=== PATIENT | male | born 1945 | race Caucasian/White ===

== ENCOUNTER 2018-09-22 01:24 | Outpatient (CLI) | payer MEDICARE, MEDICAID, SELFPAY ==
--- NOTE | 2018-09-22 15:00 | DI.US_ITS ---
SYMPTOMS/DIAGNOSIS: ACUTE DVT, I82.401, SWELLING, ON BLOOD THINNERS RIGHT LOWER EXTREMITY ULTRASOUND: Comparison is made with March,. Exam is limited by the patient's body habitus and subcutaneous edema. The posterior tibial veins could not be identified. There is good color flow demonstrated, as well as compressibility in the popliteal vein. Clot was seen on the previous exam. Color flow was demonstrated from the common femoral vein through the popliteal vein. IMPRESSION: Calf edema. No thrombus is identified from the common femoral vein through the popliteal vein. The posterior tibial veins could not be visualized.
== END 2018-09-22 01:44 ==
PROVIDERS: PCP Family Medicine; Visit Provider Family Medicine
DX: I82.401 Acute embolism and thrombosis of unspecified deep veins of right lower extremity (principal); R22.41 Localized swelling, mass and lump, right lower limb; R60.9 Edema, unspecified; Z79.01 Long term (current) use of anticoagulants
CPT/HCPCS: 93971

== ENCOUNTER 2019-03-08 15:29 | Outpatient (REF) | payer MEDICARE, MEDICAID, SELFPAY ==
[2019-03-08 21:36] LABS: ALT 32 U/L (12-78); AST 23 U/L (15-37); Albumin 4.1 g/dL (3.4-5.0); Alkaline Phosphatase 117 U/L (46-116); Anion Gap 11.5 mmol/L (3-11); BUN 18 mg/dL (7-18); Bilirubin, Total 0.4 mg/dL (0.2-1.0); CO2 29.5 mmol/L (21.0-32.0); CREATININE 1.23 mg/dL (0.70-1.30); Calcium 9.4 mg/dL (8.5-10.1); Chloride 101 mmol/L (98-107); Cholesterol 152 mg/dL (50-200); Estimated GFR 57.84 (mL/min/1.73m2); Glucose 95 mg/dL (70-100); HDL Cholesterol 42 mg/dL (40-60); LDL CHOLESTEROL 88 mg/dL (<100); Potassium 3.8 mmol/L (3.5-5.1); Sodium 142 mmol/L (136-145); Total Protein 7.8 g/dL (6.4-8.2); Triglyceride 114 mg/dL (30-150)
== END 2019-03-08 15:49 ==
LOC: NCHCN 15:29
PROVIDERS: PCP Family Medicine; Visit Provider Family Medicine
DX: I10 Essential (primary) hypertension (principal); R74.8 Abnormal levels of other serum enzymes; N28.9 Disorder of kidney and ureter, unspecified; E78.5 Hyperlipidemia, unspecified
CPT/HCPCS: 80053; 80061; 83721

== ENCOUNTER 2019-08-23 15:34 | Outpatient (REF) | payer MEDICARE, MEDICAID, SELFPAY ==
[2019-08-23 21:44] LABS: HCT 46.3 % (40.0-50.0); HGB 15.3 g/dL (13.5-17.5); Mean Corpuscular Hemoglobin 28.9 pg (27.0-33.0); Mean Corpuscular Volume 87.4 fL (80-95); Mean Platelet Volume 10.2 fL (8.0-11.0); Platelet Count 194 x1000/uL (130-400); RBC Distribution Width 15.3 % (11.8-14.1); White Blood Cell Count 8.07 k/cumm (4.4-10.8)
[2019-08-23 22:03] LABS: ALT 79 U/L (16-63); AST 39 U/L (15-37); Alkaline Phosphatase 105 U/L (46-116); Anion Gap 12.3 mmol/L (3-11); BUN 22 mg/dL (7-18); Bilirubin, Total 0.3 mg/dL (0.2-1.0); CO2 26.7 mmol/L (21.0-32.0); CREATININE 1.29 mg/dL (0.70-1.30); Calcium 9.3 mg/dL (8.5-10.1); Chloride 99 mmol/L (98-107); Estimated GFR 54.75 (mL/min/1.73m2); Glucose 102 mg/dL (70-100); Magnesium 1.5 mg/dL (1.8-2.4); Sodium 138 mmol/L (136-145); Total Protein 7.3 g/dL (6.4-8.2)
== END 2019-08-23 15:54 ==
LOC: NCHCN 15:34
PROVIDERS: PCP Family Medicine; Visit Provider Family Medicine
DX: R74.8 Abnormal levels of other serum enzymes (principal); N28.9 Disorder of kidney and ureter, unspecified; F31.9 Bipolar disorder, unspecified; I10 Essential (primary) hypertension; E78.5 Hyperlipidemia, unspecified
CPT/HCPCS: 80053; 85027; 83735

== ENCOUNTER 2019-09-21 14:36 | Inpatient (IN) | payer MEDICARE, MEDICAID, SELFPAY ==
[2019-09-21] VITALS (86 sets, daily range): BP systolic 109–170; BP diastolic 55–90; PULSE 66–96; RESP 11–27; TEMP 36.6; O2SAT 89–100
--- NOTE | 2019-09-21 14:55 | DI.CT_ITS ---
EXAM: CT CHEST/ABD/PEL W CLINICAL HISTORY: anterior CP, backpain, on floor 3 days. TECHNIQUE: The study was carried out according to the usual protocol with an intravenous administrat ion of 100 cc of Omnipaque 350. COMPARISON: No exams were available for comparison FINDINGS: CHEST : The lungs are normal. There is no evidence of a pleural effusion or pneumothorax. The heart is not enlarged. Coronary artery calcification is seen. The aorta is unremarkable. There is no evide nce of lymphadenopathy. Note is made of multilevel degenerative changes involving the spine. No acu te bony abnormality is identified. ABDOMEN/PELVIS: The liver is normal. The gallbladder is normal. There are no gallstones or ductal dil atation. The pancreas, spleen and adrenals are normal . A 1 cm cyst is noted in the right kidney. Th ere is no evidence of nephrolithiasis or hydronephrosis. A very small hiatus hernia is noted. There is no evidence of bowel obstruction. Scattered diverticula are noted in the distal descending and r ecto sigmoid segments of the colon. There is no evidence of diverticulitis. No small bowel abnormali ty is apparent. There is no evidence of an acute appendix. There is no evidence of free fluid or ai r in the intraperitoneal space. Bladder wall thickening is likely on the basis of nondistention. Pr ostatic enlargement is demonstrated. There are small fat containing inguinal hernias. There are ath erosclerotic changes involving the aorta without evidence of an aneurysm.. Degenerative changes invol ving the spine are apparent. IMPRESSION: CHEST: No acute abnormality is demonstrated in the thorax. ABDOMEN AND PELVIS: No acute abnormalities identified in the abdomen or pelvis.
--- NOTE | 2019-09-21 14:55 | DI.CT_ITS ---
EXAM: CT HEAD CERVICAL SPINE WO CLINICAL HISTORY: syncope, on floor 3 days, JOYNER. TECHNIQUE: A noncontrast enhanced cranial and cervical spine CT was performed. COMPARISON: No exams were available for comparison FINDINGS: HEAD: Age-appropriate atrophic changes are demonstrated. There is evidence of small-vessel disease. There is no evidence of an intra or extra-axial hemorrhage. There is no evidence of a mass effect o r midline shift. The cordero-white matter differentiation is preserved. The ventricles are intact. Th ere is no evidence of a skull fracture. Note is made of chronic mildly displaced bilateral nasal bon e fractures. Retention cysts are noted in the paranasal sinuses. There is partial opacification of the right mastoid air cells. The soft tissues are unremarkable. C SPINE: The vertebral bodies are intact. There is no evidence of a fracture or subluxation. Degene rative changes at C5-6 and C6-C7 are noted where there is disc space narrowing. The posterior elemen ts are intact. The neural canal is widely patent throughout. The odontoid is intact and is closely ap plied to the anterior arch of C1. The prevertebral soft tissues are unremarkable. IMPRESSION: HEAD: No acute intracranial abnormality is demonstrated. There is partial opacification of the right mastoid air cells. C spine: No evidence of a fracture or subluxation.
--- NOTE | 2019-09-21 14:57 | ED.GENADUL_ITS ---
Discharge Plan Disposition Patient Disposition: [facility] INPATIENT Condition: Stable Discharge Details Chief Complaint: Trauma Clinical Impression: Urinary tract infection, Rhabdomyolysis Primary Care Provider: Rosa Bartlett V ED Provider: José Ayoub Home Meds and New Rx's Prescriptions: No Action Refresh Tears 15 ML drops 15 ml Ophthalmic PRN PRNRF: 0 Restasis 1 EACH dropperette 1 ea Ophthalmic DAILY RF: 0 clonazepam 1 MG tablet 1 mg PO HS RF: 0 nitroglycerin [Nitrostat] 0.4 MG tablet, sublingual 0.4 mg Sublingual PRN PRNRF: 0 docusate sodium [Colace] 100 MG capsule 100 mg PO BID PRNRF: 0 furosemide [Lasix] 20 MG tablet 20 mg PO DAILY RF: 0 ezetimibe [Zetia] 10 MG tablet 10 mg PO DAILY RF: 0 trazodone 50 MG tablet 100 mg PO HS RF: 0 diphenhydramine HCl [Benadryl] 25 MG capsule 50 mg PO Q8H PRN RF: 0 aspirin 325 MG tablet 325 mg PO DAILY RF: 0 Cardizem LA 120 MG tablet extended release 24 hr 120 mg PO DAILY RF: 0 ziprasidone HCl [Geodon] 60 mg Capsule 60 mg PO BID RF: 0 lamotrigine [Lamictal] 100 mg Tablet 100 mg PO DAILY RF: 0 pantoprazole 40 mg Tablet,Delayed Release (Dr/Ec) 40 mg PO DAILY AM RF: 0 sertraline [Zoloft] 100 mg Tablet 100 mg PO TID RF: 0 propranolol 40 mg Tablet 40 mg PO BID RF: 0 rosuvastatin [Crestor] 10 mg Tablet 10 mg PO HS RF: 0 Eliquis 5 mg Tablet 5 mg PO BID RF: 0 magnesium oxide [MagOx] 400 mg (241.3 mg magnesium) Tablet 400 mg PO DAILY RF: 0 Medical Decision Making 73-year-old male brought by EMS. He states that he developed a diarrheal illness with general malaise, mild headache and weakness approximately 6 days ago. He states that on Thursday he felt lightheaded, same to the floor and then was unable to get up. He believes he did have a loss of consciousness at that time. Finally able to drag himself to the phone today and called EMS who transported the patient to the ED. He arrives with normal vital signs, he is not hypothermic. He has evidence of contusion and abrasions on anterior chest, anterior patella bilaterally, left elbow. He is at risk for dehydration, concomitant infection, rhabdomyolysis. Patient given maintenance fluids, small amount of analgesia, tetanus status updated, and he is referred for CT images and laboratory tests.. White blood cell elevated at 12.9. CBC otherwise unremarkable. Chemistries: Sodium 136, potassium 3.3, chloride 97, bicarb 21, BUN 28, creatinine 1.29, anion gap 18. AST 145, ALT 60, creatinine kinase 3869, troponin negative. Urinalysis with positive leuk esterase, positive nitrites, greater than 50 white blood cells. Imaging: X-ray of left elbow, bilateral knees are without acute finding. CT sc an of head, cervical spine, chest abdomen pelvis without acute finding. Consistent with urinary tract infection, dehydration, rhabdomyolysis. Fluids infusing, patient given ceftriaxone for urinary tract infection. Ahn catheter ordered to track urine output which the patient refused. Lab Data Lab results reviewed: Yes I reviewed the patient's lab results. Labs: Laboratory Results - last 24 hr 09/21/19 09/21/19 09/21/19 15:20 15:20 15:34 WBC 12.96 H RBC 4.94 Hgb 14.2 Hct 41.6 MCV 84.2 MCH 28.7 MCHC 34.1 RDW 14.7 H Plt Count 225 MPV 10.4 Immature Gran % 0.0 Neutrophils % 78.0 Band Neutrophils % 0.0 Lymphocytes % 14.0 Atypical Lymphs % 0 Monocytes % 8.0 Eosinophils % 0.0 Basophils % 0.0 Absolute Neutrophils 10.11 H Absolute Lymphocytes 1.81 Absolute Monocytes 1.04 H Absolute Eosinophils 0.00 Absolute Basophils 0.00 Differential Comment Manual differential RBC Morphology Normal Sodium 136 Potassium 3.3 L Chloride 97 L Carbon Dioxide 21.0 Anion Gap 18.0 H BUN 28 H Creatinine 1.29 Estimated GFR/1.73 m2 54.75 Glucose 109 H Calcium 9.2 Magnesium 1.9 Total Bilirubin 1.0 AST 145 H ALT 60 Alkaline Phosphatase 111 Creatine Kinase 3869 H Troponin I < 0.05 Total Protein 7.6 Albumin 3.0 L Urine Color Yellow Urine Clarity Sl cloudy Urine pH 6.0 Ur Specific Renwick 1.020 Urine Protein 100 H Urine Ketones >=160 H Urine Blood Large H Urine Nitrite Positive H Urine Bilirubin Small H Urine Urobilinogen 0.2 Ur Leukocyte Esterase Moderate H Urine RBC Negative Urine WBC >50 Ur Epithelial Cells Negative Urine Crystals Negative Urine Bacteria Many Urine Casts Negative Urine Mucus Negative Urine Other Negative Ur Culture Indicated? Yes Urine Glucose Negative ECG Data Attestation: I personally reviewed and interpreted this ECG (s) as follows: Interpretation: Normal sinus rhythm, first-degree AV block, rate of 80, QRS is narrow, there is no ST segment elevation. HPI General Mode of arrival: EMS . Date/Time Provider Initiated Documentation: 09/21/19 14:47 . Information obtained by: patient and EMS . History of Present Illness 73 year old M presents to the emergency department with the chief complaint of Antecedent illness followed by fall and unable to get up Thursday, described as moderate, Quality is described as dull and constant, and is localized to the chest and back. Patient reports no radiation. Patient started experiencing this day(s) and it has been constant. No relieving factors improve symptom(s), No exacerbating factors reported . Patient notes headaches and syncope. Patient did receive the following treatments prior to arrival, none Related Data Home Medications Medication Instructions Recorded Confirmed clonazepam 1 mg PO HS 06/13/13 09/21/19 docusate sodium [Colace] 100 mg PO BID PRN 06/13/13 09/21/19 ezetimibe [Zetia] 10 mg PO DAILY 06/13/13 09/21/19 furosemide [Lasix] 20 mg PO DAILY 06/13/13 09/21/19 nitroglycerin [Nitrostat] 0.4 mg SUBLINGUAL PRN PRN 06/13/13 09/21/19 trazodone 100 mg PO HS 06/13/13 09/21/19 diphenhydramine HCl [Benadryl] 50 mg PO Q8H PRN 07/15/14 09/21/19 Refresh Tears 15 ml OPHTHALMIC PRN PRN script 07/28/14 09/21/19 Restasis 1 ea OPHTHALMIC DAILY script 07/28/14 09/21/19 Cardizem LA 120 mg PO DAILY 05/09/16 09/21/19 aspirin 325 mg PO DAILY 05/09/16 09/21/19 apixaban [Eliquis] 5 mg PO BID 09/21/19 09/21/19 lamotrigine [Lamictal] 100 mg PO DAILY 09/21/19 09/21/19 magnesium oxide [MagOx] 400 mg PO DAILY 09/21/19 09/21/19 pantoprazole 40 mg PO DAILY AM 09/21/19 09/21/19 propranolol 40 mg PO BID 09/21/19 09/21/19 rosuvastatin [Crestor] 10 mg PO HS 09/21/19 09/21/19 sertraline [Zoloft] 100 mg PO TID 09/21/19 09/21/19 ziprasidone HCl [Geodon] 60 mg PO BID 09/21/19 09/21/19 Allergies Allergy/AdvReac Type Severity Reaction Status Date / Time No Known Allergies Allergy Unverified 04/20/17 11:20 General Stated Complaint: Trauma SADIA: 2 Review of Systems Review of Systems Narrative: States he had a diarrheal illness, weakness, headache. Fell to the ground and was unable to get up. Now with left hip pain, back and chest pain. Left elbow pain. 8 systems reviewed and otherwise negative [facility] Medical History Atherosclerosis of coronary artery Holloway's esophagus Essential hypertension Hypercholesterolemia Left ventricular hypertrophy Panic disorder personality affective Schizoaffective disorder tubular adenomas Surgical History Appendectomy (~2006) Colonoscopy - MAC (~2010) Colonoscopy - MAC (04/20/17) EGD - MAC (~2010) EGD - MAC (04/20/17) Hernia Repair, Incisional (~2007) Family History Mother No problems noted. Father Acute myocardial infarction Brother Parkinson's disease Social History Smoking/Tobacco Use Status: Former Tobacco Use Alcohol Intake: never Drug use: Never Exam Narrative Exam Narrative: GEN: awake, alert, oriented 3. Pleasant, poorly groomed, interactive. HEAD: Normocephalic, atraumatic ENT: Mucous membranes dry, oropharynx unremarkable, External ear exam unremarkable EYES: PERRL, EOMI NECK: Full ROM, no CADEN, no menigismus, nontender no step-off or deformity CHEST/RESP: Anterior chest wall bruising and bilateral tenderness, clear to auscultation bilateral, no wheeze/rhonchi/rales CARDIOVASCULAR: RRR, no murmur, rub alley. 2+ Rad pulse bilateral ABDOMEN: Soft, nontender, no mass. +Bowel sounds EXT: Full ROM, no edema, no rash. Bilateral anterior patellar abrasions. Left elbow mild abrasion, range of motion intact, no significant tenderness. Left hip tenderness to palpation, no tenderness with internal or external rotation. Neuro: Grossly normal neurologic exam, conversant, interactive. Psych: Speech fluent, thoughts congruent, affect normal Course Vital Signs Vital signs: Vital Signs Temperature 36.6 C 09/21/19 14:48 Pulse 66 09/21/19 14:48 Respiratory Rate 16 09/21/19 14:48 Blood Pressure 136/90 09/21/19 14:48 Pulse Oximetry 98 09/21/19 14:48 Temperature 36.6 C 09/21/19 14:48 Temperature Source Temporal Artery Scan 09/21/19 14:48 Pulse 66 09/21/19 14:48 Respiratory Rate 16 09/21/19 14:48 Blood Pressure 136/90 09/21/19 14:48 Blood Pressure Position Supine 09/21/19 14:48 Pulse Oximetry 98 09/21/19 14:48 Oxygen Delivery Method Room Air 09/21/19 14:48 Oxygen Flow Rate 0 09/21/19 14:48 Pain Level 7 09/21/19 14:48
--- NOTE | 2019-09-21 15:26 | DI.RAD_ITS ---
EXAM: XR ELBOW LT COMPLETE INDICATION: L pain after on floor. COMPARISON: XR KNEE RT 2V AP,LAT from 09/21/2019 TECHNIQUE: 2D digital imaging was performed. FINDINGS: There is no evidence of a fracture or dislocation. A prominent olecranon spur is demonstrated.
[2019-09-21 15:27] LABS: Abs Immature Grans 0.08 k/cumm (0.0-0.09); HCT 41.6 % (40.0-50.0); HGB 14.2 g/dL (13.5-17.5); Mean Corp. HGB Concentration 34.1 g/dL (32.0-36.0); Mean Corpuscular Hemoglobin 28.7 pg (27.0-33.0); Mean Corpuscular Volume 84.2 fL (80-95); Mean Platelet Volume 10.4 fL (8.0-11.0); Platelet Count 225 x1000/uL (130-400); RBC 4.94 m/cumm (4.50-6.00); RBC Distribution Width 14.7 % (11.8-14.1); White Blood Cell Count 12.96 k/cumm (4.4-10.8)
[2019-09-21] MEDS: Normal Saline 1,000 ML 125 ML IV (15:30)
[2019-09-21 15:46] LABS: Bilirubin Small (Negative); Blood Large (Negative); Clarity Sl Cloudy (Clear); Glucose Negative (Negative); Ketones >=160 mg/dL (Negative); Leukocyte Esterase Moderate (Negative); Nitrite Positive (Negative); Urobilinogen 0.2 EU/dL (Up TO 0.2)
[2019-09-21 15:46] LABS: ALT 60 U/L (16-63); AST 145 U/L (15-37); Alkaline Phosphatase 111 U/L (46-116); BUN 28 mg/dL (7-18); CREATININE 1.29 mg/dL (0.70-1.30); Calcium 9.2 mg/dL (8.5-10.1); Chloride 97 mmol/L (98-107); Estimated GFR 54.75 (mL/min/1.73m2); Glucose 109 mg/dL (70-100); Magnesium 1.9 mg/dL (1.8-2.4); Potassium 3.3 mmol/L (3.5-5.1); Sodium 136 mmol/L (136-145); Total Protein 7.6 g/dL (6.4-8.2)
[2019-09-21 15:49] LABS: Absolute Lymphocyte Count 1.81 k/cumm (1.2-3.4); Absolute Monocyte Count 1.04 k/cumm (0.11-0.7); Absolute Neutrophil Count 10.11 k/cumm (1.2-6.7); Atypical Lymphocytes % 0
[2019-09-21 15:50] LABS: Diff Comment Manual Differential; RBC Morphology Normal
[2019-09-21 15:51] LABS: Creatine Kinase 3869 U/L (39-308); Troponin I < 0.05 ng/mL (0.00-0.06)
[2019-09-21 16:00] LABS: Bacteria Many HPF (Negative); C & S Indicated? Yes; Casts Negative LPF (Negative); Crystals Negative HPF (Negative); Epithelial Cells Negative HPF (Negative); Mucus Negative (Negative); Other Cells Negative (Negative); RBC Negative (0-2); WBC >50 HPF (0-5)
[2019-09-21] MEDS: cefTRIAXone 1 GM/50 ML BAG IVPB ×2 (16:00→21:42)
--- NOTE | 2019-09-21 16:07 | DI.RAD_ITS ---
EXAM: XR KNEE LT 2V AP,LAT INDICATION: fall, anterior pain and contusion. COMPARISON: XR KNEE RT 2V AP,LAT from 09/21/2019 TECHNIQUE: 2D digital imaging was performed. FINDINGS: There is no evidence of a fracture or dislocation. Mild degenerative changes are noted.
--- NOTE | 2019-09-21 16:07 | DI.RAD_ITS ---
EXAM: XR KNEE RT 2V AP,LAT INDICATION: fall, anterior pain and contusion. COMPARISON: KNEES BILAT AP STANDING from 07/26/2014 TECHNIQUE: 2D digital imaging was performed. FINDINGS: There is no evidence of a fracture or dislocation. Moderate degenerative changes are noted.
--- NOTE | 2019-09-21 16:58 | DI.VRAD_ITS ---
PROCEDURE INFORMATION: Exam: CT Head Without Contrast Exam date and time: 09/21/2019 2:57 PM Clinical history: 73 years old, male; Injury or trauma; Fall; Initial encounter; Blunt trauma (contusions or hematomas); Consciousness not specified; Concussion /head injury TECHNIQUE: Imaging protocol: Computed tomography of the head without contrast. COMPARISON: CT HEAD WITHOUT CONTRAST 09/05/2014 3:49 PM FINDINGS: Brain: Nonspecific hypodensities of the periventricular and deep subcortical white matter, most likely secondary to chronic small vessel ischemic change. No intracranial hemorrhage or extra-axial fluid collection. No evidence of mass effect or midline shift. López-white matter differentiation is normal. Ventricles: Prominence of the ventricles and sulci, most likely attributed to parenchymal volume loss. Bones/joints: Chronic mildly displaced bilateral nasal bone fractures. No acute fracture. Sinuses: Chronic retention cysts versus polyps in the paranasal sinuses. Mastoid air cells: Partial opacification of right mastoid air cells. Soft tissues: Unremarkable. IMPRESSION: 1. No acute intracranial pathology. 2. Partial opacification of right mastoid air cells. 3. Other chronic findings, as above. PROCEDURE INFORMATION: Exam: CT Cervical Spine Without Contrast Exam date and time: 09/21/2019 2:57 PM Clinical history: 73 years old, male; Injury or trauma; Fall; Initial encounter; Blunt trauma (contusions or hematomas); Consciousness not specified; Concussion /head injury TECHNIQUE: Imaging protocol: Computed tomography images of the cervical spine without contrast. COMPARISON: CT HEAD WITHOUT CONTRAST 09/05/2014 3:49 PM FINDINGS: Vertebrae: Vertebral body heights are maintained. No locked or perched facets. Multilevel facet arthropathy. No acute cervical spine fracture. The dens is intact. Atlanto-axial intervals are normal. Discs/Spinal canal/Neural foramina: Multilevel degenerative changes with intervertebral disc height loss and osteophyte formation, with multilevel areas of mild canal stenosis. Soft tissues: Unremarkable. Lungs: Lung apices are clear. IMPRESSION: No acute cervical spine fracture. Dictated and Authenticated by: Leonid Monae MD. Ordering:JAZMÍN Kumar MD
--- NOTE | 2019-09-21 17:03 | DI.VRAD_ITS ---
PROCEDURE INFORMATION: Exam: XR Right Knee Exam date and time: 09/21/2019 4:50 PM Clinical history: 73 years old, male; Pain; Knee; Right TECHNIQUE: Imaging protocol: XR Right knee. Views: 3 views. COMPARISON: CR KNEES BILAT AP STANDING 07/26/2014 11:30 AM FINDINGS: Bones/joints: Moderate degenerative narrowing of the medial joint space. Mild degenerative narrowing of the lateral joint space. No acute fracture. No dislocation. Soft tissues: Unremarkable. IMPRESSION: No acute findings. Dictated and Authenticated by: Leonid Monae MD. Ordering:JAZMÍN Kumar MD
--- NOTE | 2019-09-21 17:03 | DI.VRAD_ITS ---
PROCEDURE INFORMATION: Exam: XR Left Knee Exam date and time: 09/21/2019 4:50 PM Clinical history: 73 years old, male; Pain; Knee; Left TECHNIQUE: Imaging protocol: XR Left knee. Views: 1 or 2 views. COMPARISON: CR KNEES BILAT AP STANDING 07/26/2014 11:30 AM FINDINGS: Bones/joints: Mild degenerative narrowing of the medial joint space. No acute fracture. No dislocation. Soft tissues: Unremarkable. IMPRESSION: No acute findings. Dictated and Authenticated by: Leonid Monae MD. Ordering:JAZMÍN Kumar MD
--- NOTE | 2019-09-21 17:04 | DI.VRAD_ITS ---
PROCEDURE INFORMATION: Exam: XR Left Elbow Exam date and time: 09/21/2019 4:55 PM Clinical history: 73 years old, male; Pain; Elbow; Left TECHNIQUE: Imaging protocol: XR Left elbow. Views: 3 or more views. COMPARISON: No relevant prior studies available. FINDINGS: Bones/joints: No acute fracture or dislocation. Degenerative spurring of the olecranon. Soft tissues: Unremarkable. IMPRESSION: No acute findings. Dictated and Authenticated by: Leonid Monae MD. Ordering:JAZMÍN Kumar MD
--- NOTE | 2019-09-21 17:07 | DI.VRAD_ITS ---
PROCEDURE INFORMATION: Exam: CT Chest With Contrast Exam date and time: 09/21/2019 4:36 PM Clinical history: 73 years old, male; Injury or trauma; Fall; Initial encounter; Sprain or strain; Injury date: 09/17/19 TECHNIQUE: Imaging protocol: Computed tomography of the chest with intravenous contrast. Contrast material: OMNI 350; Contrast volume: 100 ml; Contrast route: R AC; COMPARISON: No relevant prior studies available. FINDINGS: Lungs: No focal areas of consolidation. No masses. Pleural space: No pleural effusion or pneumothorax. Heart: Mild calcifications of the coronary arteries. Aorta: Unremarkable. Lymph nodes: No enlarged lymph nodes. Bones/joints: Multilevel degenerative changes of the visualized spine. No acute osseous lesion or fracture. Soft tissues: Unremarkable. IMPRESSION: 1. No acute findings in the thorax. 2. Other chronic findings, as above. PROCEDURE INFORMATION: Exam: CT Abdomen And Pelvis With Contrast Exam date and time: 09/21/2019 4:36 PM Clinical history: 73 years old, male; Injury or trauma; Fall; Initial encounter; Sprain or strain; Injury date: 09/17/19 TECHNIQUE: Imaging protocol: Computed tomography of the abdomen and pelvis with intravenous contrast. Contrast material: OMNI 350; Contrast volume: 100 ml; Contrast route: R AC; COMPARISON: No relevant prior studies available. FINDINGS: Liver: Unremarkable. Gallbladder and bile ducts: Unremarkable. No ductal dilation. Pancreas: Unremarkable. No ductal dilation. Spleen: Unremarkable. Adrenals: Unremarkable. Kidneys and ureters: 1 cm fluid density cyst in the right kidney. No hydronephrosis or stones. Stomach and bowel: Small hiatal hernia. Scattered colonic diverticulosis without evidence of diverticulitis. Small bowel loops are unremarkable. Appendix: No evidence of appendicitis. Intraperitoneal space: No pneumoperitoneum. No significant fluid collection. Vasculature: Atherosclerotic calcifications of the aorta and major branches. Lymph nodes: No enlarged lymph nodes. Bladder: The bladder is decompressed and unremarkable. Reproductive: Enlargement of the prostate gland. Bones/joints: Multilevel degenerative changes of the visualized spine. No acute osseous lesion or fracture. Soft tissues: Unremarkable. IMPRESSION: 1. No acute intra-abdominal findings. 2. Other chronic findings, as above. Dictated and Authenticated by: Leonid Monae MD. Ordering:JAZMÍN Kumar MD
[2019-09-21] MEDS: Omnipaque 350 MG/ML 100 ML BTL IJ (17:21)
[2019-09-21] MEDS: Normal Saline 1,000 ML 300 ML IV (18:55)
--- NOTE | 2019-09-21 19:16 | W.PM.HP.N ---
Date of service: 09/21/19 Time of Service: 19:16 Assessment and Plan Assessment and plan (1) Complicated UTI (urinary tract infection): Status: Acute Assessment and plan: continue iv Rocephin at increased dosing of 2 gm daily; check results of urine culture; check renal/bladder US in the a.m. (2) Rhabdomyolysis: Status: Acute Assessment and plan: secondary to pressure sores/lying on floor for 3 days. continue aggressive iv fluids overnight to prevent AGNES (particularly in light of his CT chest/abdome/pelvis taken w/ iv contrast. monitor urinary output and repeat BMP now and again in the a.m. Repeat CK levels in the a.m. I do not feel there is a need for alkalinization w/ sodium bicarbonate as long as he can maintain reasonable urinary output w/ aggressive iv fluids. Qualifiers: Rhabdomyolysis type: non-traumatic Qualified Code(s): M62.82 - Rhabdomyolysis (3) Syncope: Status: Chronic Assessment and plan: probably secondary to dehydration from vomiting and diarrhea and low bp from infection and volume loss. Will monitor rhythm overnight. Qualifiers: Syncope type: unspecified Qualified Code(s): R55 - Syncope and collapse (4) Dehydration: Status: Acute Assessment and plan: As above. continue aggressive iv fluids overnight. Will continue at 500 mL/hr for another couple of liters before decreasing to 250 mL/hr. 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 He says that he was ill all weekend beginning on Thursday evening w/ fever, chills, nausea and vomiting and diarrhea and headache. Upon evaluation in the ER he was found to have a UTI w/ CBC w/ leukocytosis of 12,960 and UA w/ large amount of blood and positive for nitrites, and moderate leukocyte esterase, and >50 WBC/HPF and many bacteria and ketonuria >160, and proteinuria 100 mg/dL. He also has a rhabdomyolysis w/ CK of 3896 and fairly normal renal function w/ BUN 28 and creatinine of 1.29 and low potassium of 3.3. He underwent xrays of his L. & R. knees and L. elbow d/t skin abrasions and c/o of bilateral knee pains. CT of his head w/o contrast was negative for acute intracranial pathology. CT of his neck did not show any fractures. CT of his chest, abdomen and pelvis w/ iv contrast did not show any acute pathology. Treatment in the ER consisted of iv fluids N.S. @ 150 mL/hr, Tylenol and morphine for his pain and Rocephin for the UTI. Per my discussion w/ Dr. Ayoub, I requested iv fluids to be increased to 300 to 500 mL/hr and for pennington to be placed. The patient refused a pennington catheter but bladder scan done at 2200 demonstrated 200 mL urine in the bladder and he voided 180 mL. After bedside POCUS exam in which his LV function was found to be low normal and his RV function appeared to be normal and his IVC demonstrated greater than 50% collapse w/ inspiration and his lung cooper were found to be clear, I had ER nursing increase his rate to 1000 mL/hr to prevent acute kidney injury from both the iv contrast and from rhabdomyolysis. Patient will be admitted to ICU for close monitoring of his volume status and urine outputs. I ordered and additional 1 gm of Rocephin for his UTI. A renal and bladder US will be performed in the a.m. to evaluate for complicated UTI. Bladder scanning will be done through the night to evaluate his response to iv fluids. Review of Systems Review of Systems Narrative: 10 systems reviewed and all negative except as noted in HPI Constitutional Constitutional: Reports headache(s) ENT Ears, Nose, Mouth, and Throat: Reports dizziness and Reports headache(s) Cardiovascular Cardiovascular: Reports system reviewed and no additional complaints, except as docu and Reports syncope Gastrointestinal Gastrointestinal: Denies abdominal pain, Denies melena, Denies hematochezia, Reports diarrhea, Reports nausea, Reports vomiting and Denies hematemesis Genitourinary Genitourinary: Reports oliguria and Reports difficulty urinating Musculoskeletal Musculoskeletal: Reports back pain, Reports myalgias, Reports arthralgias and Reports muscle weakness Integumentary/Breasts Skin/Breast: Reports skin ulcer and Reports unusual bruising Neurologic Neurologic: Reports dizziness, Reports syncope and Reports headache(s) Psychiatric Psychiatric: Reports system reviewed and no additional complaints, except as docu Hematologic/Lymphatic Hematologic/Lymphatic: Reports as per HPI and Reports easy bruising Allergic/Immunologic Allergic/Immunologic: Reports system reviewed and no additional complaints, except as docu PFSH Medical History Atherosclerosis of coronary artery Holloway's esophagus Essential hypertension Hypercholesterolemia Left ventricular hypertrophy Panic disorder personality affective Schizoaffective disorder tubular adenomas Surgical History Appendectomy (~2006) Colonoscopy - MAC (~2010) Colonoscopy - MAC (04/20/17) EGD - MAC (~2010) EGD - MAC (04/20/17) Hernia Repair, Incisional (~2007) Family History Mother No problems noted. Father Acute myocardial infarction Brother Parkinson's disease Social History Smoking/Tobacco Use Status: Former Tobacco Use Alcohol Intake: never Drug use: Never Meds Home Medications and Allergies Home Medications Medication Instructions Recorded Confirmed Type clonazepam 1 mg PO HS 06/13/13 09/21/19 History docusate sodium [Colace] 100 mg PO BID PRN 06/13/13 09/21/19 History ezetimibe [Zetia] 10 mg PO DAILY 06/13/13 09/21/19 History furosemide [Lasix] 20 mg PO DAILY 06/13/13 09/21/19 History nitroglycerin [Nitrostat] 0.4 mg SUBLINGUAL PRN PRN 06/13/13 09/21/19 History trazodone 100 mg PO HS 06/13/13 09/21/19 History diphenhydramine HCl [Benadryl] 50 mg PO Q8H PRN 07/15/14 09/21/19 History Refresh Tears 15 ml OPHTHALMIC PRN PRN script 07/28/14 09/21/19 History Restasis 1 ea OPHTHALMIC DAILY script 07/28/14 09/21/19 History Cardizem LA 120 mg PO DAILY 05/09/16 09/21/19 History aspirin 325 mg PO DAILY 05/09/16 09/21/19 History apixaban [Eliquis] 5 mg PO BID 09/21/19 09/21/19 History lamotrigine [Lamictal] 100 mg PO DAILY 09/21/19 09/21/19 History magnesium oxide [MagOx] 400 mg PO DAILY 09/21/19 09/21/19 History pantoprazole 40 mg PO DAILY AM 09/21/19 09/21/19 History propranolol 40 mg PO BID 09/21/19 09/21/19 History rosuvastatin [Crestor] 10 mg PO HS 09/21/19 09/21/19 History sertraline [Zoloft] 100 mg PO TID 09/21/19 09/21/19 History ziprasidone HCl [Geodon] 60 mg PO BID 09/21/19 09/21/19 History Allergies Allergy/AdvReac Type Severity Reaction Status Date / Time No Known Allergies Allergy Unverified 04/20/17 11:20 Exam Const General: cooperative, disheveled and ill appearing acutely Nutritional Appearance: obese Orientation: alert, awake and oriented x3 HENMT Head: normal to inspection, no palpable skull fracture, normocephalic and atraumatic Ears: hearing grossly normal bilaterally and EAC abnormal excessive cerumen bilaterally General nose exam: external nose normal and mucous membranes and turbinates abnormal other (dry) Face and sinus: normal facial exam Mouth: other (dry mucous membranes; no exudates) Teeth and gingiva: poor dentition Throat: posterior oropharynx normal Neck Neck: normal visual inspection, full ROM, no lymphadenopathy, no meningeal signs, trachea midline, supple and no JVD Thyroid: thyroid normal Carotids: normal carotid upstroke Lymphatic: no lymphadenopathy noted Resp Effort & Inspection: normal respiratory effort and able to speak in complete sentences Auscultation: clear to auscultation bilaterally Percussion: percussion normal Cardio Jugular venous pressure: no JVD Palpation: normal PMI Rate: regular rate Rhythm: regular rhythm Heart Sounds: S1 normal, S2 normal, normal, physiologic split S2, no gallops, no murmurs and no rubs Bruits: no abdominal aortic bruits, no carotid bruits and no renal bruits Pulses: normal peripheral pulses GI Inspection: obesity Palpation: soft and no hepatosplenomegaly Percussion: normal to percussion Auscultation: normal bowel sounds Rectal Exam: deferred Back/Spine/Pelvis Back: back tenderness Cervical Spine: cervical ROM normal Thoracic/Lumbar Spine: thoracic and lumbar spine normal to inspection Skin General skin exam: ecchymosis Trauma: abrasion (over both knees) Wounds: wounds noted (over both knees c/w skin abrasions superficial ulcerations) Neuro General: alert, awake, oriented x3, moves all extremities, no meningeal signs and no focal motor deficits Cranial Nerves: EOM intact bilaterally, no nystagmus, facial strength normal, tongue midline, hearing normal, able to rotate head bilaterally and able to elevate shoulders bilaterally Cognition: normal cognition Speech: speech normal Motor: muscle tone normal throughout and no movement abnormalities noted Extrem Right lower extremity: knee Details: abrasion Left lower extremity: knee Details: abrasion Psych Appearance: disheveled Mental Status: mental status grossly normal Speech and Movement: speech and movement normal Mood: congruent mood Affect: normal affect Attitude: cooperative Thought Process: normal Thought Content: normal Insight: insight good Judgment: judgment good Results Labs Result diagrams: 09/22/19 06:45 09/22/19 06:45 Labs: Laboratory Results - last 24 hr 09/21/19 09/21/19 09/21/19 15:20 15:20 15:34 WBC 12.96 H RBC 4.94 Hgb 14.2 Hct 41.6 MCV 84.2 MCH 28.7 MCHC 34.1 RDW 14.7 H Plt Count 225 MPV 10.4 Immature Gran % 0.0 Neutrophils % 78.0 Band Neutrophils % 0.0 Lymphocytes % 14.0 Atypical Lymphs % 0 Monocytes % 8.0 Eosinophils % 0.0 Basophils % 0.0 Absolute Neutrophils 10.11 H Absolute Lymphocytes 1.81 Absolute Monocytes 1.04 H Absolute Eosinophils 0.00 Absolute Basophils 0.00 Differential Comment Manual differential RBC Morphology Normal Sodium 136 Potassium 3.3 L Chloride 97 L Carbon Dioxide 21.0 Anion Gap 18.0 H BUN 28 H Creatinine 1.29 Estimated GFR/1.73 m2 54.75 Glucose 109 H Calcium 9.2 Magnesium 1.9 Total Bilirubin 1.0 AST 145 H ALT 60 Alkaline Phosphatase 111 Creatine Kinase 3869 H Troponin I < 0.05 Total Protein 7.6 Albumin 3.0 L Urine Color Yellow Urine Clarity Sl cloudy Urine pH 6.0 Ur Specific [place] 1.020 Urine Protein 100 H Urine Ketones >=160 H Urine Blood Large H Urine Nitrite Positive H Urine Bilirubin Small H Urine Urobilinogen 0.2 Ur Leukocyte Esterase Moderate H Urine RBC Negative Urine WBC >50 Ur Epithelial Cells Negative Urine Crystals Negative Urine Bacteria Many Urine Casts Negative Urine Mucus Negative Urine Other Negative Ur Culture Indicated? Yes Urine Glucose Negative Last Vital Signs Temp 36.6 C 09/21/19 14:48 Pulse 96 H 09/21/19 18:46 Resp 13 09/21/19 18:46 BP 170/69 H 09/21/19 18:46 Pulse Ox 99 09/21/19 17:20
--- NOTE | 2019-09-21 19:22 | NUR.NOTE ---
Refuses pennington cath. states he has had a bad experience with it in the past. Nursing Note:
[2019-09-21 19:46] LABS: Anion Gap 14.7 mmol/L (3-11); BUN 27 mg/dL (7-18); CO2 21.3 mmol/L (21.0-32.0); CREATININE 1.22 mg/dL (0.70-1.30); Calcium 8.3 mg/dL (8.5-10.1); Chloride 100 mmol/L (98-107); Estimated GFR 58.39 (mL/min/1.73m2); Glucose 152 mg/dL (70-100); Potassium 3.1 mmol/L (3.5-5.1); Sodium 136 mmol/L (136-145)
[2019-09-21 19:50] LABS: Procalcitonin 0.4 ng/mL
[2019-09-21] MEDS: Hydrogen Peroxide 3% 480 ML BTL (22:37)
[2019-09-21] MEDS: Normal Saline 1,000 ML 500 ML IV (23:00)
[2019-09-21] MEDS: Acetaminophen 325 MG TAB 650 MG PO (23:15)
[2019-09-22] VITALS (91 sets, daily range): BP systolic 92–142; BP diastolic 42–77; PULSE 49–80; RESP 10–21; TEMP 36.3–36.8; O2SAT 78–100
--- NOTE | 2019-09-22 01:00 | DI.RAD_ITS ---
EXAM: XR HIP PELVIS ADULT BL INDICATION: s/p fall; bilateral hip pain. COMPARISON: No exams were available for comparison TECHNIQUE: 2D digital imaging was performed. FINDINGS: There is no evidence of an acute fracture or dislocation. The joint spaces are intact.
[2019-09-22] MEDS: Normal Saline 1,000 ML 500 ML IV (01:01)
--- NOTE | 2019-09-22 01:02 | DI.VRAD_ITS ---
PROCEDURE INFORMATION: Exam: XR Bilateral Hips with Pelvis when Performed Exam date and time: 09/22/2019 12:48 AM Clinical history: 73 years old, male; Hip pain; Bilateral; Additional info: S/P fall, bilateral hip pain TECHNIQUE: Imaging protocol: XR bilateral hips with pelvis when performed. Views: 2 views. COMPARISON: CT CHEST/ABD/PEL W 09/21/2019 4:37 PM FINDINGS: Bones/joints: No acute fracture or dislocation. Joint spaces are unremarkable. Soft tissues: Unremarkable. IMPRESSION: No acute fracture or dislocation. Dictated and Authenticated by: Leonid Monae MD. Ordering:[facility] Davida Aggarwal MD
[2019-09-22] MEDS: traZODone 50 MG TAB 100 MG PO ×2 (02:00→21:33)
[2019-09-22] MEDS: clonazePAM 1 MG TAB PO ×2 (02:00→21:33)
[2019-09-22] MEDS: Rosuvastatin 10 MG TAB PO (02:00)
[2019-09-22] MEDS: Apixaban 5 MG TAB PO ×3 (02:16→20:06)
[2019-09-22] MEDS: Propranolol 40 MG TAB PO (02:22)
--- NOTE | 2019-09-22 03:42 | NUR.NOTE ---
09/21/19 @ 2300 pericare provided to pt, noted dry stool to bilat LE/coccyx and posterior torso. complete bed bath provided with out incident. complete bed change provided with out incident. pt tolerated well. noted abrasions to bilat knees that were cleansed with hydrogen peroxide/NS, CHIARA applied and covered with bandaids without incident. Nursing Note:
[2019-09-22] MEDS: POTASSIUM CHLORIDE/0.9% NACL 1,000 ML 250 MEQ IV ×4 (04:31→18:31)
[2019-09-22] MEDS: Pantoprazole 40 MG TABCR PO (04:56)
--- NOTE | 2019-09-22 07:00 | DI.US_ITS ---
EXAM: US RENAL CLINICAL HISTORY: complicated UTI, rhabdomyolysis TECHNIQUE: Ultrasound performed using standard protocol. COMPARISON: US lower extremity venous RT from 09/22/2018 FINDINGS: Renal ultrasound was performed according to the usual protocol. Kidneys are normal in size and shape . There is an incidental 21 millimeter in diameter simple cyst of the midpole of the right kidney. No hydronephrosis nephrolithiasis or renal mass as visualized. Urinary bladder grossly unremarkable with pre and postvoid urinary bladder volume measurements 182 cc and 32 cc respectively. Ureteral je ts were noted bilaterally. Prostate enlarged at 37 cc. IMPRESSION: Essentially normal renal ultrasound, prostatic hypertrophy noted.
[2019-09-22 07:01] LABS: Abs Immature Grans 0.09 k/cumm (0.0-0.09); Absolute Basophil Count 0.04 k/cumm (0.0-0.2); Absolute Eosinophil Count 0.29 k/cumm (0.0-0.7); Absolute Lymphocyte Count 1.85 k/cumm (1.2-3.4); Absolute Monocyte Count 1.25 k/cumm (0.11-0.7); Basophils % 0.5; Eosinophils % 3.5; HCT 36.6 % (40.0-50.0); HGB 12.2 g/dL (13.5-17.5); Immature Grans % 1.1; Mean Corp. HGB Concentration 33.3 g/dL (32.0-36.0); Mean Corpuscular Hemoglobin 28.6 pg (27.0-33.0); Mean Corpuscular Volume 85.7 fL (80-95); Mean Platelet Volume 10.4 fL (8.0-11.0); Monocytes % 14.9; Platelet Count 204 x1000/uL (130-400); RBC 4.27 m/cumm (4.50-6.00); RBC Distribution Width 14.9 % (11.8-14.1)
[2019-09-22 07:10] LABS: Absolute Neutrophil Count 4.87 k/cumm (1.2-6.7)
[2019-09-22 07:22] LABS: ALT 58 U/L (16-63); AST 113 U/L (15-37); Albumin 2.2 g/dL (3.4-5.0); Alkaline Phosphatase 88 U/L (46-116); BUN 20 mg/dL (7-18); Bilirubin, Total 0.3 mg/dL (0.2-1.0); CREATININE 0.95 mg/dL (0.70-1.30); Calcium 7.7 mg/dL (8.5-10.1); Chloride 108 mmol/L (98-107); Glucose 112 mg/dL (70-100); Potassium 3.4 mmol/L (3.5-5.1); Sodium 141 mmol/L (136-145); Total Protein 5.7 g/dL (6.4-8.2)
[2019-09-22 07:32] LABS: Magnesium 1.9 mg/dL (1.8-2.4)
[2019-09-22 07:36] LABS: Creatine Kinase 1982 U/L (39-308)
--- NOTE | 2019-09-22 08:11 | PDOC.CMIN ---
- If Service Date Differs Date of service: 09/22/19 Time of Service: 08:11 Care Management Initial Assess REASON FOR HOSPITALIZATION:: Complicated UTI and rhabdo PAST MEDICAL HISTORY/PAST SURGICAL HISTORY:: Medical History . Atherosclerosis of coronary artery. Ohlloway's esophagus. Essential hypertension. Hypercholesterolemia. Left ventricular hypertrophy. Panic disorder. personality affective. Schizoaffective disorder. tubular adenomas. Surgical History . Appendectomy (~2006). Colonoscopy - MAC (~2010). Colonoscopy - MAC (04/20/17). EGD - MAC (~2010). EGD - MAC (04/20/17). Hernia Repair, Incisional (~2007) ADVANCE DIRECTIVES:: none on file CODE STATUS:: Full Code INSURANCE COVERAGE / FINANCIAL ISSUES:: [employer]. Medicaid PRIMARY CARE PHYSICIAN:: Rosa Bartlett PATIENT/FAMILY EDUCATION NEEDS:: Discharge plan, limitations, follow up plan. Ask Me Three.
--- NOTE | 2019-09-22 08:11 | W.PM.PROGNOT ---
Date of Service Date of service: 09/22/19 Time of Service: 08:11 Assessment and Plan Assessment and plan (1) Complicated UTI (urinary tract infection): Status: Acute Assessment and plan: On ceftriaxone Day 2. Urine C&S with GNR. Await speciation. Patient has not been retaining urine. (2) Rhabdomyolysis: Status: Acute Assessment and plan: CPK imrpoving; still clinically dehydrated and tolerating rather aggressive rates of MIVF - continue to monitor Cr, lytes, CPK, respiratory status. D/c statin/zetia. Qualifiers: Rhabdomyolysis type: non-traumatic Qualified Code(s): M62.82 - Rhabdomyolysis (3) Syncope: Status: Chronic Assessment and plan: Agree that this is due to dehydration from vomiting and diarrhea, but also, we have found the patient to have heart rates that go down to 50's even on cardizem CD alone. It is possible that he had symptomatic bradycardia if propranolol was also on board. Agree that low BP from infection and volume loss could not have helped. Continue to monitor in ICU with IVF. Consider echo. Qualifiers: Syncope type: unspecified Qualified Code(s): R55 - Syncope and collapse (4) Dehydration: Status: Acute Assessment and plan: As above. Continue IVF. (5) Schizoaffective disorder: Status: None Assessment and plan: Continue geodon, zoloft, trazodone. (6) Ambulatory dysfunction: Status: Acute Assessment and plan: PT/OT consults (7) History of DVT (deep vein thrombosis): Status: Acute Assessment and plan: the patient states that is why he is on apixaban. He is not aware of dx of Afib. Will get PCP records. Consider safety of apixaban if patient is a high fall risk. (8) DVT prophylaxis: Status: Acute Assessment and plan: On therapeutic apixaban (9) Discharge planning issues: Status: Acute Assessment and plan: Full code Might require rehab Subjective Subjective Interval history since last seen: Overnight, 1st degree heart block. Making urine, refuses pennington catheter. In pain - both arms - received morphine. Pain is better today B knee wounds are covered. Wound consult is ordered. Denies dizziness, chest pain, shortness of breath, cough, nausea, vomiting, abdominal pain. Denies numbness/tingling in his legs. States he has not drunk alcohol for years. HR has been in 50's, BP in 90-100's. Exam Narrative Exam Narrative: General: pleasant cooperative elderly male, obese, affect flat, appears sad, A&Ox3, looks weak/tired HEENT: EOMI, MMM Heart: seemingly RRR, no m/r/g Lungs: coarse breath sounds B GI: abdomen is soft, nontender, nondistended Extremities: no e/c/c BLE's; decreased skin turgor. Objective Objective Clinical Data: Abnormal lab results 09/21/19 09/21/19 09/21/19 Range/Units 14:30 15:20 15:20 WBC 12.96 H (4.4-10.8) k/cumm RBC (4.50-6.00) m/cumm Hgb (13.5-17.5) g/dL Hct (40.0-50.0) % RDW 14.7 H (11.8-14.1) % Absolute Neutrophils 10.11 H (1.2-6.7) k/cumm Absolute Monocytes 1.04 H (0.11-0.7) k/cumm Potassium 3.1 L 3.3 L (3.5-5.1) mmol/L Chloride 97 L (98-107) mmol/L Anion Gap 14.7 H 18.0 H (3-11) mmol/L BUN 27 H 28 H (7-18) mg/dL Glucose 152 H 109 H (70-100) mg/dL Calcium 8.3 L (8.5-10.1) mg/dL AST 145 H (15-37) U/L Creatine Kinase 3869 H (39-308) U/L Total Protein (6.4-8.2) g/dL Albumin 3.0 L (3.4-5.0) g/dL Urine Protein (Negative) mg/dL Urine Ketones (Negative) mg/dL Urine Blood (Negative) Urine Nitrite (Negative) Urine Bilirubin (Negative) Ur Leukocyte Esterase (Negative) 09/21/19 09/22/19 09/22/19 Range/Units 15:34 06:45 06:45 WBC (4.4-10.8) k/cumm RBC 4.27 L (4.50-6.00) m/cumm Hgb 12.2 L (13.5-17.5) g/dL Hct 36.6 L (40.0-50.0) % RDW 14.9 H (11.8-14.1) % Absolute Neutrophils (1.2-6.7) k/cumm Absolute Monocytes 1.25 H (0.11-0.7) k/cumm Potassium 3.4 L (3.5-5.1) mmol/L Chloride 108 H (98-107) mmol/L Anion Gap (3-11) mmol/L BUN 20 H D (7-18) mg/dL Glucose 112 H (70-100) mg/dL Calcium 7.7 L (8.5-10.1) mg/dL AST 113 H (15-37) U/L Creatine Kinase (39-308) U/L Total Protein 5.7 L (6.4-8.2) g/dL Albumin 2.2 L (3.4-5.0) g/dL Urine Protein 100 H (Negative) mg/dL Urine Ketones >=160 H (Negative) mg/dL Urine Blood Large H (Negative) Urine Nitrite Positive H (Negative) Urine Bilirubin Small H (Negative) Ur Leukocyte Esterase Moderate H (Negative) 09/22/19 Range/Units 06:45 WBC (4.4-10.8) k/cumm RBC (4.50-6.00) m/cumm Hgb (13.5-17.5) g/dL Hct (40.0-50.0) % RDW (11.8-14.1) % Absolute Neutrophils (1.2-6.7) k/cumm Absolute Monocytes (0.11-0.7) k/cumm Potassium (3.5-5.1) mmol/L Chloride (98-107) mmol/L Anion Gap (3-11) mmol/L BUN (7-18) mg/dL Glucose (70-100) mg/dL Calcium (8.5-10.1) mg/dL AST (15-37) U/L Creatine Kinase 1982 H (39-308) U/L Total Protein (6.4-8.2) g/dL Albumin (3.4-5.0) g/dL Urine Protein (Negative) mg/dL Urine Ketones (Negative) mg/dL Urine Blood (Negative) Urine Nitrite (Negative) Urine Bilirubin (Negative) Ur Leukocyte Esterase (Negative) Vital Signs Temperature 36.8 C 09/22/19 05:30 Temperature Source Temporal Artery Scan 09/22/19 01:30 Pulse 53 L 09/22/19 07:30 Pulse 54 L 09/22/19 07:40 Respiratory Rate 14 09/22/19 07:40 Respiratory Effort 09/22/19 05:30 Respiratory Depth Normal 09/22/19 05:30 Respiratory Pattern Normal 09/22/19 05:30 Blood Pressure 101/49 L 09/22/19 07:30 Blood Pressure Mean 61 09/22/19 07:30 Blood Pressure Position Supine 09/21/19 14:48 Pulse Oximetry 98 09/22/19 07:40 Oxygen Delivery Method Nasal Cannula 09/22/19 05:30 Oxygen Flow Rate 3 09/22/19 05:30 Pain Level 7 09/22/19 00:30 Intake & Output 09/21/19 09/21/19 09/22/19 11:59 23:59 11:59 Intake Total 1953.333 / 3938.506 1985 / 2000 Output Total 180 / 280 1025 / 1025 Balance 1773.333 / 1673.333 975 / 975 Weight 112.6 kg 112.6 kg Intake: IV 1558.333 / 1473.589 6084 / 2000 Oral 395 / 395 Output: Urine 180 / 280 1025 / 1025 Other: Urine Color Light Amanda Urine Appearance Clear Urine Odor None Comment pt voided 180cc after scan Pt voids to urinal, he has voided an adequate quantity of urine this shift. Voiding Methods Urinal Laboratory Results WBC 8.40 k/cumm (4.4-10.8) D 09/22/19 06:45 RBC 4.27 m/cumm (4.50-6.00) L 09/22/19 06:45 Hgb 12.2 g/dL (13.5-17.5) L 09/22/19 06:45 Hct 36.6 % (40.0-50.0) L 09/22/19 06:45 MCV 85.7 fL (80-95) 09/22/19 06:45 MCH 28.6 pg (27.0-33.0) 09/22/19 06:45 MCHC 33.3 g/dL (32.0-36.0) 09/22/19 06:45 RDW 14.9 % (11.8-14.1) H 09/22/19 06:45 Plt Count 204 x1000/uL (130-400) 09/22/19 06:45 MPV 10.4 fL (8.0-11.0) 09/22/19 06:45 Immature Gran % 1.1 09/22/19 06:45 Neutrophils % 58.0 09/22/19 06:45 Band Neutrophils % 0.0 % 09/21/19 15:20 Lymphocytes % 22.0 09/22/19 06:45 Atypical Lymphs % 0 09/21/19 15:20 Monocytes % 14.9 09/22/19 06:45 Eosinophils % 3.5 09/22/19 06:45 Basophils % 0.5 09/22/19 06:45 Absolute Neutrophils 4.87 k/cumm (1.2-6.7) 09/22/19 06:45 Absolute Lymphocytes 1.85 k/cumm (1.2-3.4) 09/22/19 06:45 Absolute Monocytes 1.25 k/cumm (0.11-0.7) H 09/22/19 06:45 Absolute Eosinophils 0.29 k/cumm (0.0-0.7) 09/22/19 06:45 Absolute Basophils 0.04 k/cumm (0.0-0.2) 09/22/19 06:45 Differential Comment Manual differential 09/21/19 15:20 RBC Morphology Normal 09/21/19 15:20 Sodium 141 mmol/L (136-145) 09/22/19 06:45 Potassium 3.4 mmol/L (3.5-5.1) L 09/22/19 06:45 Chloride 108 mmol/L (98-107) H 09/22/19 06:45 Carbon Dioxide 24.0 mmol/L (21.0-32.0) 09/22/19 06:45 Anion Gap 9.0 mmol/L (3-11) 09/22/19 06:45 BUN 20 mg/dL (7-18) H D 09/22/19 06:45 Creatinine 0.95 mg/dL (0.70-1.30) 09/22/19 06:45 Estimated GFR/1.73 m2 >= 60.00 (mL/min/1.73m2) 09/22/19 06:45 Glucose 112 mg/dL (70-100) H 09/22/19 06:45 Calcium 7.7 mg/dL (8.5-10.1) L 09/22/19 06:45 Magnesium 1.9 mg/dL (1.8-2.4) 09/22/19 06:45 Total Bilirubin 0.3 mg/dL (0.2-1.0) 09/22/19 06:45 AST 113 U/L (15-37) H 09/22/19 06:45 ALT 58 U/L (16-63) 09/22/19 06:45 Alkaline Phosphatase 88 U/L (46-116) 09/22/19 06:45 Creatine Kinase 1982 U/L (39-308) H 09/22/19 06:45 Troponin I < 0.05 ng/mL (0.00-0.06) 09/21/19 15:20 Total Protein 5.7 g/dL (6.4-8.2) L 09/22/19 06:45 Albumin 2.2 g/dL (3.4-5.0) L 09/22/19 06:45 Procalcitonin 0.4 ng/mL 09/21/19 15:30 Urine Color Yellow (Yellow) 09/21/19 15:34 Urine Clarity Sl cloudy (Clear) 09/21/19 15:34 Urine pH 6.0 (5-8) 09/21/19 15:34 Ur Specific [place] 1.020 (1.005-1.025) 09/21/19 15:34 Urine Protein 100 mg/dL (Negative) H 09/21/19 15:34 Urine Ketones >=160 mg/dL (Negative) H 09/21/19 15:34 Urine Blood Large (Negative) H 09/21/19 15:34 Urine Nitrite Positive (Negative) H 09/21/19 15:34 Urine Bilirubin Small (Negative) H 09/21/19 15:34 Urine Urobilinogen 0.2 EU/dL (Up TO 0.2) 09/21/19 15:34 Ur Leukocyte Esterase Moderate (Negative) H 09/21/19 15:34 Urine RBC Negative (0-2) 09/21/19 15:34 Urine WBC >50 HPF (0-5) 09/21/19 15:34 Ur Epithelial Cells Negative HPF (Negative) 09/21/19 15:34 Urine Crystals Negative HPF (Negative) 09/21/19 15:34 Urine Bacteria Many HPF (Negative) 09/21/19 15:34 Urine Casts Negative LPF (Negative) 09/21/19 15:34 Urine Mucus Negative (Negative) 09/21/19 15:34 Urine Other Negative (Negative) 09/21/19 15:34 Ur Culture Indicated? Yes 09/21/19 15:34 Urine Glucose Negative mg/dL (Negative) 09/21/19 15:34
[2019-09-22] MEDS: Potassium Chloride 20 MEQ TABCR 40 MEQ PO (09:48)
[2019-09-22] MEDS: Aspirin 325 MG TAB PO (09:53)
[2019-09-22] MEDS: Ezetimibe 10 MG TAB PO (09:53)
[2019-09-22] MEDS: dilTIAZem CD 120 MG CAPCR PO (09:54)
[2019-09-22] MEDS: lamoTRIgine 100 MG TAB PO (09:54)
[2019-09-22] MEDS: Ziprasidone 20 MG CAP 60 MG PO ×2 (09:55→20:06)
[2019-09-22] MEDS: Acetaminophen 325 MG TAB PO ×2 (09:57→17:18)
[2019-09-22] MEDS: Normal Saline 1,000 ML 999 ML IV ×2 (10:45→12:45)
[2019-09-22] MEDS: Sertraline 50 MG TAB 100 MG PO ×3 (10:55→20:06)
--- NOTE | 2019-09-22 11:07 | DI.RAD_ITS ---
EXAM: XR PORTABLE CHEST AP INDICATION: new oxygen requirement. ?CHF. COMPARISON: CHEST 2 VIEWS PA,LAT from 09/05/2014 TECHNIQUE: 2D digital imaging was performed. FINDINGS: The lungs are well expanded and free of infiltrate. There is no evidence of a pleural effusion. The heart is not enlarged. The hilar structures, mediastinum and tracheal air column are intact. IMPRESSION: No evidence of acute cardiopulmonary disease.
--- NOTE | 2019-09-22 11:19 | PHARADMIT ---
Addendum entered by Alex Farmer III 09/23/19 12:23: Pharmacy Note Subjective Patient wasdown x 3 days following syncopal episode due to diarrheal illness. Improving, Cr-kinase down ( [id number] ^ [id number] ^ [id number]) Objective VS-OK Pain: 05/09 SCr-0.78 WBC- 7.94 H&H,Plts Lytes-OK, BM today Assessment Home ems ordered, has schizo-effective disorder Plan Plan to transfer to [facility] by a stay in a SNF. Original Note: Admission Pharmacy Clinical Review RHABDO, DEHYDRATION, UTI Code Status Full Code Current Weight 112.6 kg Renally Cleared and Narrow Therapeutic Index Meds CrCl ~68ml/min QTc Value / Action Taken QTc 441 BP Control, Fever BP 106/56, HR 51, afebrile Electrolytes reviewed Na 141, K+ 3.4, Mag 1.9 DVT Prophylaxis Opiate Usage / Scheduled Bowel Regimen Ordered Morphine prn, yes Plt/SCr for Heparin / Enoxaparin INR for Warfarin H/H stable, WBC/Bands H/H 12.2/36.6, WBC 8.4 (down from 12.96) Antibiotic appropriateness Ceftriaxone 2 GRAMS q24h Cultures and Sensitivities UA positive for Gram - and Gram + Surgical ABX d/c within 24 hr DM control / Insulin Dosing Heart Failure (Check EF%) (SUKHDEV's, B-Block, Diuretics) Diltiazem, Nitro prn, propranolol, IV to PO Switch Home Meds Reviewed Yes, Sertraline 100mg TID High Dose was confirmed by [facility] Home Meds Not Ordered Comments Ceftriaxone day 2, tolerating aggressive IVF Patient is on both aspirin 325 plus eliquis for a history of DVT -- consider risk vs. benefit of eliquis as patient is high fall risk (Dr. Klein is aware per her note) daquan
--- NOTE | 2019-09-22 12:31 | PDOC.CMIN ---
Care Management Initial Assess REASON FOR HOSPITALIZATION:: Rhabdomyolysis, Dehydration, UTI PAST MEDICAL HISTORY/PAST SURGICAL HISTORY:: Atherosclerosis of coronary artery, Holloway's esophagus, essential hypertension, hypercholesterolemia, left ventricular hypertrophy, panic disorder, personality affective, schizoaffective disorder, tubular adenomas, appendectomy, colonoscopy, EGD, hernia repair incisional PREVIOUS FUNCTIONAL STATUS/SOCIAL/FAMILY SUPPORTS:: Hayden resides alone in [place], [place]. His daughter, Talia resides in [place]. CURRENT FUNCTIONAL STATUS:: Hayden was sleeping soundly when CM attempted to meet with him. CM spoke with HAYDER Manjarrez who encouraged this caption writer to allow him to sleep. ADVANCE DIRECTIVES:: None on file at [facility]. Has patient been provided with information about the portal?: Yes Did the patient sign up for the portal?: Yes (Previously ) CODE STATUS:: Full Code INSURANCE COVERAGE / FINANCIAL ISSUES:: Medicaid. Medicare CURRENT HOME/COMMUNITY SERVICES/EQUIPMENT:: No current services or equipment. PRIMARY CARE PHYSICIAN:: Rosa Bartlett POTENTIAL DISCHARGE NEEDS:: Evaluation for further needs. Follow up appointments. PATIENT/FAMILY EDUCATION NEEDS:: Review discharge instructions, discuss Ask Me Three. ANTICIPATED BARRIERS TO DISCHARGE:: None identified. TRANSPORTATION:: TBD by mobility and disposition. PLAN:: Hayden will have his wounds managed, he will be evaluated for further needs by PT once stable. CM continues to follow.
--- NOTE | 2019-09-22 16:01 | WOUNDCARE ---
Wound Care Report Pt is a 73 year old male consulted for wounds sustained during a fall and subsequent time laying on floor of his home.. Chart reviewed, including H&P, recent labs, and vital signs, and other providers? reports. Medical Hx and labs pertinent to wound healing: N/A Wound Hx if applicable Pt agreeable to wound consult and photography. Seen at bedside, Pt is fatigued and slept through most of the assessment. Pt appears to have sustained abrasions to bilat knees and left elbow from a fall at his home. Pt has Rhabdomyolysis Dx. Also noted a slit in Pt?s gluteal cleft. Blanchable redness noted surrounding cleft. RIGHT KNEE Wound Assessment Findings Circular abrasion, ? pressure a factor since slough is present, definite full thickness involvement. Measurements 2.1x2.5x0.2 Full thickness Wound bed after cleansing 50% firmly adherent white/yellow slough. 50% red non-granular tissue. Wound Edges Definition defined Attachment attached Surrounding tissue Border is [place] Exudate Scant serosanguinous Odor none LEFT KNEE Wound Assessment Findings Abrasion, partial thickness Measurements distal wound 4.2x3x0.2 proximal wound 1x1.1x0.1 Wound bed 100% pink and red non-granular tissue. Wound Edges Definition defined and irregular Attachment attached Surrounding tissue [place] wound edges and periwound skin. Exudate non, bloody after cleaning wound Odor , none LEFT ELBOW Wound Assessment Findings Abrasion, looks like rug burn, skin is 100% intact, no open areas noted. Measurements 7x1 Surrounding tissue pink Exudate none Odor none GLUTEAL CLEFT Wound Assessment Findings Linear slit, ? moisture related, skin blanchable Measurements 1.2x0.2x0.1 Partial thickness Wound bed document percentage % of tissue types, color of tissue types 100% [place] non-granular tissue on open area. Mild maceration on surrounding skin. Wound Edges defined Surrounding tissue Darn red, blanchable, mild maceration Exudate none Odor none Indicators of infection present? none noted at this time. Patients Mobility status bed-bound @ time of assessment, urns w/assist Nutritional Status- nutrition consult recommended Continence- continent Pain- Pt reports his knee wounds are tender. Primary nurse reports Pt has received pain medication. Medications altering healing- none Interventions for pressure redistribution Type of support surface bed on air mattress Repositioning schedule standard Q2H turn and reposition Physician/nurse practitioner notification Dr. Klein informed of recommendations. Recommendations: RIGHT KNEE- use debrisoft to remove slough from wound. Pat dry. Apply skin prep to periwound skin. Apply Anasept gel to wound bed. Cover with Mepilex w/border. Change daily and PRN. LEFT KNEE- Cleanse wound with NS and gauze. Pat dry. Apply skin prep to periwound skin. Apply Anasept gel to wound bed. Cover w/Mepilex w/border. Change daily and PRN. LEFT ELBOW- Place Mepilex w/border over abrasion. Change Q5 Days and PRN. Gluteal cleft- Cleanse area w/soap and water. Pat dry. Apply Mepilex w/border. Change Q3 Days and PRN. All wounds were cleansed and dressed as recommended above on 09/22/19 @ 1230 by Savanna Aranda RN, [facility]. Photos in chart. Thank you for the consult.
[2019-09-22] MEDS: cefTRIAXone 2 GM/50 ML BAG IVPB (17:21)
[2019-09-23] VITALS (29 sets, daily range): BP systolic 112–173; BP diastolic 45–95; PULSE 56–91; RESP 14–23; TEMP 36.4–37.2; O2SAT 89–98
[2019-09-23] MEDS: POTASSIUM CHLORIDE/0.9% NACL 1,000 ML 150 MEQ IV ×4 (00:17→19:28)
[2019-09-23] MEDS: Pantoprazole 40 MG TABCR PO (05:45)
[2019-09-23 06:58] LABS: Abs Immature Grans 0.23 k/cumm (0.0-0.09); Absolute Basophil Count 0.06 k/cumm (0.0-0.2); Absolute Eosinophil Count 0.26 k/cumm (0.0-0.7); Absolute Lymphocyte Count 1.03 k/cumm (1.2-3.4); Absolute Monocyte Count 0.93 k/cumm (0.11-0.7); Absolute Neutrophil Count 5.43 k/cumm (1.2-6.7); Basophils % 0.8; Eosinophils % 3.3; HCT 38.9 % (40.0-50.0); HGB 12.7 g/dL (13.5-17.5); Immature Grans % 2.9; Mean Corp. HGB Concentration 32.6 g/dL (32.0-36.0); Mean Corpuscular Hemoglobin 28.7 pg (27.0-33.0); Mean Corpuscular Volume 87.8 fL (80-95); Mean Platelet Volume 9.7 fL (8.0-11.0); Monocytes % 11.7; Neutrophils % 68.3; Platelet Count 214 x1000/uL (130-400); RBC 4.43 m/cumm (4.50-6.00); RBC Distribution Width 15.9 % (11.8-14.1); White Blood Cell Count 7.94 k/cumm (4.4-10.8)
[2019-09-23 07:26] LABS: Anion Gap 10.2 mmol/L (3-11); BUN 11 mg/dL (7-18); CO2 22.8 mmol/L (21.0-32.0); CREATININE 0.78 mg/dL (0.70-1.30); Chloride 110 mmol/L (98-107); Creatine Kinase 927 U/L (39-308); Glucose 103 mg/dL (70-100); Magnesium 1.7 mg/dL (1.8-2.4); Potassium 4.1 mmol/L (3.5-5.1); Sodium 143 mmol/L (136-145)
--- NOTE | 2019-09-23 08:00 | DI.US_ITS ---
APPROVED REPORT Conclusion Left Ventricle : The left ventricle is normal in size. The left ventricular systolic function is norm al. There is normal LV segmental wall motion. LVEF is 60-65%. The left ventricular diastolic function is normal. Right Ventricle : Right ventricle is dilated. The right ventricular systolic function is normal. Atria : Left atrium is moderately dilated. Right atrium is mildly dilated. Aortic Valve : Aortic valve is trileaflet and mobile. No aortic regurgitation is present. There is no aortic valvular stenosis. Mitral Valve : There is mitral annular calcification. Mitral valve leaflets are mildly thickened. Tri vial mitral regurgitation. No evidence of mitral valve stenosis. Tricuspid Valve : Tricuspid valve appears normal. Mild tricuspid regurgitation. The RVSP is 50-55 mmH g. Pulmonic Valve : Pulmonic valve is not well visualized. Great Vessels : The aortic root is normal in size. The IVC is dilated and collapses >50% with inspira tion. Prior echocardiogram available for comparison There is no structural abnormality to explain patient's syncope. EXAM: Comprehensive 2D, Doppler, and color-flow Echocardiogram Patient Location: In-Patient Branch Retail Executive: LANA Cox (AE) Rhythm: NSR Indications: SYNCOPE Left Ventricle The left ventricle is normal in size. The left ventricular systolic function is normal. Borderline le ft ventricular hypertrophy. There is normal LV segmental wall motion. The left ventricular diastolic function is normal. LVEF is 60-65%. Right Ventricle Right ventricle is dilated. The right ventricular systolic function is normal. Right ventricle is mil dly hypertrophied. Atria Left atrium is moderately dilated. Right atrium is mildly dilated. Aortic Valve Aortic valve is trileaflet and mobile. There is no aortic valvular stenosis. No aortic regurgitation is present. Mitral Valve There is mitral annular calcification. Mitral valve leaflets are mildly thickened. No evidence of ember ral valve stenosis. Trivial mitral regurgitation. Tricuspid Valve Tricuspid valve appears normal. Mild tricuspid regurgitation. The RVSP is 50-55 mmHg. Pulmonic Valve Pulmonic valve is not well visualized. Trivial pulmonic regurgitation. Great Vessels The aortic root is normal in size. The IVC is dilated and collapses >50% with inspiration. Pericardium anterior fat pad is present. 2D Dimensions IVSd 1.18 cm M: 0.6-1.2 LV EDV A2C 125.00 mL PWd 1.09 cm M: 0.6 - 1.2 LV EDV A4C 137.20 mL LVDd 5.02 cm M: 4.2 - 5.9 LA Volume Index A2C 32.84 mL/m2 LVDs 3.22 cm M: 2.5 - 4.0 LA Volume Index A4C 49.89 mL/m2 Aortic Root 3.43 cm M: 3.1 - 3.7 LA Volume Index Biplane 42.14 mL/m2 RA Area A4C 19.26 cm2 LA Area A4C 28.35 cm2 LVOT 2.22 cm (M/F) 1.5-2.5 LA Area A2C 22.10 cm2 Ascending Aorta 3.14 cm M: 2.6 - 3.4 EF AP4 55.03 % LVEF (Teich) 65.22 % EF AP2 65.12 % LVEF (Robert's) 60.82 % M: 52 - 72 EF BP 60.82 % FS 35.90 % LV Diastology E Decel Time 177.00 (160-240 msec) E/A Ratio 1.7 MED E' 0.10 (>0.07 m/s) LV E/e MED 11.30 (<14) LAT E' 0.12 (>0.1 m/s) LV E/e LAT 9.46 (<14) Aortic Valve LVOT Area 3.87 cm2 LVOT Peak Raghu. 1.30 m/s LVOT Mean Raghu. 0.83 m/s LVOT Peak Gr. 6.80 mmHg UMER Vmax Index 1.28 cm2/m2 LVOT Mean Gr. 3.30 mmHg LVOT VTI 0.27 m UMER Mean Raghu. Index 1.27 cm2/m2 AoV Peak Raghu. 1.76 (0.5-1.3 m/s) AoV Mean Raghu. 1.13 m/s AO Peak GR. 12.39 mmHg AO Mean GR. 5.73 (<5 mmHg) AO VTI 0.36 (0.18-0.25 m) UMER (VTI) 2.93 (2.5-4.5 cm2) UMER (VTI) Index 1.31 cm/m2 Mitral Valve MV E Max Raghu. 1.14 (0.4-1.3 m/s) MV A Velocity 0.67 (0.4-1.3 m/s) E/A Ratio 1.70 MV Decel. Time 177.00 (160-240 msec) MV PHT 51.39 msec MVA PHT 4.28 cm2 Pulmonary Valve PV Peak Velocity 0.98 (0.5-1.5 m/s) Tricuspid Valve TR P. Velocity 3.54 m/s TV Regurg Vmax 3.54 m/s TR P. Gradient 50.02 mmHg
--- NOTE | 2019-09-23 08:27 | W.PM.PROGNOT ---
Date of Service Date of service: 09/23/19 Time of Service: 15:04 Assessment and Plan Assessment and plan (1) Complicated UTI (urinary tract infection): Status: Acute Assessment and plan: On ceftriaxone Day 3. Urine C&S with pansensitive E. COli. Continue ceftriaxone. Patient has not been retaining urine. (2) Rhabdomyolysis: Status: Acute Assessment and plan: CPK imrpoving on IVF; I did have to add lasix today. Continue IVF. Continue to monitor Cr, lytes, CPK, respiratory status. Holding statin/zetia. Qualifiers: Rhabdomyolysis type: non-traumatic Qualified Code(s): M62.82 - Rhabdomyolysis (3) Syncope: Status: Acute Assessment and plan: Agree that this is due to dehydration from vomiting and diarrhea, but also, we have found the patient to have heart rates that go down to 50's even on cardizem CD alone. It is possible that he had symptomatic bradycardia if propranolol was also on board. Agree that low BP from infection and volume loss could not have helped. Echo Qualifiers: Syncope type: unspecified Qualified Code(s): R55 - Syncope and collapse (4) Pulmonary hypertension: Status: Acute Assessment and plan: New diagnosis. Will need testing for DENISE as outpatient. (5) Dehydration: Status: Acute Assessment and plan: As above. Continue IVF. (6) Schizoaffective disorder: Status: None Assessment and plan: Continue geodon, zoloft, trazodone. (7) Ambulatory dysfunction: Status: Acute Assessment and plan: PT/OT consults May require SNF. (8) History of DVT (deep vein thrombosis): Status: Acute Assessment and plan: the patient states that is why he is on apixaban. He is not aware of dx of Afib. PCP records do not have any mention of Afib. Consider safety of apixaban if patient is a high fall risk. (9) DVT prophylaxis: Status: Acute Assessment and plan: On therapeutic apixaban (10) Discharge planning issues: Status: Acute Assessment and plan: Full code Might require rehab Transfer [facility] with tele Subjective Subjective Interval history since last seen: Had a good night. Good UOP. ?sleep apnea - required 2 L of O2. Pain 6/10, mostly LL back, hip, ribs. Complains of lightheadedness while laying flat, denies chest pain, complains of heartburn, denies shortness of breath, n/v. Exam Narrative Exam Narrative: General: pleasant cooperative elderly male, obese, affect flat, but looks better, more upbeat HEENT: EOMI, MMM Heart: seemingly RRR, no m/r/g Lungs: coarse breath sounds B GI: abdomen is soft, nontender, nondistended Extremities: no e/c/c BLE's; decreased skin turgor. Objective Objective Clinical Data: Abnormal lab results 09/23/19 09/23/19 Range/Units 06:25 06:25 RBC 4.43 L (4.50-6.00) m/cumm Hgb 12.7 L (13.5-17.5) g/dL Hct 38.9 L (40.0-50.0) % RDW 15.9 H (11.8-14.1) % Absolute Lymphocytes 1.03 L (1.2-3.4) k/cumm Absolute Monocytes 0.93 H (0.11-0.7) k/cumm Chloride 110 H (98-107) mmol/L Glucose 103 H (70-100) mg/dL Calcium 8.0 L (8.5-10.1) mg/dL Magnesium 1.7 L (1.8-2.4) mg/dL Creatine Kinase 927 H (39-308) U/L Vital Signs Temperature 36.8 C 09/23/19 03:41 Temperature Source Temporal Artery Scan 09/23/19 03:41 Pulse 69 09/23/19 06:01 Pulse 74 09/23/19 06:00 Respiratory Rate 16 09/23/19 08:04 Respiratory Effort Non-Labored 09/23/19 03:41 Respiratory Depth Normal 09/23/19 03:41 Respiratory Pattern Normal 09/23/19 03:41 Blood Pressure 139/57 L 09/23/19 06:01 Blood Pressure Mean 75 09/23/19 06:01 Blood Pressure Position Supine 09/23/19 03:41 Pulse Oximetry 95 09/23/19 08:05 Oxygen Delivery Method Room Air 09/23/19 08:05 Oxygen Flow Rate 0 09/23/19 08:05 Pain Level 3 09/23/19 03:41 Intake & Output 09/22/19 09/22/1919 11:59 23:59 11:59 Intake Total 3250 / 8012.5 4762.5 / 8012.5 1965.0 / 1965.0 Output Total 1575 / 3875 1900 / 3875 2200 / 2200 Balance 1675 / 4137.5 2862.5 / 4137.5 -235.0 / -235.0 Weight 112.6 kg 112.9 kg Intake: IV 3000 / 7412.5 4412.5 / 7412.5 1565.0 / 1565.0 Oral 250 / 600 350 / 600 400 / 400 Output: Urine 1575 / 3875 1900 / 3875 2200 / 2200 Other: Urine Color Yellow Yellow Yellow Urine Appearance Clear Clear Clear Urine Odor Normal Normal Comment Pt just voided 100ml prior to scan voiding to urinal, voiding to urinal, Voiding Methods Urinal Urinal Laboratory Results WBC 7.94 k/cumm (4.4-10.8) 09/23/19 06:25 RBC 4.43 m/cumm (4.50-6.00) L 09/23/19 06:25 Hgb 12.7 g/dL (13.5-17.5) L 09/23/19 06:25 Hct 38.9 % (40.0-50.0) L 09/23/19 06:25 MCV 87.8 fL (80-95) 09/23/19 06:25 MCH 28.7 pg (27.0-33.0) 09/23/19 06:25 MCHC 32.6 g/dL (32.0-36.0) 09/23/19 06:25 RDW 15.9 % (11.8-14.1) H 09/23/19 06:25 Plt Count 214 x1000/uL (130-400) 09/23/19 06:25 MPV 9.7 fL (8.0-11.0) 09/23/19 06:25 Immature Gran % 2.9 09/23/19 06:25 Neutrophils % 68.3 09/23/19 06:25 Band Neutrophils % 0.0 % 09/21/19 15:20 Lymphocytes % 13.0 09/23/19 06:25 Atypical Lymphs % 0 09/21/19 15:20 Monocytes % 11.7 09/23/19 06:25 Eosinophils % 3.3 09/23/19 06:25 Basophils % 0.8 09/23/19 06:25 Absolute Neutrophils 5.43 k/cumm (1.2-6.7) 09/23/19 06:25 Absolute Lymphocytes 1.03 k/cumm (1.2-3.4) L 09/23/19 06:25 Absolute Monocytes 0.93 k/cumm (0.11-0.7) H 09/23/19 06:25 Absolute Eosinophils 0.26 k/cumm (0.0-0.7) 09/23/19 06:25 Absolute Basophils 0.06 k/cumm (0.0-0.2) 09/23/19 06:25 Differential Comment Manual differential 09/21/19 15:20 RBC Morphology Normal 09/21/19 15:20 Sodium 143 mmol/L (136-145) 09/23/19 06:25 Potassium 4.1 mmol/L (3.5-5.1) D 09/23/19 06:25 Chloride 110 mmol/L (98-107) H 09/23/19 06:25 Carbon Dioxide 22.8 mmol/L (21.0-32.0) 09/23/19 06:25 Anion Gap 10.2 mmol/L (3-11) 09/23/19 06:25 BUN 11 mg/dL (7-18) D 09/23/19 06:25 Creatinine 0.78 mg/dL (0.70-1.30) 09/23/19 06:25 Estimated GFR/1.73 m2 >= 60.00 (mL/min/1.73m2) 09/23/19 06:25 Glucose 103 mg/dL (70-100) H 09/23/19 06:25 Calcium 8.0 mg/dL (8.5-10.1) L 09/23/19 06:25 Magnesium 1.7 mg/dL (1.8-2.4) L 09/23/19 06:25 Total Bilirubin 0.3 mg/dL (0.2-1.0) 09/22/19 06:45 AST 113 U/L (15-37) H 09/22/19 06:45 ALT 58 U/L (16-63) 09/22/19 06:45 Alkaline Phosphatase 88 U/L (46-116) 09/22/19 06:45 Creatine Kinase 927 U/L (39-308) H 09/23/19 06:25 Troponin I < 0.05 ng/mL (0.00-0.06) 09/21/19 15:20 Total Protein 5.7 g/dL (6.4-8.2) L 09/22/19 06:45 Albumin 2.2 g/dL (3.4-5.0) L 09/22/19 06:45 Procalcitonin 0.4 ng/mL 09/21/19 15:30 Urine Color Yellow (Yellow) 09/21/19 15:34 Urine Clarity Sl cloudy (Clear) 09/21/19 15:34 Urine pH 6.0 (5-8) 09/21/19 15:34 Ur Specific [place] 1.020 (1.005-1.025) 09/21/19 15:34 Urine Protein 100 mg/dL (Negative) H 09/21/19 15:34 Urine Ketones >=160 mg/dL (Negative) H 09/21/19 15:34 Urine Blood Large (Negative) H 09/21/19 15:34 Urine Nitrite Positive (Negative) H 09/21/19 15:34 Urine Bilirubin Small (Negative) H 09/21/19 15:34 Urine Urobilinogen 0.2 EU/dL (Up TO 0.2) 09/21/19 15:34 Ur Leukocyte Esterase Moderate (Negative) H 09/21/19 15:34 Urine RBC Negative (0-2) 09/21/19 15:34 Urine WBC >50 HPF (0-5) 09/21/19 15:34 Ur Epithelial Cells Negative HPF (Negative) 09/21/19 15:34 Urine Crystals Negative HPF (Negative) 09/21/19 15:34 Urine Bacteria Many HPF (Negative) 09/21/19 15:34 Urine Casts Negative LPF (Negative) 09/21/19 15:34 Urine Mucus Negative (Negative) 09/21/19 15:34 Urine Other Negative (Negative) 09/21/19 15:34 Ur Culture Indicated? Yes 09/21/19 15:34 Urine Glucose Negative mg/dL (Negative) 09/21/19 15:34 Echo; Left Ventricle : The left ventricle is normal in size. The left ventricular systolic function is normal. There is normal LV segmental wall motion. LVEF is 60-65%. The left ventricular diastolic function is normal. Right Ventricle : Right ventricle is dilated. The right ventricular systolic function is normal. Atria : Left atrium is moderately dilated. Right atrium is mildly dilated. Aortic Valve : Aortic valve is trileaflet and mobile. No aortic regurgitation is present. There is no aortic valvular stenosis. Mitral Valve : There is mitral annular calcification. Mitral valve leaflets are mildly thickened. Trivial mitral regurgitation. No evidence of mitral valve stenosis. Tricuspid Valve : Tricuspid valve appears normal. Mild tricuspid regurgitation. The RVSP is 50-55 mmHg. Pulmonic Valve : Pulmonic valve is not well visualized. Great Vessels : The aortic root is normal in size. The IVC is dilated and collapses >50% with inspiration. Prior echocardiogram available for comparison There is no structural abnormality to explain patient's syncope.
[2019-09-23] MEDS: Furosemide 20 MG/2 ML VIAL IVP ×2 (08:51→16:53)
[2019-09-23] MEDS: MAGNESIUM SULFATE 2 GM/50 ML BAG IVPB (08:51)
[2019-09-23] MEDS: Normal Saline Flush 10 ML SYR IVP (08:51)
[2019-09-23] MEDS: Aspirin 325 MG TAB PO (09:08)
[2019-09-23] MEDS: Ziprasidone 20 MG CAP 60 MG PO ×2 (09:08→21:05)
[2019-09-23] MEDS: dilTIAZem CD 120 MG CAPCR PO (09:09)
[2019-09-23] MEDS: Apixaban 5 MG TAB PO ×2 (09:09→20:26)
[2019-09-23] MEDS: Acetaminophen 325 MG TAB PO (09:09)
[2019-09-23] MEDS: Sertraline 50 MG TAB 100 MG PO ×3 (09:09→21:05)
[2019-09-23] MEDS: lamoTRIgine 100 MG TAB PO (09:09)
--- NOTE | 2019-09-23 10:59 | PT.INIE ---
Date of service: 09/23/19 Time of Service: 09:29 PT Notes Inpatient Physical Therapy Evaluation Date: 09/23/2019 Referring Doctor: Sofie Klein MD PT Orders: PT CONSULT: Limited ability Precautions: Fall. Standard. Activity as tolerated. Patient Profile/Admitting Diagnosis: Patient is a 73-year-old male who presented to the ED on 09/21/2019 via EMS with chief presentation of diarrheal illness associated with general body malaise, mild headache, weakness approximately 6 days prior to admission, and syncopal episode that rendered him unable to get up for 3 days. Patient is diagnosed with complicated urinary tract infection, rhabdomyolysis, syncope, and dehydration. PMHX: Medical History Atherosclerosis of coronary artery Holloway's esophagus Essential hypertension Hypercholesterolemia Left ventricular hypertrophy Panic disorder personality affective Schizoaffective disorder tubular adenomas Surgical History Appendectomy (~2006) Colonoscopy - MAC (~2010) Colonoscopy - MAC (04/20/17) EGD - MAC (~2010) EGD - MAC (04/20/17) Hernia Repair, Incisional (~2007) Social History/Home Situation: Patient lives alone in a one-story house with 6 steps to enter and with rails on both sides. He has a lady who comes in every week to help with grocery shopping. He did not use an assistive ambulatory device prior to admission. He states that he had one fall in the past 12 months. 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 Equipment Owned/DME: None Subjective: Patient is agreeable to a PT consult today. He did say that he took his anti-anxiety medication earlier this morning and he feels that he may get unsteady during ambulation activity with PT today. He is okay with home health PT resuming work with him upon discharge from this hospital. He denies any headache, chest pain, dizziness, throughout PT session. None Objective: General Observation: Patient seen sitting at the edge of bed. Telemetry monitoring in place. Ahn catheter in place. IV in left UE. Mental Status: Alert and oriented x4 Pain: 0/10 Vital Signs: Pulse rate ranged from 76 bpm through 94 bpm throughout ambulation activity ROM: Right Upper Extremity: Shoulder Flexion WFL. Shoulder abduction WFL. Elbow flexion WFL. Wrist flexion WFL. Opening and closing of hand WFL. Left Upper Extremity: Shoulder Flexion WFL. Shoulder abduction WFL. Elbow flexion WFL. Wrist flexion WFL. Opening and closing of hand WFL. Right Lower Extremity: Hip flexion WFL. Hip abduction WFL. Knee flexion WFL. Ankle dorsiflexion WFL. Ankle plantarflexion WFL. Left Lower Extremity: Hip flexion WFL. Hip abduction WFL. Knee flexion WFL. Ankle dorsiflexion WFL. Ankle plantarflexion WFL. Strength: Right Upper Extremity: Shoulder flexors 5/5. Shoulder abductors 4/5. Elbow flexors 5/5. Elbow extensors 5/5. Compliance Program Manager strong. Left Upper Extremity: Shoulder flexors 5/5. Shoulder abductors 4/5. Elbow flexors 5/5. Elbow extensors 5/5. Compliance Program Manager strong. Right Lower Extremity: Hip flexors 4/5. Hip abductors 5/5. Knee flexors 5/5. Knee extensors 4/5. Ankle dorsiflexors 4/5. Ankle plantarflexors 5/5. Left Lower Extremity:Hip flexors 4/5. Hip abductors 5/5. Knee flexors 5/5. Knee extensors 4/5. Ankle dorsiflexors 4/5. Ankle plantarflexors 5/5. Sensation: Intact as to pain and pressure on bilateral lower extremities. Bed Mobility/Transfers: Rolling CGA Supine to sit CGA Sit to supine CGA Sit to stand CGA Stand to sit CGA Bed to chair CGA Chair to bed CGA Gait: Patient tolerated level surface ambulation of up to 80 feet using front wheeled walker with CGA provided and wheelchair follow by. He states that he feels unsteady and fatigued at the end. He did deny dizziness, chest pain, and headache during ambulation activity. Decreased step heigh and helena observed. Balance: Static Sitting: Normal Dynamic Sitting: Normal Static Standing: Fair Dynamic Standing: Fair Special Tests: Mobility Limitations Standardized Measure [facility] 6 clicks Basic Mobility Inpatient Short Form: Raw Score: 18 CMS Score: 47% deficit 4-stage balance test: Patient is unable to sustain semi-tandem, full tandem, and one-legged standing unsupported and places him at high risk for falls. Informed Consent/Education: Patient instructed in purpose of PT consult and plan of care. Assessment: Patient is diagnosed with complicated urinary tract infection, rhabdomyolysis, syncope, and dehydration. His past medical history significant for coronary artery disease and schizoaffective disorder. His prognosis is fair. He may benefit from placement in a half-way facility in order to progress his mobility level, strength, and balance skills. He is pleasant and is cooperative. Patient presents with clinical signs and symptoms consistent with current/admitting diagnoses that have resulted to mobility limitations, gait instability, generalized weakness, and impairment of motor control as demonstrated by the following impairment level findings: 1. Decreased strength to B LE major muscle groups 2. Impaired standing balance 3. Impaired activity tolerance Impairments are contributing to the following functional limitations: 1. Dependent bed mobility skills 2. Increased dependence with transfers 3. Inability to safely ambulate without assistive device and physical assistance 4. Increase completion time for mobility ADL performance 5. Increased fall risk 6. Inability to negotiate steps alone safely Patient is assessed as a 47730 moderate complexity based on the following: History: Patient is diagnosed with complicated urinary tract infection, rhabdomyolysis, syncope, and dehydration with His past medical history significant for coronary artery disease and schizoaffective disorder. Examination: Demonstrable impairment in strength, balance, and mobility level with underlying impairments and functional limitations as documented above Presentation:Evolving Decision Makin moderate complexity Goals: Goals X1 week 1. Supine-Sit independent 2. Sit-Supine independent 3. Sit-Stand independent 4. Stand-Sit independent 5. Bed-Chair independent 6. Chair-Bed independent 7. Independent gait on level surface with use of least restrictive device for at least 300 feet without report of pain nor dyspnea 8. Independent stair negotiation while holding onto bilateral rails for at least 10 steps without report of pain nor dyspnea 9. Independent with home exercise program 10. Good static and dynamic standing balance/tolerance Plan of Care/Treatment Plan: 1-2x/day, 7 days/week x 1 week. Plan of care has been reviewed with the CLIENT SERVER DEVELOPER providing the service under Physical Therapy direction. Initiate Physical Therapy intervention for strengthening, bed mobility, transfers, gait, stairs, balance training, use of assistive device. DISCHARGE RECOMMENDATIONS: Patient will benefit from half-way facility placement in order to progress mobility level, strength, and balance in preparation for a safe discharge to home. TREATMENT CODE/TIME: 83158 x 30 minutes beginning at 8:29 AM. Thank you very much for this referral. Jess Lacy PT, DPT, CLT [facility]
[2019-09-23 13:55] LABS: Myoglobin, U 1808 mcg/L (<=21)
--- NOTE | 2019-09-23 15:41 | CMPROGNOTE_ITS ---
Care Management Progress Note S/O: Hayden was sitting up in his chair when CM met with him. He responded with mostly one word answers, and simply but was pleasant. He shared that he remained independent at home prior to this admission and was driving and cooking. He does report he has homemaker supports once a week. He has a son and daughter who reside in [place], where Hayden lived until moving to [place] twenty two years ago. He heats his house with oil, which is on automatic delivery through [employer]. A: 73 year old male admitted to [facility] 09/21/19 for Rhabdomyolysis, Dehydration, UTI P: Hayden plans to return home with new VNA supports including RN/PT/OT/RADIAGRAPH OPERATOR. He will resume C[facility] Moderate services through [facility] including case management with Bonnie William and homemaker supports 1x/wk. PT is recommending SNF at this time, Hayden would like to attempt to strengthen and return home Thursday. CM continues to follow.
[2019-09-23] MEDS: oxyCODONE 5 mg/Acetaminophen 325 mg TAB 1 TAB PO (16:52)
[2019-09-23] MEDS: Mylanta Suspension 30 ML CUP PO (16:53)
[2019-09-23] MEDS: cefTRIAXone 2 GM/50 ML BAG IVPB (16:54)
--- NOTE | 2019-09-23 16:55 | PT.INTREAT ---
Date of service: 09/23/19 Time of Service: 16:55 PT Notes Inpatient Physical Therapy Treatment Note [facility] Date: 09/23/19 PRECAUTIONS: Fall SUBJECTIVE: Min A reports that he has been feeling dizzy this afternoon, he also reports that he has heartburn, both of which are unusual for him. OBJECTIVE: PAIN: No complaints of pain BED MOBILITY/TRANSFERS/GAIT: Patient deferred due to dizziness THEREX: Patient completed a LE strengthening and stabilization program, in a supine position, as per flow sheet. Patient reported increased dizziness, and ther ex program was stopped. Dizziness reported to nursing. ASSESSMENT: Patient tolerated session with increased dizziness with participation in ther ex program. PLAN: Continue with PTs POC TREATMENT CODE/TIME: 15 minutes; [id number]
--- NOTE | 2019-09-23 20:17 | NUR.NOTE ---
Nursing Note: 192H Patient transferred via bed from ICU to Med/surg Rm 225. Alert and oriented, vital signs stable. Lungs clear and afebrile. Patient complains of 7/10 pain in the back, ribs and on his left side from falling at his home. Iv running of NS20K @ 150ml/hr. Multiple wounds found in bilateral knees, elbow and gluteal cleft all cleaned today and covered with mepilex clean, dry and intact. Made aware of new room surroundings and oriented to use of call reyes. All needs attended at this time.
[2019-09-23] MEDS: clonazePAM 1 MG TAB PO (21:05)
[2019-09-23] MEDS: traZODone 50 MG TAB 100 MG PO (21:05)
[2019-09-24] VITALS (8 sets, daily range): BP systolic 137–167; BP diastolic 72–89; PULSE 68–80; RESP 17–20; TEMP 36.5–37.1; O2SAT 94–97
[2019-09-24] MEDS: POTASSIUM CHLORIDE/0.9% NACL 1,000 ML 150 MEQ IV ×2 (01:54→08:09)
[2019-09-24] MEDS: oxyCODONE 5 mg/Acetaminophen 325 mg TAB 1 TAB PO ×2 (06:03→10:28)
[2019-09-24 06:41] LABS: Abs Immature Grans 0.43 k/cumm (0.0-0.09); HCT 42.1 % (40.0-50.0); HGB 13.7 g/dL (13.5-17.5); Mean Corp. HGB Concentration 32.5 g/dL (32.0-36.0); Mean Corpuscular Hemoglobin 28.6 pg (27.0-33.0); Mean Corpuscular Volume 87.9 fL (80-95); Mean Platelet Volume 9.6 fL (8.0-11.0); Platelet Count 272 x1000/uL (130-400); RBC 4.79 m/cumm (4.50-6.00); RBC Distribution Width 16.4 % (11.8-14.1); White Blood Cell Count 7.55 k/cumm (4.4-10.8)
[2019-09-24 07:00] LABS: Anion Gap 9.2 mmol/L (3-11); BUN 7 mg/dL (7-18); CO2 25.8 mmol/L (21.0-32.0); CREATININE 0.86 mg/dL (0.70-1.30); Calcium 8.4 mg/dL (8.5-10.1); Chloride 107 mmol/L (98-107); Creatine Kinase 671 U/L (39-308); Glucose 113 mg/dL (70-100); Magnesium 1.9 mg/dL (1.8-2.4); Sodium 142 mmol/L (136-145)
[2019-09-24 07:24] LABS: Absolute Basophil Count 0.08 k/cumm (0.0-0.2); Absolute Eosinophil Count 0.45 k/cumm (0.0-0.7); Absolute Lymphocyte Count 1.51 k/cumm (1.2-3.4); Absolute Monocyte Count 0.98 k/cumm (0.11-0.7); Absolute Neutrophil Count 4.15 k/cumm (1.2-6.7); Diff Comment Manual Differential; RBC Morphology Normal
[2019-09-24] MEDS: Ziprasidone 20 MG CAP 60 MG PO ×2 (07:52→19:53)
[2019-09-24] MEDS: Normal Saline Flush 10 ML SYR IVP (07:52)
[2019-09-24] MEDS: Furosemide 20 MG/2 ML VIAL IVP ×2 (07:54→15:46)
[2019-09-24] MEDS: Pantoprazole 40 MG TABCR PO (07:54)
[2019-09-24] MEDS: Apixaban 5 MG TAB PO ×2 (07:54→19:54)
[2019-09-24] MEDS: Aspirin 325 MG TAB PO (07:54)
[2019-09-24] MEDS: Sertraline 50 MG TAB 100 MG PO ×3 (07:54→19:54)
[2019-09-24] MEDS: dilTIAZem CD 120 MG CAPCR PO (07:54)
[2019-09-24] MEDS: Acetaminophen 325 MG TAB PO ×2 (08:09→15:46)
--- NOTE | 2019-09-24 09:53 | PTTR_ITS ---
Date of service: 09/24/19 Time of Service: 09:53 PT Notes 09/24/19 SUBJECTIVE: Hayden stating he is feeling better today. Continues to feel weak through the LE's. OBJECTIVE: Standing at his sink when entering room. Agreeable to PT treatment. TRANSFERS Sit to stand: SBA Stand to sit: SBA GAIT Device: FWW Weight bearing: Full Assist: SBA Distance: 100' Therex: Seated LE and UE strengthening as noted on flow sheet. Encouraged frequent completion of LAQ, seated marching and shoulder flexion. When in bed he needs to perform SLR. ASSESSMENT: Progressed with his gait distance today although he continues to feel weak from inactivity. He will begin working on indepdnent strengthening in his room. PLAN: Continue current POC. Treatment time: 11126, 20' Rosenda Rubi PTA Clinic location: [facility] [place], [place]
--- NOTE | 2019-09-24 13:12 | CMPROGNOTE_ITS ---
- If Service Date Differs Date of service: 09/24/19 Time of Service: 13:12 Care Management Progress Note S/O: Hayden was sitting in his chair when CM met with him. He was pleasant and engaged in conversation. He reported that he is feeling ok, and that the plan is for him to discharge home tomorrow. He expressed concern with help at home. CM explained that he will meet with and they will evaluate his needs at home going forward, and may provide more support than he is currently receiving. CM asked if he needs a ride home, which would be coordinated for him. He stated that his friend, Ravindra will drive him home and also bring him clothes. CM will continue to follow. A: Hayden is a 73 year old male admitted to [facility] 09/21/19 for Rhabdomyolysis, Dehydration, UTI P: Hayden plans to return home with new VNA supports including RN/PT/OT/ENVIRONMENTAL ASSOCIATE. He will resume CFC Moderate services through [facility] including case management with Bonnie William and homemaker supports 1x/wk. PT is recommending SNF at this time, Hayden would like to attempt to strengthen and return home Thursday. CM continues to follow.
[2019-09-24] MEDS: cefTRIAXone 2 GM/50 ML BAG IVPB (15:46)
--- NOTE | 2019-09-24 19:56 | PGE_ITS ---
Date of Service Date of service: 09/24/19 Time of Service: 19:56 Assessment and Plan Assessment and plan (1) Complicated UTI (urinary tract infection): Status: Acute Assessment and plan: Currently on day #4 of Ceftriaxone, with Cultures showing a Pansensitive E.Coli. Given potential interactions with patient's psych medications, he will be initiated on Augmentin today and monitored. (2) Syncope: Status: Acute Assessment and plan: In setting of dehydration, UTI, vomiting, and diarrhea. ECHO essentially unremarkable. Patient remains asymptomatic following hydration and treatment of UTI. Qualifiers: Syncope type: unspecified Qualified Code(s): R55 - Syncope and collapse (3) Rhabdomyolysis: Status: Acute Assessment and plan: Mild, with intact renal function. Improving daily with IVFs, with CPK only minimally elevated. Will discontinue IVFs and restart home furosemide given patient's rising blood pressure and appearance of mild LE Edema. Repeat CPK in the morning. Qualifiers: Rhabdomyolysis type: non-traumatic Qualified Code(s): M62.82 - Rhabdomyolysis (4) History of DVT (deep vein thrombosis): Status: Acute Assessment and plan: Continue chronic anticoagulation with Apixaban. (5) Schizoaffective disorder: Status: None Assessment and plan: Continue home regimen of Lamotrigine, Trazodone, and Geodon. Also on SSRI therapy. (6) DVT prophylaxis: Status: Acute Assessment and plan: On therapeutic anticoagulation. Also on PPI therapy for GI Prophylaxis. Subjective Subjective Interval history since last seen: 73 year old man with a prior history of Schizoaffective disorder, admitted from [facility] emergency department on 09/21 with a diagnosis of syncopal episode in the setting of a UTI and dehydration, with subsequent discovery of Rhabdomyolysis. has a Past Medical History significant for HTN, dyslipidemia, GERD, and psychiatric diagnoses including Schizoaffective disorder. The patient presented to the ED via EMS following a syncopal episode, with subsequent inability to get up off the floor. He reportedly developed a diarrheal illness with subsequent weakness and generalized malaise approximately 6 days prior to his admission. He subsequently went on to develop lightheadedness, and fell to the floor/syncopized 2 days prior to his presentation, and was subsequently unable to arise. He finally was able to drag himself to the telephone and call EMS for transportation. Evaluation in the ED was pertinent for abrasions across the chest, b/l knees, and left elbow, and labwork showed evidence of a mild leukocytosis, Hypokalemia, and elevated CPK at 3869 with normal renal function. He also had a mild transaminitis that appears to bear some chronicity in finding. Initial CT of the chest, abdomen, and pelvis was unremarkable, as were CT of the head and neck, and Xrays of the Hip, knee, and elbow. His urinalysis was positive for infection. The patient was referred for admission for further evaluation and treatment. Following admission Mr. Joy was placed on aggressive IVFs for Rhabdomyolysis, and antibiotics for UTI. Renal ultrasound was checked and normal, with evidence only of BPH. Subsequent ECHO was also checked in the setting of syncope, with evidence of a dilated RV with normal function, moderate LAE, and PHTN in the 50's. The patient's urine culture grew a pansensitive E.Coli. CPK steadily decreased, even with discontinuation of IVFs, and the patient remained asymptomatic through the rest of his hospital course. No overnight events reported. Remains afebrile. Exam Narrative Exam Narrative: General: Patient appears comfortable, AAOX3, NAD Neck: Supple CV: Regular, nontachycardic, S1S2, No rubs, murmurs, or gallops. Pulmonary: Clear to auscultation bilaterally, no crackles, wheezing, or rhonchi Abdomen: + Bowel Sounds, soft, nontender, nondistended Vascular: Mild to 1+ b/l lower extremity edema Psych: Normal mood and affect. Objective Objective Clinical Data: Abnormal lab results 09/24/19 09/24/19 Range/Units 06:10 06:10 RDW 16.4 H (11.8-14.1) % Absolute Monocytes 0.98 H (0.11-0.7) k/cumm Glucose 113 H (70-100) mg/dL Calcium 8.4 L (8.5-10.1) mg/dL Creatine Kinase 671 H (39-308) U/L Vital Signs Temperature 37.1 C 09/24/19 19:08 Temperature Source Tympanic 09/24/19 19:08 Pulse 68 09/24/19 19:08 Pulse 68 09/23/19 16:00 Respiratory Rate 18 09/24/19 19:08 Respiratory Effort Non-Labored 09/24/19 15:49 Respiratory Depth Normal 09/24/19 15:49 Respiratory Pattern Normal 09/24/19 15:49 Blood Pressure 167/82 H 09/24/19 19:08 Blood Pressure Mean 85 09/23/19 16:00 Blood Pressure Position Sitting 09/23/19 12:18 Pulse Oximetry 95 09/24/19 19:08 Oxygen Delivery Method Room Air 09/24/19 19:08 Oxygen Flow Rate 0 09/24/19 19:08 Pain Level 5 09/24/19 15:46 Comment 09/24/19 15:33 Intake & Output 09/23/19 09/24/19 09/24/19 23:59 11:59 23:59 Intake Total 3255.0 / 5670.0 2707.5 / 3352.5 645 / 3352.5 Output Total 4000 / 6905 1600 / 2900 1300 / 2900 Balance -745.0 / -1235.0 1107.5 / 452.5 -655 / 452.5 Weight 112.2 kg Intake: IV 2915.0 / 4530.0 2057.5 / 2212.5 155 / 2212.5 Oral 340 / 1140 650 / 1140 490 / 1140 Output: Urine 4000 / 6905 1600 / 2900 1300 / 2900 Other: Urine Color Pale Pale Pale Yellow Urine Appearance Clear Clear Clear Urine Odor None None Comment Patient voids in urinal. Stool Size Moderate Stool Characteristics Soft Brown Voiding Methods Urinal Urinal Urinal Laboratory Results WBC 7.55 k/cumm (4.4-10.8) 09/24/19 06:10 RBC 4.79 m/cumm (4.50-6.00) 09/24/19 06:10 Hgb 13.7 g/dL (13.5-17.5) 09/24/19 06:10 Hct 42.1 % (40.0-50.0) 09/24/19 06:10 MCV 87.9 fL (80-95) 09/24/19 06:10 MCH 28.6 pg (27.0-33.0) 09/24/19 06:10 MCHC 32.5 g/dL (32.0-36.0) 09/24/19 06:10 RDW 16.4 % (11.8-14.1) H 09/24/19 06:10 Plt Count 272 x1000/uL (130-400) 09/24/19 06:10 MPV 9.6 fL (8.0-11.0) 09/24/19 06:10 Immature Gran % See Differential 09/24/19 06:10 Neutrophils % 50.0 09/24/19 06:10 Band Neutrophils % 5.0 % 09/24/19 06:10 Lymphocytes % 20.0 09/24/19 06:10 Atypical Lymphs % 0 09/21/19 15:20 Monocytes % 13.0 09/24/19 06:10 Eosinophils % 6.0 09/24/19 06:10 Basophils % 1.0 09/24/19 06:10 Metamyelocytes % 5.0 % 09/24/19 06:10 Absolute Neutrophils 4.15 k/cumm (1.2-6.7) 09/24/19 06:10 Absolute Lymphocytes 1.51 k/cumm (1.2-3.4) 09/24/19 06:10 Absolute Monocytes 0.98 k/cumm (0.11-0.7) H 09/24/19 06:10 Absolute Eosinophils 0.45 k/cumm (0.0-0.7) 09/24/19 06:10 Absolute Basophils 0.08 k/cumm (0.0-0.2) 09/24/19 06:10 Differential Comment Manual differential 09/24/19 06:10 RBC Morphology Normal 09/24/19 06:10 Sodium 142 mmol/L (136-145) 09/24/19 06:10 Potassium 4.0 mmol/L (3.5-5.1) 09/24/19 06:10 Chloride 107 mmol/L (98-107) 09/24/19 06:10 Carbon Dioxide 25.8 mmol/L (21.0-32.0) 09/24/19 06:10 Anion Gap 9.2 mmol/L (3-11) 09/24/19 06:10 BUN 7 mg/dL (7-18) 09/24/19 06:10 Creatinine 0.86 mg/dL (0.70-1.30) 09/24/19 06:10 Estimated GFR/1.73 m2 >= 60.00 (mL/min/1.73m2) 09/24/19 06:10 Glucose 113 mg/dL (70-100) H 09/24/19 06:10 Calcium 8.4 mg/dL (8.5-10.1) L 09/24/19 06:10 Magnesium 1.9 mg/dL (1.8-2.4) 09/24/19 06:10 Total Bilirubin 0.3 mg/dL (0.2-1.0) 09/22/19 06:45 AST 113 U/L (15-37) H 09/22/19 06:45 ALT 58 U/L (16-63) 09/22/19 06:45 Alkaline Phosphatase 88 U/L (46-116) 09/22/19 06:45 Creatine Kinase 671 U/L (39-308) H 09/24/19 06:10 Troponin I < 0.05 ng/mL (0.00-0.06) 09/21/19 15:20 Total Protein 5.7 g/dL (6.4-8.2) L 09/22/19 06:45 Albumin 2.2 g/dL (3.4-5.0) L 09/22/19 06:45 Procalcitonin 0.4 ng/mL 09/21/19 15:30 Urine Color Yellow (Yellow) 09/21/19 15:34 Urine Clarity Sl cloudy (Clear) 09/21/19 15:34 Urine pH 6.0 (5-8) 09/21/19 15:34 Ur Specific [place] 1.020 (1.005-1.025) 09/21/19 15:34 Urine Protein 100 mg/dL (Negative) H 09/21/19 15:34 Urine Ketones >=160 mg/dL (Negative) H 09/21/19 15:34 Urine Blood Large (Negative) H 09/21/19 15:34 Urine Nitrite Positive (Negative) H 09/21/19 15:34 Urine Bilirubin Small (Negative) H 09/21/19 15:34 Urine Urobilinogen 0.2 EU/dL (Up TO 0.2) 09/21/19 15:34 Ur Leukocyte Esterase Moderate (Negative) H 09/21/19 15:34 Urine RBC Negative (0-2) 09/21/19 15:34 Urine WBC >50 HPF (0-5) 09/21/19 15:34 Ur Epithelial Cells Negative HPF (Negative) 09/21/19 15:34 Urine Crystals Negative HPF (Negative) 09/21/19 15:34 Urine Bacteria Many HPF (Negative) 09/21/19 15:34 Urine Casts Negative LPF (Negative) 09/21/19 15:34 Urine Mucus Negative (Negative) 09/21/19 15:34 Urine Other Negative (Negative) 09/21/19 15:34 Ur Culture Indicated? Yes 09/21/19 15:34 Urine Myoglobin 1808 mcg/L (<=21) H 09/21/19 15:30 Urine Glucose Negative mg/dL (Negative) 09/21/19 15:34
[2019-09-24] MEDS: lamoTRIgine 100 MG TAB PO (21:05)
[2019-09-24] MEDS: traZODone 50 MG TAB 100 MG PO (21:05)
[2019-09-24] MEDS: clonazePAM 1 MG TAB PO (21:05)
[2019-09-25 03:52] VITALS: BP 186/96; PULSE 89; RESP 19; TEMP 36.6; O2SAT 94
[2019-09-25] MEDS: Acetaminophen 325 MG TAB PO (03:59)
[2019-09-25] MEDS: oxyCODONE 5 mg/Acetaminophen 325 mg TAB 1 TAB PO (04:00)
[2019-09-25 04:45] VITALS: BP 168/70
[2019-09-25 07:19] LABS: ALT 63 U/L (16-63); AST 76 U/L (15-37); Albumin 2.6 g/dL (3.4-5.0); Alkaline Phosphatase 76 U/L (46-116); Anion Gap 8.6 mmol/L (3-11); BUN 9 mg/dL (7-18); Bilirubin, Total 0.3 mg/dL (0.2-1.0); CO2 27.4 mmol/L (21.0-32.0); CREATININE 0.86 mg/dL (0.70-1.30); Calcium 8.5 mg/dL (8.5-10.1); Chloride 105 mmol/L (98-107); Creatine Kinase 511 U/L (39-308); Glucose 112 mg/dL (70-100); Magnesium 1.9 mg/dL (1.8-2.4); Potassium 3.9 mmol/L (3.5-5.1); Sodium 141 mmol/L (136-145); Total Protein 6.5 g/dL (6.4-8.2)
[2019-09-25 07:33] VITALS: BP 138/78; PULSE 72; RESP 17; TEMP 36.5; O2SAT 95
--- NOTE | 2019-09-25 08:16 | PTTR_ITS ---
Date of service: 09/25/19 Time of Service: 08:16 PT Notes 09/25/19 SUBJECTIVE: Pt stating he feels like he is in a fog. No complaints of dizziness. OBJECTIVE: Supine in bed. Agreeable to PT treatment. TRANSFERS Supine to sit: I Sit to stand: S Stand to sit: S GAIT Device: FWW Weight bearing: Full Assist: SBA Distance: 150' THEREX: Pt performs light UE/LE strengthening exercises as well as static balance tasks. See flow sheet. ASSESSMENT: Progressing with his functional mobility. He continues to have a flat affect and does not feel like himself per subjective report. Pt is independent with bed mobility and transfers with SBA for gait for safety although no LOB noted. PLAN: Continue current POC. Treatment time: 25 minutes [id number], [id number] Rosenda Rubi PTA Clinic location: [facility] [place], [place]
[2019-09-25] MEDS: Aspirin 325 MG TAB PO (08:18)
[2019-09-25] MEDS: Sertraline 50 MG TAB 100 MG PO ×2 (08:18→13:13)
[2019-09-25] MEDS: Apixaban 5 MG TAB PO (08:18)
[2019-09-25] MEDS: Ziprasidone 20 MG CAP 60 MG PO (08:18)
[2019-09-25] MEDS: Amoxicillin 875/Clav. 125 TAB PO (08:18)
[2019-09-25] MEDS: dilTIAZem CD 120 MG CAPCR PO (08:18)
[2019-09-25] MEDS: Pantoprazole 40 MG TABCR PO (08:18)
[2019-09-25] MEDS: Potassium Chloride 10 MEQ TABCR PO (10:19)
[2019-09-25] MEDS: Furosemide 20 MG TAB PO (10:19)
[2019-09-25 11:30] VITALS: BP 171/81; PULSE 79; RESP 18; TEMP 37.4; O2SAT 99
--- NOTE | 2019-09-25 12:03 | DSE_ITS ---
Date of service: 09/25/19 Time of Service: 12:03 DS: Diagnosis Discharge Diagnosis (1) Complicated UTI (urinary tract infection): Status: Acute (2) Syncope: Status: Acute (3) Rhabdomyolysis: Status: Acute (4) History of DVT (deep vein thrombosis): Status: Acute (5) Schizoaffective disorder: Status: None (6) DVT prophylaxis: Status: Acute Discharge Plan Disposition Patient Disposition: HOME W/HOME HEALTH SERVICE Condition: Stable Discharge Details Chief Complaint: Trauma Clinical Impression: Urinary tract infection, Rhabdomyolysis Reason For Visit: RHABDOMYOLYSIS, DEHYDRATION, UTI Admit Date/Time: 09/21/19 18:59 Admit Provider: Jasen Higuera Attending Provider: Jasen Higuera Primary Care Provider: Rosa Bartlett V ED Provider: José Ayoub Hospital Course Hospital Course: Chief Complaint: Syncope, Weakness, Vomiting HPI: 73 year old man with a prior history of Schizoaffective disorder, admitted from [facility] emergency department on 09/21 with a diagnosis of syncopal episode in the setting of a UTI and dehydration, with subsequent discovery of Rhabdomyolysis. Mr. Joy has a Past Medical History significant for HTN, dyslipidemia, GERD, and psychiatric diagnoses including Schizoaffective disorder. The patient presented to the ED via EMS following a syncopal episode, with subsequent inability to get up off the floor. He reportedly developed a diarrheal illness with subsequent weakness and generalized malaise approximately 6 days prior to his admission. He then went on to develop lightheadedness, and fell to the floor/syncopized 2 days prior to his presentation, unable to arise off the floor following the event. He was finally able to drag himself to the telephone and call EMS for transportation. Evaluation in the ED was pertinent for abrasions across the chest, b/l knees, and left elbow, and labwork showed evidence of a mild leukocytosis, Hypokalemia, and elevated CPK at 3869 with normal renal function. He also had a mild transaminitis that appears to bear some chronicity in finding. Initial CT of the chest, abdomen, and pelvis was unremarkable, as were CT of the head and neck, and Xrays of the Hip, knee, and elbow. His urinalysis was positive for infection. The patient was referred for admission for further evaluation and treatment. Following admission Mr. Ankner was placed on aggressive IVFs for Rhabdomyolysis, and antibiotics for UTI. Renal ultrasound was checked and normal, with evidence only of BPH. Subsequent ECHO was also checked in the setting of syncope, with evidence of a dilated RV with normal function, moderate LAE, and PHTN in the 50's. The patient's urine culture grew a pansensitive E.Coli, and given his psychiatric medications was ultimately changed to Augmentin. CPK steadily decreased, even with discontinuation of IVFs, and the patient remained asymptomatic through the rest of his hospital course. He is being discharged with home health services for PT/OT, nursing for wound care, and ICT HELP DESK TECHNICIAN for assessment of home and community needs. No overnight events reported. Remains afebrile. Hospital Course: (1) Complicated UTI (urinary tract infection): Received a total of 3 days of Ceftriaxone, with Cultures showing a Pansensitive E.Coli. Given potential interactions with patient's psych medications, he was initiated on Augmentin and monitored for an additional 24 hours without any evidence of fevers. He will finish a 14-day total course of antibiotic therapy. Also with potential underlying BPH -may do well in the future with a urology follow-up. (2) Syncope: In setting of dehydration, UTI, vomiting, and diarrhea. ECHO essentially unremarkable, but with evidence of a dilated RV and moderate PHTN. Patient rem ains asymptomatic following hydration and treatment of UTI. -Consider outpatient sleep study and work-up for underlying DENISE as reason for new diagnosis of pulmonary hypertension and dilated right ventricle. Please note that RV systolic function remains intact. (3) Rhabdomyolysis: Mild, with intact renal function. Improved daily with IVFs, with CPK only minimally elevated. CPK continue to decrease from a value of 671 --> 511 despite discontinuation of IVF's and reinitiation of home furosemide. Plan on repeat CPK in 2-3 days to ensure resolution. (4) History of DVT (deep vein thrombosis): Continue chronic anticoagulation with Apixaban. (5) Schizoaffective disorder: Continue home regimen of Lamotrigine, Trazodone, and Geodon. Also on SSRI therapy. (6) Disposition: Will require new home health services for PT/OT, VNA for hospital follow-up as well as wound care, and ICT HELP DESK TECHNICIAN for assessment of home and community needs. Home Meds and New Rx's Prescriptions: New amoxicillin-pot clavulanate 875-125 mg Tablet 1 tab PO BID Qty: 20 RF: 0 Continued Refresh Tears 15 ML drops 15 ml Ophthalmic PRN PRNRF: 0 Restasis 1 EACH dropperette 1 ea Ophthalmic DAILY RF: 0 clonazepam 1 MG tablet 1 mg PO HS RF: 0 nitroglycerin [Nitrostat] 0.4 MG tablet, sublingual 0.4 mg Sublingual PRN PRNRF: 0 docusate sodium [Colace] 100 MG capsule 100 mg PO BID PRNRF: 0 furosemide [Lasix] 20 MG tablet 20 mg PO DAILY RF: 0 ezetimibe [Zetia] 10 MG tablet 10 mg PO DAILY RF: 0 trazodone 50 MG tablet 100 mg PO HS RF: 0 diphenhydramine HCl [Benadryl] 25 MG capsule 50 mg PO Q8H PRN RF: 0 aspirin 325 MG tablet 325 mg PO DAILY RF: 0 Cardizem LA 120 MG tablet extended release 24 hr 120 mg PO DAILY RF: 0 ziprasidone HCl [Geodon] 60 mg Capsule 60 mg PO BID RF: 0 lamotrigine [Lamictal] 100 mg Tablet 100 mg PO DAILY RF: 0 pantoprazole 40 mg Tablet,Delayed Release (Dr/Ec) 40 mg PO DAILY AM RF: 0 sertraline [Zoloft] 100 mg Tablet 100 mg PO TID RF: 0 propranolol 40 mg Tablet 40 mg PO BID RF: 0 rosuvastatin [Crestor] 10 mg Tablet 10 mg PO HS RF: 0 Eliquis 5 mg Tablet 5 mg PO BID RF: 0 magnesium oxide [MagOx] 400 mg (241.3 mg magnesium) Tablet 400 mg PO DAILY RF: 0 Discharge Instructions Activity:: No Strenuous Activity. Equipment/Supplies:: No Equipment Needed Diet:: As Tolerated Discharge Orders Discharge Orders: Discharge Order (Routine); Ordered 09/25/19 Ordered By: Tomi Syed Other Ambulatory Orders: Basic Metabolic Panel (Routine) Timeframe: 3 Days Location: None Selected Ordered By: Tomi Syed Creatine Kinase (Routine) Timeframe: 3 Days Location: None Selected Ordered By: Tomi Syed DS: Summary Status at Discharge Functional status at discharge: independent ambulation Overall status at discharge: patient is back to baseline Mental Status: mental status grossly normal Speech and Movement: speech and movement normal Mood: congruent mood Affect: normal affect Exam Narrative Exam Narrative: General: Patient appears comfortable, AAOX3, NAD Neck: Supple CV: Regular, nontachycardic, S1S2, No rubs, murmurs, or gallops. Pulmonary: Clear to auscultation bilaterally, no crackles, wheezing, or rhonchi Abdomen: + Bowel Sounds, soft, nontender, nondistended Vascular: Mild to 1+ b/l lower extremity edema Psych: Normal mood and affect. Psych Mental Status: mental status grossly normal Speech and Movement: speech and movement normal Mood: congruent mood Affect: normal affect DS: Data Vitals/I&O Vitals and I&O: Vital Signs Temperature 37.4 C 09/25/19 11:30 Temperature Source Temporal Artery Scan 09/25/19 11:30 Pulse 79 09/25/19 11:30 Pulse 68 09/23/19 16:00 Respiratory Rate 18 09/25/19 11:30 Respiratory Effort Non-Labored 09/25/19 08:38 Respiratory Depth Normal 09/25/19 08:38 Respiratory Pattern Normal 09/25/19 08:38 Blood Pressure 171/81 H 09/25/19 11:30 Blood Pressure Mean 85 09/23/19 16:00 Blood Pressure Position Sitting 09/23/19 12:18 Pulse Oximetry 99 09/25/19 11:30 Oxygen Delivery Method Room Air 09/25/19 11:30 Oxygen Flow Rate 0 09/25/19 11:30 Pain Level 6 09/25/19 11:30 Comment 09/25/19 03:52 Intake & Output 09/24/19 09/25/19 09/25/19 23:59 11:59 23:59 Intake Total 645 / 3352.5 250 / 250 Output Total 1750 / 3350 Balance -1105 / 2.5 250 / 250 Weight 108.8 kg Intake: IV 155 / 2212.5 Oral 490 / 1140 250 / 250 Output: Urine 1750 / 3350 Other: Urine Color Pale Yellow Urine Appearance Clear Clear Voiding Methods Urinal Toilet Data Completed and Pending Completed studies during hospitalization [Text1]: Exam(s) 09/21/[address]:CT chest/abd/pel w EXAM: CT CHEST/ABD/PEL W CLINICAL HISTORY: anterior CP, backpain, on floor 3 days. TECHNIQUE: The study was carried out according to the usual protocol with an intravenous administration of 100 cc of Omnipaque 350. COMPARISON: No exams were available for comparison FINDINGS: CHEST : The lungs are normal. There is no evidence of a pleural effusion or pneumothorax. The heart is not enlarged. Coronary artery calcification is seen. The aorta is unremarkable. There is no evidence of lymphadenopathy. Note is made of multilevel degenerative changes involving the spine. No acute bony abnormality is identified. ABDOMEN/PELVIS: The liver is normal. The gallbladder is normal. There are no gallstones or ductal dilatation. The pancreas, spleen and adrenals are normal . A 1 cm cyst is noted in the right kidney. There is no evidence of nephrolithiasis or hydronephrosis. A very small hiatus hernia is noted. There is no evidence of bowel obstruction. Scattered diverticula are noted in the dis jose d descending and recto sigmoid segments of the colon. There is no evidence of diverticulitis. No small bowel abnormality is apparent. There is no evidence of an acute appendix. There is no evidence of free fluid or air in the intraperitoneal space. Bladder wall thickening is likely on the basis of nondistention. Prostatic enlargement is demonstrated. There are small fat containing inguinal hernias. There are atherosclerotic changes involving the aorta without evidence of an aneurysm.. Degenerative changes involving the spine are apparent. IMPRESSION: CHEST: No acute abnormality is demonstrated in the thorax. ABDOMEN AND PELVIS: No acute abnormalities identified in the abdomen or pelvis. --------- Exam(s) 09/21/[address]:CT head & cervical spine wo EXAM: CT HEAD CERVICAL SPINE WO CLINICAL HISTORY: syncope, on floor 3 days, JOYNER. TECHNIQUE: A noncontrast enhanced cranial and cervical spine CT was performed. COMPARISON: No exams were available for comparison FINDINGS: HEAD: Age-appropriate atrophic changes are demonstrated. There is evidence of small-vessel disease. There is no evidence of an intra or extra-axial hemorrhage. There is no evidence of a mass effect or midline shift. The cordero- white matter differentiation is preserved. The ventricles are intact. There is no evidence of a skull fracture. Note is made of chronic mildly displaced bilateral nasal bone fractures. Retention cysts are noted in the paranasal sinuses. There is partial opacification of the right mastoid air cells. The soft tissues are unremarkable. C SPINE: The vertebral bodies are intact. There is no evidence of a fracture or subluxation. Degenerative changes at C5-6 and C6-C7 are noted where there is disc space narrowing. The posterior elements are intact. The neural canal is widely patent throughout. The odontoid is intact and is closely applied to the anterior arch of C1. The prevertebral soft tissues are unremarkable. IMPRESSION: HEAD: No acute intracranial abnormality is demonstrated. There is partial opacification of the right mastoid air cells. C spine: No evidence of a fracture or subluxation. -------- Exam(s) 09/21/2019 a RAD:XR elbow LT complete EXAM: XR ELBOW LT COMPLETE INDICATION: L pain after on floor. COMPARISON: XR KNEE RT 2V AP,LAT from 09/21/2019 TECHNIQUE: 2D digital imaging was performed. FINDINGS: There is no evidence of a fracture or dislocation. A prominent olecranon spur is demonstrated. -------- Exam(s) 09/21/2019 a RAD:XR knee RT 2V AP,lat EXAM: XR KNEE RT 2V AP,LAT INDICATION: fall, anterior pain and contusion. COMPARISON: KNEES BILAT AP STANDING from 07/26/2014 TECHNIQUE: 2D digital imaging was performed. FINDINGS: There is no evidence of a fracture or dislocation. Moderate degenerative changes are noted. -------- Exam(s) 09/21/2019 a RAD:XR knee LT 2V AP,lat EXAM: XR KNEE LT 2V AP,LAT INDICATION: fall, anterior pain and contusion. COMPARISON: XR KNEE RT 2V AP,LAT from 09/21/2019 TECHNIQUE: 2D digital imaging was performed. FINDINGS: There is no evidence of a fracture or dislocation. Mild degenerative changes are noted. --------- Exam(s) 09/22/2019 a RAD:XR hip & pelvis adult Bl EXAM: XR HIP PELVIS ADULT BL INDICATION: s/p fall; bilateral hip pain. COMPARISON: No exams were available for comparison TECHNIQUE: 2D digital imaging was performed. FINDINGS: There is no evidence of an acute fracture or dislocation. The joint spaces are intact. -------- Exam(s) 09/22/1019 a US:US renal EXAM: US RENAL CLINICAL HISTORY: complicated UTI, rhabdomyolysis TECHNIQUE: Ultrasound performed using standard protocol. COMPARISON: US lower extremity venous RT from 09/22/2018 FINDINGS: Renal ultrasound was performed according to the usual protocol. Kidneys are normal in size and shape. There is an incidental 21 millimeter in diameter simple cyst of the midpole of the right kidney. No hydronephrosis nephrolithiasis or renal mass as visualized. Urinary bladder grossly unremarkable with pre and postvoid urinary bladder volume measurements 182 cc and 32 cc respectively. Ureteral jets were noted bilaterally. Prostate enlarged at 37 cc. IMPRESSION: Essentially normal renal ultrasound, prostatic hypertrophy noted. ------- Exam(s) 09/22/2019 a RAD:XR portable chest AP EXAM: XR PORTABLE CHEST AP INDICATION: new oxygen requirement. ?CHF. COMPARISON: CHEST 2 VIEWS PA,LAT from 09/05/2014 TECHNIQUE: 2D digital imaging was performed. FINDINGS: The lungs are well expanded and free of infiltrate. There is no evidence of a pleural effusion. The heart is not enlarged. The hilar structures, mediastinum and tracheal air column are intact. IMPRESSION: No evidence of acute cardiopulmonary disease. Exam(s) 09/23/2019 a US:US echocardiogram APPROVED REPORT Conclusion Left Ventricle : The left ventricle is normal in size. The left ventricular systolic function is normal. There is normal LV segmental wall motion. LVEF is 60-65%. The left ventricular diastolic function is normal. Right Ventricle : Right ventricle is dilated. The right ventricular systolic function is normal. Atria : Left atrium is moderately dilated. Right atrium is mildly dilated. Aortic Valve : Aortic valve is trileaflet and mobile. No aortic regurgitation is present. There is no aortic valvular stenosis. Mitral Valve : There is mitral annular calcification. Mitral valve leaflets are mildly thickened. Trivial mitral regurgitation. No evidence of mitral valve stenosis. Tricuspid Valve : Tricuspid valve appears normal. Mild tricuspid regurgitation. The RVSP is 50-55 mmHg. Pulmonic Valve : Pulmonic valve is not well visualized. Great Vessels : The aortic root is normal in size. The IVC is dilated and collapses >50% with inspiration. Prior echocardiogram available for comparison There is no structural abnormality to explain patient's syncope. EXAM: Comprehensive 2D, Doppler, and color-flow Echocardiogram Patient Location: In-Patient Lead Sql Developer: LANA Cox (AE) Rhythm: NSR Indications: SYNCOPE Labs on day of discharge: Labs from last 24 hours 09/25/19 06:35 Sodium 141 Potassium 3.9 Chloride 105 Carbon Dioxide 27.4 Anion Gap 8.6 BUN 9 Creatinine 0.86 Estimated GFR/1.73 m2 >= 60.00 Glucose 112 H Calcium 8.5 Magnesium 1.9 Total Bilirubin 0.3 AST 76 H ALT 63 Alkaline Phosphatase 76 Creatine Kinase 511 H Total Protein 6.5 Albumin 2.6 L Urine Culture Final 09/23/19-825 Day 1 Result ISOLATES BELOW ISOLATE 1 COLONY COUNT >100,000 COLONIES/ML ISOLATE 1 APPEARANCE Gram Negative Willem ISOLATE 2 COLONY COUNT 10,000 - 50,000 COLONIES/ML ISOLATE 2 APPEARANCE Mixed Gram Positive Norman Day 2 Result ISOLATES BELOW ISOLATE 1 COLONY COUNT >100,000 COLONIES/ML ISOLATE 1 APPEARANCE Gram Negative Wlilem ISOLATE 2 COLONY COUNT 10,000 - 50,000 COLONIES/ML ISOLATE 2 APPEARANCE Mixed Gram Positive Norman Organism 1 Escherichia coli COLONY COUNT >100,000 COLONIES/ML Organism 2 GRAM POSITIVE NORMAN,MIXED COLONY COUNT 10,000 - 50,000 COLONIES/ML Esch coli RESULT Ampicillin S Ampicillin/Sulbactam S Cefazolin S Ceftazidime S CEFTRIAXONE S Ciprofloxacin S Gentamicin S Nitrofurantoin S Imipenem S Levofloxacin S Tobramycin S Trimethoprim/Sulfamethoxazole S Piperacillin/Tazobactam S PFSH Medical History Atherosclerosis of coronary artery Holloway's esophagus Essential hypertension Hypercholesterolemia Left ventricular hypertrophy Panic disorder personality affective Schizoaffective disorder tubular adenomas Surgical History Appendectomy (~2006) Colonoscopy - MAC (~2010) Colonoscopy - MAC (04/20/17) EGD - MAC (~2010) EGD - MAC (04/20/17) Hernia Repair, Incisional (~2007) Family History Mother No problems noted. Father Acute myocardial infarction Brother Parkinson's disease Social History Smoking/Tobacco Use Status: Former Tobacco Use Alcohol Intake: never Drug use: Never
--- NOTE | 2019-09-25 12:24 | PDOC.HHF2F_ITS ---
Home Health Certification Home Health Certification: 1. Encounter Date and Reason I certify that SHIRLEY BALDERAS was seen by Tomi Syed on 09/25/19 and that I had a [id number] encounter with this patient that meets the physician face to face encounter requirements. 2. Clinical Findings Supporting Skilled Need and Homebound Status I certify that home health services are medically necessary, include either intermittent assisted and/or physical/speech therapy, and that this patient is homebound in that absences from the home require considerable and taxing effort and are infrequent or of short duration, or are attributable to the need to receive medical care. [X] (a) Attached documentation from encounter provides clinical findings supporting skilled need and homebound status (including what assistance patient requires to leave the home). The encounter with the patient was in whole, or in part, for the following medical condition, which is the primary reason for home health care: RHABDOMYOLYSIS, DEHYDRATION, UTI Prison: Post Hospital Follow-up. Please provide Wound care as per Wound care recommendations. Physical Therapy:/Occupational Therapy: Weakness, syncope in setting of dehydration and UTI. FOREIGN EXCHANGE SERVICES MANAGER: Assess for home and community needs following discharge from hospital. Homebound: 3. Certification and Authentication I certify that I composed the above information based on my clinical judgement relating to this patient's medical condition and, if applicable, clinical findings communicated to me by the NPP or inpatient physician who performed the Home Health Referral. All further orders will be obtained through Rosa Bartlett (Community Based Physician - PCP)
--- NOTE | 2019-09-25 13:27 | PDOC.CMDIS ---
- If Service Date Differs Date of service: 09/25/19 Time of Service: 13:27 LACE Index Scoring Tool - Questions: Length of Stay (in days): 3 Acuity (Admit via E.D.?): Yes E.D. Visits: 1 - Answers: Total Score: 7 Risk of Readmission: Low Risk Care Management Discharge Reason for Hospitalization: Rhabdomyolysis, Dehydration, UTI Discharge Plan: Hayden will return home with new orders for nursing, PT/OT, HVAC SERVICE TECH. He will resume his current choices for care moderate needs services through [facility] with his corrections caseworker, Bonnie William, and homemaker supports 1x/week. His friend, Ravindra will transport him home via private vehicle. He will follow up with his PCP, as recommended. Patient/Family Education Needs: Review discharge instructions regarding medication and activity levels, discussion of self care needs including Ask Me Three Services Needed at Discharge: Home Health Care Services
--- NOTE | 2019-09-26 10:46 | INDS_ITS ---
Date of service: 09/26/19 PT Notes Inpatient Physical Therapy Discharge Summary Dates: 09/26/2019 Dates of Service: 09/23/2019 through 09/25/2019 This is a clinical summary of care provided on the duration of dates listed above. No charge was made in the completion of this documentation. Referring Doctor: Sofie Klein MD PT Orders: PT CONSULT: Limited ability Precautions: Fall. Standard. Activity as tolerated. Patient Profile/Admitting Diagnosis: Patient is a 73-year-old male who presented to the ED on 09/21/2019 via EMS with chief presentation of diarrheal illness associated with general body malaise, mild headache, weakness approximately 6 days prior to admission, and syncopal episode that rendered him unable to get up for 3 days. Patient is diagnosed with complicated urinary tract infection, rhabdomyolysis, syncope, and dehydration. PMHX: Medical History Atherosclerosis of coronary artery Holloway's esophagus Essential hypertension Hypercholesterolemia Left ventricular hypertrophy Panic disorder personality affective Schizoaffective disorder tubular adenomas Surgical History Appendectomy (~2006) Colonoscopy - MAC (~2010) Colonoscopy - MAC (04/20/17) EGD - MAC (~2010) EGD - MAC (04/20/17) Hernia Repair, Incisional (~2007) Social History/Home Situation: Patient lives alone in a one-story house with 6 steps to enter and with rails on both sides. He has a lady who comes in every week to help with grocery shopping. He did not use an assistive ambulatory device prior to admission. He states that he had one fall in the past 12 months. 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 Equipment Owned/DME: None Subjective: NT Objective: General Observation: NT Mental Status: NT Pain: NT ROM: Right Upper Extremity: Shoulder Flexion WFL. Shoulder abduction WFL. Elbow flexion WFL. Wrist flexion WFL. Opening and closing of hand WFL. Left Upper Extremity: Shoulder Flexion WFL. Shoulder abduction WFL. Elbow flexion WFL. Wrist flexion WFL. Opening and closing of hand WFL. Right Lower Extremity: Hip flexion WFL. Hip abduction WFL. Knee flexion WFL. Ankle dorsiflexion WFL. Ankle plantarflexion WFL. Left Lower Extremity: Hip flexion WFL. Hip abduction WFL. Knee flexion WFL. Ankle dorsiflexion WFL. Ankle plantarflexion WFL. Strength: Right Upper Extremity: Shoulder flexors 5/5. Shoulder abductors 4/5. Elbow flexors 5/5. Elbow extensors 5/5. Test Automation Architect strong. Left Upper Extremity: Shoulder flexors 5/5. Shoulder abductors 4/5. Elbow flexors 5/5. Elbow extensors 5/5. Test Automation Architect strong. Right Lower Extremity: Hip flexors 4/5. Hip abductors 5/5. Knee flexors 5/5. Knee extensors 4/5. Ankle dorsiflexors 4/5. Ankle plantarflexors 5/5. Left Lower Extremity:Hip flexors 4/5. Hip abductors 5/5. Knee flexors 5/5. Knee extensors 4/5. Ankle dorsiflexors 4/5. Ankle plantarflexors 5/5. Sensation: Intact as to pain and pressure on bilateral lower extremities. Bed Mobility/Transfers: Rolling independent Supine to sit independent Sit to supine independent Sit to stand supervision Stand to sit supervision Bed to chair supervision Chair to bed supervision Gait: Patient tolerated level surface ambulation of up to 150 feet using front wheeled walker with SBA provided and wheelchair follow by. He states that he feels unsteady and fatigued at the end. He did denies dizziness, chest pain, and headache during ambulation activity. Decreased step heigh and helena observed. Balance: Static Sitting: Normal Dynamic Sitting: Normal Static Standing: Fair Dynamic Standing: Fair Assessment: Patient is diagnosed with complicated urinary tract infection, rhabdomyolysis, syncope, and dehydration. His past medical history significant for coronary artery disease and schizoaffective disorder. His prognosis is fair. He may benefit from placement in a shelter facility in order to progress his mobility level, strength, and balance skills. He is pleasant and is cooperative. He demonstrated improvement and functional mobility performance during this episode of care. Patient presents with clinical signs and symptoms consistent with current/admitting diagnoses that have resulted to mobility limitations, gait instability, generalized weakness, and impairment of motor control as demonstrated by the following impairment level findings: 1. Decreased strength to B LE major muscle groups 2. Impaired standing balance 3. Impaired activity tolerance Impairments are contributing to the following functional limitations: 1. Inability to safely ambulate without assistive device and physical assistance 2. Increase completion time for mobility ADL performance 3. Increased fall risk 4. Inability to negotiate steps alone safely Goals: Goals X1 week 1. Supine-Sit independent MET 2. Sit-Supine independent MET 3. Sit-Stand independent NOT MET 4. Stand-Sit independent NOT MET 5. Bed-Chair independent NOT MET 6. Chair-Bed independent NOT MET 7. Independent gait on level surface with use of least restrictive device for at least 300 feet without report of pain nor dyspnea NOT MET 8. Independent stair negotiation while holding onto bilateral rails for at least 10 steps without report of pain nor dyspnea NOT MET 9. Independent with home exercise program NOT MET 10. Good static and dynamic standing balance/tolerance NOT MET DISCHARGE RECOMMENDATIONS: Patient will benefit from shelter facility placement in order to progress mobility level, strength, and balance in preparation for a safe discharge to home. TREATMENT CODE/TIME: NC. Thank you very much for this referral. Jess Lacy PT, DPT, CLT [facility]
== END 2019-09-25 13:30 | disposition home health service (06) | DRG 690 ==
LOC: ER 19:24 → ICU 09-22 01:01 → MS 09-25 12:19 → ICU 09-30 10:46
PROVIDERS: Internal Medicine; Admitting Provider Internal Medicine; Emergency Provider Emergency Medicine; PCP Family Medicine; Visit Provider Internal Medicine
DX: N39.0 Urinary tract infection, site not specified (principal); T79.6XXA Traumatic ischemia of muscle, initial encounter; S80.212A Abrasion, left knee, initial encounter; S80.211A Abrasion, right knee, initial encounter; S50.312A Abrasion of left elbow, initial encounter; W18.30XA Fall on same level, unspecified, initial encounter; R55 Syncope and collapse; E86.0 Dehydration; B96.20 Unspecified Escherichia coli [E. coli] as the cause of diseases classified elsewhere; E87.6 Hypokalemia; I27.20 Pulmonary hypertension, unspecified; F25.9 Schizoaffective disorder, unspecified; I10 Essential (primary) hypertension; E78.5 Hyperlipidemia, unspecified; K21.9 Gastro-esophageal reflux disease without esophagitis; N40.0 Benign prostatic hyperplasia without lower urinary tract symptoms; G47.33 Obstructive sleep apnea (adult) (pediatric); Z86.718 Personal history of other venous thrombosis and embolism; Z79.01 Long term (current) use of anticoagulants; R00.1 Bradycardia, unspecified; L98.411 Non-pressure chronic ulcer of buttock limited to breakdown of skin
CPT/HCPCS: 36415; 73521; 74177; 76770; 80048; 80053; 82550; 84145; 87077; 93306; 96361; 96365; 96366; 96375; 97110; 97162; 97530; 99223; 99232; 99233; 99239; 99285; 70450; 71045; 71260; 72125; 73080; 73560; 81003; 81015; 83735; 83874; 84484; 85025; 87086; 87186; 99284; J0696; J1941; J3490

== ENCOUNTER 2019-09-28 16:52 | Outpatient (REF) | payer MEDICARE, MEDICAID, SELFPAY ==
[2019-09-28 18:12] LABS: Anion Gap 9.8 mmol/L (3-11); BUN 21 mg/dL (7-18); CO2 25.2 mmol/L (21.0-32.0); Calcium 8.7 mg/dL (8.5-10.1); Chloride 104 mmol/L (98-107); Creatine Kinase 216 U/L (39-308); Glucose 71 mg/dL (70-100); Potassium 5.4 mmol/L (3.5-5.1); Sodium 139 mmol/L (136-145)
== END 2019-09-28 17:12 ==
LOC: NCHCN 16:52
PROVIDERS: PCP Family Medicine; Visit Provider Family Medicine
DX: M62.82 Rhabdomyolysis (principal)
CPT/HCPCS: 80048; 82550

== ENCOUNTER 2019-10-20 18:37 | Outpatient (REF) | payer MEDICARE, MEDICAID, SELFPAY ==
[2019-10-20 22:24] LABS: ALT 31 U/L (16-63); AST 32 U/L (15-37); Albumin 2.3 g/dL (3.4-5.0); Alkaline Phosphatase 135 U/L (46-116); BUN 19 mg/dL (7-18); Bilirubin, Total 0.3 mg/dL (0.2-1.0); CREATININE 1.06 mg/dL (0.70-1.30); Calcium 9.5 mg/dL (8.5-10.1); Chloride 102 mmol/L (98-107); Glucose 75 mg/dL (74-106); Potassium 4.5 mmol/L (3.5-5.1); Sodium 139 mmol/L (136-145); Total Protein 7.4 g/dL (6.4-8.2)
== END 2019-10-20 18:57 ==
LOC: NCHCN 18:37
PROVIDERS: PCP Family Medicine; Visit Provider Family Medicine
DX: N28.9 Disorder of kidney and ureter, unspecified (principal); M62.82 Rhabdomyolysis
CPT/HCPCS: 80053

== ENCOUNTER 2021-04-19 13:14 | Outpatient (REF) | payer MEDICARE, MEDICAID, SELFPAY ==
[2021-04-19 15:04] LABS: HCT 43.9 % (40.0-50.0); HGB 13.6 g/dL (13.5-17.5); MCH 26.6 pg (27.0-33.0); MCV 85.7 fL (80-95); MPV 10.5 fL (8.0-11.0); Platelet Count 184 10^3/uL (130-400); RBC 5.12 10^6/uL (4.36-5.78); RDW 15.2 % (11.8-14.1); RDW-SD 47.7 fL; WBC 7.54 10^3/uL (4.4-10.8)
[2021-04-19 15:43] LABS: ALT 39 U/L (16-63); AST 30 U/L (15-37); Albumin 3.9 g/dL (3.4-5.0); Alkaline Phosphatase 125 U/L (46-116); Anion Gap 9.5 mmol/L (3-11); BUN 21 mg/dL (7-18); Bilirubin, Total 0.3 mg/dL (0.2-1.0); CO2 28.5 mmol/L (21.0-32.0); CREATININE 1.2 mg/dL (0.70-1.30); Calculated LDL 89 mg/dL (<100); Chloride 104 mmol/L (98-107); Cholesterol 154 mg/dL (<200); Estimated GFR 59.18 (mL/min/1.73m2); Glucose 95 mg/dL (74-106); HDL Cholesterol 37 mg/dL (40-60); Potassium 4.5 mmol/L (3.5-5.1); Sodium 142 mmol/L (136-145); Total Protein 7.1 g/dL (6.4-8.2); Triglyceride 141 mg/dL (<150)
[2021-04-22 10:23] LABS: PSA, Screening 1.6 ng/mL (0.0-6.5)
[2021-04-24 15:04] LABS: 2-OH-Ethyl-Flurazepam Negative ng/mL (Cutoff: 10); 7-NH-Clonazepam 151 ng/mL (Cutoff: 10); 7-NH-Flunitrazepam Negative ng/mL (Cutoff: 10); Alpha OH-Alprazolam Negative ng/mL (Cutoff: 10); Alpha-OH Midazolam Negative ng/mL (Cutoff: 10); Alpha-OH-Triazolam Negative ng/mL (Cutoff: 10); Alprazolam Negative ng/mL (Cutoff: 10); Benzodiazepines Interpretation Positive.; Chlordiazepoxide Negative ng/mL (Cutoff: 10); Clobazam Negative ng/mL (Cutoff: 10); Clonazepam Negative ng/mL (Cutoff: 10); Diazepam Negative ng/mL (Cutoff: 10); Flurazepam Negative ng/mL (Cutoff: 10); Lorazepam Negative ng/mL (Cutoff: 10); Midazolam Negative ng/mL (Cutoff: 10); N-Desmethylclobazam Negative ng/mL (Cutoff: 10); Prazepam Negative ng/mL (Cutoff: 10); Temazepam Negative ng/mL (Cutoff: 10); Triazolam Negative ng/mL (Cutoff: 10); Zolpidem Carboxylic acid Negative ng/mL (Cutoff: 10)
== END 2021-04-19 13:15 | disposition home or self-care (01) ==
LOC: NCHCN 13:14
PROVIDERS: PCP Family Medicine; Visit Provider Family Medicine
DX: E78.5 Hyperlipidemia, unspecified (principal); I25.10 Atherosclerotic heart disease of native coronary artery without angina pectoris; I10 Essential (primary) hypertension; Z79.01 Long term (current) use of anticoagulants; Z12.5 Encounter for screening for malignant neoplasm of prostate; F31.9 Bipolar disorder, unspecified; Z79.899 Other long term (current) drug therapy; R82.5 Elevated urine levels of drugs, medicaments and biological substances
CPT/HCPCS: 80053; 80061; 84153; 85027; 80346

== ENCOUNTER 2021-09-19 16:21 | Outpatient (REF) | payer MEDICARE, MEDICAID, SELFPAY ==
[2021-09-19 19:24] LABS: HCT 37.2 % (40.0-50.0); HGB 11.2 g/dL (13.5-17.5)
[2021-09-19 19:44] LABS: Anion Gap 10.8 mmol/L (3-11); BUN 18 mg/dL (7-18); CO2 27.2 mmol/L (21.0-32.0); CREATININE 1.4 mg/dL (0.70-1.30); Calcium 8.9 mg/dL (8.5-10.1); Chloride 106 mmol/L (98-107); Estimated GFR 49.54 (mL/min/1.73m2); Glucose 90 mg/dL (74-106); NT-proBNP 520 pg/mL (<300); Potassium 4.7 mmol/L (3.5-5.1); Sodium 144 mmol/L (136-145); TSH (W/Ref FT4) 1.36 uIU/mL (0.36-3.74)
== END 2021-09-19 16:22 | disposition home or self-care (01) ==
LOC: NCHCN 16:21
PROVIDERS: PCP Family Medicine; Visit Provider Family Medicine
DX: R06.09 Other forms of dyspnea (principal)
CPT/HCPCS: 80048; 83880; 84443; 85014; 85018

== ENCOUNTER 2021-10-08 00:43 | Outpatient (CLI) | payer MEDICARE, MEDICAID, SELFPAY ==
--- NOTE | 2021-10-08 10:29 | DI.RAD_ITS ---
Exam(s) XR KNEE LT 3V AP,LAT,BERTO EXAM: XR KNEE LT 3V AP,LAT,BERTO CLINICAL HISTORY: LT KNEE PAIN, M25.562, ACCIDENTAL FALL, W19.xxxa. TECHNIQUE: 2D digital imaging was performed of the left knee. Four images were obtained. AP, later al and PA tunnel views were obtained. COMPARISON: CR KNEES BILAT AP STANDING from 07/26/2014 CR KNEES BILAT AP STANDING from 07/26/2014 CR,XR XR KNEE LT 2V AP,LAT from 09/21/2019 FINDINGS: BONES: No acute fracture is present. No bony destructive lesion is seen. There is an old unchanged b arleen density adjacent to the posterior medial aspect of the medial femoral condyle. JOINTS: The knee is normally aligned. No joint effusion is seen. Mild spurring is seen at the posteri or patella. There is chondrocalcinosis in the femoral tibial joint. SOFT TISSUE: Normal. IMPRESSION: 1. No acute fracture or dislocation. 2. Mild degenerative changes of the left knee. 3. If there is concern for internal derangement an MRI should be considered. DATA REPOSITORY: RADIATION DOSE DELIVERED:
--- NOTE | 2021-10-08 10:29 | DI.RAD_ITS ---
Exam(s) XR ANKLE LT COMPLETE EXAM: XR ANKLE LT COMPLETE CLINICAL HISTORY: LT ANKLE PAIN, M25.562, ACCIDENTAL FALL, W19.XXXA TECHNIQUE: 2D digital imaging was performed of the left ankle. Three images were obtained. AP, lat eral and oblique views were obtained. COMPARISON: No exams were available for comparison FINDINGS: BONES: No acute fracture is present. No bony destructive lesion is seen. There is a small spur at the plantar surface of the calcaneus. JOINTS:The ankle mortise is normally aligned. SOFT TISSUE: Normal. IMPRESSION: No acute or healing fracture or dislocation. DATA REPOSITORY: RADIATION DOSE DELIVERED:
--- NOTE | 2021-10-08 11:00 | DI.NM_ITS ---
APPROVED REPORT Exam: Pharmacologic Patient Location: Out-Patient Room/Bed: Stress Nurse: Shanna Velazquez RN Ordering Provider:MALENA PADGETT, Contact Number: [phone] BMI: 33.96 Baseline Rhythm: 1DHB Comment: Bradycardic, atrial bigeminy Indications: DYSPNEA ON EXERTION Medical History Medical History: Pulmonary HTN, DVT, HTN, Holloway's esophagus, Schizoaffective disorder, Syncope, Rha bdomyolysis, CAD, HLD Cardiac Medications: Rosuvastatin, Propanolol, Pantoprazole, Nitro SL, Furosemide, Ezetimibe, Aspirin , Eliquis, Cardizem Allergies: No known drug allergies Cardiac Risk Factors: FHX of CAD, Hyperlipidemia, HTN, CVD Previous Cardiac Procedures: None Pretest Chest Pain Characteristics: No chest pain Exercise History: Sedentary Physical Disabilities: Legs (leg pain from fall) Lung Sounds: Clear to auscultation Heart Sounds: Irregular Stress Test Details Test: Pharmacologic stress testing performed using 0.4 mg of regadenoson per 5 mL given IV over 10 s econds. Reason for pharmacologic stress test: physical limitation. Nuclear Acquisition: Rest Tc-99m/Stress Tc-99m 1 day Rest Isotope: Tc-99m Sestamibi. Dose: 12.1 Date: 10/08/2021 Injection Time: 1100 Stress Isotope: Tc-99m Sestamibi. Dose: 38.1 Date: 10/08/2021 Injection Time: 1327 HR Resting HR Supine: 50 bpm Max Heart Rate (APMHR): 146.174432 bpm Target HR (85% APMHR): 124.908293 bpm Max HR Achieved: 61 bpm % of APMHR: 41.78 Recovery HR: 58 bpm BP Resting BP Supine: 152/78 mmHg Max BP: 168/60 mmHg Recovery BP: 132/68 mmHg ECG Resting ECst degree AV block, Atrial Bigeminy, Bradycardia, Poor R-wave progression Ectopy: PACs Stress ECst degree AV block ST Change: No significant ST segment changes noted Arrhythmia: PACs Recovery ECst degree AV block, Bradycardia Recovery ST Change: No significant ST segment changes noted Recovery Arrhythmia: PACs Clinical Stress Symptoms: Dyspnea Rate Pressure Product: [id number] Stress ECG Conclusion 1. Resting electrocardiogram showed sinus bradycardia, first-degree AV block, late transition 2. Patient underwent pharmacologic stress with regadenoson. Peak heart rate achieved was 41% of maxi mal predicted for age 3. Electrocardiographically the test was nondiagnostic due to inadequate heart rate 4. Atrial premature beats were noted Stress Test Summary STAGE HR BP Symptoms NOTES Supine 50 152/78 1 min post Lexiscan injection 61 168/60 SOB 3 min post Lexiscan injection 60 140/64 SOB resolved. 6 min post Lexiscan injection 58 132/68 MPI Conclusion Apical thinning without ischemia or evidence of prior infarction EF 65% Radiologist Interpretation Radiologist Interpretation by: Stan Blanca MD Interpretation Date/Time: 10/08/2021 16:20:52
[2021-10-08] MEDS: Regadenoson 0.4 MG/5 ML SYR IVP (13:14)
== END 2021-10-08 01:03 ==
PROVIDERS: PCP Family Medicine; Visit Provider Family Medicine
DX: R06.09 Other forms of dyspnea (principal); R00.2 Palpitations; R00.8 Other abnormalities of heart beat; I44.0 Atrioventricular block, first degree; I49.1 Atrial premature depolarization; R94.39 Abnormal result of other cardiovascular function study; M25.572 Pain in left ankle and joints of left foot; M25.562 Pain in left knee; W19.XXXA Unspecified fall, initial encounter; Z82.49 Family history of ischemic heart disease and other diseases of the circulatory system; E78.5 Hyperlipidemia, unspecified; I10 Essential (primary) hypertension; I25.10 Atherosclerotic heart disease of native coronary artery without angina pectoris
CPT/HCPCS: 73562; 78452; 93016; 93018; 73610; 93017; J2785

== ENCOUNTER 2022-04-24 14:12 | Outpatient (REF) | payer MEDICARE, MEDICAID, SELFPAY ==
[2022-04-24 19:01] LABS: HCT 43.7 % (40.0-50.0); MCH 23.6 pg (27.0-33.0); MCHC 29.7 % (32.0-36.0); MCV 79 fL (80-95); MPV 11.4 fL (8.0-11.0); Platelet Count 201 10^3/uL (130-400); RBC 5.52 10^6/uL (4.36-5.78); RDW-SD 51.4 fL
[2022-04-24 19:39] LABS: ALT 37 U/L (16-63); AST 38 U/L (15-37); Albumin 4.1 g/dL (3.4-5.0); Alkaline Phosphatase 102 U/L (46-116); Anion Gap 9.4 mmol/L (3-11); BUN 16 mg/dL (7-18); Bilirubin, Total 0.3 mg/dL (0.2-1.0); CO2 27.6 mmol/L (21.0-32.0); CREATININE 1.4 mg/dL (0.70-1.30); Calcium 9.2 mg/dL (8.5-10.1); Chloride 106 mmol/L (98-107); Estimated GFR 49.41 (mL/min/1.73m2); Ferritin 12 ng/mL (26-388); Glucose 101 mg/dL (74-106); Potassium 4.9 mmol/L (3.5-5.1); Sodium 143 mmol/L (136-145); TSH (W/Ref FT4) 1.17 uIU/mL (0.36-3.74); Total Protein 7.4 g/dL (6.4-8.2)
[2022-04-24 19:58] LABS: NT-proBNP 304 pg/mL (<300)
== END 2022-04-24 14:13 | disposition home or self-care (01) ==
LOC: NCHCN 14:12
PROVIDERS: PCP Family Medicine; Visit Provider Family Medicine
DX: D64.9 Anemia, unspecified (principal); R00.1 Bradycardia, unspecified; I10 Essential (primary) hypertension; I25.10 Atherosclerotic heart disease of native coronary artery without angina pectoris; R06.09 Other forms of dyspnea; Z79.01 Long term (current) use of anticoagulants; K22.70 Barrett's esophagus without dysplasia
CPT/HCPCS: 80053; 85027; 82728; 83880; 84443; 86140

== ENCOUNTER 2022-08-01 08:18 | Outpatient (CLI) | payer MEDICARE, MEDICAID, SELFPAY | END 2022-08-01 08:19 | disposition home or self-care (01) | LOC: DI.CARD 08:18 | PROVIDERS: PCP Family Medicine; Visit Provider Internal Medicine Cardiovascular Disease | DX: R69 Illness, unspecified (principal) | CPT/HCPCS: 93010 ==

== ENCOUNTER 2022-11-27 14:12 | Emergency (ER) | payer MEDICARE, MEDICAID, SELFPAY ==
[2022-11-27 14:32] VITALS: BP 121/62; PULSE 48; RESP 18; TEMP 37.2; O2SAT 97
[2022-11-27 15:11] VITALS: BP 108/60; PULSE 46; RESP 19; O2SAT 94
[2022-11-27] MEDS: Acetaminophen 325 MG TAB 650 MG PO (16:53)
--- NOTE | 2022-11-27 17:10 | DI.RAD_ITS ---
Exam(s) XR TIB/FIB RT EXAM: XR TIB/FIB RT CLINICAL HISTORY: fall. TECHNIQUE: 2D digital imaging was performed. Two views. COMPARISON: No exams were available for comparison FINDINGS: BONES: Exam is limited by overlying clothing at the knee region. No acute fracture is present. No aruna ny destructive lesion is seen. Degenerative changes are seen at the knee. Ankle is not included on t he exam. SOFT TISSUE: Subcutaneous edema visible. IMPRESSION: Subcutaneous edema. DATA REPOSITORY: RADIATION DOSE DELIVERED:
--- NOTE | 2022-11-27 17:11 | DI.RAD_ITS ---
Exam(s) XR FOOT RT COMPLETE EXAM: XR FOOT RT COMPLETE CLINICAL HISTORY: fall. TECHNIQUE: 2D digital imaging was performed. Three views. COMPARISON: No exams were available for comparison FINDINGS: BONES: No acute fracture is present. No bony destructive lesion is seen. Heel spur. JOINTS: No dislocation present. SOFT TISSUE: Soft tissue swelling, greatest at dorsum of foot.. No foreign body. IMPRESSION: Soft tissue swelling. DATA REPOSITORY: RADIATION DOSE DELIVERED:
--- NOTE | 2022-11-27 17:13 | DI.RAD_ITS ---
Exam(s) XR ANKLE RT COMPLETE EXAM: XR ANKLE RT COMPLETE CLINICAL HISTORY: fall. TECHNIQUE: 2D digital imaging was performed. Three views. COMPARISON: CR XR ANKLE LT COMPLETE from 10/08/2021 FINDINGS: BONES: No acute fracture is present. No bony destructive lesion is seen. Heel spur. JOINTS: The ankle mortise is normally aligned. SOFT TISSUE: Soft tissue swelling greatest around the malleoli. IMPRESSION: Soft tissue swelling. DATA REPOSITORY: RADIATION DOSE DELIVERED:
--- NOTE | 2022-11-27 17:40 | DI.VRAD_ITS ---
PROCEDURE INFORMATION: Exam: XR Right Ankle Exam date and time: 11/27/2022 5:03 PM Age: 77 years old Clinical indication: Injury or trauma; Fall; Blunt trauma; Ankle; Right TECHNIQUE: Imaging protocol: Radiologic exam of the Right ankle. Views: 3 or more views. COMPARISON: US lower extremity venous RT 09/22/2018 3:00 PM FINDINGS: Bones/joints: No fracture or dislocation. Soft tissues: Prominent soft tissue swelling. This is most significant medially. No soft tissue gas. No foreign body. IMPRESSION: 1. Soft tissue swelling. 2. No fracture or dislocation. Dictated and Authenticated by: Eldon Cazares MD. Ordering:CARMEN Alvarado MD
--- NOTE | 2022-11-27 17:41 | DI.VRAD_ITS ---
PROCEDURE INFORMATION: Exam: XR Right Tibia and Fibula Exam date and time: 11/27/2022 5:05 PM Age: 77 years old Clinical indication: Injury or trauma; Fall; Blunt trauma; Lower leg; Right TECHNIQUE: Imaging protocol: Radiologic exam of the Right tibia and fibula. Views: 2 views. COMPARISON: CR XR ANKLE RT COMPLETE 11/27/2022 5:03 PM FINDINGS: Bones/joints: No acute fracture. No dislocation. Degenerative changes of the right knee joint of moderate severity. Soft tissues: Soft tissue swelling at the ankle. No foreign body. No soft tissue emphysema. IMPRESSION: 1. Soft tissue swelling at the ankle. 2. No fracture of the tibia or fibula. 3. Moderate knee joint degenerative changes. Dictated and Authenticated by: Eldon Cazares MD. Ordering:CARMEN Alvarado MD
--- NOTE | 2022-11-27 17:42 | DI.VRAD_ITS ---
PROCEDURE INFORMATION: Exam: XR Right Foot Exam date and time: 11/27/2022 5:09 PM Age: 77 years old Clinical indication: Injury or trauma; Fall; Blunt trauma; Foot; Right TECHNIQUE: Imaging protocol: Radiologic exam of the Right foot. Views: 3 or more views. COMPARISON: CR XR TIB/FIB RT 11/27/2022 5:05 PM FINDINGS: Bones/joints: No acute fracture. No dislocation. Soft tissues: Soft tissue swelling over the dorsum of the foot and the ankle. No soft tissue gas. No foreign body. IMPRESSION: 1. No acute fracture or dislocation. 2. Soft tissue swelling. No gas or foreign body. Dictated and Authenticated by: Eldon Cazares MD. Ordering:CARMEN Alvarado MD
--- NOTE | 2022-11-27 18:07 | ED.GENADUL_ITS ---
Discharge Plan Disposition Patient Disposition: Home Condition: Stable Discharge Details Clinical Impression: Right leg injury Primary Care Provider: Rosa Bartlett V ED Provider: Christiano Telles Home Meds and New Rx's Prescriptions: Continued multivitamin Tablet 1 tab PO DAILY famotidine [Pepcid] 20 mg tablet 20 mg PO DAILY allopurinol 100 mg tablet 100 mg PO DAILY indomethacin 50 mg capsule 50 mg PO TID Rx Instructions: administer with food or milk propranolol 20 mg tablet 20 mg PO BID sertraline [Zoloft] 100 mg tablet 300 mg PO DAILY ferrous sulfate 325 mg (65 mg iron) tablet 325 mg PO DAILY clonazepam 1 MG tablet 1 mg PO HS nitroglycerin [Nitrostat] 0.4 MG tablet, sublingual 0.4 mg Sublingual PRN PRN Label Comments: HAS NOT EVER HAD TO USE docusate sodium [Colace] 100 MG capsule 100 mg PO BID PRN furosemide [Lasix] 20 MG tablet 20 mg PO DAILY ezetimibe [Zetia] 10 MG tablet 10 mg PO DAILY trazodone 50 MG tablet 100 mg PO HS Cardizem LA 120 MG tablet extended release 24 hr 120 mg PO DAILY Rx Instructions: 08/18 1/2 tablet daily ziprasidone HCl [Geodon] 60 mg Capsule 60 mg PO BID rosuvastatin [Crestor] 10 mg Tablet 10 mg PO HS Eliquis 5 mg Tablet 5 mg PO BID Discharge Instructions Instructions: Leg Pain (ED) Additional Instructions: Please continue to take acetaminophen as needed for further discomfort. Please do not take more than 3000 mg in a 24-hour period. We have arranged in our outpatient ultrasound for you and you will need to contact the radiology department tomorrow morning at 7 AM to schedule the appointment and then they will review it and have you return to the emergency department for your results tomorrow. In the meantime if you develop any new or significant worsening of symptoms return immediately to the ED for reassessment. Discharge Data Discharge Date/Time-TO BE ENTERED AT DEPARTURE: 11/27/22 18:39 Medical Decision Making Patient presenting to the emergency department for chief complaint of right leg pain. Patient reports that he fell on the and initially was ambulatory but since the has had difficulty weightbearing on right lower extremity. He states pain and swelling is from the knee down. Patient denies any other injury or trauma. Patient does have history of DVT but has been anticoagulated on Eliquis and states no worsening symptoms. Physical exam shows significant swelling from the knee down on the right lower extremity, no proximal thigh tenderness, diffuse lateral tenderness and ecchymosis noted from the tib-fib all the way through the foot and ankle. Given acute trauma will perform radiological imaging for assessment of potential mild fracture but also suspect potential hematoma given that patient is anticoagulated. Pending results we will give patient acetaminophen Review of radiological imaging shows soft tissue swelling but no acute fracture noted. We will have patient return tomorrow for ultrasound imaging due to significant swelling and history of DVT and will have patient continue acetaminophen for pain control. After discussion of diagnosis and plan of care patient has no further needs, questions, or concerns and states clear understanding to return to the emergency department for any worsening symptoms. This documentation was generated using [employer] dictation system, please disregard any oddities of phrase or misspellings. Imaging Data Radiologic Study: Imaging: X-Ray Radiologist's impression: Exam: XR Right Ankle Exam date and time: 11/27/2022 5:03 PM Age: 77 years old Clinical indication: Injury or trauma; Fall; Blunt trauma; Ankle; Right TECHNIQUE: Imaging protocol: Radiologic exam of the Right ankle. Views: 3 or more views. COMPARISON: US lower extremity venous RT 09/22/2018 3:00 PM FINDINGS: Bones/joints: No fracture or dislocation. Soft tissues: Prominent soft tissue swelling. This is most significant medially. No soft tissue gas. No foreign body. IMPRESSION: 1. Soft tissue swelling. 2. No fracture or dislocation. Exam: XR Right Tibia and Fibula Exam date and time: 11/27/2022 5:05 PM Age: 77 years old Clinical indication: Injury or trauma; Fall; Blunt trauma; Lower leg; Right TECHNIQUE: Imaging protocol: Radiologic exam of the Right tibia and fibula. Views: 2 views. COMPARISON: CR XR ANKLE RT COMPLETE 11/27/2022 5:03 PM FINDINGS: Bones/joints: No acute fracture. No dislocation. Degenerative changes of the right knee joint of moderate severity. Soft tissues: Soft tissue swelling at the ankle. No foreign body. No soft tissue emphysema. IMPRESSION: 1. Soft tissue swelling at the ankle. 2. No fracture of the tibia or fibula. 3. Moderate knee joint degenerative changes. Exam: XR Right Foot Exam date and time: 11/27/2022 5:09 PM Age: 77 years old Clinical indication: Injury or trauma; Fall; Blunt trauma; Foot; Right TECHNIQUE: Imaging protocol: Radiologic exam of the Right foot. Views: 3 or more views. COMPARISON: CR XR TIB/FIB RT 11/27/2022 5:05 PM FINDINGS: Bones/joints: No acute fracture. No dislocation. Soft tissues: Soft tissue swelling over the dorsum of the foot and the ankle. No soft tissue gas. No foreign body. IMPRESSION: 1. No acute fracture or dislocation. 2. Soft tissue swelling. No gas or foreign body. HPI General Mode of arrival: ambulatory . Date/Time Provider Initiated Documentation: 11/27/22 14:41 . Limitations to Documentation: no limitations . Information obtained by: patient and RN notes reviewed . History of Present Illness 77 year old M presents to the emergency department with the chief complaint of Right leg pain , described as moderate and severe, with intensity rated at 8. Quality is described as aching, and is localized to the right and lower extremity. Patient reports no radiation. Patient started experiencing this week(s) and it has been constant. Rest improves symptom(s), Movement worsens symptoms . Patient notes no other symptoms.. Patient did receive the following treatments prior to arrival, none Related Data Home Medications Medication Instructions Recorded Confirmed clonazepam 1 mg tablet 1 mg PO HS 06/13/13 09/21/19 docusate sodium 100 mg capsule 100 mg PO BID PRN 06/13/13 09/21/19 (Colace) ezetimibe 10 mg tablet (Zetia) 10 mg PO DAILY 06/13/13 09/21/19 furosemide 20 mg tablet (Lasix) 20 mg PO DAILY 06/13/13 09/21/19 nitroglycerin 0.4 mg sublingual 0.4 mg sublingual PRN PRN 06/13/13 09/21/19 tablet (Nitrostat) trazodone 50 mg tablet 100 mg PO HS 06/13/13 09/21/19 diltiazem HCl 120 mg 120 mg PO DAILY 05/09/16 09/21/19 tablet,extended release 24 hr (Cardizem LA) apixaban 5 mg tablet (Eliquis) 5 mg PO BID 09/21/19 09/21/19 rosuvastatin 10 mg tablet (Crestor) 10 mg PO HS 09/21/19 09/21/19 ziprasidone HCl 60 mg capsule 60 mg PO BID 09/21/19 09/21/19 (Geodon) allopurinol 100 mg tablet 100 mg PO DAILY 04/11/22 famotidine 20 mg tablet (Pepcid) 20 mg PO DAILY 04/11/22 indomethacin 50 mg capsule 50 mg PO TID 04/11/22 multivitamin 1 tab PO DAILY 04/11/22 propranolol 20 mg tablet 20 mg PO BID 04/11/22 ferrous sulfate 325 mg (65 mg 325 mg PO DAILY 06/16/22 iron) tablet sertraline 100 mg tablet (Zoloft) 300 mg PO DAILY 06/16/22 Allergies Allergy/AdvReac Type Severity Reaction Status Date / Time hay fever Allergy Uncoded 06/16/22 11:56 General Stated Complaint: Orthopedic SADIA: 4 Review of Systems Constitutional Constitutional: Denies chills and Denies fever(s) Cardiovascular Cardiovascular: Denies chest pain and Denies dyspnea Respiratory Respiratory: Denies cough and Denies dyspnea Musculoskeletal Musculoskeletal: Reports as per HPI and Reports joint swelling Integumentary/Breasts Skin/Breast: Denies wounds Neurologic Neurologic: Denies paresthesias PFSH All Active Problems Right leg injury (Acute) Tubular adenoma of colon (Acute) CAD (coronary artery disease) (Chronic) Bipolar disorder (Acute) COBURN (dyspnea on exertion) (Acute) Anemia (Chronic) Pulmonary hypertension (Acute) History of DVT (deep vein thrombosis) (Acute) DVT prophylaxis (Acute) Ambulatory dysfunction (Acute) Syncope (Acute) Rhabdomyolysis (Acute) Medical History Accidental fall Atherosclerosis of coronary artery Blepharitis Chronic sinus bradycardia Complicated UTI (urinary tract infection) Dehydration Discharge planning issues Elevated liver enzymes Essential hypertension Gout History of tobacco abuse Hypercholesterolemia Hyperlipidemia Hypertension Insomnia Left knee pain Left ventricular hypertrophy Lightheadedness 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 Father Acute myocardial infarction Brother Parkinson's disease Social History Smoking/Tobacco Use Status: Former Tobacco Use Smoking risk assessment performed?: Yes Alcohol Intake: never Drug use: Never Substance use type: does not use Do you feel safe at home: Yes Do you feel safe in your relationship?: Yes Exam Const General: cooperative, no acute distress and not ill appearing Orientation: alert, awake and oriented x3 Resp Effort & Inspection: normal respiratory effort, able to speak in complete sentences and no respiratory distress Auscultation: clear to auscultation bilaterally Cardio Rate: bradycardic Rhythm: regular rhythm Heart Sounds: S1 normal and S2 normal Skin General skin exam: no rashes or lesions noted Neuro General: patient alert, patient awake, patient oriented x3, moves all extremities and no focal motor deficits Sensory Exam: no sensory deficits noted Extrem General: normal exam except as noted Right lower extremity: edema (from knee down) Details: 1+ and 2+, knee Details: normal ROM; no tenderness, lower leg Details: tenderness and ecchymosis (lateral), ankle Details: tenderness and edema and foot Details: tenderness and edema Course Vital Signs Vital signs: Vital Signs Temperature 37.2 C 11/27/22 14:32 Pulse 48 L 11/27/22 14:32 Respiratory Rate 18 11/27/22 14:32 Blood Pressure 121/62 11/27/22 14:32 Pulse Oximetry 97 11/27/22 14:32 Temperature 37.2 C 11/27/22 14:32 Temperature Source Temporal Artery Scan 11/27/22 14:32 Pulse 46 L 11/27/22 15:11 Respiratory Rate 19 11/27/22 15:11 Respiratory Effort Non-Labored 11/27/22 16:56 Blood Pressure 108/60 11/27/22 15:11 Blood Pressure Position Sitting 11/27/22 14:32 Pulse Oximetry 94 11/27/22 15:11 Oxygen Delivery Method Room Air 11/27/22 15:11 Oxygen Flow Rate 0 11/27/22 15:11 Pain Level 10 11/27/22 15:11
--- NOTE | 2022-11-27 18:37 | NUR.NOTE ---
Nursing Note: Faxed to DI request for right lower leg DVT US; leg swelling/ follow up in ED; to be done [facility].
== END 2022-11-27 18:39 | disposition home or self-care (01) ==
PROVIDERS: Emergency Provider Nurse Practitioner Family; PCP Family Medicine
DX: S80.11XA Contusion of right lower leg, initial encounter (principal); M79.89 Other specified soft tissue disorders; R00.1 Bradycardia, unspecified; I10 Essential (primary) hypertension; Z86.718 Personal history of other venous thrombosis and embolism; Z79.01 Long term (current) use of anticoagulants; W19.XXXA Unspecified fall, initial encounter
CPT/HCPCS: 99283; 73590; 73610; 73630; 99282

== ENCOUNTER 2022-12-08 01:47 | Outpatient (CLI) | payer MEDICARE, MEDICAID, SELFPAY ==
--- NOTE | 2022-12-08 | DI.US_ITS ---
Exam(s) US LOWER EXTREMITY VENOUS RT EXAM: US LOWER EXTREMITY VENOUS RT CLINICAL HISTORY: RT LEG SWELLING R22.41. TECHNIQUE: Lower extremity venous ultrasound performed using grayscale, color-flow, and spectral Do ppler analysis. COMPARISON: No exams were available for comparison FINDINGS: The common femoral, femoral and popliteal veins demonstrate normal compressibility, augmentation, and color Doppler. The posterior tibial veins are patent. No saphenous vein thrombosis or other superfi cial venous thrombosis is seen. Focal area of soft tissue swelling anterior in the anterior knee whi ch may represent a small hematoma. It measures approximately 3 x 3 x 1 cm. IMPRESSION: No evidence of DVT. Small superficial hematoma anterior knee. DATA REPOSITORY:
== END 2022-12-08 02:07 ==
LOC: DI 01:48
PROVIDERS: PCP Family Medicine; Visit Provider Nurse Practitioner Family
DX: R22.41 Localized swelling, mass and lump, right lower limb (principal)
CPT/HCPCS: 99281; 93971; 99282

== ENCOUNTER 2022-12-08 15:18 | Emergency (ER) | payer MEDICARE, MEDICAID, SELFPAY ==
[2022-12-08 15:31] VITALS: BP 145/75; PULSE 51; RESP 20; TEMP 36.9; O2SAT 95
--- NOTE | 2022-12-08 16:07 | W.ED.GENAD ---
Discharge Plan Disposition Patient Disposition: Eloped Condition: Stable Discharge Details Clinical Impression: Hematoma of right knee region, Right leg injury Primary Care Provider: Rosa Bartlett V ED Provider: Christiano Telles Home Meds and New Rx's Prescriptions: No Action multivitamin Tablet 1 tab PO DAILY famotidine [Pepcid] 20 mg tablet 20 mg PO DAILY allopurinol 100 mg tablet 100 mg PO DAILY indomethacin 50 mg capsule 50 mg PO TID Rx Instructions: administer with food or milk propranolol 20 mg tablet 20 mg PO BID sertraline [Zoloft] 100 mg tablet 300 mg PO DAILY ferrous sulfate 325 mg (65 mg iron) tablet 325 mg PO DAILY clonazepam 1 MG tablet 1 mg PO HS nitroglycerin [Nitrostat] 0.4 MG tablet, sublingual 0.4 mg Sublingual PRN PRN Label Comments: HAS NOT EVER HAD TO USE docusate sodium [Colace] 100 MG capsule 100 mg PO BID PRN furosemide [Lasix] 20 MG tablet 20 mg PO DAILY ezetimibe [Zetia] 10 MG tablet 10 mg PO DAILY trazodone 50 MG tablet 100 mg PO HS Cardizem LA 120 MG tablet extended release 24 hr 120 mg PO DAILY Rx Instructions: 08/18 1/2 tablet daily ziprasidone HCl [Geodon] 60 mg Capsule 60 mg PO BID rosuvastatin [Crestor] 10 mg Tablet 10 mg PO HS Eliquis 5 mg Tablet 5 mg PO BID Discharge Instructions Referrals: Rosa Bartlett MD [Primary Care Provider] - Discharge Data Discharge Date/Time-TO BE ENTERED AT DEPARTURE: 12/08/22 17:06 Medical Decision Making Patient presenting to the emergency department for new of ultrasound results and reassessment of right leg injury. Patient had fall on [employer] and landed on anterior aspect of right knee. Since then he has continued to have swelling and pain. Patient is on Eliquis. Reviewed DVT and ultrasound results that showed hematoma but no other findings. Reassessed patient patient continuing to have report of significant amount of pain. We will repeat x-ray imaging to evaluate for potential acute fracture. Order for imaging was placed. Pending imagingpatient could not be found in the department and patient suspected to have eloped. Patient placed upon a follow-up list to follow-up with primary care provider for reassessment and consideration of further imaging due to continued pain and swelling of his right knee. Imaging Data Radiologic Study: Imaging: Ultrasound Radiologist's impression: Exam(s) US LOWER EXTREMITY VENOUS RT EXAM: US LOWER EXTREMITY VENOUS RT CLINICAL HISTORY: RT LEG SWELLING R22.41. TECHNIQUE: Lower extremity venous ultrasound performed using grayscale, color-flow, and spectral Doppler analysis. COMPARISON: No exams were available for comparison FINDINGS: The common femoral, femoral and popliteal veins demonstrate normal compressibility, augmentation, and color Doppler. The posterior tibial veins are patent. No saphenous vein thrombosis or other superficial venous thrombosis is seen. Focal area of soft tissue swelling anterior in the anterior knee which may represent a small hematoma. It measures approximately 3 x 3 x 1 cm. IMPRESSION: No evidence of DVT. Small superficial hematoma anterior knee. HPI General Mode of arrival: ambulatory. Date/Time Provider Initiated Documentation: 12/08/22 15:22. Limitations to Documentation: no limitations. Information obtained by: patient, RN notes reviewed and old records reviewed. History of Present Illness 77 year old M presents to the emergency department with the chief complaint of Right knee pain, described as moderate and severe, with intensity rated at 8. Quality is described as aching, and is localized to the right and lower extremity. Patient reports no radiation. Patient started experiencing this week(s) (2) and it has been constant. No relieving factors improve symptom(s), No exacerbating factors reported . Patient notes no other symptoms.. Patient did receive the following treatments prior to arrival, none Related Data Home Medications Medication Instructions Recorded Confirmed clonazepam 1 mg tablet 1 mg PO HS 06/13/13 09/21/19 docusate sodium 100 mg capsule 100 mg PO BID PRN 06/13/13 09/21/19 (Colace) ezetimibe 10 mg tablet (Zetia) 10 mg PO DAILY 06/13/13 09/21/19 furosemide 20 mg tablet (Lasix) 20 mg PO DAILY 06/13/13 09/21/19 nitroglycerin 0.4 mg sublingual 0.4 mg sublingual PRN PRN 06/13/13 09/21/19 tablet (Nitrostat) trazodone 50 mg tablet 100 mg PO HS 06/13/13 09/21/19 diltiazem HCl 120 mg 120 mg PO DAILY 05/09/16 09/21/19 tablet,extended release 24 hr (Cardizem LA) apixaban 5 mg tablet (Eliquis) 5 mg PO BID 09/21/19 09/21/19 rosuvastatin 10 mg tablet (Crestor) 10 mg PO HS 09/21/19 09/21/19 ziprasidone HCl 60 mg capsule 60 mg PO BID 09/21/19 09/21/19 (Geodon) allopurinol 100 mg tablet 100 mg PO DAILY 04/11/22 famotidine 20 mg tablet (Pepcid) 20 mg PO DAILY 04/11/22 indomethacin 50 mg capsule 50 mg PO TID 04/11/22 multivitamin 1 tab PO DAILY 04/11/22 propranolol 20 mg tablet 20 mg PO BID 04/11/22 ferrous sulfate 325 mg (65 mg 325 mg PO DAILY 06/16/22 iron) tablet sertraline 100 mg tablet (Zoloft) 300 mg PO DAILY 06/16/22 Allergies Allergy/AdvReac Type Severity Reaction Status Date / Time hay fever Allergy Uncoded 06/16/22 11:56 General Stated Complaint: Orthopedic SADIA: 4 Review of Systems Narrative: 6 systems reviewed and unremarkable except what is marked below. Musculoskeletal Musculoskeletal: Reports as per HPI, Reports arthralgias and Reports joint swelling PFSH All Active Problems (Updated 12/10/22 @ 09:33 by Christiano Telles NP) Right leg injury (Acute) Hematoma of right knee region (Acute) Tubular adenoma of colon (Acute) CAD (coronary artery disease) (Chronic) Bipolar disorder (Acute) COBURN (dyspnea on exertion) (Acute) Anemia (Chronic) Pulmonary hypertension (Acute) History of DVT (deep vein thrombosis) (Acute) DVT prophylaxis (Acute) Ambulatory dysfunction (Acute) Syncope (Acute) Rhabdomyolysis (Acute) Medical History Accidental fall Atherosclerosis of coronary artery Blepharitis Chronic sinus bradycardia Complicated UTI (urinary tract infection) Dehydration Discharge planning issues Elevated liver enzymes Essential hypertension Gout History of tobacco abuse Hypercholesterolemia Hyperlipidemia Hypertension Insomnia Left knee pain Left ventricular hypertrophy Lightheadedness 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 Father Acute myocardial infarction Brother Parkinson's disease Social History Smoking/Tobacco Use Status: Former Tobacco Use Smoking risk assessment performed?: Yes Alcohol Intake: never Drug use: Never Substance use type: does not use Do you feel safe at home: Yes Do you feel safe in your relationship?: Yes Exam Const General: cooperative, no acute distress and not ill appearing Orientation: alert, awake and oriented x3 Resp Effort & Inspection: normal respiratory effort, able to speak in complete sentences and no respiratory distress Cardio Rate: regular rate Rhythm: regular rhythm Neuro General: patient alert, patient awake, patient oriented x3, moves all extremities and no focal motor deficits Extrem General: normal exam except as noted Right lower extremity: edema (From the knee down) Details: non-pitting and 2+, knee Details: tenderness Location: of the proximal tibia, swelling, abnormal ROM Details: pain with active ROM during and ecchymosis, lower leg Details: tenderness Location: of the proximal tibia and non-pitting edema, ankle Details: swelling; no tenderness and foot Details: normal capillary refill and vascular exam Details: dorsalis pedis pulse present and posterior tibial pulse present; no tenderness Course Vital Signs Vital signs: Vital Signs Temperature 36.9 C 12/08/22 15:31 Pulse 51 L 12/08/22 15:31 Respiratory Rate 20 12/08/22 15:31 Blood Pressure 145/75 H 12/08/22 15:31 Pulse Oximetry 95 12/08/22 15:31 Temperature 36.9 C 12/08/22 15:31 Pulse 51 L 12/08/22 15:31 Respiratory Rate 20 12/08/22 15:31 Blood Pressure 145/75 H 12/08/22 15:31 Pulse Oximetry 95 12/08/22 15:31 Oxygen Delivery Method Room Air 12/08/22 15:31 Oxygen Flow Rate 0 12/08/22 15:31 Pain Level 10 12/08/22 15:31
--- NOTE | 2022-12-08 18:35 | NUR.NOTE ---
Nursing Note: referral to cm for continued care. right knee pain. pt eloped.
== END 2022-12-08 17:06 | disposition left against medical advice (07) ==
PROVIDERS: Emergency Provider Nurse Practitioner Family; PCP Family Medicine
DX: S80.01XA Contusion of right knee, initial encounter (principal); W18.39XA Other fall on same level, initial encounter; R22.41 Localized swelling, mass and lump, right lower limb; Z53.29 Procedure and treatment not carried out because of patient's decision for other reasons
CPT/HCPCS: 99281; 99282

== ENCOUNTER 2022-12-26 15:11 | Outpatient (REF) | payer MEDICARE, MEDICAID, SELFPAY ==
[2022-12-26 19:42] LABS: HCT 47.9 % (40.0-50.0); HGB 16.1 g/dL (13.5-17.5); MCH 30.7 pg (27.0-33.0); MCHC 33.6 % (32.0-36.0); MCV 91 fL (80-95); MPV 12.3 fL (8.0-11.0); Platelet Count 162 10^3/uL (130-400); RBC 5.25 10^6/uL (4.36-5.78); RDW 13.6 % (11.8-14.1); RDW-SD 46.2 fL; WBC 9.91 10^3/uL (4.4-10.8)
[2022-12-26 19:50] LABS: Iron 85 ug/dL (65-175)
[2022-12-26 19:56] LABS: ALT 27 U/L (16-63); AST 35 U/L (15-37); Albumin 4.1 g/dL (3.4-5.0); Alkaline Phosphatase 121 U/L (46-116); Anion Gap 12.6 mmol/L (3-11); BUN 37 mg/dL (7-18); Bilirubin, Total 0.3 mg/dL (0.2-1.0); CO2 23.4 mmol/L (21.0-32.0); CREATININE 1.4 mg/dL (0.70-1.30); Calcium 9.1 mg/dL (8.5-10.1); Chloride 103 mmol/L (98-107); Estimated GFR 52.09 (mL/min/1.73m2); Glucose 99 mg/dL (74-106); Potassium 3.9 mmol/L (3.5-5.1); Sodium 139 mmol/L (136-145); Total Protein 7.8 g/dL (6.4-8.2)
[2022-12-26 20:36] LABS: Ferritin 71 ng/mL (26-388)
== END 2022-12-26 15:12 | disposition home or self-care (01) ==
LOC: NCHCN 15:11
PROVIDERS: PCP Family Medicine; Visit Provider Family Medicine
DX: D64.9 Anemia, unspecified (principal); I10 Essential (primary) hypertension; I25.10 Atherosclerotic heart disease of native coronary artery without angina pectoris; N28.9 Disorder of kidney and ureter, unspecified; F31.89 Other bipolar disorder
CPT/HCPCS: 80053; 85027; 82728; 83540

== ENCOUNTER 2023-04-09 11:21 | Inpatient (IN) | payer MEDICARE, MEDICAID, SELFPAY ==
[2023-04-09] VITALS (34 sets, daily range): BP systolic 68–157; BP diastolic 43–79; PULSE 49–75; RESP 13–33; TEMP 36.6–39.3; O2SAT 92–99
--- NOTE | 2023-04-09 11:00 | RT.EKG_ITS ---
APPROVED REPORT Exam: Resting ECG Reason for Exam: sob Patient Location: E HR:52 bpm ECG Measurements Heart Rate 52 AXIS VA 143 P 0 QRSd 93 QRS -33 QT 487 T -24 QTc 451 Conclusion Sinus bradycardia...rate< 60 Left axis deviation...QRS axis (-30,-90). Sinus. Left axis. No STEMI. I have reviewed and interpreted ECG and agree with software generated interpretation.
--- NOTE | 2023-04-09 11:28 | ED.GENADUL_ITS ---
Discharge Plan Disposition Patient Disposition: Admit to [facility] Condition: Serious Discharge Details Clinical Impression: Sepsis, Hypotension, Pneumonia, Cellulitis of left leg, Acute kidney injury Admit Date/Time: 04/09/23 15:16 Admit Provider: Sofie Klein Attending Provider: Sofie Klein Primary Care Provider: Rosa Bartlett V ED Provider: Claudine Rios Discharge Data Discharge Date/Time-TO BE ENTERED AT DEPARTURE: 04/09/23 16:18 Medical Decision Making 1130 -- 77-year-old male with a history of hypertension, hyperlipidemia, coronary artery disease, Holloway's esophagus, anemia, DVT, complicated UTI, gout, insomnia, bipolar disorder, schizoaffective disorder presents from home for an episode of shaking lasting 90 minutes yesterday followed by feeling cold and tired. BP on arrival 73/52. Rectal temp 100.9. Heart rate within normal limits. Oxygen saturation 97% on room air. EKG notes a rate of 52, sinus, left axis and nonischemic. Patient is somewhat of a poor historian. Suspect his shaking episode yesterday may not have been a seizure but may have been in the setting of fever and may have been rigors as he reports feeling weak afterwards and has a temp of 100.9 rectal here today. Concern for sepsis. Consider the left leg cellulitis as a potential source. He has no tearing or ripping chest pain, abdominal pain or pulsatile mass to suspect dissection or ruptured aneurysm. Differential diagnosis includes pneumonia, UTI, left leg cellulitis. Will obtain screening labs, CT chest abdomen pelvis, urinalysis, lactate, blood cultures, left leg ultrasound and start IV fluids and vancomycin IV. 1245 -- BP appears fluid responsive, improving, now 103/49. 1400 -- Labs and imaging reviewed. White blood cell count 12.88. Potassium 3.2. Sodium 130. Creatinine 1.5 which is slightly increased from baseline. Glucose 115 with normal bicarb, anion gap 13.3. Urinalysis negative for infect ion. FLUVID negative. Left leg ultrasound negative for DVT. CT chest/abdomen/pelvis notes: IMPRESSION: 1. No evidence of acute pulmonary emboli nor pulmonary infarction.? No evidence of aortic dissection. 2. Right upper lobe infiltrate noted.? Follow-up to resolution recommended to rule out neoplasm.? No intrathoracic adenopathy.? No pleural effusions. 3. Sigmoid diverticulosis.? Although there is no obvious diverticulitis, there is a small amount of focal fluid in left side of the pelvis.? Subtle case of diverticulitis may be missed, given the extensive involvement of the sigmoid here. We will order a dose of IV Zosyn due to concern for sepsis in the setting of pn eumonia. His blood pressure had briefly down trended to 91/44 but now uptrending again 107/51. Will admit for IV fluids, IV antibiotics and observation. 1430 --Case discussed with hospitalist who accepts patient for admission. BP 104/52. As patient's blood pressure appears to be fluid responsive and not requiring vasopressors at this time, does not meet criteria for septic shock but will continue to monitor and recheck lactate. Medical Records Medical records reviewed: Yes I reviewed the patient's medical records. Imaging Data Radiologic Study: Radiologist's impression: CT CHEST PE ABD ? PELVIS W CLINICAL HISTORY: ? fever, weak, hypotensive,L leg swelling/pain. ? TECHNIQUE:? Imaging Protocol: ? Axial CT angiography was performed with multi- slice acquisition and multi-planar and/or 3D reconstructions. CONTRAST MATERIAL:? Intravenous: Omnipaque 350 Contrast volume:100 ml Oral: None COMPARISON:? CT,NM,TMT NM MPI REST ? STRESS GRP from 10/08/2021 FINDINGS: CHEST: PULMONARY ARTERIES: There are no intra-arterial filling defects to suggest the presence of acute pulmonary emboli. LUNGS: Some infiltrate in the right upper lobe.? No other areas of infiltrate in either lung field and there are no pleural effusions.? Some scarring in the medial segment right middle lobe noted.? There are no focal findings in the trachea and mainstem bronchi..? MEDIASTINUM: There is no hilar nor mediastinal adenopathy. Visualized thyroid u nremarkable. CARDIAC: Heart size is normal.? There is no pericardial effusion.? There is no significant shift of the interventricular septum.Caliber of the thoracic aorta is within normal limits.? No dissection. OSSEOUS: No lytic nor blastic osseous lesions identified.No acute fractures.. ABDOMEN: There is no ascites. LIVER: There are no focal hepatic lesions nor dilatation of intrahepatic ducts.? GALLBLADDER/BILIARY: No obvious gallbladder pathology.? CBD is not dilated. PANCREAS: No evidence of pancreatic mass nor dilatation of the pancreatic duct.? SPLEEN: Spleen is not enlarged. There are no intrasplenic lesions.? Splenic and portal veins are patent. ADRENALS: There are no significant adrenal masses. KIDNEYS:Is a solitary benign cyst in the lateral cortex of the right kidney which measures 1.8 x 1.4 cm.? Does not require further workup.? No solid renal lesions.? No calculi.? No hydronephrosis nor hydroureter.? Mild uniform thickening of the wall of the urinary bladder.? Mild prostate enlargement. ABDOMINAL AORTA: Abdominal aorta is not enlarged. LYMPH NODES: There is no retroperitoneal or para-aortic adenopathy. ABDOMINAL WALL/GI: No evidence of significant anterior abdominal wall hernia.? No bowel obstruction. PELVIS:? LYMPH NODES: There is no intrapelvic nor inguinal adenopathy. GI: No evidence of appendicitis.There is scattered diverticuli in the left side of the colon and there is diverticulosis of the sigmoid.? There is no obvious focus of acute diverticulitis but there does appear to be a small amount of fluid in left side of the pelvis interposed between the left side of the sigmoid and the unremarkable appearing iliac vessels. URINARY BLADDER: Slight uniform wall thickening. REPRODUCTIVE: Mildly enlarged prostate.? Seminal vesicles unremarkable. OSSEOUS: No significant osseous lesions. No fractures evident. IMPRESSION: 1. No evidence of acute pulmonary emboli nor pulmonary infarction.? No evidence of aortic dissection. 2. Right upper lobe infiltrate noted.? Follow-up to resolution recommended to rule out neoplasm.? No intrathoracic adenopathy.? No pleural effusions. 3. Sigmoid diverticulosis.? Although there is no obvious diverticulitis, there is a small amount of focal fluid in left side of the pelvis.? Subtle case of diverticulitis may be missed, given the extensive involvement of the sigmoid here. 4. Other findings as above. US LOWER EXTREMITY VENOUS LT CLINICAL HISTORY:? pain, redness, swelling, r/o dvt TECHNIQUE:? Grayscale, color, and doppler imaging of the deep venous system of the left lower extremity was performed. COMPARISON:? US US LOWER EXTREMITY VENOUS RT from 12/08/2022 FINDINGS: There is no evidence of intraluminal thrombus and there is normal compression and augmentation demonstrated within the common femoral vein, femoral vein, and popliteal vein. In the ipsilateral calf the interrogated veins also exhibit normal compression/ augmentation properties. The ipsilateral saphenofemoral junction is patent. IMPRESSION: 1.? No evidence of DVT in the left lower extremity. Lab Data Lab results reviewed: Yes I reviewed the patient's lab results. Labs: 04/09/23 13:40 Blood Blood Culture - Preliminary NO GROWTH 72 HOURS 04/09/23 11:55 Blood Blood Culture - Preliminary NO GROWTH 72 HOURS Laboratory Tests Range/Units 04/09/23 04/09/23 04/09/23 11:55 11:55 11:55 WBC (4.4-10.8) 10^3/uL 12.88 H RBC (4.36-5.78) 10^6/uL 5.25 Hgb (13.5-17.5) g/dL 15.8 Hct (40.0-50.0) % 46.3 MCV (80-95) fL 88 MCH (27.0-33.0) pg 30.1 MCHC (32.0-36.0) % 34.1 RDW (11.8-14.1) % 14.4 H Plt Count (130-400) 10^3/uL 125 L MPV (8.0-11.0) fL 10.4 Immature Gran % See Differential Neutrophils % 81.0 Band Neutrophils % 4 Lymphocytes % 13.0 Monocytes % 2.0 Eosinophils % 0.0 Basophils % 0.0 Nucleated RBC % (0.0-0.3) % 0.0 Absolute Neutrophils (1.2-6.7) 10^3/uL 10.95 H Absolute Lymphocytes (1.2-3.4) 10^3/uL 1.67 Absolute Monocytes (0.1-0.8) 10^3/uL 0.26 Absolute Eosinophils (0.0-0.7) 10^3/uL 0.00 Absolute Basophils (0.0-0.2) 10^3/uL 0.00 RBC Morphology Normal VBG Lactate (0.9-1.7) MMOL/l 4.0 H* Sodium (136-145) mmol/L 130 L Potassium (3.5-5.1) mmol/L 3.2 L Chloride (98-107) mmol/L 95 L Carbon Dioxide (21.0-32.0) mmol/L 21.7 Anion Gap (3-11) mmol/L 13.3 H BUN (7-18) mg/dL 27 H Creatinine (0.70-1.30) mg/dL 1.5 H Est GFR (CKD-EPI 2020) (mL/min/1.73m2) 47.95 Glucose (74-106) mg/dL 115 H Calcium (8.5-10.1) mg/dL 9.3 Magnesium (1.8-2.4) mg/dL 1.8 Total Bilirubin (0.2-1.0) mg/dL 0.5 AST (15-37) U/L 36 ALT (16-63) U/L 19 Alkaline Phosphatase (46-116) U/L 93 Troponin I (<or=60) ng/L < 50 Total Protein (6.4-8.2) g/dL 7.7 Albumin (3.4-5.0) g/dL 3.4 Lipase (16-77) U/L 26 Urine Color (Yellow) Urine Clarity (Clear) Urine pH (5-8) Ur Specific [place] (1.005-1.025) Urine Protein (Negative) mg/dL Urine Ketones (Negative) mg/dL Urine Blood (Negative) Urine Nitrite (Negative) Urine Bilirubin (Negative) Urine Urobilinogen (Up to 0.2) mg/dL Ur Leukocyte Esterase (Negative) Urine RBC (0-2) HPF Urine WBC (0-5) HPF Ur Epithelial Cells (Negative) HPF Urine Crystals (Negative) HPF Urine Bacteria (Negative) HPF Urine Casts (Negative) LPF Urine Mucus (Negative) Ur Culture Indicated? Urine Glucose (Negative) mg/dL COVID-19 Source SARS-CoV-2 (PCR) (Negative) Influenza Type A (PCR) (Negative) Influenza Type B (PCR) (Negative) RSV (PCR) (Negative) Range/Units 04/09/23 04/09/23 04/09/23 11:55 13:01 14:30 WBC (4.4-10.8) 10^3/uL RBC (4.36-5.78) 10^6/uL Hgb (13.5-17.5) g/dL Hct (40.0-50.0) % MCV (80-95) fL MCH (27.0-33.0) pg MCHC (32.0-36.0) % RDW (11.8-14.1) % Plt Count (130-400) 10^3/uL MPV (8.0-11.0) fL Immature Gran % Neutrophils % Band Neutrophils % Lymphocytes % Monocytes % Eosinophils % Basophils % Nucleated RBC % (0.0-0.3) % Absolute Neutrophils (1.2-6.7) 10^3/uL Absolute Lymphocytes (1.2-3.4) 10^3/uL Absolute Monocytes (0.1-0.8) 10^3/uL Absolute Eosinophils (0.0-0.7) 10^3/uL Absolute Basophils (0.0-0.2) 10^3/uL RBC Morphology VBG Lactate (0.9-1.7) MMOL/l Sodium (136-145) mmol/L Potassium (3.5-5.1) mmol/L Chloride (98-107) mmol/L Carbon Dioxide (21.0-32.0) mmol/L Anion Gap (3-11) mmol/L BUN (7-18) mg/dL Creatinine (0.70-1.30) mg/dL Est GFR (CKD-EPI 2020) (mL/min/1.73m2) Glucose (74-106) mg/dL Calcium (8.5-10.1) mg/dL Magnesium (1.8-2.4) mg/dL Total Bilirubin (0.2-1.0) mg/dL AST (15-37) U/L ALT (16-63) U/L Alkaline Phosphatase (46-116) U/L Troponin I (<or=60) ng/L Total Protein (6.4-8.2) g/dL Albumin (3.4-5.0) g/dL Lipase (16-77) U/L Cancelled Urine Color (Yellow) Yellow Urine Clarity (Clear) Clear Urine pH (5-8) 5.5 Ur Specific [place] (1.005-1.025) 1.025 Urine Protein (Negative) mg/dL 30 H Urine Ketones (Negative) mg/dL Negative Urine Blood (Negative) Negative Urine Nitrite (Negative) Negative Urine Bilirubin (Negative) Negative Urine Urobilinogen (Up to 0.2) mg/dL 0.2 Ur Leukocyte Esterase (Negative) Negative Urine RBC (0-2) HPF 0-2 Urine WBC (0-5) HPF 0-2 Ur Epithelial Cells (Negative) HPF Moderate Urine Crystals (Negative) HPF Negative Urine Bacteria (Negative) HPF Rare Urine Casts (Negative) LPF 3-5 Hyaline Urine Mucus (Negative) Moderate Ur Culture Indicated? No Urine Glucose (Negative) mg/dL Negative COVID-19 Source Nasopharynx SARS-CoV-2 (PCR) (Negative) Negative Influenza Type A (PCR) (Negative) Negative Influenza Type B (PCR) (Negative) Negative RSV (PCR) (Negative) Negative ECG Data Attestation: I personally reviewed and interpreted this ECG (s) as follows: Interpretation: Rate of 52, sinus, left axis, normal intervals, no STEMI. HPI General Mode of arrival: EMS . Date/Time Provider Initiated Documentation: 04/09/23 11:27 . Limitations to Documentation: no limitations . Information obtained by: patient . HPI Narrative: Patient is a 77-year-old male with a history of hypertension, hyperlipidemia, coronary artery disease, Holloway's esophagus, insomnia, gout, anemia, complicated UTI, bipolar disorder, schizoaffective disorder presents from home for concern for a seizure yesterday with feeling tired and weak since then. EMS reported that patient called them after directed to by his primary care doctor Dr. Bartlett whom pt reports he spoke to today about his symptoms. He states yesterday he was laying at home when he developed a 90-minute episode of both of his arms and legs shaking. Patient states he thought he might bite his tongue but he did not. Patient states after the shaking episode yesterday he felt very tired, generally weak and cold. He states he uses a cane for ambulation but has not walked much since yesterday due to his weakness. He also states after his shaking episode yesterday he noted he has pain in his left leg. He was unaware of having a fever or redness in his left leg. Patient denies any headache, dizziness, blurry vision, chest pain, difficulty breathing, abdominal pain, nausea, vomiting, diarrhea or urinary symptoms. He states he only had milk this morning and has not eaten. He states he normally would have eaten but has diminished appetite. Related Data Home Medications Medication Instructions Recorded Confirmed clonazepam 1 mg tablet 1 mg PO HS 06/13/13 04/09/23 docusate sodium 100 mg capsule 100 mg PO BID PRN 06/13/13 04/09/23 (Colace) ezetimibe 10 mg tablet (Zetia) 10 mg PO DAILY 06/13/13 04/09/23 furosemide 20 mg tablet (Lasix) 20 mg PO DAILY 06/13/13 09/21/19 nitroglycerin 0.4 mg sublingual 0.4 mg sublingual PRN PRN 06/13/13 04/09/23 tablet (Nitrostat) trazodone 50 mg tablet 100 mg PO HS 06/13/13 04/09/23 diltiazem HCl 120 mg 120 mg PO DAILY 05/09/16 04/09/23 tablet,extended release 24 hr (Cardizem [place]) apixaban 5 mg tablet (Eliquis) 5 mg PO BID 09/21/19 04/09/23 rosuvastatin 10 mg tablet (Crestor) 10 mg PO HS 09/21/19 04/09/23 ziprasidone HCl 60 mg capsule 60 mg PO BID 09/21/19 04/09/23 (Geodon) allopurinol 100 mg tablet 100 mg PO DAILY 04/11/22 04/09/23 famotidine 20 mg tablet (Pepcid) 20 mg PO DAILY 04/11/22 04/09/23 indomethacin 50 mg capsule 50 mg PO TID PRN 04/11/22 04/09/23 multivitamin 1 tab PO DAILY 04/11/22 04/09/23 propranolol 20 mg tablet See Rx Instructions .Route .COMPLEX 04/11/22 04/09/23 ferrous sulfate 325 mg (65 mg 325 mg PO DAILY 06/16/22 04/09/23 iron) tablet sertraline 100 mg tablet (Zoloft) 300 mg PO DAILY 06/16/22 04/09/23 magnesium oxide 400 mg (241.3 mg 400 mg PO DAILY 04/09/23 04/09/23 magnesium) tablet Allergies Allergy/AdvReac Type Severity Reaction Status Date / Time hay fever Allergy Uncoded 04/09/23 11:28 General Stated Complaint: Seizure SADIA: 2 Review of Systems All systems reviewed & are unremarkable except as noted in HPI and below Constitutional Constitutional: Reports as per HPI, Denies chills, Reports fatigue, Denies fever(s), Reports poor appetite and Reports weakness Eyes Eyes: Denies blurry vision ENT Ears, Nose, Mouth, and Throat: Denies dizziness, Denies sore throat and Denies throat swelling Cardiovascular Cardiovascular: Denies chest pain and Denies dyspnea Respiratory Respiratory: Denies cough and Denies dyspnea Gastrointestinal Gastrointestinal: Denies abdominal pain, Denies diarrhea and Denies vomiting Genitourinary Genitourinary: Denies hematuria and Denies dysuria Musculoskeletal Musculoskeletal: Denies back pain and Denies numbness Integumentary/Breasts Skin/Breast: Denies lesions and Denies rash Neurologic Neurologic: Denies dizziness, Denies localized weakness, Denies numbness, Reports seizure-like activity and Reports weakness Endocrine Endocrine: Reports fatigue Allergic/Immunologic Allergic/Immunologic: Denies throat swelling PFSH All Active Problems (Updated 04/13/23 @ 09:24 by Claudine Rios DO) Sepsis (Acute) Hypotension (Acute) Pneumonia (Acute) Cellulitis of left leg (Acute) Acute kidney injury (Acute) Hypokalemia (Acute) Cellulitis (Acute) Screening for colon cancer (Acute) Right leg injury (Acute) Tubular adenoma of colon (Acute) CAD (coronary artery disease) (Chronic) Bipolar disorder (Acute) COBURN (dyspnea on exertion) (Acute) Anemia (Chronic) Pulmonary hypertension (Acute) History of DVT (deep vein thrombosis) (Acute) DVT prophylaxis (Acute) Ambulatory dysfunction (Acute) Syncope (Acute) Rhabdomyolysis (Acute) Medical History Accidental fall Atherosclerosis of coronary artery Blepharitis Chronic sinus bradycardia Complicated UTI (urinary tract infection) Dehydration Discharge planning issues Elevated liver enzymes Essential hypertension Gout History of tobacco abuse Hypercholesterolemia Hyperlipidemia Hypertension Insomnia Left knee pain Left ventricular hypertrophy Lightheadedness 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 Father Acute myocardial infarction Brother Parkinson's disease Social History Smoking/Tobacco Use Status: Former Tobacco Use Smoking risk assessment performed?: Yes Alcohol Intake: never Drug use: Never Substance use type: does not use Do you feel safe at home: Yes Do you feel safe in your relationship?: Yes Exam Const General: cooperative, no acute distress and disheveled Orientation: alert and awake [facility] Head: normal to inspection Face and sinus: normal facial exam Mouth: mucous membranes dry Eyes General: appearance normal, both eyes and all related structures Pupils: PERRL EOM: EOM intact bilaterally Neck Neck: normal visual inspection and No submandibular swelling Lymphatic: no lymphadenopathy noted Chest Chest: normal inspection of the chest and no tenderness Resp Effort & Inspection: normal respiratory effort and able to speak in complete sentences Auscultation: clear to auscultation bilaterally Cardio Rate: regular rate Rhythm: regular rhythm GI Inspection: normal to inspection Palpation: soft, not firm, not rigid and nontender Auscultation: hypoactive bowel sounds Male General Exam: Yes normal external exam Scrotum: erythematous bilaterally (scaling, mildly tender) and other (no drainage, induration, fluctuance.) Back/Spine/Pelvis Thoracic/Lumbar Spine: thoracic and lumbar spine normal to inspection Back/spine/pelvis image: 1. Erythema. There are bilateral less than 1 cm crusts, scaling. No significant ulceration, drainage, induration or fluctuance. Skin Other: He has multiple soft brown papules which appear bitemporal, some of which appear to come off with rubbing or palpation. Unclear if bodily substance or associated with dry skin. Neuro General: patient alert, patient awake and moves all extremities Cognition: normal cognition Speech: speech normal Motor: muscle tone normal throughout and strength 5/5 throughout Sensory Exam: no sensory deficits noted Other: He can answer most questions appropriately but some of his responses are slowed. He is somewhat of a poor historian. Extrem General: full ROM Other: Patient has scaling and dry skin noted to the bilateral distal lower extremitie s. He has circumferential erythema, edema and tenderness extending from the proximal left leg below the knee down to the foot. His bilateral distal pulses are intact. There is no obvious abscess, crepitus, drainage or bleeding. Psych Appearance: grossly normal Mental Status: mental status grossly normal Speech and Movement: speech and movement normal Affect: normal affect Course Vital Signs Vital signs: Vital Signs Pulse 64 04/09/23 11:22 Respiratory Rate 18 04/09/23 11:22 Blood Pressure 73/52 L 04/09/23 11:22 Pulse Oximetry 97 04/09/23 11:22 Pulse 64 04/09/23 11:22 Respiratory Rate 18 04/09/23 11:22 Blood Pressure 73/52 L 04/09/23 11:22 Pulse Oximetry 97 04/09/23 11:22 Pain Level 8 04/09/23 11:22
--- NOTE | 2023-04-09 11:45 | DI.US_ITS ---
Exam(s) US LOWER EXTREMITY VENOUS LT EXAM: US LOWER EXTREMITY VENOUS LT CLINICAL HISTORY: pain, redness, swelling, r/o dvt TECHNIQUE: Grayscale, color, and doppler imaging of the deep venous system of the left lower extremi ty was performed. COMPARISON: US US LOWER EXTREMITY VENOUS RT from 12/08/2022 FINDINGS: There is no evidence of intraluminal thrombus and there is normal compression and augmentation demons trated within the common femoral vein, femoral vein, and popliteal vein. In the ipsilateral calf the interrogated veins also exhibit normal compression/ augmentation properti es. The ipsilateral saphenofemoral junction is patent. IMPRESSION: 1. No evidence of DVT in the left lower extremity. DATA REPOSITORY:
--- NOTE | 2023-04-09 11:45 | DI.CT_ITS ---
Exam(s) CT CHEST PE ABD PELVIS W EXAM: CT CHEST PE ABD PELVIS W CLINICAL HISTORY: fever, weak, hypotensive,L leg swelling/pain. TECHNIQUE: Imaging Protocol: Axial CT angiography was performed with multi-slice acquisition and m ulti-planar and/or 3D reconstructions. CONTRAST MATERIAL: Intravenous: Omnipaque 350 Contrast volume:100 ml Oral: None COMPARISON: CT,NM,TMT NM MPI REST STRESS GRP from 10/08/2021 FINDINGS: CHEST: PULMONARY ARTERIES: There are no intra-arterial filling defects to suggest the presence of acute pulm onary emboli. LUNGS: Some infiltrate in the right upper lobe. No other areas of infiltrate in either lung field an d there are no pleural effusions. Some scarring in the medial segment right middle lobe noted. Ther e are no focal findings in the trachea and mainstem bronchi.. MEDIASTINUM: There is no hilar nor mediastinal adenopathy. Visualized thyroid unremarkable. CARDIAC: Heart size is normal. There is no pericardial effusion. There is no significant shift of t he interventricular septum.Caliber of the thoracic aorta is within normal limits. No dissection. OSSEOUS: No lytic nor blastic osseous lesions identified.No acute fractures.. ABDOMEN: There is no ascites. LIVER: There are no focal hepatic lesions nor dilatation of intrahepatic ducts. GALLBLADDER/BILIARY: No obvious gallbladder pathology. CBD is not dilated. PANCREAS: No evidence of pancreatic mass nor dilatation of the pancreatic duct. SPLEEN: Spleen is not enlarged. There are no intrasplenic lesions. Splenic and portal veins are chegn nt. ADRENALS: There are no significant adrenal masses. KIDNEYS:Is a solitary benign cyst in the lateral cortex of the right kidney which measures 1.8 x 1.4 cm. Does not require further workup. No solid renal lesions. No calculi. No hydronephrosis nor hy droureter. Mild uniform thickening of the wall of the urinary bladder. Mild prostate enlargement. ABDOMINAL AORTA: Abdominal aorta is not enlarged. LYMPH NODES: There is no retroperitoneal or para-aortic adenopathy. ABDOMINAL WALL/GI: No evidence of significant anterior abdominal wall hernia. No bowel obstruction. PELVIS: LYMPH NODES: There is no intrapelvic nor inguinal adenopathy. GI: No evidence of appendicitis.There is scattered diverticuli in the left side of the colon and ther e is diverticulosis of the sigmoid. There is no obvious focus of acute diverticulitis but there does appear to be a small amount of fluid in left side of the pelvis interposed between the left side of the sigmoid and the unremarkable appearing iliac vessels. URINARY BLADDER: Slight uniform wall thickening. REPRODUCTIVE: Mildly enlarged prostate. Seminal vesicles unremarkable. OSSEOUS: No significant osseous lesions. No fractures evident. IMPRESSION: 1. No evidence of acute pulmonary emboli nor pulmonary infarction. No evidence of aortic dissection. 2. Right upper lobe infiltrate noted. Follow-up to resolution recommended to rule out neoplasm. No intrathoracic adenopathy. No pleural effusions. 3. Sigmoid diverticulosis. Although there is no obvious diverticulitis, there is a small amount of f ocal fluid in left side of the pelvis. Subtle case of diverticulitis may be missed, given the extens delroy involvement of the sigmoid here. 4. Other findings as above. RADIATION DOSE DELIVERED: 2,101.75mGy.cm Total DLP DATA REPOSITORY: All CT scans at this facility are submitted to the National Radiology Data Registry (NRDR) Dose Index Registry (DIR) with the [employer] (A[employer]). RADIATION OPTIMIZATION: All CT scans at this facility use at least one of these dose optimization te chniques: automated exposure control; mA and/or kV adjustment per patient size (includes targeted exa ms where dose is matched to clinical indication); or iterative reconstruction.
[2023-04-09] MEDS: Normal Saline 500 ML IV (11:59)
[2023-04-09] MEDS: ACETAMINOPHEN 1,000 MG/100 ML BTL 400 MG IVPB (12:00)
[2023-04-09 12:03] LABS: HCT 46.3 % (40.0-50.0); HGB 15.8 g/dL (13.5-17.5); MCH 30.1 pg (27.0-33.0); MCHC 34.1 % (32.0-36.0); MCV 88 fL (80-95); MPV 10.4 fL (8.0-11.0); Platelet Count 125 10^3/uL (130-400); RBC 5.25 10^6/uL (4.36-5.78); RDW 14.4 % (11.8-14.1); RDW-SD 46.2 fL; WBC 12.88 10^3/uL (4.4-10.8)
[2023-04-09 12:21] LABS: Absolute Neutrophil Count 10.95 10^3/uL (1.2-6.7); Bands % 4
[2023-04-09 12:22] LABS: Absolute Lymphocyte Count 1.67 10^3/uL (1.2-3.4); Absolute Monocyte Count 0.26 10^3/uL (0.1-0.8); Diff Comment Manual Differential; RBC Morphology Normal
[2023-04-09 12:29] LABS: ALT 19 U/L (16-63); AST 36 U/L (15-37); Albumin 3.4 g/dL (3.4-5.0); Alkaline Phosphatase 93 U/L (46-116); Anion Gap 13.3 mmol/L (3-11); BUN 27 mg/dL (7-18); Bilirubin, Total 0.5 mg/dL (0.2-1.0); CO2 21.7 mmol/L (21.0-32.0); CREATININE 1.5 mg/dL (0.70-1.30); Calcium 9.3 mg/dL (8.5-10.1); Chloride 95 mmol/L (98-107); Estimated GFR 47.95 (mL/min/1.73m2); Glucose 115 mg/dL (74-106); Lipase 26 U/L (16-77); Magnesium 1.8 mg/dL (1.8-2.4); Potassium 3.2 mmol/L (3.5-5.1); Sodium 130 mmol/L (136-145); Total Protein 7.7 g/dL (6.4-8.2); Troponin I < 50 ng/L (<or=60)
[2023-04-09 13:07] LABS: Bilirubin Negative (Negative); Blood Negative (Negative); Clarity Clear (Clear); Glucose Negative (Negative); Ketones Negative (Negative); Leukocyte Esterase Negative (Negative); Nitrite Negative (Negative); Specific Gravity 1.025 (1.005-1.025); Urobilinogen 0.2 mg/dL (Up to 0.2); pH 5.5 (5-8)
[2023-04-09] MEDS: Normal Saline - Diluent 50 ML VIAL IJ (13:09)
[2023-04-09] MEDS: Omnipaque 350 MG/ML 100 ML BTL IJ (13:09)
[2023-04-09] MEDS: Normal Saline Flush 10 ML SYR IVP (13:13)
[2023-04-09 13:33] LABS: Bacteria Rare HPF (Negative); Crystals Negative HPF (Negative); Epithelial Cells Moderate HPF (Negative); Mucus Moderate (Negative); RBC 0-2 HPF (0-2); WBC 0-2 HPF (0-5)
[2023-04-09 13:34] LABS: C & S Indicated? No; Casts 3-5 Hyaline LPF (Negative)
[2023-04-09] MEDS: POTASSIUM CHLORIDE 20 MEQ/100 ML BAG 50 MEQ IVPB (13:47)
--- NOTE | 2023-04-09 15:19 | W.PM.HP.N ---
Date of service: 04/09/23 Time of Service: 15:20 Assessment and Plan Assessment and plan (1) Cellulitis: Status: Acute Assessment and plan: continue vancomycin and zosyn day 1 while cultures pending elevation lower ext repeat lactate at 1900, ED was 4.0 received IV fluid bolus in ED, will run 1 liter overnight (2) History of DVT (deep vein thrombosis): Status: Acute Assessment and plan: Continue chronic anticoagulation with Apixaban. (3) Schizoaffective disorder: Status: None Assessment and plan: Continue home regimen . (4) DVT prophylaxis: Status: Acute Assessment and plan: On therapeutic anticoagulation. Also on PPI therapy for GI Prophylaxis. discussed with DR Klein History of Present Illness History of Present Illness Chief Complaint: cellulitis Narrative: presents to ED, shaking that was most likely rigors, work up concerning for cellulitis, started on vanco. PFSH All Active Problems (Updated 04/09/23 @ 17:27 by Danay Bush NP) Cellulitis (Acute) Screening for colon cancer (Acute) Right leg injury (Acute) Tubular adenoma of colon (Acute) CAD (coronary artery disease) (Chronic) Bipolar disorder (Acute) COBURN (dyspnea on exertion) (Acute) Anemia (Chronic) Pulmonary hypertension (Acute) History of DVT (deep vein thrombosis) (Acute) DVT prophylaxis (Acute) Ambulatory dysfunction (Acute) Syncope (Acute) Rhabdomyolysis (Acute) Medical History Accidental fall Atherosclerosis of coronary artery Blepharitis Chronic sinus bradycardia Complicated UTI (urinary tract infection) Dehydration Discharge planning issues Elevated liver enzymes Essential hypertension Gout History of tobacco abuse Hypercholesterolemia Hyperlipidemia Hypertension Insomnia Left knee pain Left ventricular hypertrophy Lightheadedness 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 Father Acute myocardial infarction Brother Parkinson's disease Social History Smoking/Tobacco Use Status: Former Tobacco Use Smoking risk assessment performed?: Yes Alcohol Intake: never Drug use: Never Substance use type: does not use Do you feel safe at home: Yes Do you feel safe in your relationship?: Yes Meds Allergies and Home Medications Allergies Allergy/AdvReac Type Severity Reaction Status Date / Time hay fever Allergy Uncoded 04/09/23 11:28 Home Medications Medication Instructions Recorded Confirmed Type clonazepam 1 mg tablet 1 mg PO HS 06/13/13 04/09/23 History docusate sodium 100 mg capsule 100 mg PO BID PRN 06/13/13 04/09/23 History (Colace) ezetimibe 10 mg tablet (Zetia) 10 mg PO DAILY 06/13/13 04/09/23 History furosemide 20 mg tablet (Lasix) 20 mg PO DAILY 06/13/13 09/21/19 History nitroglycerin 0.4 mg sublingual 0.4 mg sublingual PRN PRN 06/13/13 04/09/23 History tablet (Nitrostat) trazodone 50 mg tablet 100 mg PO HS 06/13/13 04/09/23 History diltiazem HCl 120 mg 120 mg PO DAILY 05/09/16 04/09/23 History tablet,extended release 24 hr (Cardizem LA) apixaban 5 mg tablet (Eliquis) 5 mg PO BID 09/21/19 04/09/23 History rosuvastatin 10 mg tablet (Crestor) 10 mg PO HS 09/21/19 04/09/23 History ziprasidone HCl 60 mg capsule 60 mg PO BID 09/21/19 04/09/23 History (Geodon) allopurinol 100 mg tablet 100 mg PO DAILY 04/11/22 04/09/23 History famotidine 20 mg tablet (Pepcid) 20 mg PO DAILY 04/11/22 04/09/23 History indomethacin 50 mg capsule 50 mg PO TID PRN 04/11/22 04/09/23 History multivitamin 1 tab PO DAILY 04/11/22 04/09/23 History propranolol 20 mg tablet See Rx Instructions .Route .COMPLEX 04/11/22 04/09/23 History ferrous sulfate 325 mg (65 mg 325 mg PO DAILY 06/16/22 04/09/23 History iron) tablet sertraline 100 mg tablet (Zoloft) 300 mg PO DAILY 06/16/22 04/09/23 History magnesium oxide 400 mg (241.3 mg 400 mg PO DAILY 04/09/23 04/09/23 History magnesium) tablet Exam Const General: cooperative, no acute distress and disheveled Orientation: alert and awake HENMT Head: normal to inspection Face and sinus: normal facial exam Mouth: mucous membranes dry Eyes General: appearance normal, both eyes and all related structures Pupils: PERRL EOM: EOM intact bilaterally Neck Neck: normal visual inspection and No submandibular swelling Lymphatic: no lymphadenopathy noted Chest Chest: normal inspection of the chest and no tenderness Resp Effort & Inspection: normal respiratory effort and able to speak in complete sentences Auscultation: clear to auscultation bilaterally Cardio Rate: regular rate Rhythm: regular rhythm GI Inspection: normal to inspection Palpation: soft, not firm, not rigid and nontender Auscultation: hypoactive bowel sounds Back/Spine/Pelvis Thoracic/Lumbar Spine: thoracic and lumbar spine normal to inspection Skin General skin exam: dry skin (flaky, extensive dry, L>R) Lesions: lesion noted (abrasion to mid left lower extremity) Rashes: rashes noted (left lower extremity) Neuro General: patient alert, patient awake and moves all extremities Cognition: normal cognition Speech: speech normal Motor: muscle tone normal throughout and strength 5/5 throughout Extrem General: full ROM Other: Patient has scaling and dry skin noted to the bilateral distal lower extremities. He has circumferential erythema, edema and tenderness extending from the proximal left leg below the knee down to the foot. His bilateral distal pulses are intact. There is no obvious abscess, crepitus, drainage or bleeding. Psych Appearance: grossly normal Mental Status: mental status grossly normal Speech and Movement: speech and movement normal Affect: normal affect Results Labs 04/09/23 11:55 04/09/23 11:55 Labs: Laboratory Results - last 24 hr 04/09/23 04/09/23 04/09/23 11:55 11:55 11:55 WBC 12.88 H RBC 5.25 Hgb 15.8 Hct 46.3 MCV 88 MCH 30.1 MCHC 34.1 RDW 14.4 H Plt Count 125 L MPV 10.4 Immature Gran % See Differential Neutrophils % 81.0 Band Neutrophils % 4 Lymphocytes % 13.0 Monocytes % 2.0 Eosinophils % 0.0 Basophils % 0.0 Nucleated RBC % 0.0 Absolute Neutrophils 10.95 H Absolute Lymphocytes 1.67 Absolute Monocytes 0.26 Absolute Eosinophils 0.00 Absolute Basophils 0.00 RBC Morphology Normal VBG Lactate 4.0 H* Sodium 130 L Potassium 3.2 L Chloride 95 L Carbon Dioxide 21.7 Anion Gap 13.3 H BUN 27 H Creatinine 1.5 H Est GFR (CKD-EPI 2020) 47.95 Glucose 115 H Calcium 9.3 Magnesium 1.8 Total Bilirubin 0.5 AST 36 ALT 19 Alkaline Phosphatase 93 Troponin I < 50 Total Protein 7.7 Albumin 3.4 Lipase 26 Urine Color Urine Clarity Urine pH Ur Specific [place] Urine Protein Urine Ketones Urine Blood Urine Nitrite Urine Bilirubin Urine Urobilinogen Ur Leukocyte Esterase Urine RBC Urine WBC Ur Epithelial Cells Urine Crystals Urine Bacteria Urine Casts Urine Mucus Ur Culture Indicated? Urine Glucose 04/09/23 04/09/23 11:55 13:01 WBC RBC Hgb Hct MCV MCH MCHC RDW Plt Count MPV Immature Gran % Neutrophils % Band Neutrophils % Lymphocytes % Monocytes % Eosinophils % Basophils % Nucleated RBC % Absolute Neutrophils Absolute Lymphocytes Absolute Monocytes Absolute Eosinophils Absolute Basophils RBC Morphology VBG Lactate Sodium Potassium Chloride Carbon Dioxide Anion Gap BUN Creatinine Est GFR (CKD-EPI 2020) Glucose Calcium Magnesium Total Bilirubin AST ALT Alkaline Phosphatase Troponin I Total Protein Albumin Lipase Cancelled Urine Color Yellow Urine Clarity Clear Urine pH 5.5 Ur Specific [place] 1.025 Urine Protein 30 H Urine Ketones Negative Urine Blood Negative Urine Nitrite Negative Urine Bilirubin Negative Urine Urobilinogen 0.2 Ur Leukocyte Esterase Negative Urine RBC 0-2 Urine WBC 0-2 Ur Epithelial Cells Moderate Urine Crystals Negative Urine Bacteria Rare Urine Casts 3-5 Hyaline Urine Mucus Moderate Ur Culture Indicated? No Urine Glucose Negative Last Vital Signs Pulse 57 L 04/09/23 15:01 Resp 20 04/09/23 15:01 BP 106/52 L 04/09/23 15:01 Pulse Ox 94 04/09/23 15:01 Time Spent Time spent with Patient: 40-54 minutes Time was spent: preparing to see the patient(eg.review tests), obtaining and/or reviewing separately otained hiistory, ordering medications,tests, procedures, indepentently interpreting results and counseling the patient
[2023-04-09 15:24] LABS: COVID-19 PCR Negative (Negative); Influenza A PCR Negative (Negative); Influenza B PCR Negative (Negative); RSV PCR Negative (Negative)
[2023-04-09 15:25] LABS: Source Nasopharynx
[2023-04-09] MEDS: PIPERACILLIN/TAZO 3.375 GM in Normal Saline 50 ML IVPB ×2 (15:39→20:56)
[2023-04-09] MEDS: VANCOMYCIN/WATER (PEG) 2 GM/400 ML BAG IV (15:42)
[2023-04-09 19:23] LABS: Lactate 1.8 mmol/L (0.6-1.4)
[2023-04-09] MEDS: Ziprasidone 20 MG CAP 60 MG PO (20:18)
[2023-04-09] MEDS: Acetaminophen 325 MG TAB 650 MG PO (20:18)
[2023-04-09] MEDS: Apixaban 5 MG TAB PO (20:19)
[2023-04-09] MEDS: Propranolol 20 MG TAB PO (20:19)
[2023-04-09] MEDS: Normal Saline 1,000 ML 100 ML IV (20:56)
[2023-04-09] MEDS: clonazePAM 1 MG TAB PO (21:05)
[2023-04-09] MEDS: traZODone 50 MG TAB 100 MG PO (21:05)
[2023-04-09] MEDS: Rosuvastatin 10 MG TAB PO (21:05)
[2023-04-10] MEDS: PIPERACILLIN/TAZO 3.375 GM in Normal Saline 50 ML IVPB ×4 (02:10→20:17)
[2023-04-10] MEDS: Acetaminophen 325 MG TAB 650 MG PO ×3 (06:38→20:16)
[2023-04-10 07:19] LABS: Abs Immature Grans 0.05 10^3/uL (0.0-0.06); Absolute Basophil Count 0.01 10^3/uL (0.0-0.2); Absolute Lymphocyte Count 0.51 10^3/uL (1.2-3.4); Absolute Neutrophil Count 7.58 10^3/uL (1.2-6.7); Basophils % 0.1; HCT 48.1 % (40.0-50.0); HGB 16.2 g/dL (13.5-17.5); Immature Grans % 0.6; Lymphocytes % 5.8; MCH 30.3 pg (27.0-33.0); MCHC 33.7 % (32.0-36.0); MCV 90 fL (80-95); MPV 11.1 fL (8.0-11.0); Monocytes % 6.9; Neutrophils % 86.6; RBC 5.34 10^6/uL (4.36-5.78); RDW 14.8 % (11.8-14.1); RDW-SD 49.1 fL; WBC 8.75 10^3/uL (4.4-10.8)
[2023-04-10 07:35] VITALS: BP 101/58; PULSE 65; RESP 18; TEMP 38.6; O2SAT 95
[2023-04-10 07:41] LABS: Platelet Count 86 10^3/uL (130-400)
[2023-04-10 08:00] VITALS: O2SAT 95
[2023-04-10] MEDS: Ferrous Sulfate 325 MG TAB PO (08:08)
[2023-04-10] MEDS: dilTIAZem CD 120 MG CAPCR PO (08:08)
[2023-04-10] MEDS: Apixaban 5 MG TAB PO ×2 (08:11→20:17)
[2023-04-10] MEDS: Allopurinol 100 MG TAB PO (08:12)
[2023-04-10] MEDS: Magnesium Oxide 400 MG TAB PO (08:12)
[2023-04-10] MEDS: Propranolol 20 MG TAB 40 MG PO (08:12)
[2023-04-10] MEDS: Ziprasidone 20 MG CAP 60 MG PO ×2 (08:12→20:17)
[2023-04-10] MEDS: Famotidine 20 MG TAB PO (08:12)
[2023-04-10] MEDS: Ezetimibe 10 MG TAB PO (08:12)
[2023-04-10] MEDS: Multivitamin TAB 1 TAB PO (08:13)
[2023-04-10] MEDS: Sertraline 100 MG TAB 300 MG PO (08:13)
--- NOTE | 2023-04-10 08:32 | INITIAL_ITS ---
Date of service: 04/10/23 Time of Service: 08:33 Care Management Initial Assmt Initial Assessment REASON FOR HOSPITALIZATION:: cellulitis PREVIOUS FUNCTIONAL STATUS/SOCIAL/FAMILY SUPPORTS:: Ayaz lives alone in a large, single family home in [place], [place] He has 2 children, a son and a daughter, who both live in [place]. He also has 2 granddaughters. Ayaz is retired but worked in the [employer] industry ([employer] for a variety of companies. He receives Meals on Wheels and has a Life Alert and a cane for ambulatory assistance but is otherwise independent. He drives and performs his own ADLs. CURRENT FUNCTIONAL STATUS:: Ayaz was sitting up in bed when CM met with him. He was pleasant and interacted well with CM. Ayaz stated that he has been getting progressively weaker over the past couple of weeks and has had to use a cane to assist with walking. He was found to have cellulitis and is receiving IV antibiotics. He may benefit from new home health services for nursing and PT at discharge, depending on the course of his illness. ADVANCE DIRECTIVES:: none on file Has patient been provided with info about the portal/API?: Yes Did the patient sign up for the portal?: No CODE STATUS:: Full Code INSURANCE COVERAGE / FINANCIAL ISSUES:: Medicare Medicaid NA PRIMARY CARE PHYSICIAN:: Rosa Cr POTENTIAL DISCHARGE NEEDS:: Follow up with PCO and plan of care PATIENT/FAMILY EDUCATION NEEDS:: Review of discharge instructions, limitations, follow up plan, medications, discuss Ask Me Three TRANSPORTATION:: via private vehicle with a friend PLAN:: Anticipate Hayden will return home, possibly with new home health services for nursing and PT when medically cleared. He will follow up with his PCP and plan of care as prescribed and transport with a friend. CM will follow and assess for discharge planning needs. PFSH All Active Problems (Updated 04/10/23 @ 15:31 by Danay Bush NP) Hypokalemia (Acute) Cellulitis (Acute) Screening for colon cancer (Acute) Right leg injury (Acute) Tubular adenoma of colon (Acute) CAD (coronary artery disease) (Chronic) Bipolar disorder (Acute) COBURN (dyspnea on exertion) (Acute) Anemia (Chronic) Pulmonary hypertension (Acute) History of DVT (deep vein thrombosis) (Acute) DVT prophylaxis (Acute) Ambulatory dysfunction (Acute) Syncope (Acute) Rhabdomyolysis (Acute) Medical History Accidental fall Atherosclerosis of coronary artery Blepharitis Chronic sinus bradycardia Complicated UTI (urinary tract infection) Dehydration Discharge planning issues Elevated liver enzymes Essential hypertension Gout History of tobacco abuse Hypercholesterolemia Hyperlipidemia Hypertension Insomnia Left knee pain Left ventricular hypertrophy Lightheadedness 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 Father Acute myocardial infarction Brother Parkinson's disease Social History Smoking/Tobacco Use Status: Former Tobacco Use Smoking risk assessment performed?: Yes Alcohol Intake: never Drug use: Never Substance use type: does not use Do you feel safe at home: Yes Do you feel safe in your relationship?: Yes
[2023-04-10 08:48] LABS: ALT 15 U/L (16-63); AST 36 U/L (15-37); Albumin 2.5 g/dL (3.4-5.0); Alkaline Phosphatase 74 U/L (46-116); Anion Gap 10.4 mmol/L (3-11); BUN 19 mg/dL (7-18); Bilirubin, Total 0.4 mg/dL (0.2-1.0); CO2 20.6 mmol/L (21.0-32.0); CREATININE 1.1 mg/dL (0.70-1.30); Calcium 8.4 mg/dL (8.5-10.1); Chloride 104 mmol/L (98-107); Estimated GFR 69.57 (mL/min/1.73m2); Glucose 108 mg/dL (74-106); Potassium 3.1 mmol/L (3.5-5.1); Sodium 135 mmol/L (136-145); Total Protein 6.3 g/dL (6.4-8.2)
[2023-04-10] MEDS: Ketorolac 15 MG/ML VIAL IVP ×2 (09:53→22:02)
[2023-04-10] MEDS: Potassium Chloride 20 MEQ TABCR PO ×3 (10:13→16:25)
--- NOTE | 2023-04-10 13:45 | CHAPLAIN ---
Hayden was watching tv in bed when I visited. I explained my role and offered support. Hayden said he'd been having some significant pain, and then was recently given some pain medication and is feeling better now. He's in touch with his daughter.
--- NOTE | 2023-04-10 15:28 | PGE_ITS ---
Date of Service Date of service: 04/10/23 Time of Service: 15:28 Assessment and Plan Assessment and plan (1) Cellulitis: Status: Acute Assessment and plan: continue vancomycin and zosyn day 2 while cultures pending elevation lower ext repeat lactate trending downward from 4.0 to 1.8 pain management (2) Hypokalemia: Status: Acute Assessment and plan: replete and follow (3) History of DVT (deep vein thrombosis): Status: Acute Assessment and plan: Continue chronic anticoagulation with Apixaban. (4) Schizoaffective disorder: Status: None Assessment and plan: Continue home regimen . (5) DVT prophylaxis: Status: Acute Assessment and plan: On therapeutic anticoagulation. Also on PPI therapy for GI Prophylaxis. discussed with DR Klein Subjective Subjective Patient reports: no new complaints, feels better, tolerating liquids well, tolerating a regular diet and afebrile; denies shortness of breath Exam Const General: cooperative, no acute distress and disheveled Orientation: alert and awake HENMT Head: normal to inspection Face and sinus: normal facial exam Mouth: mucous membranes dry Eyes General: appearance normal, both eyes and all related structures Pupils: PERRL EOM: EOM intact bilaterally Neck Neck: normal visual inspection and No submandibular swelling Lymphatic: no lymphadenopathy noted Chest Chest: normal inspection of the chest and no tenderness Resp Effort & Inspection: normal respiratory effort and able to speak in complete sentences Auscultation: clear to auscultation bilaterally Cardio Rate: regular rate Rhythm: regular rhythm GI Inspection: normal to inspection Palpation: soft, not firm, not rigid and nontender Auscultation: hypoactive bowel sounds Back/Spine/Pelvis Thoracic/Lumbar Spine: thoracic and lumbar spine normal to inspection Skin General skin exam: dry skin (flaky, extensive dry, L>R) Lesions: lesion noted (abrasion to mid left lower extremity) Rashes: rashes noted (left lower extremity) Neuro General: patient alert, patient awake and moves all extremities Cognition: normal cognition Speech: speech normal Motor: muscle tone normal throughout and strength 5/5 throughout Extrem General: full ROM Other: Patient has scaling and dry skin noted to the bilateral distal lower extremit ies. He has circumferential erythema, edema and tenderness extending from the proximal left leg below the knee down to the foot. His bilateral distal pulses are intact. There is no obvious abscess, crepitus, drainage or bleeding. Psych Appearance: grossly normal Mental Status: mental status grossly normal Speech and Movement: speech and movement normal Affect: normal affect Objective Last Vital Signs Temp 38.6 C H 04/10/23 07:35 Pulse 65 04/10/23 07:35 Resp 18 04/10/23 07:35 BP 101/58 L 04/10/23 07:35 Pulse Ox 95 04/10/23 08:00 Laboratory Results - last 24 hr 04/09/23 04/10/23 04/10/23 19:17 06:33 06:33 WBC 8.75 RBC 5.34 Hgb 16.2 Hct 48.1 MCV 90 MCH 30.3 MCHC 33.7 RDW 14.8 H Plt Count 86 L MPV 11.1 H Immature Gran % 0.6 Neutrophils % 86.6 Lymphocytes % 5.8 Monocytes % 6.9 Eosinophils % 0.0 Basophils % 0.1 Nucleated RBC % 0.0 Absolute Neutrophils 7.58 H Absolute Lymphocytes 0.51 L Absolute Monocytes 0.60 Absolute Eosinophils 0.00 Absolute Basophils 0.01 VBG Lactate 1.8 H Sodium Cancelled Potassium Cancelled Chloride Cancelled Carbon Dioxide Cancelled Anion Gap Cancelled BUN Cancelled Creatinine Cancelled Est GFR (CKD-EPI 2020) Cancelled Glucose Cancelled Calcium Cancelled Total Bilirubin Cancelled AST Cancelled ALT Cancelled Alkaline Phosphatase Cancelled Total Protein Cancelled Albumin Cancelled 04/10/23 07:53 WBC RBC Hgb Hct MCV MCH MCHC RDW Plt Count MPV Immature Gran % Neutrophils % Lymphocytes % Monocytes % Eosinophils % Basophils % Nucleated RBC % Absolute Neutrophils Absolute Lymphocytes Absolute Monocytes Absolute Eosinophils Absolute Basophils VBG Lactate Sodium 135 L Potassium 3.1 L Chloride 104 Carbon Dioxide 20.6 L Anion Gap 10.4 BUN 19 H Creatinine 1.1 Est GFR (CKD-EPI 2020) 69.57 Glucose 108 H Calcium 8.4 L Total Bilirubin 0.4 AST 36 ALT 15 L Alkaline Phosphatase 74 Total Protein 6.3 L Albumin 2.5 L Time Spent with Patient Time Spent with Patient: 35-49 minutes Time was spent: preparing to see the patient(eg.review tests), obtaining and/or reviewing separately otained hiistory, ordering medications,tests, procedures, indepentently interpreting results and counseling the patient
[2023-04-10 15:35] VITALS: BP 94/60; PULSE 51; RESP 22; TEMP 37.9; O2SAT 98
[2023-04-10] MEDS: VANCOMYCIN/WATER (PEG) 1.5 GM/300 ML BAG IV (16:25)
[2023-04-10] MEDS: traZODone 50 MG TAB 100 MG PO (20:16)
[2023-04-10] MEDS: Propranolol 20 MG TAB PO (20:17)
[2023-04-10] MEDS: Rosuvastatin 10 MG TAB PO (20:17)
[2023-04-10] MEDS: clonazePAM 1 MG TAB PO (20:17)
[2023-04-10 23:51] VITALS: BP 96/58; PULSE 54; RESP 18; TEMP 36.9; O2SAT 97
[2023-04-11] MEDS: PIPERACILLIN/TAZO 3.375 GM in Normal Saline 50 ML IVPB ×2 (03:00→09:31)
[2023-04-11 05:30] VITALS: BP 113/71; PULSE 59; RESP 18; TEMP 36.6; O2SAT 94
[2023-04-11 08:43] LABS: Lab Add On Test DONE
[2023-04-11 08:48] LABS: Abs Immature Grans 0.03 10^3/uL (0.0-0.06); Absolute Basophil Count 0.03 10^3/uL (0.0-0.2); Absolute Eosinophil Count 0.16 10^3/uL (0.0-0.7); Absolute Neutrophil Count 5.93 10^3/uL (1.2-6.7); Basophils % 0.4; Eosinophils % 2.1; HCT 43.7 % (40.0-50.0); HGB 14.6 g/dL (13.5-17.5); Immature Grans % 0.4; Lymphocytes % 9.3; MCH 30.2 pg (27.0-33.0); MCHC 33.4 % (32.0-36.0); MCV 91 fL (80-95); MPV 11.9 fL (8.0-11.0); Monocytes % 9.3; Neutrophils % 78.5; RBC 4.83 10^6/uL (4.36-5.78); RDW-SD 50.4 fL; WBC 7.55 10^3/uL (4.4-10.8)
[2023-04-11 08:54] LABS: Anion Gap 9.4 mmol/L (3-11); BUN 22 mg/dL (7-18); CO2 23.6 mmol/L (21.0-32.0); CREATININE 1.3 mg/dL (0.70-1.30); Calcium 9.5 mg/dL (8.5-10.1); Chloride 108 mmol/L (98-107); Estimated GFR 56.93 (mL/min/1.73m2); Glucose 133 mg/dL (74-106); Magnesium 2.1 mg/dL (1.8-2.4); Potassium 4.1 mmol/L (3.5-5.1); Sodium 141 mmol/L (136-145)
[2023-04-11 09:09] LABS: C-Reactive Protein > 25.00 mg/dL (0.0-0.3)
[2023-04-11 09:15] LABS: Procalcitonin 0.3 ng/mL
[2023-04-11 09:18] LABS: Platelet Count 90 10^3/uL (130-400)
[2023-04-11 09:19] LABS: Diff Comment PLT Morph Reviewed; RBC Morphology Normal
[2023-04-11] MEDS: Normal Saline 500 ML 100 ML IV (09:30)
[2023-04-11] MEDS: Normal Saline Flush 10 ML SYR IVP (09:31)
[2023-04-11] MEDS: Ketorolac 15 MG/ML VIAL IVP (09:32)
[2023-04-11] MEDS: Apixaban 5 MG TAB PO ×2 (09:32→19:39)
[2023-04-11] MEDS: dilTIAZem CD 120 MG CAPCR PO (09:33)
[2023-04-11] MEDS: Multivitamin TAB 1 TAB PO (09:33)
[2023-04-11] MEDS: Allopurinol 100 MG TAB PO (09:33)
[2023-04-11] MEDS: Acetaminophen 325 MG TAB 650 MG PO ×2 (09:33→13:47)
[2023-04-11] MEDS: Magnesium Oxide 400 MG TAB PO (09:33)
[2023-04-11] MEDS: Ezetimibe 10 MG TAB PO (09:33)
[2023-04-11] MEDS: Ferrous Sulfate 325 MG TAB PO (09:33)
[2023-04-11] MEDS: Famotidine 20 MG TAB PO (09:34)
[2023-04-11] MEDS: Propranolol 20 MG TAB 40 MG PO (09:34)
[2023-04-11] MEDS: Potassium Chloride 20 MEQ TABCR PO ×3 (09:34→16:59)
[2023-04-11] MEDS: Sertraline 100 MG TAB 300 MG PO (09:34)
[2023-04-11] MEDS: Ziprasidone 20 MG CAP 60 MG PO ×2 (09:34→19:39)
--- NOTE | 2023-04-11 10:27 | PGE_ITS ---
Date of Service Date of service: 04/11/23 Time of Service: 10:28 Assessment and Plan Assessment and plan (1) Cellulitis: Status: Acute Assessment and plan: continue vancomycin and stop Zosyn, change to Cefazolin 2 gm q8h; cultures pending elevation lower ext repeat lactate trending downward from 4.0 to 1.8 Procalcitonin 0.3 CRP >25 pain management - added Gabapentin 600 mg TID to help with burning sensation (2) Hypokalemia: Status: Acute Assessment and plan: replete and follow 4.1 today - none given (3) History of DVT (deep vein thrombosis): Status: Acute Assessment and plan: Continue chronic anticoagulation with Apixaban. (4) Schizoaffective disorder: Status: None Assessment and plan: Continue home regimen . (5) DVT prophylaxis: Status: Acute Assessment and plan: On therapeutic anticoagulation. Also on PPI therapy for GI Prophylaxis. discussed with Dr. Klein Subjective Subjective Patient reports: tolerating a regular diet and afebrile; denies diarrhea, nausea, vomiting or shortness of breath Interval history since last seen: Hayden complains of some burning feeling in his left lower leg. He reports 5/10 painl; has rec'd tylenol and toradol. Exam Const General: cooperative, no acute distress and disheveled Orientation: alert and awake HENMT Head: normal to inspection Face and sinus: normal facial exam Mouth: mucous membranes dry Eyes General: appearance normal, both eyes and all related structures Pupils: PERRL EOM: EOM intact bilaterally Neck Neck: normal visual inspection and No submandibular swelling Lymphatic: no lymphadenopathy noted Chest Chest: normal inspection of the chest and no tenderness Resp Effort & Inspection: normal respiratory effort and able to speak in complete sentences Auscultation: clear to auscultation bilaterally Cardio Rate: regular rate Rhythm: regular rhythm GI Inspection: normal to inspection Palpation: soft, not firm, not rigid and nontender Auscultation: hypoactive bowel sounds Back/Spine/Pelvis Thoracic/Lumbar Spine: thoracic and lumbar spine normal to inspection Skin General skin exam: dry skin (flaky, extensive dry, L>R) Lesions: lesion noted (abrasion to mid left lower extremity) Rashes: rashes noted (left lower extremity) Neuro General: patient alert, patient awake and moves all extremities Cognition: normal cognition Speech: speech normal Motor: muscle tone normal throughout and strength 5/5 throughout Extrem General: full ROM Other: Patient has scaling and dry skin noted to the bilateral distal lower extremities. He has circumferential erythema, edema and tenderness extending from the proximal left leg just above knee cap down to the foot. (marked with alanie today). His bilateral distal pulses are intact. There is no obvious abscess, crepitus, drainage or bleeding. Psych Appearance: grossly normal Mental Status: mental status grossly normal Speech and Movement: speech and movement normal Affect: normal affect Objective Last Vital Signs Temp 36.6 C 04/11/23 05:30 Pulse 59 L 04/11/23 05:30 Resp 18 04/11/23 05:30 BP 113/71 04/11/23 05:30 Pulse Ox 94 04/11/23 05:30 Laboratory Results - last 24 hr 04/11/23 04/11/23 04/11/23 08:05 08:30 08:30 WBC 7.55 RBC 4.83 Hgb 14.6 Hct 43.7 MCV 91 MCH 30.2 MCHC 33.4 RDW 15.0 H Plt Count 90 L MPV 11.9 H Immature Gran % 0.4 Neutrophils % 78.5 Lymphocytes % 9.3 Monocytes % 9.3 Eosinophils % 2.1 Basophils % 0.4 Nucleated RBC % 0.0 Absolute Neutrophils 5.93 Absolute Lymphocytes 0.70 L Absolute Monocytes 0.70 Absolute Eosinophils 0.16 Absolute Basophils 0.03 RBC Morphology Normal Sodium 141 Potassium 4.1 D Chloride 108 H Carbon Dioxide 23.6 Anion Gap 9.4 BUN 22 H Creatinine 1.3 Est GFR (CKD-EPI 2020) 56.93 Glucose 133 H Calcium 9.5 Magnesium 2.1 C-Reactive Protein > 25.00 H Procalcitonin Add-On Test Request DONE 04/11/23 04/11/23 04/11/23 08:30 08:30 08:30 WBC RBC Hgb Hct MCV MCH MCHC RDW Plt Count MPV Immature Gran % Neutrophils % Lymphocytes % Monocytes % Eosinophils % Basophils % Nucleated RBC % Absolute Neutrophils Absolute Lymphocytes Absolute Monocytes Absolute Eosinophils Absolute Basophils RBC Morphology Sodium Potassium Chloride Carbon Dioxide Anion Gap BUN Creatinine Est GFR (CKD-EPI 2020) Glucose Calcium Magnesium C-Reactive Protein Cancelled Procalcitonin Cancelled 0.3 Add-On Test Request Time Spent with Patient Time Spent with Patient: 25-34 minutes Time was spent: preparing to see the patient(eg.review tests), ordering medications,tests, procedures, referring, communicating with other health pharmacy customer care specialist, indepentently interpreting results, counseling the patient and care coordination
[2023-04-11] MEDS: Gabapentin 600 MG TAB PO ×2 (13:47→19:39)
[2023-04-11 15:24] VITALS: BP 99/55; PULSE 44; RESP 21; TEMP 37.1; O2SAT 97
[2023-04-11] MEDS: ceFAZolin 2 GM/50 ML BAG IVPB (15:25)
[2023-04-11] MEDS: VANCOMYCIN/WATER (PEG) 1.5 GM/300 ML BAG IV (16:07)
[2023-04-11] MEDS: Rosuvastatin 10 MG TAB PO (19:39)
[2023-04-11] MEDS: clonazePAM 1 MG TAB PO (19:39)
[2023-04-11] MEDS: Propranolol 20 MG TAB PO (19:39)
[2023-04-11] MEDS: traZODone 50 MG TAB 100 MG PO (19:39)
[2023-04-11 23:32] VITALS: BP 111/71; PULSE 57; RESP 22; TEMP 37.8; O2SAT 97
[2023-04-12] MEDS: ceFAZolin 2 GM/50 ML BAG IVPB ×3 (00:23→15:50)
[2023-04-12] MEDS: Acetaminophen 325 MG TAB 650 MG PO (00:23)
[2023-04-12 07:25] LABS: Lactate 0.9 mmol/L (0.6-1.4)
[2023-04-12 07:33] VITALS: BP 120/72; PULSE 57; RESP 20; TEMP 37.3; O2SAT 97
[2023-04-12 07:37] LABS: Abs Immature Grans 0.05 10^3/uL (0.0-0.06); Absolute Basophil Count 0.03 10^3/uL (0.0-0.2); Absolute Eosinophil Count 0.19 10^3/uL (0.0-0.7); Absolute Lymphocyte Count 0.84 10^3/uL (1.2-3.4); Absolute Monocyte Count 0.75 10^3/uL (0.1-0.8); Absolute Neutrophil Count 5.52 10^3/uL (1.2-6.7); Basophils % 0.4; Eosinophils % 2.6; HCT 42.3 % (40.0-50.0); Immature Grans % 0.7; Lymphocytes % 11.4; MCH 29.9 pg (27.0-33.0); MCHC 33.1 % (32.0-36.0); MCV 90 fL (80-95); MPV 10.7 fL (8.0-11.0); Monocytes % 10.2; Neutrophils % 74.7; RBC 4.68 10^6/uL (4.36-5.78); RDW 15.1 % (11.8-14.1); RDW-SD 49.6 fL; WBC 7.38 10^3/uL (4.4-10.8)
[2023-04-12 07:42] LABS: Platelet Count 145 10^3/uL (130-400)
[2023-04-12 07:50] LABS: Anion Gap 9.7 mmol/L (3-11); BUN 20 mg/dL (7-18); CO2 21.3 mmol/L (21.0-32.0); CREATININE 1.1 mg/dL (0.70-1.30); Calcium 9.1 mg/dL (8.5-10.1); Chloride 109 mmol/L (98-107); Estimated GFR 69.57 (mL/min/1.73m2); Glucose 105 mg/dL (74-106); Potassium 4.1 mmol/L (3.5-5.1); Sodium 140 mmol/L (136-145)
[2023-04-12] MEDS: Magnesium Oxide 400 MG TAB PO (07:56)
[2023-04-12] MEDS: Potassium Chloride 20 MEQ TABCR PO ×3 (07:56→17:10)
[2023-04-12] MEDS: Gabapentin 600 MG TAB PO ×3 (07:56→20:11)
[2023-04-12] MEDS: Sertraline 100 MG TAB 300 MG PO (07:57)
[2023-04-12] MEDS: Ferrous Sulfate 325 MG TAB PO (07:57)
[2023-04-12] MEDS: Ziprasidone 20 MG CAP 60 MG PO ×2 (07:57→20:12)
[2023-04-12] MEDS: Allopurinol 100 MG TAB PO (07:57)
[2023-04-12] MEDS: Famotidine 20 MG TAB PO (07:57)
[2023-04-12] MEDS: dilTIAZem CD 120 MG CAPCR PO (07:57)
[2023-04-12] MEDS: Apixaban 5 MG TAB PO ×2 (07:58→20:12)
[2023-04-12] MEDS: Multivitamin TAB 1 TAB PO (07:58)
[2023-04-12] MEDS: Ezetimibe 10 MG TAB PO (07:58)
[2023-04-12] MEDS: Propranolol 20 MG TAB 40 MG PO (07:59)
[2023-04-12 15:11] VITALS: BP 97/54; PULSE 57; RESP 20; TEMP 37.8; O2SAT 98
[2023-04-12 15:12] LABS: Vancomycin, Trough 10.9 ug/mL (10.0-20.0)
[2023-04-12] MEDS: VANCOMYCIN/WATER (PEG) 1.5 GM/300 ML BAG IV (17:00)
--- NOTE | 2023-04-12 17:14 | W.PM.PROGNOT ---
Date of Service Date of service: 04/12/23 Time of Service: 17:14 Assessment and Plan Assessment and plan (1) Cellulitis: Status: Acute Assessment and plan: continue vancomycin, discontinue Cefazolin, change to Cefepime (Discussion with Dr Klein) leg is minimally improved cultures pending - neg @ 72h elevation lower ext repeat lactate trending downward from 4.0 to 0.9 pain management - continue Gabapentin 600 mg TID, tylenol and toradol - reports good pain relief (2) Hypokalemia: Status: Acute Assessment and plan: replete and follow 4.1 today - none given (3) History of DVT (deep vein thrombosis): Status: Acute Assessment and plan: Continue chronic anticoagulation with Apixaban. (4) Schizoaffective disorder: Status: None Assessment and plan: Continue home regimen . (5) DVT prophylaxis: Status: Acute Assessment and plan: On therapeutic anticoagulation. Also on PPI therapy for GI Prophylaxis. discussed with Dr. Klein Subjective Subjective Patient reports: no new complaints, pain is less, tolerating a regular diet, voiding w/o difficulty, bowel movement and afebrile; denies diarrhea, nausea or vomiting Interval history since last seen: Hayden states he is feeling better today, there is less burning. He is eating well and drinking plenty of fluids. Exam Const General: cooperative, no acute distress and disheveled Orientation: alert and awake HENWV Head: normal to inspection Face and sinus: normal facial exam Mouth: mucous membranes dry Eyes General: appearance normal, both eyes and all related structures Pupils: PERRL EOM: EOM intact bilaterally Neck Neck: normal visual inspection and No submandibular swelling Lymphatic: no lymphadenopathy noted Chest Chest: normal inspection of the chest and no tenderness Resp Effort & Inspection: normal respiratory effort and able to speak in complete sentences Auscultation: clear to auscultation bilaterally Cardio Rate: regular rate Rhythm: regular rhythm GI Inspection: normal to inspection Palpation: soft, not firm, not rigid and nontender Auscultation: hypoactive bowel sounds Back/Spine/Pelvis Thoracic/Lumbar Spine: thoracic and lumbar spine normal to inspection Skin General skin exam: dry skin (flaky, extensive dry, L>R) Lesions: lesion noted (abrasion to mid left lower extremity) Rashes: rashes noted (left lower extremity) Neuro General: patient alert, patient awake and moves all extremities Cognition: normal cognition Speech: speech normal Motor: muscle tone normal throughout and strength 5/5 throughout Extrem General: full ROM Other: Patient has scaling and dry skin noted to the bilateral distal lower extremities. He has circumferential erythema, edema and tenderness extending from the proximal left leg just above knee cap down to the foot. (marked with sharpie today). His bilateral distal pulses are intact. There is no obvious abscess, crepitus, drainage or bleeding. Psych Appearance: grossly normal Mental Status: mental status grossly normal Speech and Movement: speech and movement normal Affect: normal affect Objective Last Vital Signs Temp 37.8 C H 04/12/23 15:11 Pulse 57 L 04/12/23 15:11 Resp 20 04/12/23 15:11 BP 97/54 L 04/12/23 15:11 Pulse Ox 98 04/12/23 15:11 Laboratory Results - last 24 hr 04/12/23 04/12/23 04/12/23 07:15 07:15 07:15 WBC 7.38 RBC 4.68 Hgb 14.0 Hct 42.3 MCV 90 MCH 29.9 MCHC 33.1 RDW 15.1 H Plt Count 145 D MPV 10.7 Immature Gran % 0.7 Neutrophils % 74.7 Lymphocytes % 11.4 Monocytes % 10.2 Eosinophils % 2.6 Basophils % 0.4 Nucleated RBC % 0.0 Absolute Neutrophils 5.52 Absolute Lymphocytes 0.84 L Absolute Monocytes 0.75 Absolute Eosinophils 0.19 Absolute Basophils 0.03 VBG Lactate 0.9 Sodium 140 Potassium 4.1 Chloride 109 H Carbon Dioxide 21.3 Anion Gap 9.7 BUN 20 H Creatinine 1.1 Est GFR (CKD-EPI 2020) 69.57 Glucose 105 Calcium 9.1 Magnesium 2.0 Vancomycin Trough 04/12/23 14:51 WBC RBC Hgb Hct MCV MCH MCHC RDW Plt Count MPV Immature Gran % Neutrophils % Lymphocytes % Monocytes % Eosinophils % Basophils % Nucleated RBC % Absolute Neutrophils Absolute Lymphocytes Absolute Monocytes Absolute Eosinophils Absolute Basophils VBG Lactate Sodium Potassium Chloride Carbon Dioxide Anion Gap BUN Creatinine Est GFR (CKD-EPI 2020) Glucose Calcium Magnesium Vancomycin Trough 10.9 Time Spent with Patient Time Spent with Patient: 25-34 minutes Time was spent: preparing to see the patient(eg.review tests), ordering medications,tests, procedures, referring, communicating with other health veterinarian laboratory animal care, indepentently interpreting results, counseling the patient and care coordination
[2023-04-12] MEDS: Propranolol 20 MG TAB PO (20:12)
[2023-04-12] MEDS: CEFEPIME 2 GM in Normal Saline 100 ML IVPB (20:48)
[2023-04-12] MEDS: Normal Saline Flush 10 ML SYR IVP (20:49)
[2023-04-12] MEDS: clonazePAM 1 MG TAB PO (21:55)
[2023-04-12] MEDS: traZODone 50 MG TAB 100 MG PO (21:55)
[2023-04-12] MEDS: Rosuvastatin 10 MG TAB PO (21:55)
[2023-04-12 23:25] VITALS: BP 109/67; PULSE 60; RESP 20; TEMP 37.4; O2SAT 94
[2023-04-13] MEDS: CEFEPIME 2 GM in Normal Saline 100 ML IVPB ×3 (03:53→19:42)
[2023-04-13] MEDS: Normal Saline 500 ML 30 ML IV (03:54)
[2023-04-13 06:52] VITALS: BP 118/72; PULSE 55; RESP 16; TEMP 37; O2SAT 99
[2023-04-13 07:43] LABS: Abs Immature Grans 0.08 10^3/uL (0.0-0.06); Absolute Basophil Count 0.05 10^3/uL (0.0-0.2); Absolute Eosinophil Count 0.19 10^3/uL (0.0-0.7); Absolute Monocyte Count 0.61 10^3/uL (0.1-0.8); Absolute Neutrophil Count 4.83 10^3/uL (1.2-6.7); Basophils % 0.7; Eosinophils % 2.8; HCT 41.1 % (40.0-50.0); HGB 13.5 g/dL (13.5-17.5); Immature Grans % 1.2; MCH 29.8 pg (27.0-33.0); MCHC 32.8 % (32.0-36.0); MCV 91 fL (80-95); MPV 11.5 fL (8.0-11.0); Monocytes % 8.9; Neutrophils % 70.4; Platelet Count 131 10^3/uL (130-400); RBC 4.53 10^6/uL (4.36-5.78); RDW-SD 50.5 fL; WBC 6.86 10^3/uL (4.4-10.8)
[2023-04-13] MEDS: Apixaban 5 MG TAB PO ×2 (07:46→19:43)
[2023-04-13] MEDS: Acetaminophen 325 MG TAB 650 MG PO ×2 (07:46→15:21)
[2023-04-13] MEDS: Gabapentin 600 MG TAB PO ×3 (07:46→19:43)
[2023-04-13] MEDS: Ezetimibe 10 MG TAB PO (07:46)
[2023-04-13] MEDS: Ferrous Sulfate 325 MG TAB PO (07:47)
[2023-04-13] MEDS: Propranolol 20 MG TAB 40 MG PO (07:47)
[2023-04-13] MEDS: Ziprasidone 20 MG CAP 60 MG PO ×2 (07:48→19:43)
[2023-04-13] MEDS: dilTIAZem CD 120 MG CAPCR PO (07:49)
[2023-04-13] MEDS: Sertraline 100 MG TAB 300 MG PO (07:49)
[2023-04-13] MEDS: Magnesium Oxide 400 MG TAB PO (07:49)
[2023-04-13] MEDS: Multivitamin TAB 1 TAB PO (07:50)
[2023-04-13] MEDS: Allopurinol 100 MG TAB PO (07:50)
[2023-04-13] MEDS: Famotidine 20 MG TAB PO (07:50)
[2023-04-13] MEDS: Potassium Chloride 20 MEQ TABCR PO (07:50)
[2023-04-13] MEDS: Normal Saline Flush 10 ML SYR IVP ×5 (07:53→19:42)
[2023-04-13 07:57] LABS: Anion Gap 8.3 mmol/L (3-11); BUN 22 mg/dL (7-18); CO2 21.7 mmol/L (21.0-32.0); CREATININE 0.9 mg/dL (0.70-1.30); Calcium 9.1 mg/dL (8.5-10.1); Chloride 108 mmol/L (98-107); Estimated GFR 88.51 (mL/min/1.73m2); Glucose 105 mg/dL (74-106); Potassium 4.7 mmol/L (3.5-5.1); Sodium 138 mmol/L (136-145)
--- NOTE | 2023-04-13 08:00 | DI.CT_ITS ---
Exam(s) CT LOWER EXTREMITY LT W EXAM: CT LOWER EXTREMITY LT W CLINICAL HISTORY: LLE cellulitis - ? abscess. TECHNIQUE: Imaging Protocol: Axial computed tomography images with coronal and sagittal reformatted images were created and reviewed. CONTRAST MATERIAL: Intravenous: Omnipaque 350 Contrast volume:100 ml Contrast route:IV - COMPARISON: CR,XR XR TIB/FIB RT from 11/27/2022 FINDINGS: Bones: The bones appear osteoporotic. There is no evidence of fracture or dislocation. Bony alignme nt is satisfactory. No osteomyelitic changes are identified. Degenerative changes at the knee.. N o joint effusion. Chondrocalcinosis. No lytic or sclerotic lesions are identified. Soft Tissues: Diffuse edema greatest in the medial and posterior subcutaneous fat of the lower leg a nd ankle. No drainable collection. No muscle edema identified. IMPRESSION: Findings consistent with cellulitis. No evidence of abscess. Bones appear osteoporotic. RADIATION DOSE DELIVERED: 510.73mGy.cm Total DLP DATA REPOSITORY: All CT scans at this facility are submitted to the National Radiology Data Registry (NRDR) Dose Index Registry (DIR) with the [employer] (A[employer]). RADIATION OPTIMIZATION: All CT scans at this facility use at least one of these dose optimization te chniques: automated exposure control; mA and/or kV adjustment per patient size (includes targeted exa ms where dose is matched to clinical indication); or iterative reconstruction.
[2023-04-13 08:15] LABS: Procalcitonin 0.1 ng/mL
--- NOTE | 2023-04-13 09:27 | IN_ITS ---
Date of service: 04/13/23 Time of Service: 09:08 PT Notes Visit Reasons: Cellulitis Physical Therapy Inpatient Initial Evaluation Date: 04/13/2023 Referring Doctor: Sofie Klein MD PT Orders: PT CONSULT: Limited ability Precautions: Fall. Standard. Activity as tolerated. Patient Profile/Admitting Diagnosis:? Hayden is a 77-year-old male admitted for management of left lower extremity cellulitis, hypokalemia, history of DVT, and schizoaffective disorder. PMHX: All Active Problems?(Updated 04/09/23 @ 17:27 by Danay Bush NP) Cellulitis (Acute) Screening for colon cancer (Acute) Right leg injury (Acute) Tubular adenoma of colon (Acute) CAD (coronary artery disease) (Chronic) Bipolar disorder (Acute) COBURN (dyspnea on exertion) (Acute) Anemia (Chronic) Pulmonary hypertension (Acute) History of DVT (deep vein thrombosis) (Acute) DVT prophylaxis (Acute) Ambulatory dysfunction (Acute) Syncope (Acute) Rhabdomyolysis (Acute) Medical History? 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 Appendectomy (~2006) Colonoscopy - MAC (~2010) Colonoscopy - MAC (04/20/17) EGD - MAC (~2010) EGD - MAC (04/20/17) Hernia Repair, Incisional (~2007) Social History/Home Situation: Lives alone in a private home.? Independent with use of FWW.? Has had 2 falls in the past year. Equipment Owned/DME: FWW Subjective: Reports 6/10 pain in the R leg with weight bearing.? Denies headache,? chest pain, and lightheadedness.? Objective: General Observation: Supine in bed.? L leg and footswollen and erythematous.? Onychauxis in B 1st and 2nd toes noted.? Mental Status: Alert and oriented as to person, place, time, and purpose. Able to pay attention, focus, and respond appropriately. Pain: 6/10 in L leg and foot Vital Signs: Closely monitored by nursing staff ROM: Right Upper Extremity: ? Shoulder Flexion WFL. Shoulder abduction WFL. Elbow flexion WFL. Wrist flexion WFL. Functional opening and closing of hand WFL. Left Upper Extremity:? Shoulder Flexion WFL. Shoulder abduction WFL. Elbow flexion WFL. Wrist flexion WFL. Functional opening and closing of hand WFL. Right Lower Extremity: Hip flexion WFL. Hip abduction WFL. Knee flexion WFL. Ankle dorsiflexion WFL. Ankle plantarflexion WFL. Left Lower Extremity: Hip flexion WFL. Hip abduction WFL. Knee flexion 30 degrees to 90 degrees.? Knee extension -30 degrees due to pain. Ankle dorsiflexion to neutral only. Ankle plantarflexion WFL. Strength: Right Upper Extremity: Shoulder flexors 4/5. Shoulder abductors 4/5. Elbow flexors 5/5. Elbow extensors 5/5. Engineering Manager strong. Left Upper Extremity: Shoulder flexors 4/5. Shoulder abductors 4/5. Elbow flexors 5/5. Elbow extensors 5/5. Engineering Manager strong. Right Lower Extremity: Hip flexors 4/5. Hip abductors 4/5. Knee flexors 5/5. Knee extensors 4/5. Ankle dorsiflexors 4/5. Ankle plantarflexors 4/5. Left Lower Extremity: Hip flexors 4/5. Hip abductors 4/5. Knee flexors 3-/5. Knee extensors 3-/5. Ankle dorsiflexors 3-/5. Ankle plantarflexors 4-/5. Bed Mobility/Transfers: Supine to sit contact guard assist Sit to supine contact guard assist Sit to stand minimal assist with FWW Stand to sit contact guard assist with FWW Bed to reclining chair with contact guard assist with FWW Reclining chair to bed with contact guard assist with FWW Gait: Instructed patient with level surface ambulation of 30? feet + 5 feet requiring? contact guard assist. Veronica decreased. Step height decreased on L. Step length decreased on L.? Gait mildly antalgic. Balance: Static Sitting: Normal Dynamic Sitting: Normal Static Standing: Fair Dynamic Standing: Fair Special Tests: Mobility Limitations Standardized Measure [facility] AM-PAC 6 clicks Basic Mobility Inpatient Short Form: Raw Score: 18? CMS Score: 47% deficit? ? ? Informed Consent/Education:? Patient was instructed in purpose of PT consult and plan of care. Agreeable to proceed with established PT POC to achieve personal goals. Assessment: Difficulty walking,? increased dependence with transfers and ambulation,? and pain in L LE impact gait pattern and increase risk for falls. Patient presents with clinical signs and symptoms consistent with current/admitting diagnoses that have resulted to mobility limitations, gait instability, generalized weakness, and overall ADL decline as demonstrated by the following impairment level findings: 1.? Decreased strength to L LE major muscle groups 2.? Impaired sitting/standing balance 3.? Impaired activity tolerance 4.? Limitation of joint range of motion in L knee and ankle 5.? Cellulitis in L leg Impairments are contributing to the following functional limitations: 1.? Decline in bed mobility skills 2.? Decline in transfer skills 3.? Difficulty with ambulation without assistive device and physical assistance 4.? Increased completion time for mobility ADL performance 5.? Increased risk for falls 6.? Difficulty with managing steps alone safely Patient is assessed as a 21288 moderate complexity based on the following: History: 77-year-old male with past medical history as indicated above Examination: Demonstrable impairment in strength, balance, and mobility level with underlying impairments and functional limitations as exhibited above as well as deficit score of 47% utilizing the [facility] Mobility Inpatient Short Form Presentation: Evolving Decision Makin moderate complexity Goals: Goals X1 week 1. Supine-Sit independent 2. Sit-Supine independent 3. Sit-Stand independent 4. Stand-Sit independent with FWW 5. Bed-Chair independent with FWW 6. Chair-Bed independent with FWW 7. Independent gait on level surface with use of FWW for at least 300 feet without report of pain nor dyspnea 8. Independent stair negotiation while holding onto B rails for at least 3 steps without report of pain nor dyspnea 9. Independent with home exercise program 10. Good static and dynamic standing balance/tolerance Plan of Care/Treatment Plan: 1-2x/day, 7 days/week x 1 week. Plan of care has been reviewed with the FRONT OFFICE MEDICAL ASSISTANT providing the service under Physical Therapy direction. Initiate Physical Therapy intervention for pain management as needed, strengthening, bed mobility, transfers, gait, stairs, balance training, and use of assistive device. DISCHARGE RECOMMENDATIONS: [] ? Home with no services [] [X] ? Home with services.? Patient will benefit from home health PT services in order to progress mobility level using least restrictive assistive ambulatory device, assess home safety, identify additional equipment needs, and establish a functional maintenance program that will increase ability of patient to remain at home. [] ? Home with outpatient PT [] [] ? SNF for continued rehabilitation [] [] ? Admissions Specialist Care [] [] ? SNF versus LTC based on ability to participate and progress [] TREATMENT CODE/TIME: 67817 x 28 minutes beginning at 9:08 AM. Thank you for the opportunity to participate in the care of this patient. Jess Lacy PT, DPT, CLT [facility] [place], [place]
[2023-04-13] MEDS: Normal Saline - Diluent 50 ML VIAL IJ (09:54)
[2023-04-13] MEDS: Omnipaque 350 MG/ML 500 ML BTL-Imaging package 100 ML IJ (09:56)
--- NOTE | 2023-04-13 09:58 | PDOC.CMPRO ---
Date of service: 04/13/23 Time of Service: 09:58 Care Management Progress Note Progress Note Text Progress Note Text: S/O:Ayaz was sitting up in a chair when CM met with him. He appeared to be in good spirits and engaged easily with CM. Ayaz reported that his right leg is still painful, especially with ambulation. He has only walked short distance with a walker. He noted that he might need some home health services at discharge as he has not been moving much. Ayaz had a low grade fever yesterday but is afbebrile today . His procalcitonin remains elevated at 14.2 but is decreased from 2 days ago when it was >25. A: Ayaz is a 77 year old man admitted on 04/09/23 with cellulitis P:Anticipate Ayaz will return home, possibly with? new home health services for nursing and PT when medically cleared. He will follow up with his PCP and plan of care as prescribed and transport with a friend. CM will follow and assess for discharge planning needs.
--- NOTE | 2023-04-13 14:22 | W.PM.PROGNOT ---
Date of Service Date of service: 04/13/23 Time of Service: 14:22 Assessment and Plan Assessment and plan (1) Cellulitis: Status: Acute Assessment and plan: Continue Cefepime cultures pending - neg @ 72h elevation lower ext repeat lactate trending downward from 4.0 to 0.9 Procalcitonin 0.1 pain management - continue Gabapentin 600 mg TID, tylenol and toradol - reports good pain relief Leg is improving, receiding down from knee now ~5 cm, still very swollen around the ankle (2) Hypokalemia: Status: Acute Assessment and plan: replete and follow 4.7 today - oral K held (3) History of DVT (deep vein thrombosis): Status: Acute Assessment and plan: Continue chronic anticoagulation with Apixaban. (4) Schizoaffective disorder: Status: None Assessment and plan: Continue home regimen . (5) DVT prophylaxis: Status: Acute Assessment and plan: On therapeutic anticoagulation. Also on PPI therapy for GI Prophylaxis. discussed with Dr. Higuera Subjective Subjective Patient reports: no new complaints, pain is less, flatus, bowel movement and afebrile; denies diarrhea, nausea or vomiting Exam Const General: cooperative, no acute distress and disheveled Orientation: alert and awake HENMT Head: normal to inspection Face and sinus: normal facial exam Mouth: mucous membranes dry Eyes General: appearance normal, both eyes and all related structures Pupils: PERRL EOM: EOM intact bilaterally Neck Neck: normal visual inspection and No submandibular swelling Lymphatic: no lymphadenopathy noted Chest Chest: normal inspection of the chest and no tenderness Resp Effort & Inspection: normal respiratory effort and able to speak in complete sentences Auscultation: clear to auscultation bilaterally Cardio Rate: regular rate Rhythm: regular rhythm GI Inspection: normal to inspection Palpation: soft, not firm, not rigid and nontender Auscultation: hypoactive bowel sounds Back/Spine/Pelvis Thoracic/Lumbar Spine: thoracic and lumbar spine normal to inspection Skin General skin exam: dry skin (flaky, extensive dry, L>R) Lesions: lesion noted (abrasion to mid left lower extremity) Rashes: rashes noted (left lower extremity) Neuro General: patient alert, patient awake and moves all extremities Cognition: normal cognition Speech: speech normal Motor: muscle tone normal throughout and strength 5/5 throughout Extrem General: full ROM Other: Patient has scaling and dry skin noted to the bilateral distal lower extremities. He has circumferential erythema, edema and tenderness extending from the proximal left leg just now below the knee cap down to the foot. Bilateral distal pulses are intact. There is no obvious abscess, crepitus, drainage or bleeding. CT of LLE today negative for acute process Psych Appearance: grossly normal Mental Status: mental status grossly normal Speech and Movement: speech and movement normal Affect: normal affect Objective Last Vital Signs Temp 37 C 04/13/23 06:52 Pulse 55 L 04/13/23 06:52 Resp 16 04/13/23 06:52 BP 118/72 04/13/23 06:52 Pulse Ox 99 04/13/23 06:52 Laboratory Results - last 24 hr 04/12/23 04/13/23 04/13/23 14:51 06:40 06:40 WBC RBC Hgb Hct MCV MCH MCHC RDW Plt Count MPV Immature Gran % Neutrophils % Lymphocytes % Monocytes % Eosinophils % Basophils % Nucleated RBC % Absolute Neutrophils Absolute Lymphocytes Absolute Monocytes Absolute Eosinophils Absolute Basophils Sodium 138 Potassium 4.7 Chloride 108 H Carbon Dioxide 21.7 Anion Gap 8.3 BUN 22 H Creatinine 0.9 Est GFR (CKD-EPI 2020) 88.51 Glucose 105 Calcium 9.1 Magnesium 2.0 C-Reactive Protein 14.20 H Procalcitonin 0.1 Vancomycin Trough 10.9 04/13/23 06:40 WBC 6.86 RBC 4.53 Hgb 13.5 Hct 41.1 MCV 91 MCH 29.8 MCHC 32.8 RDW 15.0 H Plt Count 131 MPV 11.5 H Immature Gran % 1.2 Neutrophils % 70.4 Lymphocytes % 16.0 Monocytes % 8.9 Eosinophils % 2.8 Basophils % 0.7 Nucleated RBC % 0.0 Absolute Neutrophils 4.83 Absolute Lymphocytes 1.10 L Absolute Monocytes 0.61 Absolute Eosinophils 0.19 Absolute Basophils 0.05 Sodium Potassium Chloride Carbon Dioxide Anion Gap BUN Creatinine Est GFR (CKD-EPI 2020) Glucose Calcium Magnesium C-Reactive Protein Procalcitonin Vancomycin Trough Time Spent with Patient Time Spent with Patient: 25-34 minutes Time was spent: preparing to see the patient(eg.review tests), ordering medications,tests, procedures, referring, communicating with other health career development counselor, indepentently interpreting results, counseling the patient and care coordination
--- NOTE | 2023-04-13 14:22 | W.NUTRFU ---
Date of service: 04/13/23 Time of Service: 14:22 Nutrition Note NOTE: Pt admitted and started on regular meal plan. PO intake adequate. Weight loss of 22 lbs noted in last 6 months, beneficial. BMI continues to indicate class 1 obesity. Will continue to follow and support as needed. Not considered at nutritional risk. Time Spent in Nutritional Counseling and Treatment: 0
[2023-04-13 15:22] VITALS: BP 115/65; PULSE 50; RESP 12; TEMP 37.4; O2SAT 99
[2023-04-13] MEDS: VANCOMYCIN/WATER (PEG) 1.5 GM/300 ML BAG IV (16:12)
--- NOTE | 2023-04-13 17:18 | PT.INTREAT ---
Date of service: 04/13/23 Time of Service: 14:15 PT Notes Visit Reasons: Cellulitis Physical Therapy Inpatient Initial Evaluation Date: 04/13/2023 Referring Doctor: Sofie Klein MD PT Orders: PT CONSULT: Limited ability Precautions: Fall. Standard. Activity as tolerated. Patient Profile/Admitting Diagnosis: Hayden is a 77-year-old male admitted for management of left lower extremity cellulitis, hypokalemia, history of DVT, and schizoaffective disorder. PMHX: All Active Problems?(Updated 04/09/23 @ 17:27 by Danay Bush NP) Cellulitis (Acute) Screening for colon cancer (Acute) Right leg injury (Acute) Tubular adenoma of colon (Acute) CAD (coronary artery disease) (Chronic) Bipolar disorder (Acute) COBURN (dyspnea on exertion) (Acute) Anemia (Chronic) Pulmonary hypertension (Acute) History of DVT (deep vein thrombosis) (Acute) DVT prophylaxis (Acute) Ambulatory dysfunction (Acute) Syncope (Acute) Rhabdomyolysis (Acute) Medical History? 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 Appendectomy (~2006) Colonoscopy - MAC (~2010) Colonoscopy - MAC (04/20/17) EGD - MAC (~2010) EGD - MAC (04/20/17) Hernia Repair, Incisional (~2007) Social History/Home Situation: Lives alone in a private home. Independent with use of FWW. Has had 2 falls in the past year. Equipment Owned/DME: FWW Subjective: Reports 6/10 pain in the R leg with weight bearing. Denies headache, chest pain, and lightheadedness. Objective: General Observation: Supine in bed. L leg and footswollen and erythematous. Onychauxis in B 1st and 2nd toes noted. Mental Status: Alert and oriented as to person, place, time, and purpose. Able to pay attention, focus, and respond appropriately. Pain: 6/10 in L leg and foot Vital Signs: Closely monitored by nursing staff ROM: Right Upper Extremity: Shoulder Flexion WFL. Shoulder abduction WFL. Elbow flexion WFL. Wrist flexion WFL. Functional opening and closing of hand WFL. Left Upper Extremity: Shoulder Flexion WFL. Shoulder abduction WFL. Elbow flexion WFL. Wrist flexion WFL. Functional opening and closing of hand WFL. Right Lower Extremity: Hip flexion WFL. Hip abduction WFL. Knee flexion WFL. Ankle dorsiflexion WFL. Ankle plantarflexion WFL. Left Lower Extremity: Hip flexion WFL. Hip abduction WFL. Knee flexion 30 degrees to 90 degrees. Knee extension -30 degrees due to pain. Ankle dorsiflexion to neutral only. Ankle plantarflexion WFL. Strength: Right Upper Extremity: Shoulder flexors 4/5. Shoulder abductors 4/5. Elbow flexors 5/5. Elbow extensors 5/5. Mortgage Loan Counselor strong. Left Upper Extremity: Shoulder flexors 4/5. Shoulder abductors 4/5. Elbow flexors 5/5. Elbow extensors 5/5. Mortgage Loan Counselor strong. Right Lower Extremity: Hip flexors 4/5. Hip abductors 4/5. Knee flexors 5/5. Knee extensors 4/5. Ankle dorsiflexors 4/5. Ankle plantarflexors 4/5. Left Lower Extremity: Hip flexors 4/5. Hip abductors 4/5. Knee flexors 3-/5. Knee extensors 3-/5. Ankle dorsiflexors 3-/5. Ankle plantarflexors 4-/5. Bed Mobility/Transfers: Supine to sit contact guard assist Sit to supine contact guard assist Sit to stand minimal assist with FWW Stand to sit contact guard assist with FWW Bed to reclining chair with contact guard assist with FWW Reclining chair to bed with contact guard assist with FWW Gait: Instructed patient with level surface ambulation of 30 feet + 5 feet requiring contact guard assist. Veronica decreased. Step height decreased on L. Step length decreased on L. Gait mildly antalgic. Balance: Static Sitting: Normal Dynamic Sitting: Normal Static Standing: Fair Dynamic Standing: Fair Special Tests: Mobility Limitations Standardized Measure [employer] AM-PAC 6 clicks Basic Mobility Inpatient Short Form: Raw Score: 18 CMS Score: 47% deficit Informed Consent/Education: Patient was instructed in purpose of PT consult and plan of care. Agreeable to proceed with established PT POC to achieve personal goals. Assessment: Difficulty walking, increased dependence with transfers and ambulation, and pain in L LE impact gait pattern and increase risk for falls. Patient presents with clinical signs and symptoms consistent with current/admitting diagnoses that have resulted to mobility limitations, gait instability, generalized weakness, and overall ADL decline as demonstrated by the following impairment level findings: 1. Decreased strength to L LE major muscle groups 2. Impaired sitting/standing balance 3. Impaired activity tolerance 4. Limitation of joint range of motion in L knee and ankle 5. Cellulitis in L leg Impairments are contributing to the following functional limitations: 1. Decline in bed mobility skills 2. Decline in transfer skills 3. Difficulty with ambulation without assistive device and physical assistance 4. Increased completion time for mobility ADL performance 5. Increased risk for falls 6. Difficulty with managing steps alone safely Patient is assessed as a 55533 moderate complexity based on the following: History: 77-year-old male with past medical history as indicated above Examination: Demonstrable impairment in strength, balance, and mobility level with underlying impairments and functional limitations as exhibited above as well as deficit score of 47% utilizing the [employer] Mobility Inpatient Short Form Presentation: Evolving Decision Makin moderate complexity Goals: Goals X1 week 1. Supine-Sit independent 2. Sit-Supine independent 3. Sit-Stand independent 4. Stand-Sit independent with FWW 5. Bed-Chair independent with FWW 6. Chair-Bed independent with FWW 7. Independent gait on level surface with use of FWW for at least 300 feet without report of pain nor dyspnea 8. Independent stair negotiation while holding onto B rails for at least 3 steps without report of pain nor dyspnea 9. Independent with home exercise program 10. Good static and dynamic standing balance/tolerance Plan of Care/Treatment Plan: 1-2x/day, 7 days/week x 1 week. Plan of care has been reviewed with the MACHINE FEATHEREDGER AND REDUCER providing the service under Physical Therapy direction. Initiate Physical Therapy intervention for pain management as needed, strengthening, bed mobility, transfers, gait, stairs, balance training, and use of assistive device. DISCHARGE RECOMMENDATIONS: [] Home with no services [] [X] Home with services. Patient will benefit from home health PT services in order to progress mobility level using least restrictive assistive ambulatory device, assess home safety, identify additional equipment needs, and establish a functional maintenance program that will increase ability of patient to remain at home. [] Home with outpatient PT [] [] SNF for continued rehabilitation [] [] [facility] [] [] SNF versus LTC based on ability to participate and progress [] TREATMENT CODE/TIME: 31524 x 28 minutes beginning at 9:08 AM. Thank you for the opportunity to participate in the care of this patient. Jess Lacy PT, DPT, CLT [facility] [place], [place]
[2023-04-13] MEDS: Propranolol 20 MG TAB PO (19:43)
[2023-04-13] MEDS: traZODone 50 MG TAB 100 MG PO (21:08)
[2023-04-13] MEDS: clonazePAM 1 MG TAB PO (21:08)
[2023-04-13] MEDS: Rosuvastatin 10 MG TAB PO (21:09)
[2023-04-13 23:47] VITALS: BP 116/64; PULSE 49; RESP 14; TEMP 37.1; O2SAT 98
[2023-04-14] MEDS: CEFEPIME 2 GM in Normal Saline 100 ML IVPB ×3 (04:00→19:36)
[2023-04-14 07:45] VITALS: BP 145/74; PULSE 65; RESP 17; TEMP 36.6; O2SAT 95
[2023-04-14 08:10] LABS: Abs Immature Grans 0.18 10^3/uL (0.0-0.06); Absolute Basophil Count 0.05 10^3/uL (0.0-0.2); Absolute Eosinophil Count 0.24 10^3/uL (0.0-0.7); Absolute Lymphocyte Count 0.96 10^3/uL (1.2-3.4); Absolute Monocyte Count 0.69 10^3/uL (0.1-0.8); Absolute Neutrophil Count 5.05 10^3/uL (1.2-6.7); Basophils % 0.7; Eosinophils % 3.3; HCT 42.3 % (40.0-50.0); Immature Grans % 2.5; Lymphocytes % 13.4; MCHC 33.1 % (32.0-36.0); MCV 91 fL (80-95); Monocytes % 9.6; Neutrophils % 70.5; RBC 4.67 10^6/uL (4.36-5.78); RDW-SD 49.8 fL; WBC 7.17 10^3/uL (4.4-10.8)
[2023-04-14 08:20] LABS: Diff Comment Diff Reviewed; RBC Morphology Normal
[2023-04-14 08:22] LABS: Anion Gap 5.5 mmol/L (3-11); BUN 18 mg/dL (7-18); C-Reactive Protein 10.55 mg/dL (0.0-0.3); CO2 24.5 mmol/L (21.0-32.0); CREATININE 0.9 mg/dL (0.70-1.30); Calcium 9.2 mg/dL (8.5-10.1); Chloride 108 mmol/L (98-107); Estimated GFR 88.51 (mL/min/1.73m2); Glucose 109 mg/dL (74-106); Potassium 4.3 mmol/L (3.5-5.1); Sodium 138 mmol/L (136-145)
--- NOTE | 2023-04-14 08:55 | PDOC.CMPRO ---
Date of service: 04/14/23 Time of Service: 08:55 Care Management Progress Note Progress Note Text Progress Note Text: S/O:Ayaz was sitting up in a chair when CM met with him. He remains pleasant and engaged well with CM. Ayaz indicated that his leg continues to hurt. He has only been up to the chair and walking in his room. He did state that he feels he will benefit from home health services when he is discharged home. Ayaz's vital signs are stable and he has been afebrile for 48 hours. A: Ayaz is a 77 year old man admitted on 04/09/23 with cellulitis P:Anticipate Ayaz will return home, likely with? new home health services for nursing and PT when medically cleared. He will follow up with his PCP and plan of care as prescribed and transport with a friend. CM will follow and assess for discharge planning needs.
[2023-04-14] MEDS: Multivitamin TAB 1 TAB PO (09:10)
[2023-04-14] MEDS: Apixaban 5 MG TAB PO ×2 (09:10→19:37)
[2023-04-14] MEDS: Ferrous Sulfate 325 MG TAB PO (09:11)
[2023-04-14] MEDS: Acetaminophen 325 MG TAB 650 MG PO ×2 (09:11→13:07)
[2023-04-14] MEDS: Allopurinol 100 MG TAB PO (09:11)
[2023-04-14] MEDS: Famotidine 20 MG TAB PO (09:11)
[2023-04-14] MEDS: Gabapentin 600 MG TAB PO ×3 (09:12→19:37)
[2023-04-14] MEDS: Magnesium Oxide 400 MG TAB PO (09:12)
[2023-04-14] MEDS: dilTIAZem CD 120 MG CAPCR PO (09:12)
[2023-04-14] MEDS: Propranolol 20 MG TAB 40 MG PO (09:12)
[2023-04-14] MEDS: Sertraline 100 MG TAB 300 MG PO (09:13)
[2023-04-14] MEDS: Ziprasidone 20 MG CAP 60 MG PO ×2 (09:13→19:37)
[2023-04-14] MEDS: Ezetimibe 10 MG TAB PO (09:13)
[2023-04-14] MEDS: Normal Saline Flush 10 ML SYR IVP ×2 (09:14→19:36)
--- NOTE | 2023-04-14 10:42 | W.PM.PROGNOT ---
Date of Service Date of service: 04/14/23 Time of Service: 10:42 Assessment and Plan Assessment and plan (1) Cellulitis: Status: Acute Assessment and plan: Continue Cefepime and Vanc day 6 cultures neg @ 72h elevation lower ext repeat lactate normalized from 4.0 to 0.9 Procalcitonin normalized to 0.1 from 0.3 pain management - continue Gabapentin 600 mg TID, tylenol and toradol (2) Hypokalemia: Status: Acute Assessment and plan: replete and follow (3) History of DVT (deep vein thrombosis): Status: Acute Assessment and plan: Continue chronic anticoagulation with Apixaban. (4) Schizoaffective disorder: Status: None Assessment and plan: Continue home regimen . (5) DVT prophylaxis: Status: Acute Assessment and plan: On therapeutic anticoagulation. Also on PPI therapy for GI Prophylaxis. discussed with Dr. Higuera Subjective Subjective Patient reports: no new complaints, still having pain, tolerating liquids well, tolerating a regular diet, voiding w/o difficulty and afebrile; denies shortness of breath Exam Const General: cooperative and no acute distress Orientation: alert and awake HENMT Head: normal to inspection Face and sinus: normal facial exam Eyes General: appearance normal, both eyes and all related structures EOM: EOM intact bilaterally Neck Neck: normal visual inspection Chest Chest: normal inspection of the chest Resp Effort & Inspection: normal respiratory effort and able to speak in complete sentences Auscultation: clear to auscultation bilaterally Cardio Rate: regular rate Rhythm: regular rhythm GI Inspection: normal to inspection Palpation: soft and nontender Skin Lesions: lesion noted (abrasion to mid left lower extremity) Rashes: rashes noted (left lower extremity) and other (erythema within skin markings. ) Neuro General: patient alert, patient awake and moves all extremities Cognition: normal cognition Speech: speech normal Motor: muscle tone normal throughout and strength 5/5 throughout Psych Appearance: grossly normal Mental Status: mental status grossly normal Speech and Movement: speech and movement normal Affect: normal affect Objective Last Vital Signs Temp 36.6 C 04/14/23 07:45 Pulse 65 04/14/23 07:45 Resp 17 04/14/23 07:45 BP 145/74 H 04/14/23 07:45 Pulse Ox 95 04/14/23 07:45 Laboratory Results - last 24 hr 04/14/23 04/14/23 07:45 07:45 WBC 7.17 RBC 4.67 Hgb 14.0 Hct 42.3 MCV 91 MCH 30.0 MCHC 33.1 RDW 15.0 H Plt Count MPV Immature Gran % 2.5 Neutrophils % 70.5 Lymphocytes % 13.4 Monocytes % 9.6 Eosinophils % 3.3 Basophils % 0.7 Nucleated RBC % 0.0 Absolute Neutrophils 5.05 Absolute Lymphocytes 0.96 L Absolute Monocytes 0.69 Absolute Eosinophils 0.24 Absolute Basophils 0.05 RBC Morphology Normal Sodium 138 Potassium 4.3 Chloride 108 H Carbon Dioxide 24.5 Anion Gap 5.5 BUN 18 Creatinine 0.9 Est GFR (CKD-EPI 2020) 88.51 Glucose 109 H Calcium 9.2 Magnesium 2.0 C-Reactive Protein 10.55 H Time Spent with Patient Time Spent with Patient: 25-34 minutes Time was spent: preparing to see the patient(eg.review tests), obtaining and/or reviewing separately otained hiistory, ordering medications,tests, procedures, indepentently interpreting results and counseling the patient
[2023-04-14] MEDS: Normal Saline 500 ML 30 ML IV (11:31)
[2023-04-14 15:11] VITALS: BP 113/74; PULSE 50; RESP 17; TEMP 36.9; O2SAT 94
[2023-04-14] MEDS: VANCOMYCIN/WATER (PEG) 1.5 GM/300 ML BAG IV (16:21)
--- NOTE | 2023-04-14 17:16 | PT.INNT ---
Date of service: 04/14/23 Time of Service: 14:00 PT Notes Visit Reasons: Cellulitis Attempted to rouse patient for therapy at 14:00, 14:18, 15:26. Patient sleeping soundly, blinks eyes open when shoulder firmly jostled but falls promptly back asleep.
[2023-04-14] MEDS: Propranolol 20 MG TAB PO (19:37)
[2023-04-14] MEDS: Rosuvastatin 10 MG TAB PO (21:15)
[2023-04-14] MEDS: traZODone 50 MG TAB 100 MG PO (21:15)
[2023-04-14] MEDS: clonazePAM 1 MG TAB PO (21:15)
[2023-04-14 23:45] VITALS: BP 116/72; PULSE 52; RESP 17; TEMP 36.6; O2SAT 95
[2023-04-15] MEDS: CEFEPIME 2 GM in Normal Saline 100 ML IVPB ×3 (03:33→20:12)
[2023-04-15] MEDS: Normal Saline Flush 10 ML SYR IVP (03:34)
[2023-04-15 07:18] VITALS: BP 145/73; PULSE 50; RESP 17; TEMP 36.5; O2SAT 96
[2023-04-15 07:24] LABS: Abs Immature Grans 0.27 10^3/uL (0.0-0.06); Absolute Basophil Count 0.08 10^3/uL (0.0-0.2); Absolute Eosinophil Count 0.25 10^3/uL (0.0-0.7); Absolute Lymphocyte Count 1.13 10^3/uL (1.2-3.4); Absolute Monocyte Count 0.65 10^3/uL (0.1-0.8); Absolute Neutrophil Count 4.62 10^3/uL (1.2-6.7); Basophils % 1.1; Eosinophils % 3.6; HCT 43.2 % (40.0-50.0); HGB 14.4 g/dL (13.5-17.5); Immature Grans % 3.9; Lymphocytes % 16.1; MCH 30.5 pg (27.0-33.0); MCHC 33.3 % (32.0-36.0); MCV 92 fL (80-95); MPV 11.7 fL (8.0-11.0); Monocytes % 9.3; Nucleated RBC 0.3 % (0.0-0.3); Platelet Count 188 10^3/uL (130-400); RBC 4.72 10^6/uL (4.36-5.78); RDW 14.9 % (11.8-14.1); RDW-SD 50.5 fL
[2023-04-15 07:59] LABS: Anion Gap 7.2 mmol/L (3-11); BUN 19 mg/dL (7-18); CO2 23.8 mmol/L (21.0-32.0); CREATININE 1.1 mg/dL (0.70-1.30); Calcium 9.6 mg/dL (8.5-10.1); Chloride 108 mmol/L (98-107); Estimated GFR 69.57 (mL/min/1.73m2); Glucose 108 mg/dL (74-106); Sodium 139 mmol/L (136-145)
[2023-04-15] MEDS: Apixaban 5 MG TAB PO ×2 (08:01→20:12)
[2023-04-15] MEDS: Ziprasidone 20 MG CAP 60 MG PO ×2 (08:01→20:13)
[2023-04-15] MEDS: Allopurinol 100 MG TAB PO (08:01)
[2023-04-15] MEDS: dilTIAZem CD 120 MG CAPCR PO (08:01)
[2023-04-15] MEDS: Ferrous Sulfate 325 MG TAB PO (08:01)
[2023-04-15] MEDS: Multivitamin TAB 1 TAB PO (08:01)
[2023-04-15] MEDS: Ezetimibe 10 MG TAB PO (08:01)
[2023-04-15] MEDS: Famotidine 20 MG TAB PO (08:01)
[2023-04-15] MEDS: Gabapentin 600 MG TAB PO ×3 (08:01→20:12)
[2023-04-15] MEDS: Sertraline 100 MG TAB 300 MG PO (08:02)
[2023-04-15] MEDS: Propranolol 20 MG TAB 40 MG PO (08:02)
[2023-04-15] MEDS: Magnesium Oxide 400 MG TAB PO (08:02)
[2023-04-15 08:07] LABS: C-Reactive Protein 8.47 mg/dL (0.0-0.3)
--- NOTE | 2023-04-15 08:16 | PDOC.CMPRO ---
Date of service: 04/15/23 Time of Service: 08:16 Care Management Progress Note Progress Note Text Progress Note Text: S/O:Ayaz was sitting up in a chair when CM met with him. He remains pleasant in interaction and appears to be in good spirits. He stated that his leg is still painful but thinks it might be getting a little bit better. Ayaz is still not ambulating more than a few feet at a time. Today is day 7 of his hospital stay. Ayaz may benefit from short term rehab prior to returning home if his activity level remains the same. He is agreeable. If it is recommended that he go to a SNF, referrals will be sent to [facility] and to [facility]. A: Ayaz is a 77 year old man admitted on 04/09/23 with cellulitis P:Anticipate Ayaz will return home, likely with? new home health services for nursing and PT when medically cleared. It is possible that PT will recommend a short stay in rehab prior to returning home. If so, Ayaz prefers that referrals be sent to [facility] and [facility]. He will follow up with his PCP and plan of care as prescribed when he returns home. Transportation will be determined by disposition. CM will continue to support Ayaz and assess for discharge planning needs.
[2023-04-15 08:22] LABS: Vancomycin, Random 16.2 ug/mL
[2023-04-15] MEDS: Acetaminophen 325 MG TAB 650 MG PO ×3 (12:50→21:23)
--- NOTE | 2023-04-15 14:53 | PTTR_ITS ---
PT Notes Visit Reasons: Cellulitis Inpatient Physical Therapy Treatment Note [facility] Date: 04/15/23 SUBJECTIVE: Pt reports that his leg is in a lot of pain and that wt bearing is very difficult because of that. OBJECTIVE: THEREX: Pt was already up in the chiar when I arrived. Pt completed UE shoulder flexion x 10, horz abd x 10, rowing x 10, and circles 5x each way. Pt completed LAQ x 10, marching x 20, and hip abd with R LE x 10. Pt did not feel the L LE co uld complete the abd. Pt did not want to stand or ambulate due to the discomfort in his LE. ASSESSMENT: Pt tolerated his seated exercises fairly well, but did not feel ambulation was a good idea due to the pain. PLAN: Cont as per PT POC. TREATMENT CODE/TIME: TPx 1 12:55-1:10 (15)
[2023-04-15 15:16] VITALS: BP 121/71; PULSE 61; RESP 17; TEMP 36.4; O2SAT 96
[2023-04-15] MEDS: VANCOMYCIN/WATER (PEG) 1.5 GM/300 ML BAG IV (17:01)
[2023-04-15] MEDS: Propranolol 20 MG TAB PO (20:12)
[2023-04-15] MEDS: clonazePAM 1 MG TAB PO (21:22)
[2023-04-15] MEDS: Rosuvastatin 10 MG TAB PO (21:23)
[2023-04-15] MEDS: traZODone 50 MG TAB 100 MG PO (21:23)
[2023-04-15 23:23] VITALS: BP 116/64; PULSE 80; RESP 24; TEMP 36.8
[2023-04-16] MEDS: CEFEPIME 2 GM in Normal Saline 100 ML IVPB ×3 (03:43→21:22)
[2023-04-16] MEDS: Acetaminophen 325 MG TAB 650 MG PO ×3 (04:10→13:31)
[2023-04-16 07:40] VITALS: BP 150/73; PULSE 55; RESP 17; TEMP 35.8; O2SAT 98
[2023-04-16] MEDS: Ziprasidone 20 MG CAP 60 MG PO ×2 (08:14→21:23)
[2023-04-16] MEDS: dilTIAZem CD 120 MG CAPCR PO (08:15)
[2023-04-16] MEDS: Propranolol 20 MG TAB 40 MG PO (08:15)
[2023-04-16] MEDS: Sertraline 100 MG TAB 300 MG PO (08:15)
[2023-04-16] MEDS: Ezetimibe 10 MG TAB PO (08:15)
[2023-04-16] MEDS: Famotidine 20 MG TAB PO (08:15)
[2023-04-16] MEDS: Ferrous Sulfate 325 MG TAB PO (08:16)
[2023-04-16] MEDS: Allopurinol 100 MG TAB PO (08:17)
[2023-04-16] MEDS: Magnesium Oxide 400 MG TAB PO (08:19)
[2023-04-16] MEDS: Gabapentin 600 MG TAB PO ×3 (08:20→21:23)
[2023-04-16] MEDS: Apixaban 5 MG TAB PO ×2 (08:20→21:23)
[2023-04-16] MEDS: Multivitamin TAB 1 TAB PO (08:21)
--- NOTE | 2023-04-16 10:46 | PT.INTREAT ---
PT Notes Visit Reasons: Cellulitis Inpatient Physical Therapy Treatment Note [facility] Date: 04/16/23 SUBJECTIVE: Pt reports that his leg is still sore. He states that he has been applying ice and it seems to hep. OBJECTIVE: Sit-stand: SBA Stand-sit: SBA GAIT Assistive Device: FWW Weight bearing: Full Assist: CGA Distance: Approx 16 ft THEREX: Seated UE: Shoulder flexion x 10, horz abd x 10, circles x [address], and rowing x 10, LE: LAQ x 10, marching x 20 alt, Seated SLR x 10 B, hip abd x 10, and Q.S. x 10. ASSESSMENT: Pt was able to tolerate more therapy today and seemed to have less dicomfort. PLAN: Cont as per PT POC. TREATMENT CODE/TIME: 10:25-10:45 (20) TP
--- NOTE | 2023-04-16 14:10 | PHA.REVIEW2 ---
Pharmacy Admission Review - Admission Clinical Review (Last Reviewed 12/08/22 @ 17:08 by Christiano Telles NP) Sepsis (Acute) Hypotension (Acute) Pneumonia (Acute) Cellulitis of left leg (Acute) Acute kidney injury (Acute) Hypokalemia (Acute) Cellulitis (Acute) History of DVT (deep vein thrombosis) (Acute) DVT prophylaxis (Acute) hay fever Allergy (Uncoded 04/09/23 11:28) Resuscitation Status Full Code Height 5 ft 8 in Weight 99 kg - Renal Dosing Renal Dosing: BUN 19 mg/dL (7-18) H 04/15/23 06:42 Creatinine 1.1 mg/dL (0.70-1.30) 04/15/23 06:42 Medications needing adjustments: Reviewed List of meds needing interventions: eCrCl 65 ml/min; current orders all ok - Anticoagulation Anticoagulation: Hgb 14.4 g/dL (13.5-17.5) 04/15/23 06:42 Hct 43.2 % (40.0-50.0) 04/15/23 06:42 Plt Count 188 10^3/uL (130-400) 04/15/23 06:42 Creatinine 1.1 mg/dL (0.70-1.30) 04/15/23 06:42 Therapeutic Anticoagulation: Reviewed Medications: Apixaban - Opiate Usage Evaluate Pain Scale/Pains Meds: N/A Scheduled Bowel Reg ordered if on Opiates?: No - Relevant Labs Sodium 139 mmol/L (136-145) 04/15/23 06:42 Potassium 5.0 mmol/L (3.5-5.1) 04/15/23 06:42 Chloride 108 mmol/L (98-107) H 04/15/23 06:42 Magnesium 2.0 mg/dL (1.8-2.4) 04/14/23 07:45 C-Reactive Protein 8.47 mg/dL (0.0-0.3) H 04/15/23 06:42 Electrolytes, C-Reactive P, ESR: Reviewed - DM Control DM Control: Glucose 108 mg/dL (74-106) H 04/15/23 06:42 DM Control: N/A - Cardiac Review Cardiac Review: Troponin I < 50 ng/L (<or=60) 04/09/23 11:55 - Qtc Review QTc: N/A - IV to PO Switch IV Medications: Reviewed (still requiring IV abx, MD will consider de-escalation tomorrow) - Home Meds Home Med List reviewed: Reviewed Relevent Home Meds Not ordered & why?: all ordered - Current meds Current Medication Order Review: Reviewed (cellulitis was very slow to respond but is now improved, plan is to de-escalate antibiotic regimen tomorrow 04/17)
--- NOTE | 2023-04-16 15:44 | CHAPLAIN ---
Ayaz was sitting up in the chair when I visited. He said he's doing ok. He's in touch with family members in [place]. His daughter there has a daughter in college and a daughter who is autistic, Javi said. He had encouraged them to visit him in [place], but they haven't. Ayaz is originally from [place], [place] but lives in [place]. He's lived in [place] since 1997.
[2023-04-16 15:53] VITALS: BP 116/67; PULSE 42; RESP 12; TEMP 36.3; O2SAT 99
[2023-04-16] MEDS: VANCOMYCIN/WATER (PEG) 1.5 GM/300 ML BAG IV (16:08)
--- NOTE | 2023-04-16 16:18 | PDOC.CMPRO ---
Date of service: 04/16/23 Time of Service: 16:18 Care Management Progress Note Progress Note Text Progress Note Text: S/O: Ayaz was sitting up in a chair when CM met with him. He remains pleasant in interaction and appears to be in good spirits. He stated that his leg is still painful but thinks it might be getting a little bit better. Per provider, the area is now responding to ABX, repeat labs will be done tomorrow and with possible transition to PO antibiotics. Per PT, Ayaz is still not ambulating more than a few feet at a time. Today is day 8 of his hospital stay. Ayaz may benefit from short term rehab prior to returning home if his activity level remains the same. He is agreeable. If it is recommended that he go to a SNF, referrals will be sent to [facility] and to [facility]. A: Ayaz is a 77 year old man admitted on 04/09/23 with cellulitis P:Anticipate Ayaz will return home, likely with? new home health services for nursing and PT when medically cleared. It is possible that PT will recommend a short stay in rehab prior to returning home. If so, Ayaz prefers that referrals be sent to [facility] and [facility]. He will follow up with his PCP and plan of care as prescribed when he returns home. Transportation will be determined by disposition.? CM will continue to support Ayaz and assess for discharge planning needs.
--- NOTE | 2023-04-16 16:19 | W.PM.PROGNOT ---
Date of Service Date of service: 04/15/23 Time of Service: 12:00 Assessment and Plan Assessment and plan (1) Cellulitis: Status: Acute Assessment and plan: Continue Cefepime and Vanc day 7 cultures neg @ 72h elevation lower ext repeat lactate normalized from 4.0 to 0.9 Procalcitonin normalized to 0.1 from 0.3 pain management - continue Gabapentin 600 mg TID, tylenol and toradol follow inflammatory markers, next draw ThursdayApril 17 (2) Hypokalemia: Status: Acute Assessment and plan: replete and follow (3) History of DVT (deep vein thrombosis): Status: Acute Assessment and plan: Continue chronic anticoagulation with Apixaban. (4) Schizoaffective disorder: Status: None Assessment and plan: Continue home regimen . (5) DVT prophylaxis: Status: Acute Assessment and plan: On therapeutic anticoagulation. Also on PPI therapy for GI Prophylaxis. discussed with Dr. Higuera Subjective Subjective Patient reports: no new complaints, feels better, pain is less, tolerating liquids well and afebrile Exam Const General: cooperative and no acute distress Orientation: alert and awake HENMT Head: normal to inspection Face and sinus: normal facial exam Eyes General: appearance normal, both eyes and all related structures EOM: EOM intact bilaterally Neck Neck: normal visual inspection Chest Chest: normal inspection of the chest Resp Effort & Inspection: normal respiratory effort and able to speak in complete sentences Auscultation: clear to auscultation bilaterally Cardio Rate: regular rate Rhythm: regular rhythm GI Inspection: normal to inspection Palpation: soft and nontender Skin Lesions: lesion noted (abrasion to mid left lower extremity) Rashes: rashes noted (left lower extremity) and other (erythema within skin markings. ) Neuro General: patient alert, patient awake and moves all extremities Cognition: normal cognition Speech: speech normal Motor: muscle tone normal throughout and strength 5/5 throughout Psych Appearance: grossly normal Mental Status: mental status grossly normal Speech and Movement: speech and movement normal Affect: normal affect Objective Last Vital Signs Temp 36.3 C L 04/16/23 15:53 Pulse 42 L 04/16/23 15:53 Resp 12 04/16/23 15:53 BP 116/67 04/16/23 15:53 Pulse Ox 99 04/16/23 15:53 Time Spent with Patient Time Spent with Patient: 25-34 minutes Time was spent: preparing to see the patient(eg.review tests), obtaining and/or reviewing separately otained hiistory, ordering medications,tests, procedures, indepentently interpreting results and counseling the patient
--- NOTE | 2023-04-16 16:27 | PGE_ITS ---
Date of Service Date of service: 04/16/23 Time of Service: 16:38 Assessment and Plan Assessment and plan (1) Cellulitis: Status: Acute Assessment and plan: Continue Cefepime and Vanc day 8 cultures neg @ 72h elevation lower ext repeat lactate normalized from 4.0 to 0.9 Procalcitonin normalized to 0.1 from 0.3 pain management - continue Gabapentin 600 mg TID, tylenol and toradol follow inflammatory markers, next draw ThursdayApril 17 (2) Hypokalemia: Status: Acute Assessment and plan: replete and follow (3) History of DVT (deep vein thrombosis): Status: Acute Assessment and plan: Continue chronic anticoagulation with Apixaban. (4) Schizoaffective disorder: Status: None Assessment and plan: Continue home regimen . (5) DVT prophylaxis: Status: Acute Assessment and plan: On therapeutic anticoagulation. Also on PPI therapy for GI Prophylaxis. discussed with Dr. Higuera Subjective Subjective Patient reports: no new complaints, pain is less, tolerating liquids well, tolerating a regular diet and afebrile Exam Const General: cooperative and no acute distress Orientation: alert and awake HENWY Head: normal to inspection Face and sinus: normal facial exam Eyes General: appearance normal, both eyes and all related structures EOM: EOM intact bilaterally Neck Neck: normal visual inspection Chest Chest: normal inspection of the chest Resp Effort & Inspection: normal respiratory effort and able to speak in complete sentences Auscultation: clear to auscultation bilaterally Cardio Rate: regular rate Rhythm: regular rhythm GI Inspection: normal to inspection Palpation: soft and nontender Skin Lesions: lesion noted (abrasion to mid left lower extremity) Rashes: rashes noted (left lower extremity) and other (erythema within skin markings. ) Neuro General: patient alert, patient awake and moves all extremities Cognition: normal cognition Speech: speech normal Motor: muscle tone normal throughout and strength 5/5 throughout Psych Appearance: grossly normal Mental Status: mental status grossly normal Speech and Movement: speech and movement normal Affect: normal affect Objective Last Vital Signs Temp 36.3 C L 04/16/23 15:53 Pulse 42 L 04/16/23 15:53 Resp 12 04/16/23 15:53 BP 116/67 04/16/23 15:53 Pulse Ox 99 04/16/23 15:53 Time Spent with Patient Time Spent with Patient: 25-34 minutes Time was spent: preparing to see the patient(eg.review tests) and obtaining and/or [facility]
[2023-04-16] MEDS: clonazePAM 1 MG TAB PO (21:23)
[2023-04-16] MEDS: traZODone 50 MG TAB 100 MG PO (21:23)
[2023-04-16] MEDS: Propranolol 20 MG TAB PO (21:23)
[2023-04-16] MEDS: Rosuvastatin 10 MG TAB PO (21:23)
[2023-04-16 23:35] VITALS: BP 132/88; PULSE 68; RESP 12; TEMP 36.3; O2SAT 96
[2023-04-17] MEDS: Acetaminophen 325 MG TAB 650 MG PO ×3 (00:09→10:16)
[2023-04-17] MEDS: CEFEPIME 2 GM in Normal Saline 100 ML IVPB ×2 (03:51→11:28)
[2023-04-17 06:35] LABS: Abs Immature Grans 0.38 10^3/uL (0.0-0.06); Absolute Basophil Count 0.08 10^3/uL (0.0-0.2); Absolute Eosinophil Count 0.29 10^3/uL (0.0-0.7); Absolute Lymphocyte Count 1.59 10^3/uL (1.2-3.4); Absolute Monocyte Count 0.83 10^3/uL (0.1-0.8); Absolute Neutrophil Count 4.15 10^3/uL (1.2-6.7); Basophils % 1.1; HCT 42.5 % (40.0-50.0); Immature Grans % 5.2; Lymphocytes % 21.7; MCH 30.4 pg (27.0-33.0); MCHC 32.9 % (32.0-36.0); MCV 92 fL (80-95); MPV 10.4 fL (8.0-11.0); Monocytes % 11.3; Neutrophils % 56.7; Platelet Count 201 10^3/uL (130-400); RBC 4.61 10^6/uL (4.36-5.78); RDW 14.8 % (11.8-14.1); RDW-SD 50.8 fL; WBC 7.32 10^3/uL (4.4-10.8)
[2023-04-17 06:48] LABS: ALT 46 U/L (16-63); AST 46 U/L (15-37); Albumin 2.4 g/dL (3.4-5.0); Alkaline Phosphatase 79 U/L (46-116); BUN 22 mg/dL (7-18); Bilirubin, Total 0.3 mg/dL (0.2-1.0); C-Reactive Protein 3.01 mg/dL (0.0-0.3); CREATININE 1.1 mg/dL (0.70-1.30); Calcium 9.1 mg/dL (8.5-10.1); Chloride 109 mmol/L (98-107); Estimated GFR 69.57 (mL/min/1.73m2); Glucose 99 mg/dL (74-106); Potassium 4.6 mmol/L (3.5-5.1); Sodium 142 mmol/L (136-145); Total Protein 6.9 g/dL (6.4-8.2)
[2023-04-17 06:50] LABS: Diff Comment Diff Reviewed; RBC Morphology Normal
[2023-04-17 08:05] VITALS: BP 123/71; PULSE 41; RESP 20; TEMP 35.4; O2SAT 94
[2023-04-17] MEDS: Gabapentin 600 MG TAB PO (09:11)
[2023-04-17] MEDS: Apixaban 5 MG TAB PO (09:12)
[2023-04-17] MEDS: Ferrous Sulfate 325 MG TAB PO (09:12)
[2023-04-17] MEDS: dilTIAZem CD 120 MG CAPCR PO (09:12)
[2023-04-17] MEDS: Allopurinol 100 MG TAB PO (09:12)
[2023-04-17] MEDS: Magnesium Oxide 400 MG TAB PO (09:12)
[2023-04-17] MEDS: Ezetimibe 10 MG TAB PO (09:12)
[2023-04-17] MEDS: Ziprasidone 20 MG CAP 60 MG PO (09:12)
[2023-04-17] MEDS: Sertraline 100 MG TAB 300 MG PO (09:13)
[2023-04-17] MEDS: Propranolol 20 MG TAB 40 MG PO (09:14)
[2023-04-17] MEDS: Famotidine 20 MG TAB PO (09:14)
[2023-04-17] MEDS: Multivitamin TAB 1 TAB PO (09:14)
--- NOTE | 2023-04-17 10:29 | PDOC.CMPRO ---
Date of service: 04/17/23 Time of Service: 10:30 Care Management Progress Note Progress Note Text Progress Note Text: S/O: Ayaz was sitting up in a chair when CM met with him. A: Ayaz is a 77 year old man admitted on 04/09/23 with cellulitis P:Anticipate Ayaz will return home, likely with? new home health services for nursing and PT when medically cleared. It is possible that PT will recommend a short stay in rehab prior to returning home. If so, Ayaz prefers that referrals be sent to [facility]. He will follow up with his PCP and plan of care as prescribed when he returns home. Transportation will be determined by disposition.? CM will continue to support Ayaz and assess for discharge planning needs.
--- NOTE | 2023-04-17 11:52 | W.PM.DS.N ---
Date of service: 04/17/23 Time of Service: 11:53 DS: Diagnosis Discharge Diagnosis (1) Cellulitis: Status: Acute (2) Hypokalemia: Status: Acute (3) History of DVT (deep vein thrombosis): Status: Acute (4) Schizoaffective disorder: Status: None (5) DVT prophylaxis: Status: Acute Discharge Plan Disposition Patient Disposition: Home W/Home Health Services Condition: Improving Discharge Details Reason For Visit: Cellulitis Admit Date/Time: 04/09/23 15:16 Admit Provider: Sofie Klein Attending Provider: Sofie Klein Primary Care Provider: Rosa Bartlett V Hospital Course Hospital Course: This is a 77-year-old male patient with a past medical history of hypertension, hyperlipidemia, coronary artery disease, Holloway's esophagus, insomnia, gout, anemia, complicated UTI, bipolar disorder, schizoaffective disorder who presented to the [facility] ED on 04/09/2023 from home for concern for a seizure the day prior to admission with feeling tired and weak since then.? EMS reported that patient called them after directed to by his primary care doctor Dr. Bartlett. Patient states he was laying down at home when he developed a 90-minute episode of both of his arms and legs shaking.? Patient stated he thought he might bite his tongue but he did not.? Patient stated after the shaking episode yesterday he felt very tired, generally weak and cold.? He stated he uses a cane for ambulation but has not walked.? After his shaking episode he noted he has pain in his left leg.? He was unaware of having a fever or redness in his left leg.? Patient denied any headache, dizziness, blurry vision, chest pain, difficulty breathing, abdominal pain, nausea, vomiting, diarrhea or urinary symptoms. His left lower leg was red, hot and painful.? He was diagnosed with cellulitis of the left lower leg.? The shaking is thought to have been rigors.? He was started on Vancomycin and Cefuroxime, later changed to Cefepime.? His blood cultures are negative.? He has improved significantly.? Redness has receded, it is no longer red and he states it is less painful. He has a normal white count, CRP is down to 3 and blood cultures continue to? be negative @ 120h. ?He has been working with PT and progressing well.? He is being discharged with 10 days of Augmentin.? He should continue Gabapentin for the feeling he describes as burning pain to his left lower leg. Home Health nursing, PT, OT and FIRST ASSISTANT MANAGER have been ordered. He is discharged with stable vital signs, to home. Discussed with Dr Hardin. Home Meds and New Rx's Prescriptions: New gabapentin 600 mg Tablet 600 mg PO TID Qty: 90 0RF amoxicillin-pot clavulanate 875-125 mg tablet 1 tab PO BID Qty: 20 0RF Continued multivitamin Tablet 1 tab PO DAILY famotidine [Pepcid] 20 mg tablet 20 mg PO DAILY allopurinol 100 mg tablet 100 mg PO DAILY indomethacin 50 mg capsule 50 mg PO TID PRN Rx Instructions: administer with food or milk propranolol 20 mg tablet See Rx Instructions .ROUTE .COMPLEX Rx Instructions: Take 2 tabs in the AM and 1 tab in the PM sertraline [Zoloft] 100 mg tablet 300 mg PO DAILY ferrous sulfate 325 mg (65 mg iron) tablet 325 mg PO DAILY clonazepam 1 MG tablet 1 mg PO HS nitroglycerin [Nitrostat] 0.4 MG tablet, sublingual 0.4 mg Sublingual PRN PRN Patient Comments: HAS NOT EVER HAD TO USE docusate sodium [Colace] 100 MG capsule 100 mg PO BID PRN ezetimibe [Zetia] 10 MG tablet 10 mg PO DAILY trazodone 50 MG tablet 100 mg PO HS diltiazem HCl [Cardizem LA] 120 MG tablet extended release 24 hr 120 mg PO DAILY Rx Instructions: 08/18 1/2 tablet daily ziprasidone HCl [Geodon] 60 mg Capsule 60 mg PO BID rosuvastatin [Crestor] 10 mg Tablet 10 mg PO HS Eliquis 5 mg Tablet 5 mg PO BID magnesium oxide 400 mg (241.3 mg magnesium) tablet 400 mg PO DAILY Patient Comments: TAKE ONE TABLET BY MOUTH EVERY DAY Discharge Instructions Instructions: Amoxicillin/Clavulanate Potassium (By mouth), Gabapentin (By mouth), Cellulitis (DC) Additional Instructions: Take Augmentin twice a day for 10 days. Continue Gabapentin for burning pain in your left lower leg. Continue Propranolol. Stand Alone Forms: Nursing Discharge Form Referrals: Rosa Bartlett MD [Primary Care Provider] - 04/24/23 8:00 am (appointment is with abhi romero) Activity:: Activity as Tolerated Equipment/Supplies:: No Equipment Needed Diet:: Low Sodium Discharge Orders Discharge Orders: Discharge Order (Routine); Ordered 04/17/23 Ordered By: Dora Evans DS: Summary Time Spent with Patient providing and/or coordinating discharge services: Greater than 30 minutes Status at Discharge Functional status at discharge: uses cane/walker Overall status at discharge: patient is progressing back to baseline Mental Status: mental status grossly normal Speech and Movement: speech and movement normal Mood: congruent mood Affect: normal affect Exam Const General: cooperative and no acute distress Orientation: alert and awake HENMT Head: normal to inspection Face and sinus: normal facial exam Eyes General: appearance normal, both eyes and all related structures EOM: EOM intact bilaterally Neck Neck: normal visual inspection Chest Chest: normal inspection of the chest Resp Effort & Inspection: normal respiratory effort and able to speak in complete sentences Auscultation: clear to auscultation bilaterally Cardio Rate: regular rate Rhythm: regular rhythm GI Inspection: normal to inspection Palpation: soft and nontender Skin Lesions: lesion noted (abrasion to mid left lower extremity) Rashes: rashes noted (left lower extremity) and other (erythema within skin markings. ) Neuro General: patient alert, patient awake and moves all extremities Cognition: normal cognition Speech: speech normal Motor: muscle tone normal throughout and strength 5/5 throughout Psych Appearance: grossly normal Mental Status: mental status grossly normal Speech and Movement: speech and movement normal Mood: congruent mood Affect: normal affect DS: Data Vitals/I&O Vitals and I&O: Vital Signs Temperature 35.4 C L 04/17/23 08:05 Temperature Source Tympanic 04/17/23 08:05 Pulse 41 L 04/17/23 08:05 Pulse Rhythm Regular 04/17/23 04:27 Pulse 59 L 04/09/23 16:01 Respiratory Rate 20 04/17/23 08:05 Respiratory Effort Non-Labored 04/17/23 04:27 Respiratory Depth Normal 04/17/23 04:27 Respiratory Pattern Normal 04/17/23 04:27 Blood Pressure 123/71 04/17/23 08:05 Blood Pressure Mean 63 04/09/23 16:01 Pulse Oximetry 94 04/17/23 08:05 Oxygen Delivery Method Room Air 04/17/23 08:05 Oxygen Flow Rate 0 04/17/23 08:05 Pain Level 8 04/17/23 10:16 Comment BP called over radio 04/16/23 07:40 Intake & Output 04/16/23 04/16/23 04/17/23 11:59 23:59 11:59 Intake Total 100 / 300 200 / 300 100 / 100 Output Total 2375 / 2675 300 / 2675 1325 / 1325 Balance -2275 / -2375 -100 / -2375 -1225 / -1225 Intake: IV 100 / 300 200 / 300 100 / 100 Output: Urine 2375 / 2675 300 / 2675 1325 / 1325 Other: Urine Color Straw Yellow Pale Urine Appearance Clear Cloudy Cloudy Urine Odor Normal None Stool Size Moderate Stool Characteristics Hard Voiding Methods Urinal Urinal Urinal Data Completed and Pending Labs on day of discharge: Labs from last 24 hours 04/17/23 04/17/23 06:05 06:05 WBC 7.32 RBC 4.61 Hgb 14.0 Hct 42.5 MCV 92 MCH 30.4 MCHC 32.9 RDW 14.8 H Plt Count 201 MPV 10.4 Immature Gran % 5.2 Neutrophils % 56.7 Lymphocytes % 21.7 Monocytes % 11.3 Eosinophils % 4.0 Basophils % 1.1 Nucleated RBC % 0.0 Absolute Neutrophils 4.15 Absolute Lymphocytes 1.59 Absolute Monocytes 0.83 H Absolute Eosinophils 0.29 Absolute Basophils 0.08 RBC Morphology Normal Sodium 142 Potassium 4.6 Chloride 109 H Carbon Dioxide 26.0 Anion Gap 7.0 BUN 22 H Creatinine 1.1 Est GFR (CKD-EPI 2020) 69.57 Glucose 99 Calcium 9.1 Total Bilirubin 0.3 AST 46 H ALT 46 Alkaline Phosphatase 79 C-Reactive Protein 3.01 H Total Protein 6.9 Albumin 2.4 L PFSH All Active Problems (Updated 04/13/23 @ 09:24 by Claudine Rios DO) Sepsis (Acute) Hypotension (Acute) Pneumonia (Acute) Cellulitis of left leg (Acute) Acute kidney injury (Acute) Hypokalemia (Acute) Cellulitis (Acute) Screening for colon cancer (Acute) Right leg injury (Acute) Tubular adenoma of colon (Acute) CAD (coronary artery disease) (Chronic) Bipolar disorder (Acute) COBURN (dyspnea on exertion) (Acute) Anemia (Chronic) Pulmonary hypertension (Acute) History of DVT (deep vein thrombosis) (Acute) DVT prophylaxis (Acute) Ambulatory dysfunction (Acute) Syncope (Acute) Rhabdomyolysis (Acute) Medical History Accidental fall Atherosclerosis of coronary artery Blepharitis Chronic sinus bradycardia Complicated UTI (urinary tract infection) Dehydration Discharge planning issues Elevated liver enzymes Essential hypertension Gout History of tobacco abuse Hypercholesterolemia Hyperlipidemia Hypertension Insomnia Left knee pain Left ventricular hypertrophy Lightheadedness 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 Father Acute myocardial infarction Brother Parkinson's disease Social History Smoking/Tobacco Use Status: Former Tobacco Use Smoking risk assessment performed?: Yes Alcohol Intake: never Drug use: Never Substance use type: does not use Do you feel safe at home: Yes Do you feel safe in your relationship?: Yes Time Spent with Patient Time Spent with Patient: 45-69 minutes Time was spent: preparing to see the patient(eg.review tests), ordering medications,tests, procedures, referring, communicating with other health child care lead teacher, indepentently interpreting results, counseling the patient and care coordination
[2023-04-17] MEDS: Ibuprofen 600 MG TAB PO (12:09)
--- NOTE | 2023-04-17 12:13 | PDOC.HHF2F ---
Home Health Referral Home Health Orders Clinical synopsis of why skilled professionals are needed: This is a 77-year-old male patient with a past medical history of hypertension, hyperlipidemia, coronary artery disease, Holloway's esophagus, insomnia, gout, anemia, complicated UTI, bipolar disorder, schizoaffective disorder who presented to the [facility] ED on 04/09/2023 from home for concern for a seizure the day prior to admission with feeling tired and weak since then.? EMS reported that patient called them after directed to by his primary care doctor Dr. Bartlett. Patient states he was laying down at home when he developed a 90-minute episode of both of his arms and legs shaking.? Patient stated he thought he might bite his tongue but he did not.? Patient stated after the shaking episode yesterday he felt very tired, generally weak and cold.? He stated he uses a cane for ambulation but has not walked.? After his shaking episode he noted he has pain in his left leg.? He was unaware of having a fever or redness in his left leg.? Patient denied any headache, dizziness, blurry vision, chest pain, difficulty breathing, abdominal pain, nausea, vomiting, diarrhea or urinary symptoms. His left lower leg was red, hot and painful.? He was diagnosed with cellulitis of the left lower leg.? The shaking is thought to have been rigors.? He was started on Vancomycin and Cefuroxime, later changed to Cefepime.? His blood cultures are negative.? He has improved significantly.? Redness has receded, it is no longer red and he states it is less painful. He has a normal white count, CRP is down to 3 and blood cultures continue to? be negative @ 120h. ?He has been working with PT and progressing well.? He is being discharged with 10 days of Augmentin.? He should continue Gabapentin for the feeling he describes as burning pain to his left lower leg. Home Health nursing, PT, OT and PREVENTIVE MEDICINE OFFICER have been ordered. He is discharged with stable vital signs, to home. Medical diagnosis necessitation home health referral: Cellulitis, new medications, deconditioned Registered Nurse: Check all that apply Instruct on new or changed medication(s)/assess compliance: Ordered Assess wound for signs and symptoms of infection, instruct on wound care and/or provide skilled wound care consisting of: Left lower extremity cellulitis Physical Therapist: Check all that apply Increase strength & endurance for safe mobility at home: Ordered To design/establish home maintenance program: Ordered Fall reduction therapy program for patient with history of frequent falls: Ordered Home safety evaluation and teaching/gait training including stair management (if applicable): Ordered Occupational Therapist: Evaluate and treat for patient unable to perform ADL/IADL/self-care: Ordered Upper extremity strengthening, range and motion: Ordered Furnace Puncher: Assist with community resources: Ordered Assist with long wall shear operator care planning: Ordered Home Bound Status Requires the aid of supportive device (check all that apply): Walker Assistance of another person (Describe assistance and medical necessity): Not safe to walk independently; requires device or person Describe why leaving home would require a considerable and taxing effort: Requires frequent rest periods Encounter Date and Reason: I certify that a FTF encounter for this patient was performed on April 17, 2023 and that such encounter was related to the primary reason the patient requires home health services. The encounter was conducted in the following manner: By me as the certifying physician, MEDICAL TECHNOLOGIST MICROBIOLOGY, PA or By an inpatient physician, MEDICAL TECHNOLOGIST MICROBIOLOGY or PA during an inpatient stay who communicated findings to me, Certification And Authentication I certify that I composed the above information based on my clinical judgment relating to this patient's medical condition and, if applicable, clinical findings communicated to me by the NPP or inpatient physician who performed the FTF encounter. Name of Provider that will be monitoring home health services: Rosa Bartlett
--- NOTE | 2023-04-17 13:48 | CMDISCH_ITS ---
Date of service: 04/17/23 Time of Service: 13:48 LACE Index Scoring Tool Questions: Length of Stay (in days): 7 - 13 (Yes) Was the patient admitted via the E.D.?: Yes Comorbidities: Liver or Renal Disease E.D. Visits: 3 Answers: Total Score: 16 Risk of Readmission: High Risk Care Management Discharge Plan Reason for Hospitalization: cellulitis Discharge Plan: Hayden will return home with new home health services for nursing and PT. He will follow up with his PCP and plan of care as prescribed and transport via [facility] coordinated by CM. Patient/Family Education Needs: Review of discharge instructions, limitations, follow up plan, medications, discuss Ask Me Three Services Needed at Discharge: Home Health Care Services and Physical Therapy
== END 2023-04-17 12:59 | disposition home health service (06) | DRG 603 ==
LOC: ER 15:07 → MS 16:28
PROVIDERS: Nurse Practitioner Acute Care; Nurse Practitioner Family; Admitting Provider Internal Medicine; Emergency Provider Physician Assistant; PCP Family Medicine; Visit Provider Internal Medicine
DX: L03.116 Cellulitis of left lower limb (principal); Z86.718 Personal history of other venous thrombosis and embolism; F25.9 Schizoaffective disorder, unspecified; E87.6 Hypokalemia; I10 Essential (primary) hypertension; I25.10 Atherosclerotic heart disease of native coronary artery without angina pectoris; D64.9 Anemia, unspecified; M10.9 Gout, unspecified; F31.9 Bipolar disorder, unspecified; G47.00 Insomnia, unspecified; K22.70 Barrett's esophagus without dysplasia; I95.9 Hypotension, unspecified; I27.20 Pulmonary hypertension, unspecified; R00.1 Bradycardia, unspecified; Z87.891 Personal history of nicotine dependence; E78.00 Pure hypercholesterolemia, unspecified; F41.0 Panic disorder [episodic paroxysmal anxiety]
CPT/HCPCS: 36415; 71275; 74177; 80048; 80053; 83690; 84145; 87040; 87637; 93005; 96365; 96368; 97110; 97116; 97162; 97530; 99285; 73701; 80202; 81003; 81015; 83605; 83735; 84484; 85025; 86140; 93010; 93971; 99222; 99232; 99233; 99239; J0131; J0690; J1885; J2543; J3480; J3490

== ENCOUNTER 2023-04-19 15:37 | Emergency (ER) | payer MEDICARE, MEDICAID, SELFPAY ==
[2023-04-19 15:36] VITALS: BP 136/71; PULSE 56; RESP 18; TEMP 37; O2SAT 97
--- NOTE | 2023-04-19 16:01 | W.ED.GENAD ---
Discharge Plan Disposition Patient Disposition: Home Condition: Stable Discharge Details Clinical Impression: Leg wound, left Primary Care Provider: Rosa Bartlett V ED Provider: Claudine Rios Home Meds and New Rx's Prescriptions: Continued multivitamin Tablet 1 tab PO DAILY famotidine [Pepcid] 20 mg tablet 20 mg PO DAILY allopurinol 100 mg tablet 100 mg PO DAILY indomethacin 50 mg capsule 50 mg PO TID PRN Rx Instructions: administer with food or milk propranolol 20 mg tablet See Rx Instructions .ROUTE .COMPLEX Rx Instructions: Take 2 tabs in the AM and 1 tab in the PM sertraline [Zoloft] 100 mg tablet 300 mg PO DAILY ferrous sulfate 325 mg (65 mg iron) tablet 325 mg PO DAILY clonazepam 1 MG tablet 1 mg PO HS nitroglycerin [Nitrostat] 0.4 MG tablet, sublingual 0.4 mg Sublingual PRN PRN Patient Comments: HAS NOT EVER HAD TO USE docusate sodium [Colace] 100 MG capsule 100 mg PO BID PRN ezetimibe [Zetia] 10 MG tablet 10 mg PO DAILY trazodone 50 MG tablet 100 mg PO HS diltiazem HCl [Cardizem LA] 120 MG tablet extended release 24 hr 120 mg PO DAILY Rx Instructions: 08/18 1/2 tablet daily ziprasidone HCl [Geodon] 60 mg Capsule 60 mg PO BID rosuvastatin [Crestor] 10 mg Tablet 10 mg PO HS Eliquis 5 mg Tablet 5 mg PO BID magnesium oxide 400 mg (241.3 mg magnesium) tablet 400 mg PO DAILY Patient Comments: TAKE ONE TABLET BY MOUTH EVERY DAY gabapentin 600 mg Tablet 600 mg PO TID Qty: 90 0RF amoxicillin-pot clavulanate 875-125 mg tablet 1 tab PO BID Qty: 20 0RF Discharge Instructions Instructions: Acute Wound Care (ED), Chronic Wounds (ED) Additional Instructions: Your blood tests today are reassuring. Keep your left leg elevated as much as possible. Keep the dressings in place until you are reevaluated by home health. Follow-up with your scheduled appointment with your primary care doctor Dr. Bartlett on 04/24/2023 at 8 AM. You were evaluated by care management in the emergency department today. It has been confirmed that home health has been ordered and they will evaluate you at home as needed. Return immediately to the emergency department if you develop any worsening or new concerning symptoms. Discharge Data Discharge Date/Time-TO BE ENTERED AT DEPARTURE: 04/19/23 18:02 Discharge Physician: Claudine Rios Medical Decision Making 77-year-old male with a history of hypertension, hyperlipidemia, coronary artery disease, Holloway's esophagus, anemia, DVT, complicated UTI, gout, insomnia, bipolar disorder, schizoaffective disorder who was discharged from here 2 days ago for pneumonia and UTI presents from home for left leg swelling, redness and blistering. Patient had expressed concern that his wound was bleeding and he called the on-call provider who advised him to come to the ER for evaluation. Patient appears comfortable and nontoxic. His heart rate is bradycardic at times which appears to be his baseline. I had been the provider on patient's recent ED visit when he was admitted for pneumonia and UTI and his left leg redness and swelling is significantly improved on exam today. He has a healing wound noted posterior to the left medial malleolus and bleeding is controlled and there is no evidence of abscess. He has 2+ pitting pedal edema but he is neurovascular intact. Patient denies any significant worsening of pain and overall his pain and swelling are improved so history and presentation does not appear consistent with DVT. He had a negative leg ultrasound on his recent visit. Screening labs obtained on arrival and reassuring. White blood cell count 10. CRP 1.82. Michelle with care management had evaluated patient at bedside. It was discussed that patient had some issues with his child support case officer with [facility] but not with the nursing staff. Patient does feel comfortable with plan for home health evaluation and wound care so he is agreeable to this plan. Home health had already been arranged before his discharge from here 2 days ago. He states he is taking his Augmentin which he was given upon discharge. An appointment was made for patient with his PCP Dr. Bartlett on 04/24 at 8 AM. His wounds were dressed. Usual and customary return precautions given prior to discharge. Medical Records Medical records reviewed: Yes I reviewed the patient's medical records. Lab Data Lab results reviewed: Yes I reviewed the patient's lab results. Labs: Laboratory Tests Range/Units 04/19/23 04/19/23 04/19/23 16:34 16:40 16:40 WBC (4.4-10.8) 10^3/uL 10.24 RBC (4.36-5.78) 10^6/uL 4.81 Hgb (13.5-17.5) g/dL 14.4 Hct (40.0-50.0) % 43.9 MCV (80-95) fL 91 MCH (27.0-33.0) pg 29.9 MCHC (32.0-36.0) % 32.8 RDW (11.8-14.1) % 14.6 H Plt Count (130-400) 10^3/uL 301 MPV (8.0-11.0) fL 9.3 Immature Gran % 1.8 Neutrophils % 74.6 Lymphocytes % 13.8 Monocytes % 7.3 Eosinophils % 1.6 Basophils % 0.9 Nucleated RBC % (0.0-0.3) % 0.0 Absolute Neutrophils (1.2-6.7) 10^3/uL 7.65 H Absolute Lymphocytes (1.2-3.4) 10^3/uL 1.41 Absolute Monocytes (0.1-0.8) 10^3/uL 0.75 Absolute Eosinophils (0.0-0.7) 10^3/uL 0.16 Absolute Basophils (0.0-0.2) 10^3/uL 0.09 Sodium (136-145) mmol/L 139 Potassium (3.5-5.1) mmol/L 3.8 Chloride (98-107) mmol/L 102 Carbon Dioxide (21.0-32.0) mmol/L 29.1 Anion Gap (3-11) mmol/L 7.9 BUN (7-18) mg/dL 22 H Creatinine (0.70-1.30) mg/dL 1.1 Est GFR (CKD-EPI 2020) (mL/min/1.73m2) 69.57 Glucose (74-106) mg/dL 91 Calcium (8.5-10.1) mg/dL 9.6 Total Bilirubin (0.2-1.0) mg/dL 0.3 AST (15-37) U/L 69 H ALT (16-63) U/L 73 H Alkaline Phosphatase (46-116) U/L 97 C-Reactive Protein (0.0-0.3) mg/dL Total Protein (6.4-8.2) g/dL 8.1 Albumin (3.4-5.0) g/dL 3.1 L Urine Color (Yellow) Yellow Urine Clarity (Clear) Clear Urine pH (5-8) 5.5 Ur Specific [place] (1.005-1.025) 1.020 Urine Protein (Negative) mg/dL Negative Urine Ketones (Negative) mg/dL Negative Urine Blood (Negative) Negative Urine Nitrite (Negative) Negative Urine Bilirubin (Negative) Negative Urine Urobilinogen (Up to 0.2) mg/dL 0.2 Ur Leukocyte Esterase (Negative) Negative Urine Glucose (Negative) mg/dL Negative Range/Units 04/19/23 16:40 WBC (4.4-10.8) 10^3/uL RBC (4.36-5.78) 10^6/uL Hgb (13.5-17.5) g/dL Hct (40.0-50.0) % MCV (80-95) fL MCH (27.0-33.0) pg MCHC (32.0-36.0) % RDW (11.8-14.1) % Plt Count (130-400) 10^3/uL MPV (8.0-11.0) fL Immature Gran % Neutrophils % Lymphocytes % Monocytes % Eosinophils % Basophils % Nucleated RBC % (0.0-0.3) % Absolute Neutrophils (1.2-6.7) 10^3/uL Absolute Lymphocytes (1.2-3.4) 10^3/uL Absolute Monocytes (0.1-0.8) 10^3/uL Absolute Eosinophils (0.0-0.7) 10^3/uL Absolute Basophils (0.0-0.2) 10^3/uL Sodium (136-145) mmol/L Potassium (3.5-5.1) mmol/L Chloride (98-107) mmol/L Carbon Dioxide (21.0-32.0) mmol/L Anion Gap (3-11) mmol/L BUN (7-18) mg/dL Creatinine (0.70-1.30) mg/dL Est GFR (CKD-EPI 2020) (mL/min/1.73m2) Glucose (74-106) mg/dL Calcium (8.5-10.1) mg/dL Total Bilirubin (0.2-1.0) mg/dL AST (15-37) U/L ALT (16-63) U/L Alkaline Phosphatase (46-116) U/L C-Reactive Protein (0.0-0.3) mg/dL 1.82 H Total Protein (6.4-8.2) g/dL Albumin (3.4-5.0) g/dL Urine Color (Yellow) Urine Clarity (Clear) Urine pH (5-8) Ur Specific [place] (1.005-1.025) Urine Protein (Negative) mg/dL Urine Ketones (Negative) mg/dL Urine Blood (Negative) Urine Nitrite (Negative) Urine Bilirubin (Negative) Urine Urobilinogen (Up to 0.2) mg/dL Ur Leukocyte Esterase (Negative) Urine Glucose (Negative) mg/dL HPI General Mode of arrival: ambulatory. Date/Time Provider Initiated Documentation: 04/19/23 16:00. Limitations to Documentation: no limitations. Information obtained by: patient. HPI Narrative: Pt is a 77-year-old male with a history of hypertension, hyperlipidemia, coronary artery disease, Holloway's esophagus, anemia, DVT, complicated UTI, gout, insomnia, bipolar disorder, schizoaffective disorder who was discharged from here 2 days ago for pneumonia and UTI presents from home for left leg swelling, redness and blistering. Patient states he noted that his wound on his left ankle was bleeding so he called the on-call provider who advised him to call 911. Of note, patient presented here last week in the setting of rigors and was found to have fever, hypotension, pneumonia and UTI but also had a left leg cellulitis at that time. He states he was sent home on Augmentin which he has been taking. I discussed with care management who reports that home health was arranged upon discharge. Patient states he has not had a good experience with his child support case officer with [facility] as he felt she did not treat him properly. Patient denies any known fever. He states he has been ambulatory at home with his cane to the bathroom. He denies any new injury. He denies any chest pain, difficulty breathing, abdominal pain, vomiting, diarrhea. Related Data Home Medications Medication Instructions Recorded Confirmed clonazepam 1 mg tablet 1 mg PO HS 06/13/13 04/09/23 docusate sodium 100 mg capsule 100 mg PO BID PRN 06/13/13 04/09/23 (Colace) ezetimibe 10 mg tablet (Zetia) 10 mg PO DAILY 06/13/13 04/09/23 nitroglycerin 0.4 mg sublingual 0.4 mg sublingual PRN PRN 06/13/13 04/09/23 tablet (Nitrostat) trazodone 50 mg tablet 100 mg PO HS 06/13/13 04/09/23 diltiazem HCl 120 mg 120 mg PO DAILY 05/09/16 04/09/23 tablet,extended release 24 hr (Cardizem LA) apixaban 5 mg tablet (Eliquis) 5 mg PO BID 09/21/19 04/09/23 rosuvastatin 10 mg tablet (Crestor) 10 mg PO HS 09/21/19 04/09/23 ziprasidone HCl 60 mg capsule 60 mg PO BID 09/21/19 04/09/23 (Geodon) allopurinol 100 mg tablet 100 mg PO DAILY 04/11/22 04/09/23 famotidine 20 mg tablet (Pepcid) 20 mg PO DAILY 04/11/22 04/09/23 indomethacin 50 mg capsule 50 mg PO TID PRN 04/11/22 04/09/23 multivitamin 1 tab PO DAILY 04/11/22 04/09/23 propranolol 20 mg tablet See Rx Instructions .Route .COMPLEX 04/11/22 04/09/23 ferrous sulfate 325 mg (65 mg 325 mg PO DAILY 06/16/22 04/09/23 iron) tablet sertraline 100 mg tablet (Zoloft) 300 mg PO DAILY 06/16/22 04/09/23 magnesium oxide 400 mg (241.3 mg 400 mg PO DAILY 04/09/23 04/09/23 magnesium) tablet amoxicillin 875 mg-potassium 1 tab PO BID #20 tabs 04/17/23 clavulanate 125 mg tablet gabapentin 600 mg tablet 600 mg PO TID #90 tabs 04/17/23 Previous Rx's Medication Instructions Recorded amoxicillin 875 mg-potassium 1 tab PO BID #20 tabs 04/17/23 clavulanate 125 mg tablet gabapentin 600 mg tablet 600 mg PO TID #90 tabs 04/17/23 Allergies Allergy/AdvReac Type Severity Reaction Status Date / Time hay fever Allergy Uncoded 04/09/23 11:28 General Stated Complaint: Vascular SADIA: 3 Review of Systems All systems reviewed & are unremarkable except as noted in HPI and below Constitutional Constitutional: Reports as per HPI, Denies chills and Denies fever(s) Eyes Eyes: Denies blurry vision ENT Ears, Nose, Mouth, and Throat: Denies dizziness, Denies sore throat and Denies throat swelling Cardiovascular Cardiovascular: Denies chest pain and Denies dyspnea Respiratory Respiratory: Denies cough and Denies dyspnea Gastrointestinal Gastrointestinal: Denies abdominal pain, Denies diarrhea and Denies vomiting Genitourinary Genitourinary: Denies hematuria and Denies dysuria Musculoskeletal Musculoskeletal: Denies back pain and Denies numbness Comments: Left leg pain, redness and swelling Integumentary/Breasts Skin/Breast: Denies lesions and Denies rash Comments: Left leg redness, swelling and blisters. Neurologic Neurologic: Denies dizziness, Denies localized weakness and Denies numbness Allergic/Immunologic Allergic/Immunologic: Denies throat swelling PFSH All Active Problems (Updated 04/19/23 @ 17:39 by Claudine Rios DO) Hypotension (Acute) Pneumonia (Acute) Cellulitis of left leg (Acute) Acute kidney injury (Acute) Leg wound, left (Acute) Hypokalemia (Acute) Cellulitis (Acute) Screening for colon cancer (Acute) Right leg injury (Acute) Tubular adenoma of colon (Acute) CAD (coronary artery disease) (Chronic) Bipolar disorder (Acute) COBURN (dyspnea on exertion) (Acute) Anemia (Chronic) Pulmonary hypertension (Acute) Ambulatory dysfunction (Acute) Syncope (Acute) Rhabdomyolysis (Acute) Medical History Accidental fall Atherosclerosis of coronary artery Blepharitis Chronic sinus bradycardia Complicated UTI (urinary tract infection) Dehydration Discharge planning issues Elevated liver enzymes Essential hypertension Gout History of tobacco abuse Hypercholesterolemia Hyperlipidemia Hypertension Insomnia Left knee pain Left ventricular hypertrophy Lightheadedness 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 Father Acute myocardial infarction Brother Parkinson's disease Social History Smoking/Tobacco Use Status: Former Tobacco Use Smoking risk assessment performed?: Yes Alcohol Intake: never Drug use: Never Substance use type: does not use Do you feel safe at home: Yes Do you feel safe in your relationship?: Yes Exam Const General: cooperative and no acute distress Orientation: alert, awake and oriented x3 HENMT Head: normal to inspection Face and sinus: normal facial exam Eyes General: appearance normal, both eyes and all related structures Neck Neck: normal visual inspection and No submandibular swelling Lymphatic: no lymphadenopathy noted Chest Chest: normal inspection of the chest and no tenderness Resp Effort & Inspection: normal respiratory effort and able to speak in complete sentences Auscultation: clear to auscultation bilaterally Cardio Rate: regular rate Rhythm: regular rhythm GI Inspection: normal to inspection Palpation: soft, not firm, not rigid and nontender Auscultation: normal bowel sounds Skin General skin exam: no rashes or lesions noted Neuro General: patient alert, patient awake and patient oriented x3 Cognition: normal cognition Speech: speech normal Motor: muscle tone normal throughout Sensory Exam: no sensory deficits noted Extrem Ankle/foot/toe images: 1. Patient has mild edema of the left lower leg. He also has faint erythema extending from the mid to distal leg. He has a 4 x 4 centimeter open wound noted posterior to the left medial malleolus. Bleeding is controlled. Edges appear clean. There is no drainage, bleeding, fluctuance or induration. Other: Patient does have 2+ pitting edema to the left foot. His left PT/DP pulses are intact. Psych Appearance: grossly normal Mental Status: mental status grossly normal Speech and Movement: speech and movement normal Affect: normal affect Course Vital Signs Vital signs: Vital Signs Temperature 98.6 F 04/19/23 15:36 Pulse 56 L 04/19/23 15:36 Respiratory Rate 18 04/19/23 15:36 Blood Pressure 136/71 04/19/23 15:36 Pulse Oximetry 97 04/19/23 15:36 Temperature 98.6 F 04/19/23 15:36 Temperature Source Oral 04/19/23 15:36 Pulse 56 L 04/19/23 15:36 Respiratory Rate 18 04/19/23 15:36 Blood Pressure 136/71 04/19/23 15:36 Pulse Oximetry 97 04/19/23 15:36 Oxygen Delivery Method Room Air 04/19/23 15:36 Oxygen Flow Rate 0 04/19/23 15:36 Pain Level 6 04/19/23 15:36
[2023-04-19 16:39] LABS: Bilirubin Negative (Negative); Blood Negative (Negative); Clarity Clear (Clear); Glucose Negative (Negative); Ketones Negative (Negative); Leukocyte Esterase Negative (Negative); Nitrite Negative (Negative); Urobilinogen 0.2 mg/dL (Up to 0.2); pH 5.5 (5-8)
[2023-04-19 16:53] LABS: Abs Immature Grans 0.18 10^3/uL (0.0-0.06); Absolute Basophil Count 0.09 10^3/uL (0.0-0.2); Absolute Eosinophil Count 0.16 10^3/uL (0.0-0.7); Absolute Lymphocyte Count 1.41 10^3/uL (1.2-3.4); Absolute Monocyte Count 0.75 10^3/uL (0.1-0.8); Absolute Neutrophil Count 7.65 10^3/uL (1.2-6.7); Basophils % 0.9; Eosinophils % 1.6; HCT 43.9 % (40.0-50.0); HGB 14.4 g/dL (13.5-17.5); Immature Grans % 1.8; Lymphocytes % 13.8; MCH 29.9 pg (27.0-33.0); MCHC 32.8 % (32.0-36.0); MCV 91 fL (80-95); MPV 9.3 fL (8.0-11.0); Monocytes % 7.3; Neutrophils % 74.6; Platelet Count 301 10^3/uL (130-400); RBC 4.81 10^6/uL (4.36-5.78); RDW 14.6 % (11.8-14.1); RDW-SD 49.1 fL; WBC 10.24 10^3/uL (4.4-10.8)
[2023-04-19 16:59] VITALS: RESP 15
[2023-04-19 17:01] LABS: C-Reactive Protein 1.82 mg/dL (0.0-0.3)
[2023-04-19 17:05] LABS: ALT 73 U/L (16-63); AST 69 U/L (15-37); Albumin 3.1 g/dL (3.4-5.0); Alkaline Phosphatase 97 U/L (46-116); Anion Gap 7.9 mmol/L (3-11); BUN 22 mg/dL (7-18); Bilirubin, Total 0.3 mg/dL (0.2-1.0); CO2 29.1 mmol/L (21.0-32.0); CREATININE 1.1 mg/dL (0.70-1.30); Calcium 9.6 mg/dL (8.5-10.1); Chloride 102 mmol/L (98-107); Estimated GFR 69.57 (mL/min/1.73m2); Glucose 91 mg/dL (74-106); Potassium 3.8 mmol/L (3.5-5.1); Sodium 139 mmol/L (136-145); Total Protein 8.1 g/dL (6.4-8.2)
[2023-04-19] MEDS: Acetaminophen 500 MG TAB 1000 MG PO (17:31)
== END 2023-04-19 18:02 | disposition home or self-care (01) ==
PROVIDERS: Emergency Provider Physician Assistant; PCP Family Medicine
DX: S81.802A Unspecified open wound, left lower leg, initial encounter (principal); N39.0 Urinary tract infection, site not specified; J18.9 Pneumonia, unspecified organism; R00.1 Bradycardia, unspecified; F31.81 Bipolar II disorder; I10 Essential (primary) hypertension; E78.5 Hyperlipidemia, unspecified; I25.10 Atherosclerotic heart disease of native coronary artery without angina pectoris
CPT/HCPCS: 80053; 99283; 81003; 85025; 86140

== ENCOUNTER → 2023-07-30 10:22 | Outpatient (BNVA) | payer MEDICARE, MEDICAID, SELFPAY | PROVIDERS: PCP Family Medicine; Referring Provider Family Medicine; Visit Provider Physical Therapy Assistant | DX: K22.70 Barrett's esophagus without dysplasia (principal); Z86.010 Personal history of colon polyps; Z12.11 Encounter for screening for malignant neoplasm of colon | CPT/HCPCS: 99213 ==

== ENCOUNTER 2023-08-05 09:24 | Day surgery (SDC) | payer MEDICARE, MEDICAID, SELFPAY ==
--- NOTE | 2023-08-05 06:20 | W.ANESPRE ---
General Info Date of Service Date Performed: 08/05/23 Height: 5 ft 8 in Weight: 90.265 kg Body Mass Index (BMI): 30.2 Surgical Procedure: Operation Date: 08/05/23 11:20 Proposed Procedure Side Surgeon p Colonoscopy/Gastroscopy Elijah Martines MD Meds Allergies and Home Medications Allergies Allergy/AdvReac Type Severity Reaction Status Date / Time hay fever Allergy Other (See Uncoded 08/05/23 10:18 Comment) Home Medication Medication Instructions Recorded clonazepam 1 mg tablet 1 mg PO HS 06/13/13 docusate sodium 100 mg capsule 100 mg PO BID PRN 06/13/13 (Colace) ezetimibe 10 mg tablet (Zetia) 10 mg PO DAILY 06/13/13 nitroglycerin 0.4 mg sublingual 0.4 mg sublingual PRN PRN 06/13/13 tablet (Nitrostat) trazodone 50 mg tablet 100 mg PO HS 06/13/13 diltiazem HCl 120 mg 120 mg PO DAILY 05/09/16 tablet,extended release 24 hr (Cardizem LA) apixaban 5 mg tablet (Eliquis) 5 mg PO BID 09/21/19 rosuvastatin 10 mg tablet (Crestor) 10 mg PO HS 09/21/19 ziprasidone HCl 60 mg capsule 60 mg PO BID 09/21/19 (Geodon) allopurinol 100 mg tablet 100 mg PO DAILY 04/11/22 famotidine 20 mg tablet (Pepcid) 20 mg PO DAILY 04/11/22 indomethacin 50 mg capsule 50 mg PO TID PRN 04/11/22 multivitamin 1 tab PO DAILY 04/11/22 propranolol 20 mg tablet See Rx Instructions .Route .COMPLEX 04/11/22 ferrous sulfate 325 mg (65 mg 325 mg PO DAILY 06/16/22 iron) tablet sertraline 100 mg tablet (Zoloft) 300 mg PO DAILY 06/16/22 magnesium oxide 400 mg (241.3 mg 400 mg PO DAILY 04/09/23 magnesium) tablet bisacodyl 5 mg tablet,delayed 5 mg PO ONCE #4 tabs 07/30/23 release (Dulcolax (bisacodyl)) polyethylene glycol 3350 17 17 g PO ONCE #238 grams 07/30/23 gram/dose oral powder Current Visit Medications: Current Medications Generic Name Dose Route Start Last Admin Trade Name Freq PRN Reason Stop Dose Admin Ringer's Solution 1,000 mls @ 80 mls/hr 08/05/23 06:00 IV 09/03/23 23:59 [facility] IV Miscellaneous Supplies 1 each 08/05/23 06:00 Iv Access IV 09/03/23 23:59 DIRECTED JONNY Sodium Chloride 0 ml 08/05/23 06:00 Normal Saline Flush 10 Ml Syr IV 09/03/23 23:59 PRN PRN Sodium Chloride 0 ml 08/05/23 06:00 Normal Saline 10 Ml Vial IJ 09/03/23 23:59 DIRECTED PRN Sterile Water 0 ml 08/05/23 06:00 Water,Injection,Sterile 10 Ml Vial IJ 09/03/23 23:59 DIRECTED PRN PFSH Active Problems Active Problems: Problem Status Onset Code Rhabdomyolysis M62.82 Syncope R55 Ambulatory dysfunction R26.2 Pulmonary hypertension I27.20 Anemia D64.9 COBURN (dyspnea on exertion) R06.00 Bipolar disorder F31.9 CAD (coronary artery disease) I25.10 Tubular adenoma of colon D12.6 Right leg injury S89.91XA Screening for colon cancer Z12.11 Cellulitis L03.90 Hypokalemia E87.6 Hypotension I95.9 Pneumonia J18.9 Cellulitis of left leg L03.116 Acute kidney injury N17.9 Leg wound, left S81.802A Medical History Medical History (Updated 08/04/23 @ 10:38 by Zoran Contreras) Accidental fall Atherosclerosis of coronary artery Blepharitis Chronic sinus bradycardia Complicated UTI (urinary tract infection) Dehydration Discharge planning issues Elevated liver enzymes Essential hypertension Gout History of tobacco abuse Hypercholesterolemia Hyperlipidemia Hypertension Insomnia Left knee pain Left ventricular hypertrophy Lightheadedness 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 states precancerous spot in the esophagus Onychomycosis Panic disorder personality affective Renal insufficiency, mild tubular adenomas Surgical History Surgical History Appendectomy (~2006) Colonoscopy - MAC (~2010) Colonoscopy - MAC (04/20/17) EGD - MAC (~2010) EGD - MAC (04/20/17) Hernia Repair, Incisional (~2007) Tobacco Smoking/Tobacco Use Status: Never Alcohol Alcohol Intake: current Alcohol intake frequency: holidays/special occasions only Substance Use Substance use: Never Substance use type: does not use Vital Signs and Lab Results Vital Signs Most Recent Vital Signs in EMR: Temp Pulse Resp BP Pulse Ox 36.7 C 56 L 17 134/66 95 08/05/23 10:10 08/05/23 10:10 08/05/23 10:10 08/05/23 10:10 08/05/23 10:10 Lab Results Blood Type / Crossmatch: No Data to Display Complete Blood Count: No Data to Display Complete Metabolic Panel: No Data to Display Liver Function Panel: No Data to Display Coagulation Panel: No Data to Display Cardiac Panel: No Data to Display Arterial Blood Gas: No Data to Display Venous Blood Gas: No Data to Display Pancreas Panel: No Data to Display Thyroid Panel: No Data to Display Infectious Disease: No Data to Display Blood Cultures: No Data to Display Toxicology Panel: No Data to Display Imaging and Studies Imaging and Studies Study information below may be from another EMR and interpreted by another provider. Please see original notes in EMR for more complete details. EKG Summary: 04/21: sinus taran, LAD. Stress Test Summary: 10/20: sinus with 1st degree AVB, 41% of maximal, non-diagnostic. apical thinning without evidence of prior infarction. EF 65%. Echocardiogram Summary: 09/17: EF 60%, RV dilation normal fxn, trivial MR, mild TR, RVSP 50-55 mmhg. Anesthesia Assessment and Plan Anesthesia History Personal History: No History of Anesthesia Complications Family History: No Family History of Anesthesia Complications Exercise Tolerance Exercise Tolerance: Metabolic Equivalents>4 Cardiac & Pulmonary Exam Cardiac Exam: Normal S1/S2 Heart Sounds Pulmonary Exam: Clear Bilateral Breath Sounds Implantable Cardiac Device Does patient have a Pacemaker or an ICD?: No Airway Exam Known Difficult Airway: No Mallampati Class: 3 Mouth Opening: Narrow (< 3cm) Thyromental Distance: Greater than 3 cm Facial Hair: Full [place] Neck Range of Motion: Limited ROM Neck Circumference: Normal Teeth Condition: Generalized Poor Dentition ASA Classification ASA Score: ASA 3 Emergency Case?: No NPO Status NPO Status: NPO Clears >2 hours, Solids >8 hours Anesthesia Plan Resuscitation Status: Full Code Anesthesia Technique: General Anesthesia Airway Planned: Natural Airway Monitors Used: Standard Monitors Preoperative Comments:: 77 yo male for EGD and colo. Sig PHx: CAD, COBURN, pHTN, syncope, schizoaffective, barretts, Previous Anes: - EGD/colo, midaz/fent, prop, natural airway, no issues.
[2023-08-05 10:10] VITALS: BP 134/66; PULSE 56; RESP 17; TEMP 36.7; O2SAT 95
[2023-08-05 10:16] VITALS: BMI 30.2
[2023-08-05] MEDS: Lactated Ringers 1,000 ML 80 ML IV (10:32)
--- NOTE | 2023-08-05 10:58 | STOM_PTH ---
PATIENT: Hayden Joy LOC: [facility] U#:[id number] AGE/SX: 77/M ROOM: RE08/05/[address]: Elijah Martines : 1945 BED: DIS: 08/05/2023 SPEC #: [id number] RECD: 08/05/23 13:20 STATUS: [facility] #: [id number] LALITHA: 08/05/23 10:[address]: Elijah Martines DEPT: Surgical Specimen RECD BY: Fariha Palomino ENTERED: 08/05/23 13:22 SP TYPE: STOMACH OTHR DR: Rosa Bartlett V Tissues: 1 - STOMACH BIOPSY 2 - STOMACH BIOPSY 3 - STOMACH BIOPSY 4 - ESOPHAGUS BIOPSY Procedures: GROSS AND MICRO LEVEL 4 Comments: [id number]
[2023-08-05 11:30] VITALS: BP 108/57; PULSE 48; RESP 16; TEMP 36.3; O2SAT 98
--- NOTE | 2023-08-05 11:36 | W.PM.ENDDOP ---
Date of service: 08/05/23 Time of Service: 11:36 Endoscopy Report PROCEDURE DESCRIPTION: Procedures performed: 1.? Esophagogastroduodenoscopy with cold forceps biopsies Preoperative diagnosis: Holloway's esophagus Postoperative diagnosis: Erosive gastritis, normal esophagus Surgeon: Ilda Martines Anesthesia: Leo Indication for procedure: 77-year-old man has a history of Holloway's esophagus. He is not having any symptoms. Request for EGD due to surveillance purposes. He is on blood thinners for DVT history. Findings: - D3, D2 and D1 - normal - no inflammation or ulcers - Pylorus - patent.? No bile reflux visualized during procedure. - Antrum -acutely and chronically inflamed with erosions but no georgiana ulcerations- biopsies taken to rule out occult H. pylori - Stomach Body -acutely and chronically inflamed with erosions but no georgiana ulcerations biopsies taken to confirm.? - Fundus -? Normal?appearing.? No polyps. Biopsies taken to rule out occult H. pylori - Hiatus - Retroflexion showed a normal hiatus. - Esophagus - distal esophagus does not look inflamed.? No stricture or evidence of Holloway's.? I took biopsies to confirm because of the history. The mid and proximal esophagus was also normal. - Cords/hypopharynx - Normal OVERALL -no Holloway's. tegy/ideas in regards to erosive gastritis. Surveillance/follow-up recommendations: Pending biopsy results.?? Unlikely to be necessary.?? Probably does not need any more surveillance for Holloway's. Will defer to PCP for management discussion and stra Complications: None Blood loss: Minimal Specimens:? YES Procedure in detail: Written consent was obtained from the patient who was in agreement with the risks, benefits and indications of the procedure.? We went to the endoscopy suite and laid the patient in left lateral decubitus position.? Anesthesia was administered which was tolerated well.? A timeout was performed and when we are all in agreement we began the procedure. A well?lubricated endoscope was advanced without difficulty down the esophagus, into the stomach, through a patent pylorus and into the duodenum.? It was then slowly pulled back with findings noted above. The scope was then removed and the patient tolerated the procedure well and was then turned for the colonoscopy portion of the procedure (see separate procedure note)
--- NOTE | 2023-08-05 11:39 | COLE_ITS ---
Date of service: 08/05/23 Time of Service: 11:39 Colonoscopy Report Procedure Description: Procedures performed: 1. Colonoscopy Preoperative diagnosis: Surveillance colonoscopy, history of adenomatous polyps Postoperative diagnosis: Sigmoid diverticulosis, grade 1 internal hemorrhoids Surgeon: Ilda Martines Anesthesia: Leo Indication for procedure: 77-year-old man who has a history of adenomatous polyps removed 2 colonoscopies ago, the last colonoscopy had a hyperplastic polyp removed, he is not having any symptoms and there is no history in his family of colorectal cancer. He is on blood thinners because of DVT history. Findings: Normal terminal ileum.? No inflammation seen in the colon and no new polyps. There are moderate diverticular changes present throughout the entire sigmoid and some of the descending colon. Grade 1 internal hemorrhoids noted in the rectum. Surveillance/follow-up recommendations: Probably does not need another colonoscopy. Another one could be considered in 7 to 10 years if he has a good life expectancy at that time however I am not certain that he has a good(10- year) life expectancy even now. Complications: None Blood loss: Minimal Prep: Adequate Specimens:? None Procedure in detail: Written consent was obtained from the patient who was in agreement with the risks, benefits and indications of the procedure.? We turned from upper endoscopy (see separate procedure note) and continuing anesthesia and I started the colonoscopy portion of the procedure. Digital rectal exam and visual examination was performed and within normal limits.? A well?lubricated colonoscope was advanced without difficulty all the way to the cecum identified by the ileocecal valve, and triangular folds and appendiceal orifice.? Terminal ileum was normal.? It was then slowly withdrawn.?? Retroflexion was performed in the rectum.? The findings/interventions are noted above. The scope was then removed and the patient tolerated the procedure well and was then taken back to the PACU in hemodynamically stable condition.
--- NOTE | 2023-08-05 11:43 | W.PM.DSUDISC ---
Date of service: 08/05/23 Time of Service: 11:43 Discharge Plan Disposition Patient Disposition: Home Condition: Good Discharge Details Attending Provider: Elijah Martines Primary Care Provider: Rosa Bartlett V Home Meds and New Rx's Prescriptions: No Action bisacodyl [Dulcolax (bisacodyl)] 5 mg tablet,delayed release (DR/EC) 5 mg PO ONCE Qty: 4 0RF Rx Instructions: Take per colonoscopy instructions provided by ordering providers office polyethylene glycol 3350 17 gram/dose powder 17 g PO ONCE Qty: 238 0RF Rx Instructions: Take per colonoscopy instructions provided by ordering providers office multivitamin Tablet 1 tab PO DAILY famotidine [Pepcid] 20 mg tablet 20 mg PO DAILY allopurinol [Zyloprim] 100 mg tablet 100 mg PO DAILY indomethacin 50 mg capsule 50 mg PO TID PRN Rx Instructions: administer with food or milk propranolol 20 mg tablet See Rx Instructions .ROUTE .COMPLEX Rx Instructions: Take 2 tabs in the AM and 1 tab in the PM sertraline [Zoloft] 100 mg tablet 300 mg PO DAILY ferrous sulfate 325 mg (65 mg iron) tablet 325 mg PO DAILY clonazepam 1 MG tablet 1 mg PO HS nitroglycerin [Nitrostat] 0.4 MG tablet, sublingual 0.4 mg Sublingual PRN PRN Patient Comments: HAS NOT EVER HAD TO USE docusate sodium [Colace] 100 MG capsule 100 mg PO BID PRN ezetimibe [Zetia] 10 MG tablet 10 mg PO DAILY trazodone 50 MG tablet 100 mg PO HS diltiazem HCl [Cardizem LA] 120 MG tablet extended release 24 hr 120 mg PO DAILY Rx Instructions: 08/18 1/2 tablet daily ziprasidone HCl [Geodon] 60 mg Capsule 60 mg PO BID rosuvastatin [Crestor] 10 mg Tablet 10 mg PO HS Eliquis 5 mg Tablet 5 mg PO BID magnesium oxide 400 mg (241.3 mg magnesium) tablet 400 mg PO DAILY Patient Comments: TAKE ONE TABLET BY MOUTH EVERY DAY Discharge Instructions Additional Instructions: FINDINGS: See above Stand Alone Forms: Colonoscopy Post Instructions Activity:: Activity as Tolerated Diet:: Normal Diet DS: Diagnosis Discharge Diagnosis (1) Holloway's esophagus: Status: None Asessment and Plan: Your esophagus looked perfect. No Holloway's seen on your endoscopy. You probably do not need another endoscopy for surveillance purposes. However, erosions/mini-ulcerations were seen in your stomach called erosive gastritis which is inflammation of your stomach and can be from a number of different causes. You should follow-up with your PCP to discuss. (2) Tubular adenoma of colon: Status: Acute Asessment and Plan: No new polyps were found. Diverticular disease was seen which is extremely common, benign, & nothing needs to be done about it as long as you are not having symptoms from it.
[2023-08-05 11:57] VITALS: BP 110/47; PULSE 56; RESP 18; TEMP 36.4; O2SAT 97
--- NOTE | 2023-08-05 12:11 | W.ANESPOSTOP ---
Postoperative Evaluation Date, Time and Location Date Performed: 08/05/23 Time Performed: 12:11 Patient Location: Day Surgery Unit Vital Signs Most Recent Imported Vital Signs: Most Recent Vital Signs Temp Pulse Resp BP Pulse Ox 36.4 C L 56 L 18 110/47 L 97 08/05/23 11:57 08/05/23 11:57 08/05/23 11:57 08/05/23 11:57 08/05/23 11:57 Pain Score Most Recent Pain Score: Most Recent Pain Score Pain Level 0 08/05/23 11:57 Assessment Mental Status: Awake (Alert & Oriented to Patient Baseline) Airway and Respiratory Function: Patent airway with normal (patient baseline) respiratory exam Cardiovascular Function: Hemodynamically Stable Hydration Status: Adequately Hydrated Nausea & Vomiting: No Nausea or Vomiting Pain: Pt. Denies Any Pain Peripheral Nerve Block: Patient did not receive a nerve block
== END 2023-08-05 14:10 | disposition home or self-care (01) ==
PROVIDERS: PCP Family Medicine; Visit Provider Student in an Organized Health Care Education/Training Program
PROC: (CPT 43239; principal; 2023-08-05 11:15)
DX: Z12.11 Encounter for screening for malignant neoplasm of colon (principal); Z86.010 Personal history of colon polyps; K29.60 Other gastritis without bleeding; Z87.19 Personal history of other diseases of the digestive system; Z86.718 Personal history of other venous thrombosis and embolism; Z79.01 Long term (current) use of anticoagulants; K64.0 First degree hemorrhoids; K57.30 Diverticulosis of large intestine without perforation or abscess without bleeding
CPT/HCPCS: 43239; G0105; 88305; J2001

== ENCOUNTER 2023-08-28 13:07 | Outpatient (REF) | payer MEDICARE, MEDICAID, SELFPAY ==
[2023-08-28 15:01] LABS: Hemoglobin A1C 5.2 % (<5.7)
[2023-08-28 15:05] LABS: ALT 28 U/L (16-63); AST 26 U/L (15-37); Albumin 4.1 g/dL (3.4-5.0); Alkaline Phosphatase 135 U/L (46-116); Anion Gap 7.7 mmol/L (3-11); BUN 15 mg/dL (7-18); Bilirubin, Total 0.4 mg/dL (0.2-1.0); C-Reactive Protein 0.27 mg/dL (0.0-0.3); CO2 29.3 mmol/L (21.0-32.0); CREATININE 1.1 mg/dL (0.70-1.30); Calcium 10.4 mg/dL (8.5-10.1); Chloride 103 mmol/L (98-107); Estimated GFR 69.57 (mL/min/1.73m2); Glucose 99 mg/dL (74-106); Potassium 4.9 mmol/L (3.5-5.1); Sodium 140 mmol/L (136-145); TSH (W/Ref FT4) 0.91 uIU/mL (0.36-3.74); Total Protein 7.8 g/dL (6.4-8.2)
[2023-08-28 22:52] LABS: PSA, Screening 2.3 ng/mL (<=6.5)
[2023-08-31 10:40] LABS: ESR (LRH) 23 mm/hr
== END 2023-08-28 13:08 | disposition home or self-care (01) ==
LOC: NCHCN 13:07
PROVIDERS: PCP Family Medicine; Visit Provider Family Medicine
DX: R63.4 Abnormal weight loss (principal); I10 Essential (primary) hypertension; E78.5 Hyperlipidemia, unspecified; I25.10 Atherosclerotic heart disease of native coronary artery without angina pectoris; Z12.5 Encounter for screening for malignant neoplasm of prostate; R79.89 Other specified abnormal findings of blood chemistry; E83.52 Hypercalcemia; D64.9 Anemia, unspecified
CPT/HCPCS: 80053; 84153; 85652; 83036; 84443; 86140

== ENCOUNTER 2024-03-17 16:19 | Outpatient (REF) | payer MEDICARE, MEDICAID, SELFPAY ==
[2024-03-17 18:53] LABS: Anion Gap 7.9 mmol/L (3-11); BUN 18 mg/dL (7-18); CO2 31.1 mmol/L (21.0-32.0); CREATININE 1.1 mg/dL (0.70-1.30); Calcium 9.3 mg/dL (8.5-10.1); Chloride 104 mmol/L (98-107); Estimated GFR 69.14 (mL/min/1.73m2); Glucose 97 mg/dL (74-106); Potassium 4.6 mmol/L (3.5-5.1); Sodium 143 mmol/L (136-145)
== END 2024-03-17 16:20 | disposition home or self-care (01) ==
LOC: NCHCN 16:19
PROVIDERS: PCP Family Medicine; Visit Provider Family Medicine
DX: E83.52 Hypercalcemia (principal)
CPT/HCPCS: 80048; 83735

== ENCOUNTER 2024-08-30 18:58 | Outpatient (REF) | payer MEDICARE, MEDICAID, SELFPAY ==
--- OUTSIDE RECORDS SUMMARY | 2024-08-30 19:00 | XMS_ITS | Encounter Summary ---
Author Organization [facility] Address [address] [place] [address] Care Team Providers Care Business Info Consultant Name Role Phone Rosa Bartlett MD Primary Care Provider [phone] Encounter Details Date Type Department Care Team (Latest Contact Info) Description 04/20/2017 7:46 EDT - 04/20/2017 23:59 EDT Hospital Encounter [address] [address] Unknown, Provider, Discharge Disposition: Home or Self Care Social History Tobacco Use Types Packs/Day Years Used Date Smoking Tobacco: Never Smokeless Tobacco: Never Alcohol Use Standard Drinks/Week Comments No 0 (1 standard drink = 0.6 oz pur e alcohol) Sex and Gender Information Value Date Recorded Sex Assigned at Not on file Gender Identity Not on file Sexual Orientation Not on file documented as of this encounter Medications at Time of Discharge Medication Sig Dispensed Refills Start Date End Date ACETAMINOPHEN WITH CODEINE (ACETAMINOPHEN-CODEINE) 120-12 mg/5 mL solution Take 15 mL by mouth every 4 hours as needed for Pain. 240 mL 0 12/17/2011 EZETIMIBE/SIMVASTATIN (VYTORIN 10-80 ORAL) Take by mouth daily. hydrochlorothiazide (HYDRODIURIL) 50 mg tablet Take 50 mg by mouth daily. Miscellaneous Medication - See Admin Instructions Mylanta/viscous Lidocaine 2% in a 3:1 mixture 400 mL 0 12/17/2011 nadolol (CORGARD) 80 mg tablet Take 80 mg by mouth daily. omeprazole (PRILOSEC) 40 mg capsule Take 40 mg by mouth daily. SERTRALINE HCL (SERTRALINE ORAL) Take 300 mg by mouth daily. TRAZODONE HCL (TRAZODONE ORAL) Take by mouth as needed. documented as of this encounter Discharge Disposition Disposition Code Departure Means Destination Home or Self Intermediate documented in this encounter Plan of Treatment Not on file documented as of this encounter Visit Diagnoses Not on filedocumented in this encounter Care Teams Business Info Consultant Relationship Specialty Start Date End Date Rosa Bartlett MD [address] [place] [id number] PCP - General 05/07/09 documented as of this encounter
--- OUTSIDE RECORDS SUMMARY | 2024-08-30 19:00 | XMS_ITS | Encounter Summary ---
Author Organization [facility] Address [address] [place] [address] Care Team Providers Care Interface Developer Name Role Phone Rosa Bartlett MD Primary Care Provider [phone] Encounter Details Date Type Department Care Team (Late st Contact Info) Description 12/17/2011 12:05 EST - 12/17/2011 21:36 EST Hospital Encounter [facility] Endoscopy - [address] [id number] Chun Mahoney MD [address] [facility], [address] [place] [address] Discharge Disposition: Home or Self Care Social [...] on file documented as of this encounter Last Filed Vital Signs Vital Sign Reading Time Taken Comments Blood Pressure 118/61 12/17/2011 1437 EST Pulse - - Temperature 36.9 ??C (98.4 ??F) 12/17/2011 1225 EST Respiratory Rate 16 12/17/2011 1437 EST Oxygen Saturation 98% 12/17/2011 1437 EST Inhaled Oxygen Concentration - - Weight 112 kg (247 lb) 12/17/2011 1223 EST Height 177.8 cm (5' 10) 12/17/2011 1223 EST Body Mass Index 35.44 12/17/2011 1223 EST documented in this encounter Medications at Time of Discharge [...] (TRAZODONE ORAL) Take by mouth as needed. sucralfate (CARAFATE) 100 mg/mL suspension Take 20 mL by mouth 4 times daily for 7 days. 560 mL 0 12/17/2011 12/24/2011 documented as of this encounter Ordered Prescriptions Prescription Sig Dispensed Refills Start Date End Da te Miscellaneous Medication - See Admin Instructions Mylanta/viscous Lidocaine 2% in a 3:1 mixture 400 mL 0 12/17/2011 ACETAMINOPHEN WITH CODEINE (ACETAMINOPHEN-CODEINE) 120-12 mg/5 mL solution Take 15 mL by mouth every 4 hours as needed for Pain. 240 mL 0 12/17/2011 sucralfate (CARAFATE) 100 mg/mL suspension Take 20 mL by mouth 4 times daily for 7 days. 560 mL 0 12/17/2011 12/24/2011 documented in this encounter Discharge Disposition Disposition Code Departure Means Destination Home or Self Care documented in this encounter H&P Notes * Chun Mahoney MD - 12/17/2011 1307 EST Sedation for Procedure History & Physical Date: 12/17/2011 Time: 13:07 Location: [address] Planned Procedure: Gastroscopy Chief Complaint/Indications for Procedure: barretts History Previous Complication with Sedation and/or Anesthesia? No Allergies: No Known Allergies Current Medications: Prescriptions prior to admission Medication Sig Dispense Refill ??? omeprazole (PRILOSEC) 40 mg capsule Take 40 mg by mouth daily. ??? nadolol (CORGARD) 80 mg tablet Take 80 mg by mouth daily. ??? SERTRALINE HCL (SERTRALINE ORAL) Take 300 mg by mouth daily. ??? EZETIMIBE/SIMVASTATIN (VYTORIN 10-80 ORAL) Take by mouth daily. ??? hydrochlorothiazide (HYDRODIURIL) 50 mg tablet Take 50 mg by mouth daily. ??? TRAZODONE HCL (TRAZODONE ORAL) Take by mouth as needed. Past Medical History: Past Medical History Diagnosis Date ??? Hypertension ??? GERD (gastroesophageal reflux disease) ??? Psychiatric problem depression and anxiety ??? Hypertension ??? Colon polyp ??? Mental disorder depression Social History: Past Surgical History Procedure Date ??? Appendectomy 2007 History Substance Use Topics ??? Smoking status: Never Smoker ??? Smokeless tobacco: Never Used ??? Alcohol Use: No Family History: Family History Problem Relation Age of Onset ??? Alcohol Abuse Father Review of Systems as pertinent: Physical Exam Vital Signs: BP 124/78 Temp(Src) 36.9 ??C (98.4 ??F) (Tympanic) Resp 16 Ht 177.8 cm (70) Wt 112.038 kg (247 lb) BMI 35.44 kg/m2 SpO2 97% Heart Examination: Cardiac Regularity: Regular Respiratory Examination: Respiratory Pattern: Regular Breath Sounds Right: Clear Breath Sounds Left: Clear Additional physical exam related to the proposed procedure, patient activity, disease state and treatment as pertinent: Assessment Previous complications with sedation or anesthesia?: No Airway Concerns: None Anesthesia Classification: ASA 2 Fasting Time: Time of last liquid intake: 629 Date of Last Liquid Intake: 12/17/11 Time of last solid intake: 899 Date of last solid intake: 12/16/11 Patient Appropriate Candidate for Planned Sedation?: Yes documented in this encounter Procedure Notes * Senior Project Coordinator, Elmer - 12/18/2011 0800 ESTAssociated Order(s): PROCEDURE REPORTS - SCANNED documented in this encounter OR Notes * Anesthesia Preprocedure Evaluation - Senior Project Coordinator, Elmer - 12/18/2011 1104 EST * Anesthesia Procedure Notes - Senior Project Coordinator, Scan - 12/17/2011 1353 EST * Anesthesia Preprocedure Evaluation - Senior Project Coordinator, Scan - 12/17/2011 1336 EST documented in this encounter Miscellaneous Notes * Scanned Note-Null - Senior Project Coordinator, Scan - 12/18/2011 1104 EST * Scanned Note-Null - Senior Project Coordinator, Scan - 12/18/2011 1104 EST * Anesthesia Post-Eval - Veto Ariza MD - 12/17/2011 1456 EST Post Anesthesia Evaluation Note Date of Service: 12/17/2011 Hayden Joy, a 66 y.o. year old male has received MAC today. He has been evaluated, assessed and discharged from anesthesia care with stable cardiorespiratory function and alert mental status. The last set of recorded vital signs and pain rating were reviewed: BP: 118/61 mmHg (12/17/11 1437), Resp: 16 (12/17/11 1437), SpO2: 98 % (12/17/11 1437),Numeric Pain Level (Scale 1-10): 0 Hayden Joy participated in this evaluation unless otherwise noted. His pain, nausea and vomiting have been managed and his body temperature and fluid balance have been restored. Additional monitoring and assessment needs have been addressed. If present, any postoperative events are documentedbelow. VETO ARIZA MD 12/17/2011 14:56 documented in this encounter Plan of Treatment Not on file documented as of this encounter Procedures Procedure Name Priority Date/Time Associated Diagnosis Comments PROCEDURE REPORTS - SCANNED 12/18/2011 8:00 EST documented in this encounter Results * PROCEDURE REPORTS - SCANNED (12/18/2011 8:00 EST) 12/18/2011 8:00 EST Narrative Transcriptions Senior Project Coordinator, Scan - 12/18/2011 8:00 EST Scan Senior Project Coordinator PROCEDURE/MINOR SURG ICAL ORDERABLES documented in this encounter Visit Diagnoses Not on filedocumented in this encounter Administered Medications Inactive Administered Medications - up to 3 most recent administrations Medication Order MAR Action Action Date Dose Rate Site acetylcysteine (MUCOMYST) 10 % (100 mg/mL) nebulizer solution 4 mL 4 mL, inhalation, Once (Without Time Specified), 1 dose, Starting on Thu12/17/11 at 1245, Until Thu12/17/11 at 1353, Routine, Intraprocedure Given 12/17/2011 13:53 EST 4 mL lactated ringers (LR) infusion 30 mL/hr, intravenous, CONTINUOUS, Starting on Thu12/17/11 at 1245, Until Thu12/17/11 at 2336, Routine, Preprocedure New Bag 12/17/2011 12:55 EST 30 mL/hr 30 mL/hr documented in this encounter Active and Recently Administered Medications Times are shown in EST. Scheduled Medication Order 12/15/2011 12/16/2011 12/17/2011 acetylcysteine (MUCOMYST) 10 % (100 mg/mL) nebulizer solution 4 mL (COMPLETED) 4 mL, inhalation, Once (Without Time Specified), 1 dose, Starting on Thu12/17/11 at 1245, Until Thu12/17/11 at 1353, Routine, Intraprocedure 1353 (Given - Provid er: Emperatriz Nation RN - Comment: via gastroscope) Continuous Medication Order 12/15/2011 12/16/2011 12/17/2011 lactated ringers (LR) infusion (CANCELED) 30 mL/hr, intravenous, CONTINUOUS, Starting on Thu12/17/11 at 1245, Until Thu12/17/11 at 2336, Routine, Preprocedure 1255 (New Bag - Prov ider: Mami Hannah, HAYDER)1456 (Completed - Provider: Kiara Stanford RN) documented in this encounter Orders Medications Ordered That Miles ht Not Have Been Administered Count Last Ordered Date First Ordered Date acetaminophen (TYLENOL) tablet 325 mg 1 atropine 0.1 mg/mL 10 mL syringe 0.5 mg 1 0 12/17/2011 diphenhydrAMINE (BENADRYL) i njection 6.25 mg 1 12/17/2011 lactated ringers (LR) infusion 1 12/17/2011 meperidine (PF) (DEMEROL) 10 0 mg/mL injection 25-200 mg 1 12/17/2011 metoCLOPramide (REGLAN) injection 10 mg 1 0 12/17/2011 midazolam (VERSED) injection 0.5-2 mg 1 midazolam (VERSED) injection 1-10 mg 1 11/30 naloxone (NARCAN) injection 0.2 mg 1 2011 ondansetron (PF) (ZOFRAN) injection 2 mg 1 12/17/2011 sodium chloride 0.9 % (NS) infusion 1 12/17 Discharge Count Last Ordered Date First Orde red Date DISCHARGE PATIENT 1 12/17/2011 documented in this encounter Care Teams Interface Developer Relationship Specialty Start Date End Date Rosa Bartlett MD [address] [place] [id number] PCP - General 05/07/09 documented as of this encounter
--- OUTSIDE RECORDS SUMMARY | 2024-08-30 19:00 | XMS_ITS | Encounter Summary ---
Author Organization [facility] Address [address] [place] [address] Care Team Providers Care Interlacer Name Role Phone Rosa Padgett MD Primary Care Provider [phone] Encounter Details Date Type Department Care Team (Late st Contact Info) Description 05/24/2010 Results Only [facility] Laboratory Services - [facility] ([facility] [address] [place], [place] [address] Ravinder Cintron MD [address] [place], [place] [address] Social History Tobacco Use Types Packs/Day Years Used Date Smoking Tobacco: Never Assessed Sex and Gender Information Value Date Recorded Sex Assigned at Not on file Gender Identity Not on file Sexual Orientation Not on file documented as of this encounter Plan of Treatment Not on file documented as of this encounter Procedures Procedure Name Priority Date/Time Associated Diagnosis Comments SURGICAL PATHOLOGY Routine 05/24/2010 0:00 EDT documented in this encounter Results * SURGICAL PATHOLOGY (05/24/2010 0:00 EDT) Pathology Report: SURGICAL PATHOLOGY REPORT ? Reports generated via electronic interface contain original data; ? however they are lacking the format of the original report. ? Caution should be taken when reading/interpreting unformatted reports. ? Name: ? SHERRIE, HAYDEN E ? Accession #: ? [id number] ? : ? 1945 (Age: 64) ??M ? Collect Date: ? 05/24/2010 ? Location: ? [facility] ? Receive Date: ? 05/25/2010 ? Provider: RAVINDER CINTRON MD ? Copy to: ROSA PADGETT MD ? Final Pathologic Diagnosis: ? A. ?Duodenum, biopsy: ? 1. ?Superficial fragments of duodenal mucosa with no specific pathologic features. ? 2. ? No villous blunting or increased intraepithelial lymphocytes identified. ? B. ?Stomach, body, biopsy: ? 1. ?Polypoid oxyntic-type mucosa with focal cystic dilation of ? specialized glands; otherwise, no specific pathologic features. ? 2. ? No Helicobacter pylori-like microorganisms identified on H&E stained ? sections. ? C. ?Gastroesophageal junction, biopsies: ? 1. ?Focal low grade dysplasia. ??See comment. ? 2. ? 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 ??See comment. ? Comment: ? Deeper levels of specimen (C) have been examined and while there is a ? background of inflammatory/reactiv e changes, there are sufficient features ? focally for a diagnosis of low grade dysplasia. ??Dr. Camron Larkin has reviewed this case in consultation and agrees with the above diagnosis. ??This case has ?? been reviewed at the intradepartmental consultation conference. ??(Dr. Franklin)/juvenal ? Document reviewed and electronically signed by: ? Annika Franklin MD ? Report ??Date: 05/29/2010 17:44 ? By the signature above, the attending physician certifies that he/she has ? personally conducted a gross and/or microscopic examination of the described ? specimens and rendered or confirmed the above diagnosis. ? Specimen(s) Received: ? A. ?Bx duodenum (#1) ? B. ? Bx gastric body (#2) ? C. ?? Bx E-G junction (#3) ? Clinical History: ? Hx Holloway's esophagus ? Gross Description: ? Received in [facility] labelled Ankner, Vincent and bx duodenum is a ?? lorenzana-pink tissue measuring 0.3 x 0.2 x 0.2 cm. ??The specimen is submitted ? entirely as (A). ? Received in [facility] labelled Hayden Joy and bx gastric body is a ? lorenzana-pink tissue measuring 0.3 x 0.3 x 0.1 cm. ??The specimen is submitted ? entirely as (B). ? Received in [facility] labelled Hayden Joy and bx E-G junction are two lorenzana-pink tissues measuring 0.2 x 0.2 x 0.2 cm and 0.3 x 0.2 x 0.1 cm. ??The ? specimens are submitted entirely as (C). ??(Billy Lewis/serge ? End of Report ? [facility] 05/24/2010 05/25/2010 9:0 7 EDT Ravinder Cintron MD PATHOLOGY ORDERABLES [facility] [address] [place] [address] documented in this encounter Visit Diagnoses Not on filedocumented in this encounter Care Teams Interlacer Relationship Specialty Start Date End Date Rosa Padgett MD [address] [place] [id number] PCP - General 05/07/09 documented as of this encounter
--- OUTSIDE RECORDS SUMMARY | 2024-08-30 19:00 | XMS_ITS | Data Portability ---
Author Organization [facility] Address Genev[place] [address] Assessment No assessment recorded. Plan of Treatment Reminders Order Date Submit Date Provider Last Modified By Organization Details Last Modified Time Details Appointments Medicare Annual Wellness 40 2023 01:00P M Not available Not available Not available Nurse Visit 20 2023 01:00P M Not available Not available Not available Follow Up 30 2023 01:00P M Not available Not available Not available Follow Up 30 2024 01:00P M Not available Not available Not available Lab BMP, serum or plasma 2023 024 [email or web address] [facility] (Registration ), [address] [place] [address] [place], [address], 04/04/2024 11:42:55 magnesium , serum or plasma 2023 024 [email or web address] [facility] (Registration ), [address] [place] [address] [place], [address], 04/04/2024 11:42:42 Referral None recorded. Procedures None recorded. Surgeries None recorded. Imaging None recorded. Medication Orders None recorded. Patient TargetsNo targets recorded. Patient InstructionsNo instructions recorded. 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 for Onyc homycosis due to dermatophyte nail care, onychomycosis Referring Physician: Mal[facility]lett [facility], Encounter Date: 08/30/2024 Results Created Date Observation Date Name Description Value Unit Range Abnormal Flag Note LastModifiedBy Organization Detail LastModifiedTime 03/17/20 24 03/17/2024 BASIC METAB OLIC PANEL calcium 9.3 mg/dL 8.5-10 .1 normal Not Available [address] [place], [address] 03/17/2024 18:56:36 03/17/20 24 03/17/2024 BASIC METAB OLIC PANEL glucose 97 mg/dL 74-106 normal Not Available Radha núñez [address] [place], [address] 03/17/2024 18:56:36 03/17/20 24 03/17/2024 BASIC METAB OLIC PANEL BUN 18 mg/dL 7-18 normal Not Available Radha núñez [address] [place], [address] 03/17/2024 18:56:36 03/17/20 24 03/17/2024 BASIC METAB OLIC PANEL creatinine 1.1 mg/dL 0.70-1 .30 normal Not Available [address] [place], [address] 03/17/2024 18:56:36 03/17/20 24 03/17/2024 BASIC METAB OLIC PANEL estimated GFR 69.14 mL/min /1.73M 2 The eGFR is calcu lated from a serum creat inine using the CKD-E PI 2020 equat ion. Other varia bles requi red for the equat ion are gende r and age; this equat ion does not inclu de a race coeff icien t. This equat ion has simil ar overa ll perfo rmanc e to previ ous equat ions excep t value s may diffe r, in parti cular , in patie nts with highe r value s of eGFR and young er-ag ed adult s. Not Available [address] [place], [address] 03/17/2024 18:56:36 03/17/20 24 03/17/2024 BASIC METAB OLIC PANEL sodium 143 mmol/ L 136-14 5 normal Not Available [address] [place], [address] 03/17/2024 18:56:36 03/17/20 24 03/17/2024 BASIC METAB OLIC PANEL potassium 4.6 mmol/ L 3.5-5. 1 normal Not Available [address] [place], [address] 03/17/2024 18:56:36 03/17/20 24 03/17/2024 BASIC METAB OLIC PANEL chloride 104 mmol/ L 98-107 normal Not Available [address] [place], [address] 03/17/2024 18:56:36 03/17/20 24 03/17/2024 BASIC METAB OLIC PANEL CO2 31.1 mmol/ L 21.0-3 2.0 normal Not Available [address] [place], [address] 03/17/2024 18:56:36 03/17/20 24 03/17/2024 BASIC METAB OLIC PANEL anion gap 7.9 mmol/ L 3-11 normal Not Available [address] [place], [address] 03/17/2024 18:56:36 03/17/20 24 03/17/2024 MAGNE SIUM magnesium 2.0 mg/dL 1.8-2. 4 normal Not Available [address] [place], [address] 03/17/2024 18:56:37 08/30/20 24 08/30/2024 hemog lobin (Hb), finge rstic k, blood HGB 12.3 g/dL Not Available [address], [address], 08/30/2024 13:05:44 08/15/20 24 09/21/2019 imagi ng/di agnos tic resul t No observ ation record ed. Not Available 08/15 20:24:26 08/15/20 24 09/21/2019 imagi ng/di agnos tic resul t No observ ation record ed. Not Available 08/15 20:24:27 08/15/20 24 09/21/2019 imagi ng/di agnos tic resul t No observ ation record ed. Not Available 08/15 20:24:28 08/15/20 24 09/21/2019 imagi ng/di agnos tic resul t No observ ation record ed. Not Available 08/15 20:24:30 08/15/20 24 09/21/2019 imagi ng/di agnos tic resul t No observ ation record ed. Not Available 08/15 20:24:32 08/15/20 24 09/22/2019 imagi ng/di agnos tic resul t No observ ation record ed. Not Available 08/15 20:24:33 08/15/20 24 11/27/2022 imagi ng/di agnos tic resul t No observ ation record ed. Not Available 08/15 20:24:35 08/15/20 24 11/27/2022 imagi ng/di agnos tic resul t No observ ation record ed. Not Available 08/15 20:24:37 08/15/20 24 11/27/2022 imagi ng/di agnos tic resul t No observ ation record ed. Not Available 08/15 20:24:39 08/15/20 24 10/08/2021 XR, ankle No observ ation record ed. Not Available 08/15 20:24:50 08/15/20 24 11/28/2022 XR, foot No observ ation record ed. Not Available 08/15 20:24:52 08/15/20 24 11/28/2022 XR, ankle No observ ation record ed. Not Available 08/15 20:24:53 08/15/20 24 12/08/2022 imagi ng/di agnos tic resul t No observ ation record ed. Not Available 08/15 20:24:56 08/15/20 24 11/28/2022 imagi ng/di agnos tic resul t No observ ation record ed. Not Available 08/15 20:24:58 08/15/2010/08/2021 imagi ng/di agnos tic resul t No observ ation record ed. Not Available 08/15 20:24:59 08/15/2009/22/2019 imagi ng/di agnos tic resul t No observ ation record ed. Not Available 08/15 20:25:02 08/15/20 24 09/22/2019 imagi ng/di agnos tic resul t No observ ation record ed. Not Available 08/15 20:25:03 08/15/20 24 09/22/2019 imagi ng/di agnos tic resul t No observ ation record ed. Not Available 08/15 20:25:04 08/15/20 24 09/22/2019 imagi ng/di agnos tic resul t No observ ation record ed. Not Available 08/15 20:25:05 08/15/20 24 09/22/2019 imagi ng/di agnos tic resul t No observ ation record ed. Not Available 08/15 20:25:07 08/15/20 24 09/19/2021 imagi ng/di agnos tic resul t No observ ation record ed. Not Available 08/15 20:25:23 08/15/20 24 09/19/2021 imagi ng/di agnos tic resul t No observ ation record ed. Not Available 08/15 20:25:25 08/15/20 24 04/09/2023 imagi ng/di agnos tic resul t No observ ation record ed. Not Available 08/15 20:27:01 08/15/20 24 09/22/2019 imagi ng/di agnos tic resul t No observ ation record ed. Not Available 08/15 20:27:51 08/15/20 24 09/23/2019 imagi ng/di agnos tic resul t No observ ation record ed. Not Available 08/15 20:27:52 08/15/20 24 04/09/2023 imagi ng/di agnos tic resul t No observ ation record ed. Not Available 08/15 20:27:54 08/15/20 24 09/22/2019 imagi ng/di agnos tic resul t No observ ation record ed. Not Available 08/15 20:27:54 08/15/20 24 09/22/2019 imagi ng/di agnos tic resul t No observ ation record ed. Not Available 08/15 20:27:56 08/15/20 24 04/09/2023 imagi ng/di agnos tic resul t No observ ation record ed. Not Available 08/15 20:27:57 08/15/20 24 04/13/2023 imagi ng/di agnos tic resul t No observ ation record ed. Not Available 08/15 20:27:58 08/15/20 24 10/08/2021 XR, knee No observ ation record ed. Not Available 08/15 20:28:02 Result Notes None recorded. 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 Blood pressure remainin g reasonab le. Asymptom atic from a CAD standpoi nt. He continue s on proprano lol, diltiaze m. He does have nitro availabl e, on rosuvast atin. He is on Eliquis. We will check a CMP. Problem Code: I10; Problem Code Type: ICD-10; Not Available [facility] 4 04:38:36 History of polyp of colon 679328518 Active 2010 Problem Code: Z86.010; Problem Code Type: ICD-10; Not Available [facility] 4 04:38:35 Atherosc lerosis of coronary artery without angina pectoris 95545874914 4103 Active 200109/07/20 22 - Comments only - Malena Bartlett MD - Clinical ly remainin g stable, remains on Zetia, Crestor, diltiaze m, Lasix 20 to 40 mg daily Problem Code: I25.10; Problem Code Type: ICD-10; Not Available [facility] 4 04:38:35 Hyperlip idemia 46418781 Active 200804/22/20 21 - Comments only - Malena Bartlett MD - on zetia and crestor with good control. Checking LFTs/lip ids Problem Code: E78.5; Problem Code Type: ICD-10; Not Available [facility] 4 04:38:36 Holloway' s esophagu s 260634382 Active 200705/11/20 23 - Comments only - Malena Bartlett MD - Due for another endoscop y, will confirm where he would like to have that done. Problem Code: K22.70; Problem Code Type: ICD-10; Not Available [facility] 4 04:38:35 Bipolar disorder 61422427 Active 200105/11/20 23 - Comments only - Malena Bartlett MD - /History of panic disorder . I suggeste d that he establis h with behavior al health so that he does have someone he can meet with as needed. He does have an appointm ent schedule d with Martinez Greer. He continue s to feel he is stable on his current combinat ion of clonazep am, proprano lol, Geodon, sertrali ne, trazodon e at at bedtime Problem Code: F31.9; Problem Code Type: ICD-10; Not Available [facility] 4 04:38:35 Panic disorder 634392519 Active 2001 Problem Code: F41.0; Problem Code Type: ICD-10; Not Available [facility] 4 04:38:35 Gout 84392110 Active 200102/24/20 20 - Comments only - Malena Bartlett MD - stable and asymptom atic on the allopuri nol Problem Code: M10.9; Problem Code Type: ICD-10; Not Available [facility] 4 04:38:36 Insomnia 638660743 Active 2001 Problem Code: G47.00; Problem Code Type: ICD-10; Not Available [facility] 4 04:38:35 Adult health examinat ion Active 201404/22/20 21 - Comments only - Malena Bartlett MD - he would like a PSA checked Problem Code: Z00.00; Problem Code Type: ICD-10; Not Available [facility] 4 04:38:35 Disorder of kidney and/or ureter 844871555 Active 201409/07/20 22 - Comments only - Malena Bartlett MD - Will be due for repeat BMP at the next visit. Problem Code: N28.9; Problem Code Type: ICD-10; Not Available [facility] 4 04:38:35 Localize d edema 427551072 Active 201412/03/19 22 - Comments only - Malena Bartlett MD - due to h/o DVT, may be a componen t of CHF. He did get improvem ent with increasi ng lasix from 20 to 40mg daily. WIll check a BMP Problem Code: R60.0; Problem Code Type: ICD-10; Not Available [facility] 4 04:38:35 Pain of joint of knee 8266450776 Active 2015 Problem Code: M25.569; Problem Code Type: ICD-10; Not Available [facility] 4 04:38:35 High enzyme level in serum 680543553 Completed 201608/31/2023 Problem Code: R74.8; Problem Code Type: ICD-10; Not Available [facility] 4 05:37:15 Onychomy cosis due to dermatop hyte 744445899 Active 201704/25/20 22 - Comments only - Malena Bartlett MD - he would like to see Dr. Salazar again for ongoing nail care - referral made Problem Code: B35.1; Problem Code Type: ICD-10; Not Available [facility] 4 04:38:35 Disorder of soft tissue 55692479 Completed 201708/31/2023 Problem Code: M70.88; Problem Code Type: ICD-10; Not Available [facility] 4 05:37:15 Deep venous thrombos is 109061443 Active 201709/07/20 22 - Comments only - Malena Bartlett MD - , Recurren t. Is luisin g stable on the Eliquis. Not Available [facility] 4 04:38:35 Rhabdomy olysis 815956617 Active 201810/20/20 19 - Comments only - Jose Manuel up [place] - He is feeling very week and exhauste d still. He is drinking plenty of water and voiding well. Will check CMP. Problem Code: M62.82; Problem Code Type: ICD-10; Not Available [facility] 4 04:38:35 Syncope and collapse 534617404 Active 201806/22/20 20 - Comments only - Malena Bartlett MD - , h/o - was associat ed with acute diarrhea l disease and no recurren ce of symptoms Problem Code: R55; Problem Code Type: ICD-10; Not Available [facility] 4 04:38:35 Accident al fall Active 201909/07/20 22 - Comments only - Malena Bartlett MD - He is getting out and walking fairly regularl y, has not had any recent falls. Encourag ed him to continue remainin g physical ly active. Not Available [facility] 4 04:38:35 Dizzines s and giddines s 346796768 Active 202004/27/20 23 - Comments only - Malena Bartlett MD - , Intermit tent. May be related to low blood pressure /bradyca rdia. He is not lighthea ded at the office today despite having a blood pressure of 9258 and a heart rate of 48. He is on the lowest doses of proprano lol and diltiaze m. We will call him to discuss further. Problem Code: R42; Problem Code Type: ICD-10; Not Available [facility] 4 04:38:35 Adjustme nt disorder 06505669 Active 202004/22/20 21 - Comments only - Malena Bartlett MD - Ayaz was without a car for month, isolated , unable to get garbage out. That has now all improved . He was able to find a company to come and get the garbage and has set up q2wk garbage collecti on. He has his car running again so can get out. He is more optimist ic and is planning a trip to visit his daughter in [place]. Problem Code: F43.20; Problem Code Type: ICD-10; Not Available [facility] 4 04:38:35 Long-ter m current use of anticoag ulant 265408397 Active 202004/27/20 23 - Comments only - Malena Bartlett MD - For history of DVTs. He remains on Eliquis Problem Code: Z79.01; Problem Code Type: ICD-10; Not Available [facility] 4 04:38:36 Counseli ng Active 202004/22/20 21 - Comments only - Malena Bartlett MD - Michelle was happy to get his J and J COVID vaccine in the office today. He was instruct ed on potentia l side effects and to continue masking for another 2 weeks. Problem Code: Z71.89; Problem Code Type: ICD-10; Not Available [facility] 4 04:38:35 Dyspnea 704887736 Active 202004/24/20 22 - Comments only - Malena Bartlett MD - waxing and waning historic ally. Prior BNP was mildly elevated and he was anemic which has improved . Will repeat a BNP, CBC, ferretin , TSH. If all WNL. If these negative then a holter monitor and PFTs. He does have a smoking history. Already on Eliquis for h/o DVTs so PE's unlikely Problem Code: R06.09; Problem Code Type: ICD-10; Not Available [facility] 4 04:38:35 Pain of left knee joint 33176796519 4107 Active 2020 Problem Code: M25.562; Problem Code Type: ICD-10; Not Available [facility] 4 04:38:35 Bradycar echo 83654580 Active 202004/24/20 22 - Comments only - Malena Bartlett MD - which could be contribu ting to dyspnea but bradycar echo has been present for years whereas dyspnea more recent. Again, if no other cause of symptoms willl set up event monitor/ cardiolo gy referral Problem Code: R00.1; Problem Code Type: ICD-10; Not Available [facility] 4 04:38:36 Anemia 280146740 Active 202012/28/19 23 - Comments only - Malena Bartlett MD - , On iron suppleme ntation. We will recheck a CBC, ferritin , iron level. He is schedule d for upper and lower endoscop ies next month. 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 Problem Code: Q84.6; Problem Code Type: ICD-10; Not Available [facility] 4 04:38:35 Cellulit is 112560726 Active 202204/27/20 23 - Comments only - Malena Bartlett MD - There is slowly improvin g, he is continui ng to take the antibiot ics. Explaine d the depletio n may take longer to subside. Problem Code: L03.90; Problem Code Type: ICD-10; Not Available [facility] 4 04:38:35 History of recurren t pneumoni a 813267765 Active 202205/11/20 23 - Comments only - Malena Bartlett MD - With follow-u p imaging recommen ded. We will schedule that at the next visit. Clinical ly he is at baseline in terms of his pulmonar y function . Problem Code: Z87.01; Problem Code Type: ICD-10; Not Available [facility] 4 04:38:36 Urinary tract infectio us disease 90553554 Active 202204/27/20 23 - Comments only - Malena Bartlett MD - It does not sound like he ever had symptoms . UA in the ED was actually unremark able. Problem Code: N39.0; Problem Code Type: ICD-10; Not Available [facility] 4 04:38:36 Disorder of skin and/or subcutan eous tissue 21321727 Active 202205/11/20 23 - Comments only - Malena Bartlett MD - Right lower extremit y in setting of recent cellulit is. The 2 areas as describe d below. No current evidence of infectio n. He did not want him in the boot placed today, was amenable to a dry Band-Aid on the scabbed area, some bacitrac in and a Band-Aid on the open area. He will continue to monitor the sites. If any worsenin g he is to let us know. I will otherwis e be seeing him on 3 Problem Code: L98.9; Problem Code Type: ICD-10; Not Available [facility] 4 04:38:36 Pain in lower limb 68130076 Completed 201504/22/2021 Problem Code: M79.606; Problem Code Type: ICD-10; Not Available [facility] 3 04:37:43 Diarrhea 26588905 Completed 201802/21/2020 Problem Code: R19.7; Problem Code Type: ICD-10; Not Available [facility] 3 04:37:43 Low back pain 722977342 Completed 201604/22/2021 Problem Code: M54.5; Problem Code Type: ICD-10; Not Available [facility] 3 04:37:43 Coronary arterios clerosis in [place] artery 65419198232 07 Completed 200806/14/2015 Problem Code: 414.01; Problem Code Type: ICD-9; Not Available [facility] 3 04:37:43 Urinary tract infectio us disease 57800044 Completed 201802/21/2020 Problem Code: N39.0; Problem Code Type: ICD-10; Not Available [facility] 3 04:37:44 Pain in thoracic spine 085695101 Completed 201702/21/2020 Problem Code: M54.89; Problem Code Type: ICD-10; Not Available [facility] 3 04:37:44 Coronary arterios clerosis 35334138 Completed 200108/26/2023 Not Available [facility] 3 04:37:44 Pain in right foot 54115500188 9107 Completed 201704/22/2021 Problem Code: M79.671; Problem Code Type: ICD-10; Not Available [facility] 3 04:37:44 Hyperten sive disorder 36333334 Completed 200808/26/2023 09/07/20 22 - Comments only - Malena Bartlett MD - Blood pressure s are well controll ed with the diltiaze m 120 mg daily, he also ended up resuming the proprano lol at 40 mg a day, takes 20 mg twice daily. We will call and get his heart rate readings as he is at risk for bradycar echo with this combinat ion. He does feel that the proprano lol helps with his anxiety. Not Available [facility] 3 04:37:44 History of clinical finding in subject 628708081 Completed 200808/26/2023 Not Available [facility] 3 04:37:45 Left ventricu lar hypertro phy 81562821 Completed 200108/26/2023 Not Available [facility] 3 04:37:45 Pain of right wrist 82071804747 9100 Completed 201904/22/2021 Problem Code: M25.531; Problem Code Type: ICD-10; Not Available [facility] 3 04:37:46 Periapic al abscess 698677820 Completed 201702/21/2020 Problem Code: K04.7; Problem Code Type: ICD-10; Not Available [facility] 3 04:37:46 Disorder of stomach 69358667 Active 202208/31/20 23 - Comments only - Malena Bartlett MD - per upper EGD this past year. He feels the famotidi ne is working well. Not Available [facility] 4 04:38:35 Abnormal weight loss 697581672 Active 202208/31/20 23 - Comments only - Malena Bartlett MD - , findings as above. Will be checking labs, then likely doing an abd/pelv ic CT Problem Code: R63.4; Problem Code Type: ICD-10; Not Available [facility] 4 04:38:35 Blood chemistr y outside referenc e range 771008122 Active 2022 Problem Code: R79.89; Problem Code Type: ICD-10; Not Available [facility] 4 04:38:35 Right lower quadrant pain 984641663 Active 202208/31/20 23 - Comments only - Malena Bartlett MD - , intermit tent. Clinical ly may be scar tissue from prior appy but I think further eleonora levi. He does have a h/o elevated LFTs and hypoalbu minemia. Will check a CMP and inflamma tory markers and may likely need CT imaging. Problem Code: R10.31; Problem Code Type: ICD-10; Not Available [facility] 4 04:38:35 Disorder of vision 92271396 Active [address], [facility] [address] , [facility] 4 14:25:59 Pain of right knee region 99239807413 4105 Active [address], [facility] [address] , [facility] 4 17:21:10 Neck pain 35260064 Active [address], [facility] [address] , [facility] 4 17:21:20 Notes:*Problem Name: Colon A denomas /sigmoid Diverticulosis *ICD-10 Codes: *Problem Status: inactive *Comments: *Note Date: 05/14/2011 *Problem Name: Male Pattern Baldi *ICD-10 Codes: *Problem Status: inactive *Comments: *Note Date: 09/27/2002 *Problem Name: Personality Affect *ICD-10 Codes: *Problem Status: active *Comments: *Note Date: 09/27/2002 Some problems listed in Documents: #[id number], #[id number] could not be added to this patient's chart. Please review these documents and add these problems to the patient's chart manually as needed. Problem Notes None recorded. Procedures Surgical History None recorded. Imaging Results Imaging Date Name Status LastModified by [facility] Details LastModified Time 09/21/2019 imaging/diag nostic result completed [email or web address] Information not available 08/15/2024 20:24:26 09/21/2019 imaging/diag nostic result completed Information not available 08/15/2024 20:24:27 09/21/2019 imaging/diag nostic result completed Information not available 08/15/2024 20:24:28 09/21/2019 imaging/diag nostic result completed Information not available 08/15/2024 20:24:30 09/21/2019 imaging/diag nostic result completed Information not available 08/15/2024 20:24:32 09/22/2019 imaging/diag nostic result completed Information not available 08/15/2024 20:24:33 11/27/2022 imaging/diag nostic result completed Information not available 08/15/2024 20:24:35 11/27/2022 imaging/diag nostic result completed Information not available 08/15/2024 20:24:37 11/27/2022 imaging/diag nostic result completed Information not available 08/15/2024 20:24:39 10/08/2021 XR, ankle completed Information no t available 08/15/2024 20:24:50 11/28/2022 XR, foot completed Information no t available 08/15/2024 20:24:52 11/28/2022 XR, ankle completed Information no t available 08/15/2024 20:24:53 12/08/2022 imaging/diag nostic result completed Information not available 08/15/2024 20:24:56 11/28/2022 imaging/diag nostic result completed Information not available 08/15/2024 20:24:58 10/08/2021 imaging/diag nostic result completed Information not available 08/15/2024 20:24:59 09/22/2019 imaging/diag nostic result completed Information not available 08/15/2024 20:25:02 09/22/2019 imaging/diag nostic result completed Information not available 08/15/2024 20:25:03 09/22/2019 imaging/diag nostic result completed Information not available 08/15/2024 20:25:04 09/22/2019 imaging/diag nostic result completed Information not available 08/15/2024 20:25:05 09/22/2019 imaging/diag nostic result completed Information not available 08/15/2024 20:25:07 09/19/2021 imaging/diag nostic result completed Information not available 08/15/2024 20:25:23 09/19/2021 imaging/diag nostic result completed Information not available 08/15/2024 20:25:25 04/09/2023 imaging/diag nostic result completed Information not available 08/15/2024 20:27:01 09/22/2019 imaging/diag nostic result completed Information not available 08/15/2024 20:27:51 09/23/2019 imaging/diag nostic result completed Information not available 08/15/2024 20:27:52 04/09/2023 imaging/diag nostic result completed Information not available 08/15/2024 20:27:54 09/22/2019 imaging/diag nostic result completed Information not available 08/15/2024 20:27:54 09/22/2019 imaging/diag nostic result completed Information not available 08/15/2024 20:27:56 04/09/2023 imaging/diag nostic result completed Information not available 08/15/2024 20:27:57 04/13/2023 imaging/diag nostic result completed Information not available 08/15/2024 20:27:58 10/08/2021 XR, knee completed Information no t available 08/15/2024 20:28:02 Procedure Notes None recorded. Medical Equipment None Reported. Medications Name Sig Start Date Stop Date Status Note LastModified by Organization Details LastModified Time Prescript ion - Renewal 08/29 completed trazodon e 100 mg tablet[R xRsp] Not Available Not Available Not Available Potassium Chloride CR 20 mEq tablet,ex tended release 2CAP qd 02/14 completed Not Available Not Available Not Available prednison e 10 mg tablet 4 tabs x 3 days, 3 tabs x 3 days, 2 tabs x 3 days and 1 tab x 3 days 04/22 completed Not Available Not Available Not Available gabapenti n 600 mg tablet Take 1 tablet by mouth three times a day 08/31 completed Not Available Not Available Not Available aspirin 325 mg tablet Take 1 tablet by mouth once a day active Not Available Not Available No t Available hydrochlo rothiazid e 50 mg tablet 0.5TAB qam 06/20 completed Not Available Not Available Not Available prednison e 20 mg tablet take 3 tablets for 2d then 2 tablets for 3d 09/07 completed Not Available Not Available Not Available Prilosec 20 mg capsule,d elayed release 1 TAB BID 06/21 completed Not Available Not Available Not Available sertralin e 100 mg tablet TAKE THREE TABLETS BY MOUTH EVERY DAY 2023 active Not Available Not Available Not Avai lable clonazepa m 1 mg tablet TAKE ONE TABLET BY MOUTH EVERY EVENING 2023 active Not Available Not Available Not Avai lable penicilli n V potassium 500 mg tablet 1 tab twice daily for dental infectio n if needed 09/17 completed Not Available Not Available Not Available simvastat in 80 mg tablet Take 1 by mouth daily 12/11 completed Not Available Not Available Not Available allopurin ol 100 mg tablet TAKE ONE TABLET BY MOUTH EVERY DAY active Not Available Not Available No t Available omeprazol e 40 mg capsule,d elayed release Take 1 tab by mouth daily. 05/[address] Kunz Not Available Not Available Not Available amoxicill in 500 mg tablet 1 CAP TID 11/09 completed Not Available Not Available Not Available simvastat in 40 mg tablet Take 1 tab by mouth daily at bedtime 09/07 completed Not Available Not Available Not Available diltiazem ER 120 mg capsule,e xtended release 12 hr Take 1 cap by mouth twice daily 05/17 completed Not Available Not Available Not Available Motrin 800 mg tablet 1TAB bid 05/09 completed Not Available Not Available Not Available propranol ol 10 mg tablet TAKE TWO TABLETS BY MOUTH EVERY MORNING AND ONE TABLET IN THE AFTERNOO N active Not Available Not Available No t Available propranol ol 40 mg tablet take 1/2 tab by mouth twice daily 11/20 completed Not Available Not Available Not Available diltiazem 120 mg tablet TAKE ONE TABLET BY MOUTH EVERY DAY active Not Available Not Available No t Available famotidin e 20 mg tablet TAKE 1 TO 2 TABLETS BY MOUTH EVERY DAY NEEDED active Not Available Not Available No t Available magnesium oxide 400 mg (241.3 mg magnesium ) tablet TAKE ONE TABLET BY MOUTH EVERY DAY active Not Available Not Available No t Available Nitrostat 0.4 mg sublingua l tablet Place 1 tablet under tongue as directed for chest pain every 5 min, max 3 doses. Call 911 after first dose 2012 active Not Available Not Available Not Avai lable Geodon 40 mg capsule 1 tab twice daily 2014 active Not Available Not Available Not Avai lable trazodone 100 mg tablet TAKE ONE TABLET BY MOUTH EVERY EVENING active Not Available Not Available No t Available pantopraz ole 40 mg tablet,de layed release Take 1 tablet by mouth once a day 09/26 completed Not Available Not Available Not Available lisinopri l 10 mg tablet 1 tab qd 10/20 completed Not Available Not Available Not Available indometha julio 50 mg capsule Take 1 capsule by mouth three times a day as needed for gout flare 2020 active Not Available Not Available Not Avai lable docusate sodium 100 mg capsule TAKE ONE CAPSULE BY MOUTH TWICE A DAY NEEDED 2021 active Not Available Not Available Not Avai lable Magnesium -Oxide 400 mg tablet Take 1 tablet by mouth once a day 09/19 completed Not Available Not Available Not Available nadolol 40 mg tablet Take 1 tab by mouth twice daily 02/01 completed Not Available Not Available Not Available furosemid e 20 mg tablet TAKE TWO TABLETS BY MOUTH EVERY DAY NEEDED active Not Available Not Available No t Available diltiazem ER 60 mg capsule,e xtended release 12 hr Take 1 capsule by mouth twice a day 10/13 completed Not Available Not Available Not Available polyethyl sintia glycol 3350 17 gram/dose oral powder TAKE PER COLONOSC OPY DIRECTIO NS PROVIDED BY MD OFFICE 03/17 completed Not Available Not Available Not Available propranol ol 20 mg tablet 1 tab in the AM and 1/2 tab in the PM 12/26 completed Not Available Not Available Not Available Percocet 5 mg-325 mg tablet 1 TAB EVERY 6HRS NEEDED FOR DENTAL PAIN 05/15 completed Not Available Not Available Not Available ziprasido ne 60 mg capsule TAKE ONE CAPSULE BY MOUTH TWICE A DAY active Not Available Not Available No t Available Potassium Chloride CR 10 mEq tablet,ex tended release 1 qd 06/12 completed Not Available Not Available Not Available lamotrigi ne 100 mg tablet Take 1 tablet by mouth once a day 09/19 completed Not Available Not Available Not Available Motrin 400 mg tablet 1TAB twice daily 05/19 completed Not Available Not Available Not Available amoxicill in 875 mg-potass ium clavulana te 125 mg tablet Take 1 tablet by mouth twice a day 05/08 completed Not Available Not Available Not Available pindolol 5 mg tablet 1 tab BID 01/25 completed Not Available Not Available Not Available ezetimibe 10 mg tablet TAKE ONE TABLET BY MOUTH EVERY DAY active Not Available Not Available No t Available Cardizem LA 120 mg tablet,ex tended release Take 1 by mouth daily 02/08 completed Not Available Not Available Not Available rosuvasta tin 10 mg tablet TAKE 1 TABLET BY MOUTH EVERY NIGHT active Not Available Not Available No t Available Vitamin C Take 2 daily active Not Available Not Available No t Available multivita min 1 tab a day 2016 active Not Available Not Available Not Avai lable Vitamin B12 Take 2 daily active Not Available Not Available No t Available Vytorin 10-80 1 qd 12/10 completed Not Available Not Available Not Available FeroSul 325 mg (65 mg iron) tablet TAKE ONE TABLET BY MOUTH ONCE DAILY active Not Available Not Available No t Available Lamictal XR 50 mg tablet,ex tended release 1 qd 2009 active Not Available Not Available Not Avai lable Eliquis 5 mg tablet TAKE ONE TABLET BY MOUTH TWICE A DAY active Not Available Not Available No t Available lidocaine HCl 4 % topical cream 1 as directed to affected area four times a day to left lower leg and foot 2022 active Not Available Not Available Not Avai lable K-Tab 20 mEq tablet,ex tended release 1 tab daily 01/17 completed Not Available Not Available Not Available K2 Plus D3 1,000 unit-100 mcg tablet Take 1 tablet every day by oral route. active Not Available Not Available No t Available magnesium 400 mg (as magnesium oxide) tablet Take 1 tablet by mouth once a day 09/17 completed Not Available Not Available Not Available Vitals Date Recorded Body height Body mass index (BMI) Body weight Oxygen saturation Oxygen saturation in Arterial blood by Pulse oximetry Heart rate Systolic blood pressure Diastolic blood pressure Provider Name and Address Organization Details Last Updated DateTime 4 172.72 cm 28.9 kg/m2 00232.5 5 g 97 % 97 % 49 /min 130 mm[Hg] 64 mm[Hg] David Hoover MA [facility] 4 14:13:09 Date Recorded Body height Body mass index (BMI) Body weight Oxygen saturation Oxygen saturation in Arterial blood by Pulse oximetry Heart rate Systolic blood pressure Diastolic blood pressure Provider Name and Address Organization Details Last Updated DateTime 4 172.72 cm 29.6 kg/m2 67521.0 8 g 98 % 98 % 58 /min 130 mm[Hg] 58 mm[Hg] David Hoover MA [facility] 4 13:04:34 Social History Question Answer Notes LastModified by Organizat ion Details LastModified Time Tobacco Smoking Status Never Smoker David Hoover MA [facility], [facility] 03/17/2024 14:10:03 Date Of Most Recent HSA 08/30/2024 [email or web address] Information not available 08/30/2024 Would You Say That, In General, Your Health Is Good [email or web address] Information not available 08/30/2024 How Often Does Anyone, Including Family, Physically Hurt You? Never [email or web address] Information not available 08/30/2024 How Often Does Anyone, Including Family, Insult Or Talk Down To You? Never Information no t available 08/30/2024 How Often Does Anyone, Including Family, Threaten You With Harm? Never [email or web address] Information not available 08/30/2024 How Often Does Anyone, Including Family, Scream Or Curse At You? Never [email or web address] Information not available 08/30/2024 Within The Past 12 Months, You Worried That Your Food Would Run Out Before You Got Money To Buy More. Never True [email or web address] Information n ot available 08/30/2024 Within The Past 12 Months, The Food You Bought Just Didn't Last And You Didn't Have Money To Get More. Never True [email or web address] Information n ot available 08/30/2024 How Hard Is It For You To Pay For The Very Basics Like Food, Housing, Medical Care, And Heating? Would You Say It Is: Not Hard At All [email or web address] Information not available 08/30/2024 In The Past 12 Months, Has Lack Of Reliable Transportation Kept You From Medical Appointments, Meetings, Work Or From Getting Things Needed For Daily Living? No [email or web address] Information not available 08/30/2024 What Is Your Housing Situation Today? I Have Housing. [email or web address] Information not available 08/30/2024 How Often In The Past Year Have You Used Marijuana (including Smoking, Vaping, Dabbing, Or Edibles)? Never [email or web address] Information not available 08/30/2024 How Often In The Past Year Have You Used Prescription Medications That Were Not Prescribed To You? Never [email or web address] Information n ot available 08/30/2024 How Often In The Past Year Have You Taken Your Own Prescription Medication More Than The Way It Was Prescribed Or For Different Reasons Than Its Intended Purpose? Never [email or web address] Information no t available 08/30/2024 How Often In The Past Year Have You Used Other Drugs (for Example, Heroin, Cocaine, Meth, Salvia, Inhalants)? Never [email or web address] Information not available 08/30/2024 Have You Ever Used IV Drugs? No [email or web address] Information not available 08/30/2024 What Matters Most To You? Staying Alive! [email or web address] Information not available 08/30/2024 During The Past Four Weeks Has Your Physical And Emotional Health Limited Your Social Activities With Family And Friends, Neighbors, Or Groups? Not At All [email or web address] Information not available 08/30/2024 During The Past Four Weeks, Was Someone Available To Help You If You Needed And Wanted Help? (For Example, If You [place] Very Nervous, Lonely, Or Blue; Got Sick And Had To Stay In Bed; Needed Someone To Talk To; Needed Help With Daily Chores; Or Needed Help Just Taking Care Of Yourself.) No- Not At All [email or web address] Information n ot available 08/30/2024 During The Past Four Weeks, What Was The Hardest Physical Activity You Could Do For At Least 2 Minutes? Heavy [email or web address] Information not available 08/30/2024 Can You Get To Places Out Of Walking Distance Without Help? (For Example, Can You Travel Alone On Buses Or Taxis, Or Drive Your Own Car?) Yes [email or web address] Information not available 08/30/2024 Can You Go Shopping For Groceries Or Clothes Without Someone? s Help? Yes [email or web address] Information not available 08/30/2024 Can You Prepare Your Own Meals? Yes [email or web address] Information not available 08/30/2024 Can You Do Your Housework Without Help? Yes [email or web address] Information not available 08/30/2024 Because Of Any Health Problems, Do You Need The Help Of Another Person With Your Personal Care Needs Such As Eating, Bathing, Dressing, Or Getting Around The House? No [email or web address] Information not available 08/30/2024 Can You Handle Your Own Money Without Help? Yes [email or web address] Information not available 08/30/2024 Are You Having Difficulties Driving Your Car? No [email or web address] Information no t available 08/30/2024 Do You Always Fasten Your Seat Belt When You Are In A Car? Yes- Usually Information not available 08/30/2024 How Often During The Past Four Weeks Have You Been Bothered By Any Of The Following Problems? Falling Or Dizzy When Standing Up? Seldom [email or web address] Information not available 08/30/2024 Sexual Problems? Never [email or web address] Informat ion not available 08/30/2024 Trouble Eating Well? Never [email or web address] Information not available 08/30/2024 Teeth Or Denture Problems? Sometimes [email or web address] Information not available 08/30/2024 Problems Using The Telephone? Never [email or web address] Information not available 08/30/2024 Tiredness Or Fatigue? Seldom [email or web address] Information not available 08/30/2024 Have You Had 2 Or More Falls Or Sustained An Injury With A Fall In The Last Year? Yes [email or web address] Information no t available 08/30/2024 Do You Have Difficulty With Walking Or Balance? No Information not available 08/30/2024 Do You Currently Use A Hearing Device? No [email or web address] Information not available 08/30/2024 Do You Currently Have Any Trouble With Your Vision? No [email or web address] Information no t available 08/30/2024 Do You Exercise For About 20 Minutes Three Or More Days A Week? Yes- Some Of The Time [email or web address] Information not available 08/30/2024 Are There Any Safety Concerns In Your Home (see Attached [facility] Pamphlet)? No [email or web address] Information not available 08/30/2024 How Often Do You Have Trouble Taking Medicines The Way You Have Been Told To Take Them? I Always Take Them As Prescribed [email or web address] Information not available 08/30/2024 How Confident Are You That You Can Control And Manage Most Of Your Health Problems? Very Confident [email or web address] Information not available 08/30/2024 Do You Currently Have Any Difficulty With Your Hearing? Yes [email or web address] Information not available 08/30/2024 Date Of Most Recent SBINS 08/30/2024 [email or web address] Information not available 08/30/2024 What Was The Date Of Your Most Recent Tobacco Screening? 03/17/2024 [email or web address] Information not available 03/17/2024 Do You Or Have You Ever Used Any Other Forms Of Tobacco Or Nicotine? No Information not available 03/17/2024 Sex: Male Functional Status None recorded. Mental Status None recorded. Family History Nothing Reported Notes:*Problem: Mother at 83 with ministrokes, mild dementia Father at 71 from a cerebral hemorrhage 3 brothers - 1 from Parkinson's, one s/p prostate CA tx Sister is 2 years older, healthy Other issues are: CAD Essential HTN Alcoholism Stroke Parkinson's [updated 2018] Medical History No medical history recorded. Immunizations Vaccine Type Date Status Provider Name and Address Organization Details Recorded Time COVID-19, mRNA, LNP-S, PF, manfred-sucrose, 30 mcg/0.3 mL 08/30/2024 completed MATTHIAS Powell [facility] 08/30/2024 15:37:42 Influenza, high-dose, trivalent, PF 08/30/2024 completed MATTHIAS Powell [facility] 08/30/2024 15:37:42 Tdap 03/11/2012 completed Not Available [facility] 04:38:36 zoster live 05/19/2013 completed Not Available [facility] 01/10/2024 04:38:36 Pneumococcal conjugate PCV 13 12/04/2016 completed Not Available [facility] 01/10/2024 04:38:36 Influenza, high-dose, trivalent, PF 08/23/2019 completed Not Available [facility] 01/10/2024 04:38:36 Influenza, high-dose, trivalent, PF 09/07/2018 completed Not Available [facility] 01/10/2024 04:38:37 Influenza, high-dose, quadrivalent, PF 12/26/2022 completed Not Available [facility] 01/10/2024 04:38:36 Influenza, high-dose, quadrivalent, PF 09/19/2021 completed Not Available [facility] 01/10/2024 04:38:36 COVID-19 vaccine, vector-nr, rS-Ad26, PF, 0.5 mL 04/19/2021 completed Not Available [facility] 01/10/2024 04:38:36 COVID-19 vaccine, vector-nr, rS-Ad26, PF, 0.5 mL 11/12/2021 completed Not Available [facility] 01/10/2024 04:38:36 COVID-19, mRNA, LNP-S, bivalent, PF, 30 mcg/0.3 mL dose 12/26/2022 completed Not Available [facility] 01/10/20 04:38:36 pneumococcal polysaccharide PPV23 12/08/2014 completed Not Available [facility] 2023 04:38:36 pneumococcal polysaccharide PPV23 09/17/2006 completed Not Available [facility] 2023 04:38:36 pneumococcal polysaccharide PPV23 10/31/2017 completed Not Available [facility] 2023 04:38:36 influenza, unspecified formulation 08/30/2016 completed Not Available [facility] 01/10/2024 04:38:36 influenza, unspecified formulation 09/25/2015 completed Not Available [facility] 01/10/2024 04:38:36 influenza, unspecified formulation 09/29/2011 completed Not Available [facility] 01/10/2024 04:38:36 influenza, unspecified formulation 10/31/2017 completed Not Available [facility] 01/10/2024 04:38:36 Influenza, high-dose, quadrivalent, PF 10/09/2023 completed Not Available [facility] 01/10/2024 04:38:36 COVID-19, mRNA, LNP-S, PF, manfred-sucrose, 30 mcg/0.3 mL 10/09/2023 completed Not Available [facility] 01/10/2024 04:38:36 Past Encounters Encounter ID Performer Location Encounter Start Date Encounter Closed Date Diagnosis/Indication Diagnosis SNOMED-CT Code Diagnosis ICD10 Code [id number] MALENA BARTLETT MD [address] [address] 03/17/2024 13:33:21 03/17/2024 15:29:53 Disorder of vision 17494151 H53.9 Hypercalcemia 47688049 E 83.52 Hypomagnesemia 425563682 E83.42 Neck pain 03981502 M54.2 Pain of le ft knee joint 4189266273 27746 M25.562 Essential hypertension 36387397 I10 [id number] Margaret Gay [address] [address] 08/30/2024 12:37:50 08/30/2024 15:05:41 Adult health examination 773038266 Z00.00 Screening for malignant neoplasm of colon 329675087 Z12.11 Bipolar disorder 7288541 4 F31.9 Anemia 152558498 D64.9 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 071241462 B35.1 Active or passive immunization 596644990 Z23 Impacted cerumen 1746634 6 H61.23 Screening for malignant neoplasm of prostate 420242135 Z12.5 Essential hypertension 68631747 I10 Health Concerns Section Related Observation LastModified by Organization Detai ls LastModified Time None Recorded Concern Status LastModified by Organization Details LastModified Time None Recorded Advance Directives Directive None Recorded Payers Encounter Date Sequence Insurance Name Policy Number Policy Jackson Covered Member ID Jackson Member ID Guarantor Name 03/17/2024 1 MEDICARE [place]: [facility] [employer] Hayden Joy [id number] Hayden Joy 03/17/[address] [facility] (MEDICAID) Hayden Joy [id number] Hayden Joy Notes Date Note Type Note Provider Name and Address Organization Details Recorded Time 03/17/2024 text/html HPI Notes: Very here today to discuss history of episode of neck pain, recent fall with left knee injury, history CAD, hypertension, vision change, hypercalcemia MALENA BARTLETT MD [address], [place], [address], [facility]. 03/19/2024 17:26:56
--- OUTSIDE RECORDS SUMMARY | 2024-08-30 19:00 | XMS_ITS | Encounter Summary ---
Author Organization [facility] Address [address] [place] [address] Care Team Providers Care Yeast Washer Name Role Phone Rosa Bartlett MD Primary Care Provider [phone] Chun Mahoney MD Unavailable [phone] Chun Mahoney MD Unavailable [phone] Encounter Details Date Type Department Care Team (Late st Contact Info) Description 04/20/2021 Lab Requisition [facility] Pathology & Laboratory Medicine - [facility] [address], [place] [id number] Outr Resulting Lab, Provider Social History Tobacco Use Types Packs/Day Years [...] Procedure Name Priority Date/Time Associated Diagnosis Comments PSA TOTAL, DIAGNOSTIC Routine 04/19/2021 12:50 EDT documented in this encounter Results * PSA TOTAL, DIAGNOSTIC (04/19/2021 12:50 EDT) PSA 1.6 0.0 - 6.5 ng/mL 04/22/2021 10:18 EDT [facility] Blood VENOUS BLOOD / Unknown 04/19/2021 12:50 EDT 04/20/2021 21:45 EDT Narrative [facility] - 04/22/2021 10:18 EDT NOTE: Serum PSA concentration should not be interpreted as absolute evidence for the presence or absence of malignant disease. Assayed on [employer]aur XPT using chemiluminescent technology.??Values obtained by using different assay methods cannot be used interchangeably. Provider Outr Resulting Lab CHEMISTRY & BLOOD GAS ORDERABLES [facility] [address] [place] [address] documented in this encounter Visit Diagnoses Not on filedocumented in this encounter Care Teams Yeast Washer Relationship Specialty Start Date End Date Rosa Bartlett MD [address] [place] [id number] PCP - General 05/07/09 Chun Mahoney MD [address] [phone] Photographic Laboratory Technician Gastroenterology 05/06/23 Chun Mahoney MD [address] [phone] Photographic Laboratory Technician Gastroenterology 05/06/23 documented as of this encounter
--- OUTSIDE RECORDS SUMMARY | 2024-08-30 19:00 | XMS_ITS | Encounter Summary ---
Author Organization [facility] Address [address] [place] [address] Care Team Providers Care Wood Casket Assembler Name Role Phone Rosa Bartlett MD Primary Care Provider [phone] Chun Mahoney MD Unavailable [phone] Chun Mahoney MD Unavailable [phone] Encounter Details Date Type Department Care Team (Late st Contact Info) Description 08/05/2023 Lab Requisition [facility] Pathology & Laboratory Medicine - [facility] [address] [place] [address] Elijah Martines MD [address] [place] [phone] Benign neoplasm of colon, unspecified; 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 Please allow time for your provider to receive these results and explore management options, if applicable. 08/07/2023 13:15 [facility] Final Diagnosis A. STOMACH, ANTRUM, BIOPSY: - Antral mucosa with reactive (chemical) gastropathy. - Negative for Helicobacter pylori on H&E stained sections. B. STOMACH, BODY, BIOPSY: - Fundic mucosa with reactive (chemical) gastropathy. - Negative for Helicobacter pylori on H&E stained sections. C. STOMACH, FUNDUS, BIOPSY: - Gastric fundic mucosa with no significant diagnostic abnormalities. - Negative for Helicobacter pylori on H&E stained sections. D. ESOPHAGUS, DISTAL, BIOPSY: - Squamous mucosa with no significant diagnostic abnormalities. 08/07/2023 13:15 [facility] Attestation By the signature below, the attending physician certifies that they have 1) personally conducted a gross and/or microscopic examination of the described specimen(s), and/or personally interpreted the results of laboratory testing of the described specimen(s), and 2) personally rendered or confirmed the above diagnosis. 08/07/2023 13:15 [facility] at 1315 Clinical History Gastritis 08/07/2023 13:15 [facility] Gross Description A. Received in formalin labelled with proper patient identification (initials A, V) and 1. Bx gastric antrum are 2 lorenzana-brown tissues (0.3 x 0.2 x 0.1 cm and 0.4 x 0.3 x 0.2 cm). Entirely submitted in A1. B. Received in formalin labelled with proper patient identification (initials A, V) and 2. Bx gastric body are 2 lorenzana-brown tissues (0.1 x 0.1 x 0.1 cm and 0.6 x 0.5 x 0.2 cm). Entirely submitted in B1, however the smallest tissue may not survive processing. C. Received in formalin labelled with proper patient identification (initials A, V) and 3. Bx gastric fundus are 2 lorenzana-brown tissues (0.3 x 0.2 x 0.1 cm and 0.8 x 0.3 x 0.1 cm). Entirely submitted in C1. D. Received in formalin labelled with proper patient identification (initials A, V) and 4. Bx distal esophagus are 3 white-lorenzana tissues (0.2 x 0.1 x 0.1 cm to 0.3 x 0.3 x 0.2 cm). Entirely submitted in D1. SHELBY MENCHACA(ASCP) 08/06/2023 9:26 08/07/2023 13:15 EDT [facility] Performing Lab [facility] 08/07/2023 13:15 EDT [facility] Scanned Images 08/07/2023 13:15 EDT [facility] Tissue ESOPHAGEAL STRUCTURE / Unknown 08/05/2023 10:58 EDT 08/05/2023 18:03 EDT Tissue specimen (specimen) STOMACH STRUCTURE / Unknown 08/05/2023 10:58 EDT 08/05/2023 18:03 EDT Tissue specimen (specimen) STOMACH STRUCTURE / Unknown 08/05/2023 10:58 EDT 08/05/2023 18:03 EDT Tissue specimen (specimen) ESOPHAGEAL STRUCTURE / Unknown 08/05/2023 10:58 EDT 08/05/2023 18:03 EDT Elijah Martines MD PATHOLOGY [facility]OPE[facility] [address] [place] [address] documented in this encounter Visit Diagnoses Diagnosis Benign neoplasm of colon, 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
--- OUTSIDE RECORDS SUMMARY | 2024-08-30 19:00 | XMS_ITS | Encounter Summary ---
Author Organization [facility] Address [address] [place] [address] Care Team Providers Care In Store Representative Name Role Phone Rosa Padgett MD Primary Care Provider [phone] Encounter Details Date Type Department Care Team (Late st Contact Info) Description 03/01/2008 Results Only [facility] [address] [place] [address] Ravinder Cintron MD [address] [place] [id number] Social History Tobacco Use Types Packs/Day Years Used Date Smoking Tobacco: Never Assessed Sex and Gender Information Value Date Recorded Sex Assigned at Not on file Gender Identity Not on file Sexual Orientation Not on file documented as of this encounter Plan of Treatment Not on file documented as of this encounter Procedures Procedure Name Priority Date/Time Associated Diagnosis Comments SURGICAL PATHOLOGY Routine 03/01/2008 0:00 EDT documented in this encounter Results * SURGICAL PATHOLOGY (03/01/2008 0:00 EDT) Pathology Report: SURGICAL PATHOLOGY REPORT Reports generated via electronic interface contain original data; however they are lacking the format of the original report. Caution should be taken when reading/interpreti ng unformatted reports. Name: ? HAYDEN JOY ? Accession #: ? [id number] ? : ? 1945 (Age: 62) ??M ? Collect Date: ? 03/01/2008 ? Location: ? [facility] ? Receive Date: ? 03/02/2008 ? Provider: RAVINDER CINTRON MD Copy to: ROSA PADGETT MD ? Final Pathologic Diagnosis: A. ?Esophagogastric junction, 35 cm, biopsy: 1. 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 2. ? No dysplasia identified. B. ?Ileocecal valve, biopsy: 1. ?Small intestinal mucosa with no pathologic features. C. ?Colon, cecum, polyp, biopsy: 1. ?Tubular adenoma. D. ?Colon, sigmoid, 30 cm, biopsies: 1. ?Colonic mucosa with no pathologic features. E. ?Rectum, polyps, biopsies: 1. ?Tubular adenoma. 2. ? Hyperplastic polyp. Document reviewed and electronically signed by: VENKATA HAYES MD Report ??Date: 03/06/2008 15:57 By the signature above, the attending physician certifies that he/she has personally conducted a gross and/or microscopic examination of the described specimens and rendered or confirmed the above diagnosis. Specimen(s) Received: A. ?Bx EG jct at 35 cm B. ? Bx ileocecal valve C. ? Cecal polyp D. ? Sigmoid 30 cm bxs E. ? Rectal polyp x 2 Clinical History: ? Rectal bleeding; GERD, R/O Holloway's Gross Description: ? Received in Hollande's fixative labelled Ankner and bx EG jct at 35 cm are two biopsies measuring 0.2 x 0.2 x 0.1 cm and 0.3 x 0.2 x 0.1 cm. ??The specimens are submitted intact as (A). Received in Hollande's fixative labelled Ankner and #2 biopsy ileocecal valve is a 0.3 x 0.2 x 0.2 cm biopsy submitted intact as (B). Received in Hollande's fixative labelled Ankner and #3 cecal polyp is a 0.3 x 0.3 x 0.2 cm biopsy submitted intact as (C). Received in Hollande's fixative labelled Ankner and #4 sigmoid 30 cm bxs are two biopsies measuring 0.2 x 0.2 x 0.1 cm and 0.3 x 0.2 x 0.2 cm. ??The specimens are submitted intact as (D). Received in Hollande's fixative labelled Ankner and rectal polyp x2 are two biopsies which measure 0.2 x 0.2 x 0.1 cm and 0.6 x 0.4 x 0.3 cm. ??The smaller is submitted intact as (E1) and the larger is bisected and submitted entirely as (E2). ??(SIA Cortes)/juvenal End of Report [facility] WING 03/01/2008 03/02/2008 9:1 1 EDT Ravinder Cintron MD PATHOLOGY ORDERABLES [facility] [address] [place] [address] documented in this encounter Visit Diagnoses Not on filedocumented in this encounter Care Teams In Store Representative Relationship Specialty Start Date End Date Rosa Padgett MD [address] [place] [address] PCP - General 05/07/09 documented as of this encounter
--- OUTSIDE RECORDS SUMMARY | 2024-08-30 19:00 | XMS_ITS | Encounter Summary ---
Author Organization [facility] Address [facility] [place] [address] Care Team Providers Care Professor Of Poultry Science Name Role Phone Rosa Bartlett MD Primary Care Provider [phone] Encounter Details Date Type Department Care Team (Late st Contact Info) Description 08/19/2013 10:00 AM EDT - 08/19/2013 10:30 AM EDT [place] [address] Zahraa Rosario MD [facility] [place] [address] UPPER GASTROINTESTINAL ENDOSCOPY,WITH BIOPSY SINGLE OR MULTIPLE (WRVU 2.39) Social History Tobacco Use Types Packs/Day Years Used Date Smoking Tobacco: Never Alcohol Use Standard Drinks/Week Comments No 0 (1 standard drink = 0.6 oz pur e alcohol) Sex and Gender Information Value Date Recorded Sex Assigned at Not on file Gender Identity Not on file Sexual Orientation Not on file documented as of this encounter Last Filed Vital Signs Vital Sign Reading Time Taken Comments Blood Pressure 108/57 08/19/2013 11:38 AM EDT Pulse 54 08/19/2013 11:20 AM EDT Temperature 36.6 ??C (97.9 ??F) 08/19/2013 9:49 AM ED T Respiratory Rate 16 08/19/2013 11:20 AM EDT Oxygen Saturation 97% 08/19/2013 11:32 AM EDT Inhaled Oxygen Concentration - - Weight 108.9 kg (240 lb) 08/19/2013 9:49 AM EDT Height - - Body Mass Index - - documented in this encounter Discharge Instructions * Discharge Instructions* Mojgan Harden RN - 08/19/2013 11:23 AM EDT UPPER GI ENDOSCOPY WHAT TO EXPECT AFTER THE PROCEDURE After the test you may feel a little more gassy or bloated than usual, this is normal. ACTIVITY Because of the sedation that you received Your judgement and reaction time are affected ?? Go home and rest quietly for the remainder of the day. You may resume your normal activities tomorrow. ?? Change from one position to the next slowly. You may lose your balance unexpectedly ?? Be careful on stairs, as you may be unsteady on your feet. {findings; add/repeat ugi finding [id number]} FOR THE NEXT 24 HRS ?? DO NOT DRIVE OR OPERATE ANY MACHINERY ?? DO NOT DRINK ALCOHOLIC BEVERAGES ?? DO NOT SIGN LEGAL DOCUMENTS ?? If you are a smoker: DO NOT SMOKE WHILE YOU ARE ALONE Diet ?? Start by eating small portions of foods that ordinarily will not upset your stomach. Be gentle with what you choose to start with. ?? Drink plenty of fluids ( unless otherwise told not to) Medications You may have a mild sore throat. Ice chips, popsicles, over the counter throat lozenges or spray may help numb your throat. This procedure should not cause a fever. IV SITE-- slight redness or tenderness is normal, you can use warm compresses if you get concerned.If the tenderness +/or redness increases or foul drainage and a red streak occurs, please contact your PCP immediately. WHEN SHOULD YOU CALL FOR HELP? Call 911 anytime you think that you need emergency care. For example, call if: You passed out (lost consciousness). You cough up blood. You vomit blood or what looks like coffee grounds. You pass maroon or very bloody stools. Call your healthcare provider or seek immediate medical attention if: You have trouble swallowing. You have belly pain. Your stools are black or tarlike or have streaks of blood. You are sick to your stomach or cannot keep fluids down. Watch closely for changes in your health, and be sure to contact your doctor IF Your throat still hurts after a day or two You do not get better as expected. [facility] [phone] 8a-5p Same Day Endo [phone] 7a-8p Otherwise contact [phone] and ask to speak to the project admin contract accountant Follow-up care is a trevizo part of your treatment and safety. Be sure to make and go to all appointments, and call your doctor if you are having problems. Instructions have been reviewed and patient expresses understanding documented in this encounter Medications at Time of Discharge Medication Sig Dispensed Refills Start Date End Date sertraline (ZOLOFT) 100 mg tablet Take 300 mg by mouth daily. simvastatin (ZOCOR) 80 mg tablet Take 80 mg by mouth nightly. ezetimibe (ZETIA) 10 mg tablet Take 10 mg by mouth daily. ziprasidone (GEODON) 20 mg capsule Take 20 mg by mouth 2 times daily (with meals). hydrochlorothiazide (HYDRODIURIL) 50 mg tablet Take 50 mg by mouth daily. nadolol (CORGARD) 80 mg tablet Take 80 mg by mouth daily. lisinopril (PRINIVIL;ZESTRIL) 10 mg tablet Take 10 mg by mouth daily. traZODone (DESYREL) 50 mg tablet Take 50 mg by mouth daily as needed. ibuprofen (ADVIL;MOTRIN) 200 mg tablet Take 200 mg by mouth every 6 hours as needed. multivitamin (THERAGRAN) tablet Take 1 tablet by mouth daily. omeprazole (PRILOSEC) 20 mg capsule Take 40 mg by mouth daily. documented as of this encounter H&P Notes * Raphael Steele MD - 08/19/2013 10:37 AM EDT Patient Name: Hayden Joy Patient Age: 67 y.o. Birthdate: 1945 Admit date: 08/19/2013 Attending Physician: Zahraa Rosario MD Patient here for EGD, history of Ramirez's w/ ablation, being evaluated for bariatric surgery. Patient Active Problem List Diagnoses Code ??? Morbid obesity 278.01 ??? Hypertension 401.9 ??? Hyperlipemia 272.4 ??? CAD (coronary artery disease) 414.00 ??? GERD (gastroesophageal reflux disease) 530.81 ??? 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 Depression 311 ??? Bipolar affective disorder 296.80 ??? LVH (left ventricular hypertrophy) 429.3 ??? History of gout V12.29 ??? Panic disorder 300.01 On examination, he appears well and in no distress. Head and neck exam reveals equal, reactive pupils and a supple neck. His chest is clear bilaterally and his heart sounds are normal with no adventitious sounds or murmurs. His abdomen is soft with no masses or tenderness. Extremity and Neuro examsare grossly normal. documented in this encounter Miscellaneous Notes * Miscellaneous - Provider, Scanning - 08/19/2013 3:14 PM EDT * Op Note - Zahraa Rosario MD - 08/19/2013 11:15 AM EDT [facility] [place] Patient Name: Hayden Joy : [id number] MR#: [id number] Case Date: 08/19/2013 Surgeon: Surgeon(s) and Role: * Zahraa Rosraio MD - Primary * Raphael Steele MD - Resident-Mine Supervisor Preoperative diagnosis: preop bariatric surgery, GERD and history of Barretts Postoperative diagnosis: * No post-op diagnosis entered * Procedure(s): UPPER GASTROINTESTINAL ENDOSCOPY,WITH BIOPSY SINGLE OR MULTIPLE anesthesia : MAC See PROVATION REPORT UNDER PROCEDURES * OR Attestation - Zahraa Rosario MD - 08/19/2013 11:15 AM EDT Attestation: Case Date: 08/19/2013 I performed this procedure without the involvement of a resident. As there was no qualified resident available, Dr. Garcia, laparoscopic fellow assisted with procedure. ZAHRAA ROSARIO MD 08/19/2013 documented in this encounter Plan of Treatment Not on file documented as of this encounter Procedures Procedure Name Priority Date/Time Associated Diagnosis Comments SURGICAL PATHOLOGY REPORT Routine 08/19/2013 11:20 AM EDT SPECIMEN TO PATHOLOGY Routine 08/19/2013 11:20 AM EDT SPECIMEN TO PATHOLOGY Routine 08/19/2013 11:20 AM EDT UPPER GASTROINTESTINAL ENDOSCOPY,WITH BIOPSY SINGLE OR MULTIPLE Routine 08/19/2013 11:16 AM EDT Morbid obesity GERD (gastroesophageal reflux disease) Ramirez esophagus UPPER GASTROINTESTINAL ENDOSCOPY,WITH BIOPSY SINGLE OR MULTIPLE (WRVU 2.39) 08/19/2013 10:50 AM EDT Morbid obesity GERD (gastroesophageal reflux disease) Ramirez esophagus UPPER GI ENDOSCOPY Routine 08/19/2013 10 :38 AM EDT documented in this encounter Results * Surgical Pathology Report (08/19/2013 11:20 AM EDT) Surgical Pathology Report ? [facility] ? Provider: ?? ZAHRAA ROSARIO ? Pt. Name: ?? HAYDEN JOY ? Acc #: ?[id number] ?Pt. ? Col Date: ?? 08/19/2013 ? /Sex: ?1945,(67 years),Male ? Rec Date: ?? 08/19/2013 ? LOC: ?4T ? SURGICAL PATHOLOGY ? ---Pathologic Diagnosis--- ? A - Distal esophagus, biopsy: ? Ramirez's esophagus, negative for dysplasia. ? B - Distal esophagus, biopsy: ? Esophageal squamous mucosa, negative for diagnostic abnormality. ? Oxyntocardiac mucosa with mild chronic inflammation, negative for ? intestinal metaplasia or dysplasia. ? CR-0 ? 08/23/13 ? AJE ? 08/23/13 Verified by: ? Severo Woodruff MD ? Pathologist ? (Electronic Signature) ? The attending pathologist whose signature appears on this report has ? reviewed all diagnostic slides and has edited the gross and/or ? microscopic portion of the report in rendering the final pathologic ? diagnosis. ? ---Microscopic Description--- ? Slides reviewed, microscopic description not recorded. ? ---Gross Description--- ? A - Labeled/Fixative: Distal esophagus, esophagitis concerning for ? Ramirez's with additional heterogeneous raised lesion, formalin. ? Quantity/Size: Two, 0.3 and 0.5 cm. ? Tissue Description: Soft, pink tissues. ? Sections/Processi ng: (T1) ? B - Labeled/Fixative: Distal esophagitis, formalin. ? Quantity/Size: Two, 0.1 and 0.4 cm. ? Tissue Description: Soft, pink tissues. ? Sections/Processi ng: (T1) ??sns ? ---Clinical Information--- ? Specimen Submitted: ? A - Distal esophagus, Esophagitis concerning for ramirez's with additional ? heterogeneous raised lesion ? B - Distal esophagitis ? Clinical History: ? [facility] ? Provider: ?? ZAHRAA ROSARIO ? Pt. Name: ?? HAYDEN JOY ? Acc #: ?[id number] ?Pt. ? Col Date: ?? 08/19/2013 ? /Sex: ?1945,(67 years),Male ? Rec Date: ?? 08/19/2013 ? LOC: ?4T ? SURGICAL PATHOLOGY ? GERD, morbid obesity ? Clinical Diagnosis: ? Same KIMBER ARMSTRONG 08/19/2013 11:2 0 AM EDT Zahraa Rosario MD PATHOLOGY/CYTOLOGY O JARRELL Performing Organization Address [facility] Co de Phone Number KIMBER ARMSTRONG * Specimen to Pathology (surgical or derm) (08/19/2013 11:20 AM EDT) AP Specimen 08/19/2013 11:2 0 AM EDT 08/19/2013 11:20 AM EDT Narrative KIMBRE ARMSTRONG - 08/19/2013 11:20 AM EDT Specimen requisition ordered. ??Separate Pathology report to follow Zahraa Rosario MD PATHOLOGY/CYTOLOGY O JARRELL Performing Organization Address [facility] Co de Phone Number KIMBER ARMSTRONG * Specimen to Pathology (surgical or derm) (08/19/2013 11:20 AM EDT) AP Specimen 08/19/2013 11:2 0 AM EDT 08/19/2013 11:20 AM EDT Narrative KIMBER ARMSTRONG - 08/19/2013 11:20 AM EDT Specimen requisition ordered. ??Separate Pathology report to follow Zahraa Rosario MD PATHOLOGY/CYTOLOGY O JARRELL Performing Organization Address City/State/[facility] Co de Phone Number KIMBER ARMSTRONG * UPPER GI ENDOSCOPY (08/19/2013 10:38 AM EDT) UPPER GI ENDOSCOPY [facility] Endoscopy Patient Name: Hayden Joy ? Procedure Date: 08/19/2013 10:38 AM ? Date of : 1945 ? Age: 67 ? Order #: [id number] ? Procedure: ? Upper GI endoscopy Indications: ? Heartburn Providers: ? Zahraa Rosario MD, Nel Gold, ? HAYDER, Jana Hodgson MD: ?Rosa Bartlett MD Medicines: ? See the Anesthesia note for ? documentation of the administered ? medications Complications: ? No immediate complications. Procedure: ? Pre-Anesthesia Assessment: ? - Prior to the procedure, a History ? and Physical was performed, and ? patient medications and allergies ? were reviewed. The patient is ? competent. The risks and benefits of ? the procedure and the sedation ? options and risks were discussed with ? the patient. All questions were ? answered and informed consent was ? obtained. Patient identification and ? proposed procedure were verified by ? the physician and the nurse in the ? pre-procedure area in the procedure ? room. Mental Status Examination: ? alert and oriented. Airway ? Examination: normal oropharyngeal ? airway and neck mobility. Respiratory ? Examination: clear to auscultation. ? CV Examination: normal. ASA Grade ? Assessment: II - A patient with mild ? systemic disease. After reviewing the ? risks and benefits, the patient was ? deemed in satisfactory condition to ? undergo the procedure. The anesthesia ? plan was to use monitored anesthesia ? care (MAC). Immediately prior to ? administration of medications, the ? patient was re-assessed for adequacy ? to receive sedatives. The heart rate, ? respiratory rate, oxygen saturations, ? blood pressure, adequacy of pulmonary ? ventilation, and response to care ? were monitored throughout the ? procedure. The physical status of the ? patient was re-assessed after the ? procedure. ? The procedure, indications, benefits, ? risks and alternatives were explained ? to the patient. Specifically ? discussed were potential ? complications including, but not ? limited to, bleeding, perforation, ? infection, missing a cancer, and ? adverse medication reactions. The ? Endoscope was introduced through the ? mouth, and advanced to the second ? part of duodenum. The patient ? tolerated the procedure well. The ? upper GI endoscopy was accomplished ? without difficulty. The patient ? tolerated the procedure well. ? Findings: ? Ramirez's esophagus was suspected. Multiple tongues ? of salmon-colored mucosa were present with one area ? of heterogeneity and raised lesion that was biopsied. ? Mucosa was biopsied with a cold jumbo forceps for ? histology. Additional jumbo forceps biopsy was ? performed at other quadrants. Biopsy specimens were ? sent to Pathology. ? A small hiatus hernia was present. ? The ampulla, duodenal bulb, first part of the ? duodenum and 2nd part of the duodenum were normal. ? The entire examined stomach was normal. ? Impression: ?- Ramirez's esophagus. ? - Hiatus hernia. ? - Normal ampulla, duodenal bulb, ? first part of the duodenum and 2nd ? part of the duodenum. ? - Normal stomach. Recommendation: ?- No aspirin, ibuprofen, naproxen, or ? other non-steroidal anti-inflammatory ? drugs for 5 days after biopsy. ? - Await pathology results. ? - Return to Bariatric clinic. ? Zahraa Rosario MD 08/19/2013 11:24 AM Number of Addenda: 0 Note Initiated On: 08/19/2013 10:38 AM PROVATION 08/19/2013 10:3 8 AM EDT Rosa Bartlett MD GENERAL SURGICAL ORD ERABLES PROVATION documented in this encounter Visit Diagnoses Diagnosis Morbid obesity GERD (gastroesophageal reflux disease) Esophageal reflux Ramirez esophagus Ramirez's esophagus Morbid obesity GERD (gastroesophageal reflux disease) Esophageal reflux Ramirez esophagus Ramirez's esophagus documented in this encounter Administered Medications Inactive Administered Medications - up to 3 most recent administrations Medication Order MAR Action Action Date Dose Rate Site lactated ringers infusion 50 mL/hr, Intravenous, CONTINUOUS, Starting on Thu08/19/13 at 1000, Until Thu08/19/13 at 1516, Endoscopy (Day of Procedure) New Bag 08/19/2013 10:00 AM EDT 50 mL/hr 50 mL/hr documented in this encounter Active and Recently Administered Medications Times are shown in EDT. Continuous Medication Order 08/17/2013 08/18/2013 08/19/2013 lactated ringers infusion (CANCELED) 50 mL/hr, Intravenous, CONTINUOUS, Starting on Thu08/19/13 at 1000, Until Thu08/19/13 at 1516, Endoscopy (Day of Procedure) 1000 (New Bag - Prov ider: Mojgan Harden RN)1047 (Canceled Entry - Provider: Jessi Rod CRNA) documented in this encounter Care Teams Professor Of Poultry Science Relationship Specialty Start Date End Date Rosa Bartlett MD [address] [place] [address] PCP - General 10/22/10 documented as of this encounter
--- OUTSIDE RECORDS SUMMARY | 2024-08-30 19:00 | XMS_ITS | Encounter Summary ---
Author Organization [facility] Address [address] [place] [address] Care Team Providers Care Bleacher Sulfite Pulp Name Role Phone Rosa Bartlett MD Primary Care Provider [phone] Encounter Details Date Type Department Care Team (Late st Contact Info) Description 08/21/2008 Before PRISM Converted Visit (Maple) [facility] Medicine [address] [address] Ravinder Cintron MD [address] [place] [address] Social History Tobacco Use Types Packs/Day Years Used Date Smoking Tobacco: Never Assessed Sex and Gender Information Value Date Recorded Sex Assigned at Not on file Gender Identity Not on file Sexual Orientation Not on file documented as of this encounter Plan of Treatment Not on file documented as of this encounter Procedures Procedure Name Priority Date/Time Associated Diagnosis Comments SURGICAL PATHOLOGY Routine 08/21/2008 0:00 EDT documented in this encounter Results * SURGICAL PATHOLOGY (08/21/2008 0:00 EDT) Pathology Report: SURGICAL PATHOLOGY REPORT ? Reports generated via electronic interface contain original data; ? however they are lacking the format of the original report. ? Caution should be taken when reading/interpreti ng unformatted reports. ? Name: ? RUFINO, HAYDEN Cartwright ? Accession #: ? [id number] ? : ? 1945 (Age: 62) ??M ? Collect Date: ? 08/21/2008 ? Location: ? [facility] ? Receive Date: ? 08/21/2008 ? Provider: RAVINDER CINTRON MD ? Copy to: ROSA BARTLETT MD ? Final Pathologic Diagnosis: ? Hernia sac, excision: ? - Fragments of fibromembranous tissue and mature adipose tissue with mild ? chronic inflammation, ? consistent with hernia sac. ? Document reviewed and electronically signed by: ? López Long MD ? Report ??Date: 08/23/2008 15:44 ? By the signature above, the attending physician certifies that he/she has ? personally conducted a gross and/or microscopic examination of the described ? specimens and rendered or confirmed the above diagnosis. ? Specimen(s) Received: ? Hernia sac ? Clinical History: ? Incisional hernia ? Gross Description: ? Received in formalin labelled Ankner and hernia sac is a 5.0 x 3.0 x ?? 2.0 cm aggregate of multiple fragments of pink and purple fibromembranous soft ?? tissue with a moderate amount of associated yellow-lorenzana lobulated fat. ? Sectioning reveals a pink-lorenzana cut surface. ??There are no lesions suggestive of a neoplastic process. ??Production Hand sections are submitted in one cassette. ??(Antony Morocho/[facility] ? End of Report ? [facility] 08/21/2008 08/21/2008 10: 00 EDT Ravinder Cintron MD PATHOLOGY ORDERABLES [facility] [address] [place] [address] documented in this encounter Visit Diagnoses Not on filedocumented in this encounter Care Teams Bleacher Sulfite Pulp Relationship Specialty Start Date End Date Rosa Bartlett MD [address] [place] [address] PCP - General 05/07/09 documented as of this encounter
--- OUTSIDE RECORDS SUMMARY | 2024-08-30 19:00 | XMS_ITS | Referral Summary ---
Author Organization [facility] Address [address] [place] [address] Care Team Providers Care Feather Maker Name Role Phone Rosa Bartlett MD Primary Care Provider [phone] Chun Mahoney MD Unavailable [phone] Chun Mahoney MD Unavailable [phone] Allergies No known active allergies Medications Medication Sig Dispensed Refills Start Date End Date Status nadolol (CORGARD) 80 mg tablet Take 80 mg by mouth daily. Active SERTRALINE HCL (SERTRALINE ORAL) Take 300 mg by mouth daily. Active EZETIMIBE/SIMVASTATIN (VYTORIN 10-80 ORAL) Take by mouth daily. Active hydrochlorothiazide (HYDRODIURIL) 50 mg tablet Take 50 mg by mouth daily. Active TRAZODONE HCL (TRAZODONE ORAL) Take by mouth as needed. Active omeprazole (PRILOSEC) 40 mg capsule Take 40 mg by mouth daily. Active ACETAMINOPHEN WITH CODEINE (ACETAMINOPHEN-CODEINE ) 120-12 mg/5 mL solution Take 15 mL by mouth every 4 hours as needed for Pain. 240 mL 0 12/17/2011 Active Miscellaneous Medication - See Admin Instructions Mylanta/viscous Lidocaine 2% in a 3:1 mixture 400 mL 0 12/17/2011 Active Active Problems Problem Noted Date Diagnosed Date Holloway's esophagus 10/08/2010 Social History Tobacco Use Types Packs/Day Years Used Date Smoking Tobacco: Never Smokeless Tobacco: Never Alcohol Use Standard Drinks/Week Comments No 0 (1 standard drink = 0.6 oz pur e alcohol) Sex and Gender Information Value Date Recorded Sex Assigned at Not on file Gender Identity Not on file Sexual Orientation Not on file Last Filed Vital Signs Vital Sign Reading Time Taken Comments Blood Pressure 118/61 12/17/2011 1437 EST Pulse 48 10/08/2011 1036 EST Temperature 36.9 ??C (98.4 ??F) 12/17/2011 1225 EST Respiratory Rate 16 12/17/2011 1437 EST Oxygen Saturation 98% 12/17/2011 1437 EST Inhaled Oxygen Concentration - - Weight 112 kg (247 lb) 12/17/2011 1223 EST Height 177.8 cm (5' 10) 12/17/2011 1223 EST Body Mass Index 35.44 12/17/2011 1223 EST Plan of Treatment Not on file Care Teams Feather Maker Relationship Specialty Start Date End Date Rosa Bartlett MD [address] [place] [address] PCP - General 05/07/09 Chun Mahoney MD [address] [place] [address], [facility], [address] [place] [address] Leather Cartridge Belt Maker Gastroenterology 05/06/23 Chun Mahoney MD [address] [place] [address], [facility] [address] [place] [address] Leather Cartridge Belt Maker Gastroenterology 05/06/23
--- OUTSIDE RECORDS SUMMARY | 2024-08-30 19:00 | XMS_ITS | Encounter Summary ---
Author Organization [facility] Address [address] [place] [address] Care Team Providers Care Communications Engineer Name Role Phone Rosa Bartlett MD Primary Care Provider [phone] Reason for Visit * Reason Comments New Patient Visit Esophageal dysplasia Encounter Details Date Type Department Care Team (Late st Contact Info) Description 10/08/2011 9:20 EST Office Visit [facility] Gastroenterology - [address] [id number] Chun Mahoney MD [address] [place] [address], [address] [place] [address] Holloway's esophagus (Primary Dx) Social History Tobacco Use Types Packs/Day Years [...] Sign Reading Time Taken Comments Blood Pressure 130/80 10/08/2011 1036 EST Pulse 48 10/08/2011 1036 EST Temperature - - Respiratory Rate - - Oxygen Saturation - - Inhaled Oxygen Concentration - - Weight 112 kg (247 lb) 10/08/2011 1030 EST Height 177.8 cm (5' 10) 10/08/2011 1030 EST Body Mass Index 35.44 10/08/2011 1030 EST documented in this encounter Progress Notes * Avelino Wilhelm - 10/08/2011 1149 EST CC: Referral for Holloway's esophagus, GERD Subjective: Hadyen Joy is an 65 y.o. 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 The patient has had reflux for the past several years for which he has been on omeprazole BID since 2007. Pain is described as a burningsensation that is worse post-prandially after eating heavy or spicy foods, though the patient states that he has been adherent to a bland diet with persistent symptoms every other day. He also endorses dysphagia to solids with occasional coughing spells during meals. He denies weight loss, fever, chills, fatigue. He states that he would like to proceed with fundoplication for symptomatic relief and with radiofrequency ablation as discussed with Dr Garcia. Past Medical History Diagnosis Date ??? Hypertension ??? GERD (gastroesophageal reflux disease) ??? Psychiatric problem depression and anxiety ??? Hypertension Family History Problem Relation Age of Onset ??? Alcohol Abuse Father Current Outpatient Prescriptions Medication Sig Dispense Refill ??? omeprazole (PRILOSEC) [...] (TRAZODONE ORAL) Take by mouth as needed. History Social History ??? Marital Status: Single Spouse Name: N/A Number of Children: N/A ??? Years of Education: N/A Occupational History ??? Not on file. Social History Main Topics ??? Smoking status: Never Smoker ??? Smokeless tobacco: Never Used ??? Alcohol Use: No ??? Drug Use: No ??? Sexually Active: Other Topics Concern ??? Not on file Social History Narrative ??? No narrative on file Review of Systems Positive for reflux, dysphagia to solids Negative for fever, chills, n/v/d/c, weight loss, fatigue A 10 point ROS was otherwise negative Objective: Filed Vitals: 10/08/11 1030 10/08/11 1036 BP: 130/80 Pulse: 48 Height: 177.8 cm (70) Weight: 112.038 kg (247 lb) General: Obese, NAD, alert, cooperative HEENT: sclera anicteric, MMM CV: RRR, normal S1 and S2, no murmurs, rubs, gallops Resp: lungs cta bilat, no wheezes or rales GI: abdomen obese, tender to palpation in right umbilical area, normal BS; unable to palpate spleenor liver Extremities: no edema, +2 DP pulses Assessment: 65 year old man presenting for follow up for severe GERD refractory to treatment and low grade Holloway's esophagus. Abdominal pain on exam and dysphagia concerning for other etiology in addition to severe GERD attributing to symptoms such as malignancy. Plan to proceed with EGD in 2 weeks with ablation of Holloway's esophagus with further follow up for fundoplication per Dr Garcia in Surgery. Plan: --EGD in 2 weeks with possible ablation if Hollowya's present --further surgical treatment of refractory GERD per Dr Garcia This patient was seen and discussed with Dr Denzel Wilhelm MD PGY-3 10/08/11 Attestation statement: I saw and examined the patient with the resident/fellow. I agree with the findings and plan of care documented in the resident's/fellow's note. Patient with history of GERD, ongoing symptoms of abdominal pain that may be refractory GERD. Also with history of Holloway's with LGD in the past. Being evaluated for Brandan by Dr. Garcia. RFA of his Holloway's is reasonable in this setting, although the overall risk for adenocarcinoma is low. He has never had surveillance protocol biopsies, so sampling era could be an issue. Will repeat his EGD -- if nothing alarming will proceed with RFA, otherwise will resect any nodules or repeat biopsies as necessary. documented in this encounter Plan of Treatment Not on file documented as of this encounter Visit Diagnoses Diagnosis Holloway's esophagus- Primary documented in this encounter Historical Medications * This list may reflect changes made after this encounter. Medication Sig Dispensed Refills Start Date End Date omeprazole (PRILOSEC) 40 mg capsule Take 40 mg by mouth daily. added in this encounter Care Teams Communications Engineer Relationship Specialty Start Date End Date Rosa Bartlett MD [address] [place] [address] PCP - General 05/07/09 documented as of this encounter
--- OUTSIDE RECORDS SUMMARY | 2024-08-30 19:00 | XMS_ITS | Encounter Summary ---
Author Organization [facility] Address [address] [place] [address] Care Team Providers Care Shift Mechanic Name Role Phone Rosa Bartlett MD Primary Care Provider [phone] Chun Mahoney MD Unavailable [phone] Chun Mahoney MD Unavailable [phone] Encounter Details Date Type Department Care Team (Late st Contact Info) Description 08/28/2023 Lab Requisition [facility] Pathology & Laboratory Medicine - [facility] [address] [place] [address] Outr Resulting Lab, Provider Social History Tobacco [...] Associated Diagnosis Comments PSA TOTAL, DIAGNOSTIC Routine 08/28/2023 11:22 EDT documented in this encounter Results * PSA TOTAL, DIAGNOSTIC (08/28/2023 11:22 EDT) PSA 2.3 <=6.5 ng/mL 08/28/2023 22:47 EDT [facility] Blood VENOUS BLOOD / Unknown 08/28/2023 11:22 EDT 08/28/2023 21:24 EDT Narrative [facility] - 08/28/2023 22:47 EDT NOTE: Serum PSA concentration should not be interpreted as absolute evidence for the presence or absence of malignant disease. Assayed on Siemens [employer] XPT using chemiluminescent technology.??Values obtained by using different assay methods cannot be used interchangeably. Provider Outr Resulting Lab CHEMISTRY & BLOOD GAS ORDERABLES [facility] [address] [place] [address] documented in this encounter Visit Diagnoses Not on filedocumented in this encounter Care Teams Shift Mechanic Relationship Specialty Start Date End Date Rosa Bartlett MD [address] [place] [address] PCP - General 05/07/09 Chun Mahoney MD [address] [place] [phone] Precision Assembler Bench Gastroenterology 05/06/23 Chun Mahoney MD [address] [place] [phone] Precision Assembler Bench Gastroenterology 05/06/23 documented as of this encounter
--- OUTSIDE RECORDS SUMMARY | 2024-08-30 19:00 | XMS_ITS | Encounter Summary ---
Author Organization [facility] Address [address] [place] [address] Care Team Providers Care Recovery Advocate Name Role Phone Rosa Bartlett MD Primary Care Provider [phone] Encounter Details Date Type Department Care Team (Late st Contact Info) Description 10/08/2010 Abstract Used for ABSTRACTING Data [phone] Rosa Bartlett MD [address] [place] [address] Social History Tobacco Use Types Packs/Day Years Used Date Smoking Tobacco: Never Assessed Sex and Gender Information Value Date Recorded Sex Assigned at Not on file Gender Identity Not on file Sexual Orientation Not on file documented as of this encounter Plan of Treatment Not on file documented as of this encounter Visit Diagnoses Not on filedocumented in this encounter Historical Medications * This list may reflect changes made after this encounter. Medication Sig Dispensed Refills Start Date End Date TRAZODONE HCL (TRAZODONE ORAL) Take by mouth as needed. hydrochlorothiazide (HYDRODIURIL) 50 mg tablet Take 50 mg by mouth daily. EZETIMIBE/SIMVASTATIN (VYTORIN 10-80 ORAL) Take by mouth daily. SERTRALINE HCL (SERTRALINE ORAL) Take 300 mg by mouth daily. nadolol (CORGARD) 80 mg tablet Take 80 mg by mouth daily. added in this encounter Care Teams Recovery Advocate Relationship Specialty Start Date End Date Rosa Bartlett MD [address] [place] [address] PCP - General 05/07/09 documented as of this encounter
--- OUTSIDE RECORDS SUMMARY | 2024-08-30 19:00 | XMS_ITS | Encounter Summary ---
Author Organization [facility] Address [address] [place] [address] Care Team Providers Care Traffic Rate Computer Name Role Phone Rosa Bartlett MD Primary Care Provider [phone] Reason for Referral * Consult, Test and Treat (Routine) - Closed Specialty Diagnoses / Procedures Referred By Contact Referred To Contact Gastroenterology and Hepatology Diagnoses Holloway's esophagus with dysplasia Procedures UPPER ENDOSCOPY Chun Mahoney MD [address] [place] [phone] Chun Mahoney MD [address] [place] [phone] Referral ID Status Reason Start Date Expiration Date Visits Re quested Visits Authorized [id number] Closed 04/14/2017 1 1 Encounter Details Date Type Department Care Team (Late st Contact Info) Description 04/13/2017 Orders Only [facility] Gastroenterology - [address] [address] Chun Mahoney MD [address] [place], [place] [phone] Holloway's esophagus with dysplasia (Primary Dx) Social History Tobacco Use Types [...] as of this encounter Plan of Treatment Scheduled Orders Name Type Priority Associated Diagnoses Orde r Schedule UPPER ENDOSCOPY GI Routine Holloway's esophagus with dysplasia Ordered: 04/14/2017 documented as of this encounter Visit Diagnoses Diagnosis Holloway's esophagus with dysplasia- Primary Holloway's esophagus documented in this encounter Care Teams Traffic Rate Computer Relationship Specialty Start Date End Date Rosa Bartlett MD [address] [place] [address] PCP - General 05/07/09 documented as of this encounter
--- OUTSIDE RECORDS SUMMARY | 2024-08-30 19:00 | XMS_ITS | Encounter Summary ---
Author Organization [facility] Address [address] [place] [address] Care Team Providers Care Cooperative Manager Name Role Phone Rosa Bartlett MD Primary Care Provider [phone] Reason for Visit * Reason Onset Date Comments URI 10/30/2011 does he have to cancel his procedure because of a cold? call pt. Encounter Details Date Type Department Care Team (Late st Contact Info) Description 10/30/2011 Telephone [facility] Gastroenterology - [address] [phone] Chun Mahoney MD [address] [place] [address], [address] [place] [address] URI (does he have to cancel his procedure because of a cold? call pt.) Social History Tobacco Use Types Packs/Day Years Used Date Smoking Tobacco: Never Smokeless Tobacco: Never Alcohol Use Standard Drinks/Week Comments No 0 (1 standard drink = 0.6 oz pur e alcohol) Sex and Gender Information Value Date Recorded Sex Assigned at Not on file Gender Identity Not on file Sexual Orientation Not on file documented as of this encounter Miscellaneous Notes * Telephone Encounter - Leni Garcia RN - 10/30/2011 1002 EST Pt w/ cough, sore throat, fever. Has appt w/ PCP today for this. Procedure w/ Dr. Mahoney to be rescheduled. documented in this encounter Plan of Treatment Not on file documented as of this encounter Visit Diagnoses Not on filedocumented in this encounter Care Teams Cooperative Manager Relationship Specialty Start Date End Date Rosa Bartlett MD [address] [place] [address] PCP - General 05/07/09 documented as of this encounter
--- OUTSIDE RECORDS SUMMARY | 2024-08-30 19:00 | XMS_ITS | Encounter Summary ---
Author Organization [facility] Address [facility] [place] [address] Care Team Providers Care Marine Railway Operator Name Role Phone Rosa Bartlett MD Primary Care Provider [phone] Encounter Details Date Type Department Care Team (Late st Contact Info) Description 08/19/2013 10:47 AM EDT Anesthesia Event [place] [address] Lake Horner MD [facility] [address] ANESTHESIOLOGY [place] [address] Jessi Rod CRNA [facility] [address] [place] [address] Anesthesia Record Procedure Summary Procedure Name Responsible Anesthesiologist Anesthesia Start Time Anesthesia Stop Time UPPER GASTROINTESTINAL ENDOSCOPY,WITH BIOPSY SINGLE OR MULTIPLE (WRVU 2.39) (Trunk) Lake Horner MD 08/19/13 1047 08/19/13 1120 Events Date Time Event Comment 08/19/2013 1047 Start 1050 1050 AN Verify 1053 An Start Data 1059 Procedure Start 1113 Procedure Stop 1113 An Start Data 1120 Stop Meds Name Total propofol 100 mg propofol INF 408.38 mg ePHEDrine 20 mg PHENYLephrine 80 mcg lactated ringers infusion 0 mL * Agents Name O2 Auxiliary Flowmeter 1 * Blood No blood administrations on file. Lines, Drains, and Airways Type Details Placement Removal (RETIRED) Peripheral IV Line - Single Lumen 08/19/13; 1010; 08/19/13; 1220 08/19/13 1010 by Mojgan Harden RN 08/19/13 1220 by Mojgan Harden RN documented in this encounter Social History Tobacco Use Types Packs/Day Years Used Date Smoking Tobacco: Never Alcohol Use Standard Drinks/Week Comments No 0 (1 standard drink = 0.6 oz pur e alcohol) Sex and Gender Information Value Date Recorded Sex Assigned at Not on file Gender Identity Not on file Sexual Orientation Not on file documented as of this encounter OR Notes * Anesthesia Postprocedure Evaluation - Lake Horner MD - 08/19/2013 12:41 PM EDT Patient: Hayden Joy Procedure(s) Performed: Procedure(s): UPPER GASTROINTESTINAL ENDOSCOPY,WITH BIOPSY SINGLE OR MULTIPLE Actual Anesthetic: MAC Patient location: PACU Post-op pain: Adequate analgesia Post-op nausea: no nausea or vomiting Last Vitals: Filed Vitals: 08/19/13 1138 BP: 108/57 Pulse: Temp: Resp: Post-op cardiovascular and respiratory status: is stable Level of consciousness: awake, alert and oriented Complications: no apparent complications and tolerated the procedure well Fluid Status: normal * Anesthesia Preprocedure Evaluation - Lake Horner MD - 08/19/2013 10:47 AM EDT Pre-Anesthesia Evaluation for: Hayden Joy a 67 y.o. male. Procedure(s): EGD, UPPER GI ENDOSCOPY Patient Active Problem List Diagnosis ??? Depression ??? Bipolar affective disorder ??? LVH (left ventricular hypertrophy) ??? History of gout ??? Panic disorder ??? Morbid obesity ??? Hypertension ??? Hyperlipemia ??? CAD (coronary artery disease) S/P angioplasty ??? GERD (gastroesophageal reflux disease) ??? Holloway esophagus EGD on 04/13/11 high grade dysplasia No past medical history on file. No past surgical history on file. History Substance Use Topics ??? Smoking status: Never Smoker ??? Smokeless tobacco: Not on file ??? Alcohol Use: No History Drug Use No No Known Allergies Medications: MAR and/or home medications have been reviewed. Physical Exam: There were no vitals filed for this visit. There is no height or weight on file to calculate BMI. Airway Assessment: Mallampati: II TM distance: >3 FB Neck ROM: full Slight limit to mouth opening. Cardiovascular Assessment: Pulmonary Assessment: Dental Assessment: - normal exam [facility] Assessment: Patient is wearing No contact(s). IV access: Peripheral line Anesthesia Plan: ASA 3 MAC, with a(n) intravenous induction Multiple comorbidities, Holloway's ablation in past with poorly tolerated mod sedation. No recent changes in health. Propofol MAC, GA backup. Region - Other Informed Consent: Anesthetic plan and risks discussed with patient. Plan discussed with TOOLING ENGINEERING TECH. [facility]. Assessment: documented in this encounter Plan of Treatment Not on file documented as of this encounter Visit Diagnoses Not on filedocumented in this encounter Administered Medications Inactive Administered Medications - up to 3 most recent administrations Medication Order MAR Action Action Date Dose Rate Site ePHEDrine Sulfate in sodium chloride 0.9% (PF) 50 mg/10 mL (5 mg/mL) injection Syrg PRN, Starting on Thu08/19/13 at 1104, Until Thu08/19/13 at 1120, Anesthesia Intra-op Given 08/19/2013 11:11 AM EDT 10 mg Given 08/19/2013 11:04 AM EDT 10 mg PHENYLephrine HCl in NS (PF) (JIM-SYNEPHRINE) 0.8 mg/10 mL (80 mcg/mL) injection Syrg PRN, Starting on Thu08/19/13 at 1111, Until Thu08/19/13 at 1120, Anesthesia Intra-op, Routine Given 08/19/2013 11:11 AM EDT 80 mcg propofol (DIPRIVAN) 10 mg/mL bolus injection (Anesthesia) PRN, Starting on Thu08/19/13 at 1055, Until Thu08/19/13 at 1120, Anesthesia Intra-op Given 08/19/2013 10:58 AM EDT 20 mg Given 08/19/2013 10:55 AM EDT 80 mg propofol (DIPRIVAN) infusion CONTINUOUS PRN, Starting on Thu08/19/13 at 1055, Until Thu08/19/13 at 1120, Anesthesia Intra-op, Routine New Bag 08/19/2013 10:55 AM EDT 150 mcg/kg/min 98 mL/hr documented in this encounter Care Teams Marine Railway Operator Relationship Specialty Start Date End Date Rosa Bartlett MD [address] [place] [address] PCP - General 10/22/10 documented as of this encounter
--- OUTSIDE RECORDS SUMMARY | 2024-08-30 19:00 | XMS_ITS | Encounter Summary ---
Author Organization [facility] [place] [address] Care Team Providers Care Timber Framer Name Role Phone Rosa Bartlett MD Primary Care Provider [phone] Encounter Details Date Type Department Care Team (Late st Contact Info) Description 06/23/2013 Notes Only [place] [address] Frances Candelaria APRN [facility] [place] [address] Social History Tobacco Use Types Packs/Day Years Used Date Smoking Tobacco: Never Assessed Sex and Gender Information Value Date Recorded Sex Assigned at Not on file Gender Identity Not on file Sexual Orientation Not on file documented as of this encounter Progress Notes * Frances Candelaria - 06/24/2013 4:05 PM EDT BARIATRIC SURGERY PROGRAM SURGICAL TEAM CASE REVIEW Hayden Joy is a 67 y.o. year-old male. His primary care physician is ROSA BARTLETT MD: Dr Bartlett noted in her letter to the [facility] on 06/17/13 he feels that if he has bariatric surgery that will keep him from resuming poor eating habits, and he is hoping that it will continue him at a lower weight Staff present at today's meeting: Lyle Barajas MD, director. MD Jose Candelario MD, Frances Candelaria APRN, Rosa NGO RD Reason for presentation: age >60 Patient Active Problem List Diagnoses Code ??? Morbid obesity 278.01 ??? Hypertension 401.9 ??? Hyperlipemia 272.4 ??? CAD (coronary artery disease) 414.00 ??? GERD (gastroesophageal reflux disease) 530.81 ??? 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 Depression 311 ??? Bipolar affective disorder 296.80 ??? LVH (left ventricular hypertrophy) 429.3 ??? History of gout V12.29 ??? Panic disorder 300.01 No past surgical history on file. Plan of care: more information is needed regarding his upper endoscopy, which reportedly showed lowgrade dysplasia in 2010 (repeat planned), and well as information regarding his cardiac history. Preoperative dietary counseling is recommended, and is planned via his primary care office. He appearsto have unrealistic expectations of surgery believing that surgery alone will change his eating habits, and the importance of education that behavior change plus surgery can assist in weight loss. Hehas significant psychiatric comorbidities, and will need to be engaged in regular psychiatric counseling to be considered for surgery. documented in this encounter Plan of Treatment Not on file documented as of this encounter Visit Diagnoses Not on filedocumented in this encounter Care Teams Timber Framer Relationship Specialty Start Date End Date Rosa Bartlett MD [address] [place] [address] PCP - General 10/22/10 documented as of this encounter
--- OUTSIDE RECORDS SUMMARY | 2024-08-30 19:00 | XMS_ITS | Encounter Summary ---
Author Organization [facility] Address [address] [place] [id number] Care Team Providers Care Lumber Mover Name Role Phone Unavailable Primary Care Provider Unavailabl e Encounter Details Date Type Department Care Team (Late st Contact Info) Description 05/03/2009 Orders Only [facility] ([facility]) [address] [place], [place] [address] Rosa Bartlett MD [address] [place], [place] [id number] Social History Tobacco Use Types Packs/Day Years Used Date Smoking Tobacco: Never Assessed Sex and Gender Information Value Date Recorded Sex Assigned at Not on file Gender Identity Not on file Sexual Orientation Not on file documented as of this encounter Plan of Treatment Not on file documented as of this encounter Procedures Procedure Name Priority Date/Time Associated Diagnosis Comments SURGICAL PATHOLOGY Routine 05/03/2009 0:00 EDT documented in this encounter Results * SURGICAL PATHOLOGY (05/03/2009 0:00 EDT) Pathology Report: SURGICAL PATHOLOGY REPORT ? Reports generated via electronic interface contain original data; ? however they are lacking the format of the original report. ? Caution should be taken when reading/interpreting unformatted reports. ? Name: ? HAYDEN JOY ? Accession #: ? [id number] ? : ? 1945 (Age: 63) ??M ? Collect Date: ? 05/03/2009 ? Location: ? [facility] ? Receive Date: ? 05/04/2009 ? Provider: ROSA BERRIAN MD ? Copy to: ? Final Pathologic Diagnosis: ? A. ?Skin of back, left lower, punch biopsy: ? 1. ?Melanocytic nevus, compound type, with unusual architectural ? features and mild cytologic atypia. See microscopic and comment. ? B. ?Skin of shoulder, right, punch biopsy: ? 1. ?Melanocytic nevus, compound type, with unusual architectural ? features and mild cytologic atypia. ? Comment: ? Both biopsies show a mildly atypical melanocytic nevus. In specimen (B), ?? also present is an incidental lichenoid keratosis (lichen planus-like ? keratosis). Specimen (B) has been shown in intradepartmental consultation. ? Microscopic Description: ? (A and B) ??The epidermis is hyperplastic with elongate and anastomosing ? rete ridges. ??There is a circumscribed proliferation of melanocytes with ? epidermal and dermal components. ??The intraepidermal melanocytes are arranged in nests and as individual cells in a lentiginous pattern. ??The nests predominate ?? and vary in size, shape, and spacing. ??Some of the nests bridge between rete ? ridges. ??Although the individual melanocytes are unevenly spaced in some areas, they show no tendency toward confluent growth or upward migration. ??The ? melanocytes are enlarged and show a mild degree of nuclear size and shape ? variation. ??The dermal component consists of nests and cords of similar ? melanocytes that show turf manager maturation with descent. ??There is papillary ? dermal fibroplasia. ??In specimen (B), one of the tissue fragments shows mild ? epidermal hyperplasia with an underlying dermal lymphomononuclear infiltrate ? which in areas obscures the dermal-epidermal junction. Deeper levels have been ?? examined on specimen (B). ??(Dr. Limon)/[facility] ? Document reviewed and electronically signed by: ? Caryn Limon MD ? Report ??Date: 05/08/2009 08:46 ? By the signature above, the attending physician certifies that he/she has ? personally conducted a gross and/or microscopic examination of the described ? specimens and rendered or confirmed the above diagnosis. ? Specimen(s) Received: ? A. ?Nevus on low back ??6.00 mm - 4.0 mm (#1) ? B. ? Nevus on R shoulder ??4.0 mm diameter (#2) ? Clinical History: ? R/O melanoma ? Gross Description: ? Received in formalin labelled Hayden Joy and L lower back is a ? punch biopsy of lorenzana-white skin measuring 0.7 cm in diameter and 0.6 cm in ? thickness. ??There is an eccentric dark brown well-circumscribed macule measuring 0.5 x 0.4 cm. ??The specimen is bisected and submitted entirely as (A). ? Received in formalin labelled Hayden Joy and R shoulder is a punch ? biopsy of white skin measuring 0.7 cm in diameter and 0.5 cm in thickness. ? There is a central dark brown asymmetrical macule with irregular borders which ?? measures 0.4 x 0.4 cm. ??The specimen is trisected and submitted entirely as (B). (Billy Covarrubias)/[facility] ? End of Report ? [facility] 05/03/2009 05/04/2009 9:1 4 EDT Rosa Bartlett MD PATHOLOGY ORDERABLES [facility] [address] [place] [address] documented in this encounter Visit Diagnoses Not on filedocumented in this encounter
--- OUTSIDE RECORDS SUMMARY | 2024-08-30 19:00 | XMS_ITS | Encounter Summary ---
Author Organization [facility] Address [facility] [place] [address] Care Team Providers Care Chestnut Tanner Name Role Phone Rosa Bartlett MD Primary Care Provider Encounter Details Date Type Department Care Team (Latest Contact Info) Description 08/19/2013 8:38 AM EDT - 08/19/2013 12:30 PM EDT Hospital Encounter [place] [address] Lyle Barajas MD [facility] [place] [address] Betty Rosario MD [facility] [place] [address] Morbid obesity; GERD (gastroesophageal reflux disease); Ramirez esophagus Discharge Disposition: Home Social History Tobacco Use Types Packs/Day Years [...] encounter Discharge Instructions * Discharge Instructions* Mojgan Hraden RN - 08/19/2013 11:23 AM EDT UPPER [...] on your feet. {findings; add/repeat ugi finding GI:20002} FOR THE NEXT 24 HRS ?? DO [...] not get better as expected. Thursday-Thursday Clinic [phone] 8a-5p Same Day Endo [phone] 7a-8p Otherwise contact [phone] and ask to speak to the licensed bondsman chiropractor sole practitioner Follow-up care is a trevizo part of [...] 08/19/2013 10:37 AM EDT Patient Name: Hayden Balderas Patient Age: 67 y.o. Birthdate: 1945 Admit date: 08/19/2013 Attending Physician: Betty Rosario MD Patient here for EGD, history of Ramirze's w/ ablation, being evaluated for bariatric surgery. [...] 3:14 PM EDT * Op Note - Betty Rosario MD - 08/19/2013 11:15 AM EDT [facility] Operative Note Patient Name: Hayden Balderas : [id number] MR#: [id number] Case Date: 08/19/2013 Surgeon: Surgeon(s) and Role: * Betty Rosario MD - Primary * Raphael Steele MD - Resident-Mold Press Operator Preoperative diagnosis: preop bariatric surgery, GERD and history of Barretts Postoperative diagnosis: * No post-op diagnosis entered * Procedure(s): UPPER GASTROINTESTINAL ENDOSCOPY,WITH BIOPSY SINGLE OR MULTIPLE anesthesia : MAC See PROVATION REPORT UNDER PROCEDURES * OR Attestation - Betty Rosario MD - 08/19/2013 11:15 AM EDT Attestation: Case Date: 08/19/2013 I performed this procedure without the involvement of a resident. As there was no qualified resident available, Dr. Garcia, laparoscopic fellow assisted with procedure. BETTY ROSARIO MD 08/19/2013 documented in this encounter [...] 11:20 AM EDT) Surgical Pathology Report ? [facility] ? Provider: ?? BETTY ROSARIO ? Pt. Name: ?? SHERRIE ELIZABETHLIZETT Catrwright ? Acc #: ?[id number] ?Pt. ? Col Date: ?? 08/19/2013 ? [...] - Distal esophagitis ? Clinical History: ? [facility] ? Provider: ?? BETTY ROSARIO ? Pt. Name: ?? HAYDEN BALDERAS ? Acc #: ?[id number] ?Pt. ? Col Date: ?? 08/19/2013 ? /Sex: ?1945,(67 years),Male ? Rec Date: ?? 08/19/2013 ? LOC: ?4T ? SURGICAL PATHOLOGY ? GERD, morbid obesity ? Clinical Diagnosis: ? Same CERNER MILLENNIUM 08/19/2013 11:2 0 AM EDT Betty Roasrio MD PATHOLOGY/CYTOLOGY O JARRELL Performing Organization Address [facility] de Phone Number KIMBER ARTEAGAIUM * Specimen to Pathology (surgical or derm) (08/19/2013 11:20 AM EDT) AP Specimen 08/19/2013 11:2 0 AM EDT 08/19/2013 11:20 AM EDT Narrative CERNER MILLENNIUM - 08/19/2013 11:20 AM EDT Specimen requisition ordered. ??Separate Pathology report to follow Betty Rosario MD PATHOLOGY/CYTOLOGY O JARRELL Performing Organization Address [facility] de Phone Number KIMBER ARTEAGAIUM * Specimen to Pathology (surgical or derm) (08/19/2013 11:20 AM EDT) AP Specimen 08/19/2013 11:2 0 AM EDT 08/19/2013 11:20 AM EDT Narrative CERNER MILLENNIUM - 08/19/2013 11:20 AM EDT Specimen requisition ordered. ??Separate Pathology report to follow Betty Rosario MD PATHOLOGY/CYTOLOGY O JARRELL Performing Organization Address [facility] de Phone Number KIMBER PÉREZENNIUM * UPPER GI ENDOSCOPY (08/19/2013 10:38 AM EDT) UPPER GI ENDOSCOPY [facility] Patient Name: Hayden Balderas ? Procedure Date: 08/19/2013 10:38 AM ? Date of : 1945 ? Age: 67 ? Order #: [id number] ? Procedure: ? Upper GI endoscopy Indications: ? Heartburn Providers: ? Betty Rosario MD, Nel Gold, ? HAYDER, Jana [...] ? - Return to Bariatric clinic. ? Betty Rosario MD 08/19/2013 11:24 AM Number of [...] CRNA) documented in this encounter Care Teams Chestnut Tanner Relationship Specialty Start Date End Date Rosa Bartlett MD [address] [place] [address] PCP - General 10/22/10 documented as of this encounter
--- OUTSIDE RECORDS SUMMARY | 2024-08-30 19:00 | XMS_ITS | Clinical Summary ---
Author Organization [facility] Address [address] [place] [address] Care Team Providers Care Telegraph Repeater Technician Name Role Phone Rosa Bartlett MD Primary Care Provider [phone] Chun Mahoney MD Unavailable [phone] Chun Mahoney MD Unavailable [phone] Allergies No [...] Noted Date Diagnosed Date Holloway's esophagus 10/08/2010 Surgical History Surgery Date Site/Laterality Comments APPENDECTOMY 2007 Medical History Medical History Date Comments Hypertension GERD (gastroesophageal reflux disease) Psychiatric problem depression a nd anxiety Hypertension Colon polyp Mental disorder depression Family History Medical History Relation Comments Alcohol Abuse Father Relation Status Comments Father Social History Tobacco Use Types Packs/Day Years Used Date Smoking Tobacco: Never Smokeless Tobacco: Never Alcohol Use Standard Drinks/Week Comments No 0 (1 standard drink = 0.6 oz pur e alcohol) Sex and Gender Information Value Date Recorded Sex Assigned at Not on file Gender Identity Not on file Sexual Orientation Not on file Obstetrics History Last Filed Vital Signs Vital Sign Reading [...] 35.44 12/17/2011 1223 EST Plan of Treatment Health Maintenance Due Date Last Done Comments Hepatitis C Screen 1945 RSV Immunization ( o r 60+ Years) (1 - 1-dose 60+ series) 2006 Fall Risk Screening 2011 COVID-19 Vaccine (2022- season) 2023 Upper Endoscopy Discontinued 04/14/2017 Care Teams Telegraph Repeater Technician Relationship Specialty Start Date End Date Rosa Bartlett MD [address] [place] [address] PCP - General 05/07/09 Chun Mahoney MD [address] [place] [address], [facility] [address] [place] [phone] Diplomatic Officer Gastroenterology 05/06/23 Chun Mahoney MD [address] [place] [address], [facility] [address] [place] [phone] Diplomatic Officer Gastroenterology 05/06/23
--- OUTSIDE RECORDS SUMMARY | 2024-08-30 19:00 | XMS_ITS | Encounter Summary ---
Author Organization [facility] Address [address] [place] [address] Care Team Providers Care Airplane Pilot Helper Name Role Phone Rosa Padgett MD Primary Care Provider [phone] Encounter Details Date Type Department Care Team (Late st Contact Info) Description 04/20/2017 Results Only [facility] [phone] Vilma Paris MD [address] [place] [address] [address] [place], [place] [id number] Social History Tobacco Use Types Packs/Day Years [...] Date/Time Associated Diagnosis Comments SURGICAL PATHOLOGY Routine 04/20/2017 9:55 EDT documented in this encounter Results * SURGICAL PATHOLOGY (04/20/2017 9:55 EDT) Pathology Report: SURGICAL PATHOLOGY REPORT Reports generated via electronic interface contain original data; however they are lacking the format of the original report. Caution should be taken when reading/interpretin g unformatted reports. Name: ? HAYDEN JOY ? Accession #: ? [id number] ? : ? 1945 (Age: 71) ??M ? Collect Date: ? 04/20/2017 ? Location: ? [facility] ? Receive Date: ? 04/21/2017 ? Provider: VILMA PARIS MD Copy to: ROSA PADGETT MD ? Final Pathologic Diagnosis: A. STOMACH, ANTRUM, BIOPSY: - Antral mucosa with no specific pathologic features. - No Helicobacter pylori-like microorganisms identified on H&E-stained sections. ?? B. GASTROESOPHAGEAL JUNCTION, BIOPSY: - Gastroesophageal junctional mucosa with reflux esophagitis. - Negative for intestinal metaplasia or dysplasia. C. COLON, TRANSVERSE, POLYP, BIOPSY: - Hyperplastic polyp. See comment. Comment: Deeper sections have been examined. ?? Document reviewed and electronically signed by: SARY LEIJA MD Report ??Date: 04/23/2017 11:47 By the signature above, the attending physician certifies that he/she has personally conducted a gross and/or microscopic examination of the described specimens and rendered or confirmed the above diagnosis. Specimen(s) Received: A. ??Antral biopsy for H. pylori (#1) B. ??GE junction (#2) C. ??Transverse colon polyp (#3) Clinical History: Hx of Holloway's, hx of polyps Gross Description: A. ?Received in formalin labelled with proper patient identification (initials A, V) and antral bx for H. pylori are two lorenzana tissues (0.4 x 0.2 x 0.2 cm and 0.3 x 0.3 x 0.2 cm). Entirely submitted in A1. B. ?Received in formalin labelled with proper patient identification (initials A, V) and GE junction are three lorenzana-white tissues (0.5 x 0.3 x 0.2 cm to 0.2 x 0.2 x 0.2 cm). Entirely submitted in B1. C. ?Received in formalin labelled with proper patient identification (initials A, V) and transverse colon polyp is a single lorenzana tissue fragment (0.4 x 0.2 x 0.2 cm). Submitted intact in C1. SHELBY Swann (ASCP) 04/21/2017 11:55 AM End of Report [facility] 04/20/2017 9:55 EDT 04/21/2017 9:55 EDT Vilma Paris MD PATHOLOGY ORDERA DONNA [facility] [address] [place] [address] documented in this encounter Visit Diagnoses Not on filedocumented in this encounter Care Teams Airplane Pilot Helper Relationship Specialty Start Date End Date Rosa Padgett MD [address] [place] [address] PCP - General 05/07/09 documented as of this encounter
--- OUTSIDE RECORDS SUMMARY | 2024-08-30 19:00 | XMS_ITS | Encounter Summary ---
Author Organization [facility] Address [address] [place] [address] Care Team Providers Care Service Advocate Contact Name Role Phone Rosa Padgett MD Primary Care Provider [phone] Encounter Details Date Type Department Care Team (Late st Contact Info) Description 10/03/2007 Results Only [facility] [address] [place] [address] Ravinder Cintron MD [address] [place] [address] Social History Tobacco Use Types Packs/Day Years Used Date Smoking Tobacco: Never Assessed Sex and Gender Information Value Date Recorded Sex Assigned at Not on file Gender Identity Not on file Sexual Orientation Not on file documented as of this encounter Plan of Treatment Not on file documented as of this encounter Procedures Procedure Name Priority Date/Time Associated Diagnosis Comments SURGICAL PATHOLOGY Routine 10/03/2007 0:00 EDT documented in this encounter Results * SURGICAL PATHOLOGY (10/03/2007 0:00 EDT) Pathology Report: SURGICAL PATHOLOGY REPORT Reports generated via electronic interface contain original data; however they are lacking the format of the original report. Caution should be taken when reading/interpreti ng unformatted reports. Name: ? HAYDEN JOY ? Accession #: ? [id number] ? : ? 1945 (Age: 61) ??M ? Collect Date: ? 10/03/2007 ? Location: ? [facility] ? Receive Date: ? 10/04/2007 ? Provider: RAVINDER CINTRON MD Copy to: ROSA PADGETT MD ? Final Pathologic Diagnosis: ? Appendix, appendectomy: - Acute transmural appendicitis with perforation and serositis. Document reviewed and electronically signed by: VENKATA HAYES MD Report ??Date: 10/06/2007 14:10 By the signature above, the attending physician certifies that he/she has personally conducted a gross and/or microscopic examination of the described specimens and rendered or confirmed the above diagnosis. Specimen(s) Received: ? Appendix Clinical History: ? Appendicitis ??ruptured; perforated Gross Description: ? Received in formalin labelled Ankner and perforated appendix is a 6.5 x 1.4 cm vermiform appendix with a 0.5 cm perforation near the tip. ??The serosa is diffusely dusky, cordero-lorenzana with overlying exudate distally and hemorrhagic mesoappendix. ??The mucosa is cordero-lorenzana. ??Firestopper Installer sections are submitted in one cassette. ??(Billy Heller)/[facility] End of Report [facility] 10/03/2007 10/04/2007 21: 27 EST Ravinder Cintron MD PATHOLOGY ORDERABLES [facility] [address] [place] [address] documented in this encounter Visit Diagnoses Not on filedocumented in this encounter Care Teams Service Advocate Contact Relationship Specialty Start Date End Date Rosa Padgett MD [address] [place] [address] PCP - General 05/07/09 documented as of this encounter
--- OUTSIDE RECORDS SUMMARY | 2024-08-30 19:00 | XMS_ITS | Encounter Summary ---
[place] [address] Care Team Providers Care Assisted Living Assistant Name Role Phone Rosa Bartlett MD Primary Care Provider [phone] Reason for Referral * Consultation (Routine) - Cancelled by Alisia PERALTA Office Specialty Diagnoses / Procedures Referred By Prince garcia Referred To Contact Gastroenterology Diagnoses Holloway's esophagus Morbid obesity GERD (gastroesophageal reflux disease) Frances Candelaria APRN [facility] [place] [address] [facility]oscopy [address] [place] [address] Referral ID Status Reason Start Date Expiration Date Visits Requested Visits Authorized [id number] Cancelled by Alisia PERALTA Office Test Only 07/13/2013 01/09/2014 1 1 Encounter Details Date Type Department Care Team (Late st Contact Info) Description 07/13/2013 Orders [place] [phone] Frances Candelaria FIBER WORKER [facility] [place] [address] Holloway's esophagus (Primary Dx); Morbid obesity; GERD (gastroesophageal reflux disease) Social History Tobacco Use Types Packs/Day Years Used Date Smoking Tobacco: Never Assessed Sex and Gender Information Value Date Recorded Sex Assigned at Not on file Gender Identity Not on file Sexual Orientation Not on file documented as of this encounter Plan of Treatment Scheduled Referrals Name Type Priority Associated Diagnoses Order Schedule Referral to Gastroenterology Outpatient Referral Routine Holloway's esophagus Morbid obesity GERD (gastroesophageal reflux disease) Ordered: 07/13/2013 documented as of this encounter Visit Diagnoses Diagnosis Holloway's esophagus- Primary Morbid obesity GERD (gastroesophageal reflux disease) Esophageal reflux documented in this encounter Care Teams Assisted Living Assistant Relationship Specialty Start Date End Date Rosa Bartlett MD [address] [place] [address] PCP - General 10/22/10 documented as of this encounter
--- OUTSIDE RECORDS SUMMARY | 2024-08-30 19:00 | XMS_ITS | Encounter Summary ---
Author Organization [facility] Address [address] [place] [id number] Care Team Providers Care Electricity Trading Analyst Name Role Phone Rosa Padgett MD Primary Care Provider [phone] Encounter Details Date Type Department Care Team (Late st Contact Info) Description 05/14/2011 Results Only [facility] - [facility] [place] [address] [place], [place] [address] Ravinder Cintron MD [address] [place], [place] [address] Social History Tobacco Use Types Packs/Day Years Used Date Smoking Tobacco: Never Assessed Sex and Gender Information Value Date Recorded Sex Assigned at Not on file Gender Identity Not on file Sexual Orientation Not on file documented as of this encounter Plan of Treatment Not on file documented as of this encounter Procedures Procedure Name Priority Date/Time Associated Diagnosis Comments SURGICAL PATHOLOGY Routine 05/14/2011 0:00 EDT documented in this encounter Results * SURGICAL PATHOLOGY (05/14/2011 0:00 EDT) Pathology Report: SURGICAL PATHOLOGY REPORT ? Reports generated via electronic interface contain original data; ? however they are lacking the format of the original report. ? Caution should be taken when reading/interpreti ng unformatted reports. ? Name: ? SHERRIE, HAYDEN Cartwright ? Accession #: ? [id number] ? : ? 1945 (Age: 65) ??M ? Collect Date: ? 05/14/2011 ? Location: ? [facility] ? Receive Date: ? 05/15/2011 ? Provider: RAVINDER CINTRON MD ? Copy to: ROSA PADGETT MD ? Final Pathologic Diagnosis: ? A. ?Stomach, body, biopsy: ? 1. ?Fundic and antral mucosa with mild chronic gastritis and reactive ?? changes. ? 2. ? No Helicobacter pylori-like microorganisms identified on H&E-stained ? sections. ? B. ?Esophagus, 37 cm, biopsy: ? 1. 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 ? 2. ? No dysplasia identified. ? C. ?Colon, ascending, polyps, biopsies: ? 1. ?Tubular adenomas (2). ? 2. ? Cauterized fragment of colonic mucosa with features suggestive of tubular adenoma. ? D. ?Colon, transverse, polyp, biopsy: ? 1. ?Tubular adenoma. ? E. ?Colon, descending, polyp, biopsy: ? 1. ?Tubular adenoma. ? Document reviewed and electronically signed by: ? VENKATA HAYES MD ? Report ??Date: 05/16/2011 14:58 ? By the signature above, the attending physician certifies that he/she has ? personally conducted a gross and/or microscopic examination of the described ? specimens and rendered or confirmed the above diagnosis. ? Specimen(s) Received: ? A. ?Bx gastric body ? B. ? Bx esophagus 37 cm ? C. ? Ascending colon polyps x 3 ? D. ? Transverse colon polyp ? E. ? Descending colon polyp ? Clinical History: ? H/O Holloway's esophagus with low grade dysplasia; H/O colon adenomas; A+B ?? EGD; C-E ??colonoscopy ? Gross Description: ? Received in formalin labelled Hayden Joy and #1 bx gastric body ?? are two lorenzana-pink biopsies measuring 0.3 x 0.2 x 0.1 cm and 0.4 x 0.3 x 0.2 cm. ?? The specimens are submitted intact as (A). ? Received in formalin labelled Hayden Joy and #2 bx esophagus 37 cm are four lorenzana biopsies which vary in size from 0.2 x 0.2 x 0.1 cm up to 0.5 x 0.3 x ?? 0.2 cm. ??The specimens are submitted intact as (B1) and (B2). ? Received in formalin labelled Hayden Joy and #3 ascending colon polyps ?? x3 are three lorenzana biopsies which vary in size from 0.2 x 0.2 x 0.1 cm up to 0.7 x 0.3 x 0.3 cm. ??The specimens are submitted intact as (C). ? Received in formalin labelled Hayden Joy and #4 transverse colon polyp is a lorenzana-pink tissue measuring 0.5 x 0.3 x 0.3 cm. ??The resection margin is ? inked black. ??The specimen is bisected and submitted entirely as (D). ? Received in formalin labelled Hayden Joy and #5 descending colon polyp are two lorenzana tissues measuring 0.4 x 0.2 x 0.1 cm and 0.3 x 0.3 x 0.2 cm. ??The ?? specimens are submitted intact as (E). ??([facility] Cortes)/juvenal ? End of Report ? [facility] 05/14/2011 05/15/2011 9:0 1 EDT Ravinder Cintron MD PATHOLOGY ORDERABLES [facility] [address] [place] [address] documented in this encounter Visit Diagnoses Not on filedocumented in this encounter Care Teams Electricity Trading Analyst Relationship Specialty Start Date End Date Rosa Padgett MD [address] [place] [address] PCP - General 05/07/09 documented as of this encounter
--- OUTSIDE RECORDS SUMMARY | 2024-08-30 19:00 | XMS_ITS | Encounter Summary ---
Author Organization [facility] [place] [address] Care Team Providers Care Salvage Winder And Inspector Name Role Phone Rosa Bartlett MD Primary Care Provider [phone] Encounter Details Date Type Department Care Team (Late st Contact Info) Description 09/20/2013 Notes [place] [address] Frances Candelaria APRN [facility] [place] [address] Social History Tobacco Use Types Packs/Day Years Used Date Smoking Tobacco: Never Alcohol Use Standard Drinks/Week Comments No 0 (1 standard drink = 0.6 oz pur e alcohol) Sex and Gender Information Value Date Recorded Sex Assigned at Not on file Gender Identity Not on file Sexual Orientation Not on file documented as of this encounter Progress Notes * Frances Candelaria - 09/21/2013 12:53 PM EDT BARIATRIC SURGERY PROGRAM SURGICAL TEAM CASE REVIEW Hayden Joy is a 67 y.o. year-old male. His primary care physician is ROSA BARTLETT MD: Staff present at today's meeting: Lyle Barajas MD, director. Satya Lopez MD, Jose Sullivan MD, Frances Candelaria APRN, Rosa NGO RD Reason for presentation: he was previously discussed at team meeting, EGD was advised and done. Review EGD results from 08/19/13. Results: Holloway's esophagus. - Hiatus hernia. - Normal ampulla, duodenal bulb, first part of the duodenum and 2nd part of the duodenum. - Normal stomach.Biopsies negative for intestinal metaplasia Patient Active Problem List Diagnosis Code ??? Morbid obesity 278.01 ??? Hypertension 401.9 ??? Hyperlipemia 272.4 ??? CAD (coronary artery disease) 414.00 ??? GERD (gastroesophageal reflux disease) 530.81 ??? 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 Depression 311 ??? Bipolar affective disorder 296.80 ??? LVH (left ventricular hypertrophy) 429.3 ??? History of gout V12.29 ??? Panic disorder 300.01 Past Surgical History Procedure Date ??? Upper gi endoscopy, biopsy 08/19/2013 UPPER GASTROINTESTINAL ENDOSCOPY,WITH BIOPSY SINGLE OR MULTIPLE performed by Zahraa Feldman MD [facility] ENDOSCOPY Plan of care: will discuss with Dr. Feldman, appears ready to proceed with bariatric surgery evaluation documented in this encounter Plan of Treatment Not on file documented as of this encounter Visit Diagnoses Not on filedocumented in this encounter Care Teams Salvage Winder And Inspector Relationship Specialty Start Date End Date Rosa Bartlett MD [address] [place] [address] PCP - General 10/22/10 documented as of this encounter
--- OUTSIDE RECORDS SUMMARY | 2024-08-30 19:00 | XMS_ITS | Clinical Summary ---
Author Organization [facility] Address [facility] [place] [address] Care Team Providers Care City Supervisor Name Role Phone Rosa Bartlett MD Primary Care Provider [phone] Allergies No known active allergies Medications Medication Sig Dispensed Refills Start Date End Date Status sertraline (ZOLOFT) 100 mg tablet Take 300 mg by mouth daily. Active simvastatin (ZOCOR) 80 mg tablet Take 80 mg by mouth nightly. Active ezetimibe (ZETIA) 10 mg tablet Take 10 mg by mouth daily. Active ziprasidone (GEODON) 20 mg capsule Take 20 mg by mouth 2 times daily (with meals). Active hydrochlorothiazide (HYDRODIURIL) 50 mg tablet Take 50 mg by mouth daily. Active nadolol (CORGARD) 80 mg tablet Take 80 mg by mouth daily. Active lisinopril (PRINIVIL;ZESTRIL) 10 mg tablet Take 10 mg by mouth daily. Active traZODone (DESYREL) 50 mg tablet Take 50 mg by mouth daily as needed. Active ibuprofen (ADVIL;MOTRIN) 200 mg tablet Take 200 mg by mouth every 6 hours as needed. Active multivitamin (THERAGRAN) tablet Take 1 tablet by mouth daily. Active omeprazole (PRILOSEC) 20 mg capsule Take 40 mg by mouth daily. Active Active Problems Problem Noted Date Diagnosed Date Depression 06/24/2013 Bipolar affective disorder 06/24/2013 LVH (left ventricular hypertrophy) 06/24/2013 History of gout 06/24/2013 Panic disorder 06/24/2013 Morbid obesity 06/23/2013 Hypertension 06/23/2013 Hyperlipemia 06/23/2013 CAD (coronary artery disease) 06/23/2013 Overview (06/23/2013): S/P angioplasty GERD (gastroesophageal reflux disease) 3 Holloway esophagus 06/23/2013 Overview (06/23/2013): EGD on 04/13/11 high grade dysplasia Social History Tobacco Use Types Packs/Day [...] - - Body Mass Index - - Plan of Treatment Health Maintenance Due Date Last Done Comments Hepatitis C Screening 1963 Tetanus/Diphtheria/Pertussis Vaccines (1 - Tdap) 10/26 Zoster vaccine (1 of 2) 1996 Advance Directive 2001 Pneumoccocal Vaccine: 65+ (1 of 1 - PCV) 2011 Covid-19 Vaccine (1 - 2022- season) 2024 Influenza (Flu) vaccine (1 o f 1 - Influenza standard series) 07/31/2024 Care Teams City Supervisor Relationship Specialty Start Date End Date Rosa Bartlett MD [address] [place], [place] [address] PCP - General 10/22/10
--- OUTSIDE RECORDS SUMMARY | 2024-08-30 19:00 | XMS_ITS | Encounter Summary ---
Author Organization [facility] Address [facility] [place] [address] Care Team Providers Care Can Tester Name Role Phone Rosa Bartlett MD Primary Care Provider [phone] Encounter Details Date Type Department Care Team (Late st Contact Info) Description 09/09/2013 Telephone [place] [address] Zahraa Feldman MD [facility] [place] [address] Social History Tobacco Use Types Packs/Day Years Used Date Smoking Tobacco: Never Alcohol Use Standard Drinks/Week Comments No 0 (1 standard drink = 0.6 oz pur e alcohol) Sex and Gender Information Value Date Recorded Sex Assigned at Not on file Gender Identity Not on file Sexual Orientation Not on file documented as of this encounter Miscellaneous Notes * Telephone Encounter - Zahraa Feldman MD - 09/09/2013 4:21 PM EDT Called to discuss his pathology results from endoscopy which showed no dysplasia. Will need to be discussed again at team meeting. Unable to reach patient and left message documented in this encounter Plan of Treatment Not on file documented as of this encounter Visit Diagnoses Not on filedocumented in this encounter Care Teams Can Tester Relationship Specialty Start Date End Date Rosa Bartlett MD [address] [place] [address] PCP - General 10/22/10 documented as of this encounter
--- OUTSIDE RECORDS SUMMARY | 2024-08-30 19:00 | XMS_ITS | Encounter Summary ---
Author Organization [facility] [place] [address] Care Team Providers Care Alterations Workroom Clerk Name Role Phone Rosa Bartlett MD Primary Care Provider [phone] Encounter Details Date Type Department Care Team (Late st Contact Info) Description 07/12/2013 Orders [place] [address] Frances Candelaria APRN [facility] [place] [address] Holloway esophagus (Primary Dx); Morbid obesity; GERD (gastroesophageal [...] Priority Associated Diagnoses Orde r Schedule UPPER GI ENDOSCOPY Procedures Routine Holloway esophagus Morbid obesity GERD (gastroesophageal reflux disease) One Time for 1 Occurrences starting 07/12/2013 until 07/12/2013 documented as of this encounter Visit Diagnoses Diagnosis Holloway esophagus- Primary Holloway's esophagus Morbid obesity GERD (gastroesophageal reflux disease) Esophageal reflux documented in this encounter Care Teams Alterations Workroom Clerk Relationship Specialty Start Date End Date Rosa Bartlett MD [address] [place] [address] PCP - General 10/22/10 documented as of this encounter
[2024-08-30 19:30] LABS: HCT 44.7 % (40.0-50.0); HGB 14.6 g/dL (13.5-17.5); MCH 29.6 pg (27.0-33.0); MCHC 32.7 % (32.0-36.0); MCV 91 fL (80-95); MPV 11.3 fL (8.0-11.0); Platelet Count 177 10^3/uL (130-400); RBC 4.93 10^6/uL (4.36-5.78); RDW 14.5 % (11.8-14.1); RDW-SD 48.4 fL; WBC 16.59 10^3/uL (4.4-10.8)
[2024-08-30 19:59] LABS: Anion Gap 12.8 mmol/L (3-11); BUN 21 mg/dL (7-18); CO2 26.2 mmol/L (21.0-32.0); CREATININE 1.2 mg/dL (0.70-1.30); Calcium 9.2 mg/dL (8.5-10.1); Chloride 98 mmol/L (98-107); Estimated GFR 62.29 (mL/min/1.73m2); Ferritin 53 ng/mL (26-388); Glucose 96 mg/dL (74-106); Sodium 137 mmol/L (136-145)
[2024-08-30 20:07] LABS: Vitamin B12 > 2000 pg/mL (193-986)
[2024-08-31 19:30] LABS: PSA, Screening 2.1 ng/mL (<=6.5)
== END 2024-08-30 18:59 | disposition home or self-care (01) ==
LOC: NCHCN 18:58
PROVIDERS: PCP Family Medicine; Visit Provider Family Medicine
DX: D64.9 Anemia, unspecified (principal)
CPT/HCPCS: 80048; 84153; 85027; 82607; 82728

== ENCOUNTER 2025-05-18 11:38 | Outpatient (REF) | payer MEDICARE, MEDICAID, SELFPAY ==
[2025-05-18 16:24] LABS: BUN 22 mg/dL (7-18); CREATININE 1.1 mg/dL (0.70-1.30); Calcium 9.1 mg/dL (8.5-10.1); Chloride 105 mmol/L (98-107); Estimated GFR 68.71 (mL/min/1.73m2); Glucose 72 mg/dL (74-106); Potassium 4.5 mmol/L (3.5-5.1); Sodium 138 mmol/L (136-145)
== END 2025-05-18 11:39 | disposition home or self-care (01) ==
LOC: NCHCN 11:38
PROVIDERS: PCP Family Medicine; Visit Provider Family Medicine
DX: I10 Essential (primary) hypertension (principal)
CPT/HCPCS: 80048

== ENCOUNTER 2025-07-26 01:18 | Outpatient (CLI) | payer MEDICARE, MEDICAID, SELFPAY ==
--- NOTE | 2025-07-26 | DI.NM_ITS ---
Exam(s) NM BONE SCAN 3 PHASE EXAM: NM BONE SCAN 3 PHASE CLINICAL HISTORY: RIB LESION, M89.9, SCLEROTIC DENSITY ON RT 7TH RIB ON CHEST CT AT [facility]. TECHNIQUE: Injected Dose: 25 mCi Tc-99m MDP COMPARISON: CT CT CHEST/ABD/PEL W from 09/21/[address] ABD/PELVIS W CONTRAST from 06/09/[address] CHEST W CONTRAST from 06/09/2025 CR XR HIP RIGHT W PELVIS from 06/09/2025 CR XR HIP PELVIS ADULT BL from 07/26/2025 FINDINGS: Perfusion: Symmetric. Blood Pool: Symmetric. Delayed: No focal area of intense suspicious uptake is seen. There is no abnormal activity seen in the right 7th rib to correspond to the finding seen on the CT scan of the chest from 06/09/2025. There is increased radiotracer activity in the greater trochanter of the right femur corresponding to the p atient's healing greater trochanteric fracture. IMPRESSION: 1. There is normal uptake seen in the right 7th rib. 2. Increased radiotracer uptake in the greater trochanter of the right femur consistent with the patient's healing greater trochanteric fracture. DATA REPOSITORY:
--- NOTE | 2025-07-26 | DI.RAD_ITS ---
Exam(s) XR HIP PELVIS ADULT BL EXAM: XR HIP PELVIS ADULT BL CLINICAL HISTORY: S/P FX FEMUR,Z87.81. TECHNIQUE: 2D digital imaging was performed of the pelvis and bilateral hips. Five images were obtained. AP pelvis and lateral views of both hips were obtained. COMPARISON: CR,XR XR HIP PELVIS ADULT BL from 09/22/2019 CR XR HIP RIGHT W PELVIS from 06/09/2025 FINDINGS: BONES: There is again seen a mildly displaced fracture through the greater trochanter of the right femur. There has developed some callus formation about the fracture suggesting some interval healing. There is a small protrusions seen at the junction of the head and neck laterally in the left femur suggesting femoral acetabular impingement. No bony destructive lesion is seen. JOINTS: No dislocation present. There is mild hypertrophy of the acetabuli bilaterally. SOFT TISSUE: Normal. IMPRESSION: Stable alignment of the displaced fracture of the greater trochanter of the right femur. DATA REPOSITORY: RADIATION DOSE DELIVERED:
== END 2025-07-26 01:38 ==
LOC: DI 01:18
PROVIDERS: PCP Family Medicine; Visit Provider Family Medicine
DX: S72.111A Displaced fracture of greater trochanter of right femur, initial encounter for closed fracture (principal); X58.XXXA Exposure to other specified factors, initial encounter
CPT/HCPCS: 73521; 78315

== ENCOUNTER 2025-11-21 13:24 | Outpatient (REF) | payer MEDICARE, MEDICAID, SELFPAY ==
[2025-11-21 15:33] LABS: HCT 46.0 % (40.0-50.0); HGB 15.1 g/dL (13.5-17.5); MCH 29.8 pg (27.0-33.0); MCHC 32.8 % (32.0-36.0); MCV 91 fL (80-95); MPV 11.2 fL (8.0-11.0); Platelet Count 219 10^3/uL (130-400); RBC 5.07 10^6/uL (4.36-5.78); RDW 13.8 % (11.8-14.1); RDW-SD 45.8 fL; WBC 8.44 10^3/uL (4.4-10.8)
[2025-11-21 15:47] LABS: ALT 19 U/L (10-49); AST 30 U/L (<34); Albumin 4.3 g/dL (3.2-5.0); Alkaline Phosphatase 154 U/L (46-116); Anion Gap 11.2 mmol/L (3-11); BUN 20 mg/dL (9-23); Bilirubin, Total 0.3 mg/dL (0.2-1.2); CO2 26.8 mmol/L (20.0-31.0); Calcium 10.1 mg/dL (8.3-10.6); Chloride 101 mmol/L (98-107); Cholesterol 182 mg/dL (<200); Glucose 85 mg/dL (74-106); HDL Cholesterol 45 mg/dL (>or=40); Potassium 4.3 mmol/L (3.5-5.1); Sodium 139 mmol/L (136-145); Total Protein 7.2 g/dL (5.7-8.2)
[2025-11-21 15:50] LABS: TSH (W/Ref FT4) 1.40 uIU/mL (0.55-4.78)
[2025-11-21 15:56] LABS: Hemoglobin A1C 4.8 % (<5.7)
[2025-11-21 22:48] LABS: PSA, Screening 4.3 ng/mL (<=6.5)
== END 2025-11-21 13:25 | disposition home or self-care (01) ==
LOC: NCHCN 13:24
PROVIDERS: PCP Family Medicine; Visit Provider Family Medicine
DX: Z12.5 Encounter for screening for malignant neoplasm of prostate (principal); E78.5 Hyperlipidemia, unspecified; R63.4 Abnormal weight loss; D64.9 Anemia, unspecified; I10 Essential (primary) hypertension; Z13.1 Encounter for screening for diabetes mellitus
CPT/HCPCS: 80053; 80061; 84153; 85027; 83036; 84443